=== PATIENT | male | born 1950 | race Caucasian/White ===

== ENCOUNTER → 2019-08-24 15:22 | Outpatient (BNVA) | payer MEDICARE, MEDICAID, SELFPAY | PROVIDERS: Family Provider Nurse Practitioner; PCP Nurse Practitioner; Visit Provider Nurse Practitioner | DX: E11.65 Type 2 diabetes mellitus with hyperglycemia (principal); F41.9 Anxiety disorder, unspecified; I10 Essential (primary) hypertension; K21.9 Gastro-esophageal reflux disease without esophagitis; E78.2 Mixed hyperlipidemia; G35 Multiple sclerosis; Z79.4 Long term (current) use of insulin | CPT/HCPCS: 80053; 80061; 83036; 83721 ==

== ENCOUNTER → 2019-10-25 15:45 | Outpatient (BNVA) | payer MEDICARE, MEDICAID, SELFPAY | PROVIDERS: Family Provider Nurse Practitioner; PCP Nurse Practitioner; Visit Provider Nurse Practitioner | DX: G35 Multiple sclerosis (principal); E11.65 Type 2 diabetes mellitus with hyperglycemia; Z79.4 Long term (current) use of insulin; S31.809A Unspecified open wound of unspecified buttock, initial encounter; E78.2 Mixed hyperlipidemia; X58.XXXA Exposure to other specified factors, initial encounter | CPT/HCPCS: 80053; 83036; 85025 ==

== ENCOUNTER → 2020-03-21 11:19 | Outpatient (BNVA) | payer MEDICARE, MEDICAID, SELFPAY | PROVIDERS: Family Provider Nurse Practitioner; PCP Nurse Practitioner; Visit Provider Nurse Practitioner Family | DX: S82.831A Other fracture of upper and lower end of right fibula, initial encounter for closed fracture (principal); X58.XXXA Exposure to other specified factors, initial encounter | CPT/HCPCS: 73610 ==

== ENCOUNTER 2020-03-21 13:04 | Inpatient (IN) | payer MEDICARE, MEDICAID, SELFPAY ==
[2020-03-21 13:08] VITALS: BMI 34.2
--- NOTE | 2020-03-21 13:34 | ED_ITS ---
HPI - Extremity Problem General: Chief complaint: Extremity Injury, Lower Stated complaint: R FOOT PAIN, SWOLLEN Time Seen by Provider: 03/21/20 13:16 History of Present Illness: HPI Narrative: 69-year-old male patient presents to the emergency department with displaced fracture of the right tib-fib. He went to his primary care provider's office due to right lower extremity pain. He reports a fall approximately 2 weeks ago. X-ray today revealed fracture. He was sent to the emergency department. Dr. Cazares plans to take patient to surgery. He is now n.p.o. Complaint: extremity pain (RLE) Pain Consistency: constant Location: right and lower extremity Quality: aching Relieving factors: movement Exacerbating factors: rest Associated symptoms: Reports no associated symptoms; Deny chest pain, fever(s) or rash Context: other (recent fall 2 weeks ago) Review of Systems General: Reports: 10 or more systems reviewed and unremarkable except in HPI and below Const: Denies: fever(s), chills or diaphoresis Eyes: Denies: blurry vision or eye redness ENMT: Denies: throat pain, dental pain or disequilibrium Card: Denies: chest pain, palpitations or irregular heart rhythm Resp: Denies: dyspnea, productive cough, non-productive cough or wheezing GI: Denies: abdominal pain, nausea or vomiting : Denies: dysuria Musc: Reports: extremity swelling (RLE); Denies: neck pain or back pain Skin/Breast: Denies: rash or pruritus Neuro: Denies: headache(s), weakness in extremities or behavioral changes Rohit/Lymph: Denies: easy bruising PFSH ED PFSH: Medical History Acid reflux Anxiety and depression CKD (chronic kidney disease), stage III Controlled diabetes mellitus with hyperglycemia, with long-term current use of insulin DDD (degenerative disc disease) Essential (primary) hypertension Mixed hyperlipidemia Multiple sclerosis Wheel chair as ambulatory aid Surgical History H/O splenectomy History of appendectomy History of back surgery Family History Other Cancer Diabetes Social History Smoking and tobacco status: former smoker Second hand smoke exposure: No Smoking risk assessment/counseling performed?: No Alcohol intake: current Desire information about alcohol rehabilitation?: No Counseling given: No Desire information about substance/drug rehabilitation?: No Counseling given: No Adopted: No Caregiver/support person: Yes Lives independently: No Household members: spouse Marital status: Current occupational status: disabled History of recent travel: No Current gender identity: Male Physical Exam Const: COMMON NORMALS: no acute distress, patient oriented x3, healthy appearing and alert GENERAL APPEARANCE: cooperative, comfortable and well hydrated HENMT: COMMON NORMALS: normocephalic, Normal external nose present and moist oral mucous membranes HEAD & SCALP: normocephalic NOSE: Normal external nose present Eye: COMMON NORMALS: Equal, round and reactive pupils present and EOMs intact bilaterally GENERAL EYE: appearance normal, both eyes and all related structures PUPIL: Yes Equal, round and reactive pupils present Neck/C-Spine: COMMON NORMALS: full ROM and no lymphadenopathy GENERAL: Yes normal visual inspection and Yes trachea midline CERVICAL SPINE: Yes cervical ROM normal Lymph: LYMPHATIC: no lymphadenopathy noted Chest: COMMONS NORMALS: normal inspection of the chest Resp: COMMON NORMALS: normal respiratory effort and clear to auscultation bilaterally AUSCULTATION: clear to auscultation bilaterally Cardio: COMMON NORMALS: regular rhythm, S1 normal heart sound present and S2 normal heart sound present RHYTHM: regular rhythm HEART SOUNDS: S1 normal heart sound present and S2 normal heart sound present PERIPHERAL PULSES: dorsalis pedis present positive right 1+ and positive left 1+ GI: COMMON NORMALS: Normal to inspection, nondistended, normoactive bowel sounds present, Soft to palpation and non-tender INSPECTION: Yes normal to inspection AUSCULTATION: Yes normoactive bowel sounds PALPATION: Yes Soft to palpation : COMMON NORMALS: Yes no CVA tenderness BLADDER/KIDNEY EXAM: Yes no CVA tenderness Back/Pelvis: COMMON NORMALS: no CVA tenderness and thoracic and lumbar spine normal to inspection Extremity: COMMON NORMALS: capillary refill normal GENERAL: Yes normal exam except as noted RIGHT LOWER EXTREMITY: Yes lower leg Right lower leg: Yes inspection (increased swelling), Yes palpation (tender to the distal tib/fib - ankle) and Yes neurovascular exam (distally intact - flexion/extension of the toes noted) Neuro: COMMON NORMALS: patient oriented x3 and no focal motor deficits SENSORIUM/ORIENTATION: Yes alert Psych: COMMON NORMALS: mental status grossly normal, Normal thought process present and cooperative ACTIVITY/MOTOR BEHAVIOR: Yes appropriate eye contact THOUGHT PROCESS: Normal thought process present Skin: COMMON NORMALS: no rashes or lesions noted and turgor normal GENERAL SKIN EXAM: no rashes or lesions noted and turgor normal Course ED course: 69-year-old male patient presents to the emergency department with unstable distal tib-fib fracture. Work-up revealed normal chest x-ray, slightly elevated white count 15,000, urine with hematuria, cath UA, 40-55 white blood cells on cath UA, culture pending, Rocephin 1 g administered here in the ED. Case discussed with Dr. Valdez as well as my conversation with Dr. Queen. Patient will be admitted to inpatient rvices per hospitalist. Consultations: Consultation #1: Dr Cazares -advised we will not be able to complete surgery today. Advised for me to call the on-call orthopedic physician. Time: 16:40 Consultation #2: Dr Nichole -advised patient has elevated white blood count, urinary tract infection, will need surgery. He will need admission as fracture is unstable. Request hospitalist admission due to elevated white blood count with infection. Reports infection to be treated first. She will be happy to consult. Discussed my conversation with Dr. Valdez -Dr. Queen request Covid testing, patient asymptomatic, PTC ordered. Time: 17:00 Vital Signs: Vital signs: Vital Signs Temperature 98.5 F 03/21/20 13:38 Pulse Rate 84 03/21/20 15:20 Respiratory Rate 18 03/21/20 15:20 Blood Pressure 161/89 03/21/20 15:20 Pulse Oximetry 98 03/21/20 15:20 MDM - Extremity (Nontraumatic) Lab Data: Labs: Lab Results 03/21/20 03/21/20 03/21/20 Range/Units 13:52 13:52 13:52 WBC 15.3 H (4.0-10.0) 10^3/ uL RBC 4.49 (4.1-5.3) 10^6/u L Hgb 12.5 (11.7-16.6) g/dL Hct 40.1 L (42.0-52.0) % MCV 89.3 (80-94) fL MCH 27.8 L (28.0-34.0) pg MCHC 31.2 (30.0-36.0) g/dL RDW 13.7 (12.1-15.1) % Plt Count 724 H (130-400) 10^3/c mm MPV 11.2 H (7.4-10.4) fL Neut % (Auto) 64.7 % Lymph % (Auto) 17.8 % [place] % (Auto) 8.5 % Eos % (Auto) 7.3 % Baso % (Auto) 1.2 % Neut # (Auto) 9.89 H (1.8-7.7) 10^3/u L Lymph # (Auto) 2.7 (0.8-4.8) 10^3/u L [place] # (Auto) 1.3 H (0.2-0.9) 10^3/u L Eos # (Auto) 1.1 H (0.0-0.8) 10^3/u L Baso # (Auto) 0.2 H (0.0-0.1) 10^3/u L Nucleated RBC % (a uto) 0 % Nucleated RBCs # 0.0 /100WBC PT 13.80 (12.1-14.9) SECO NDS INR 1.02 (0.8-1.2) APTT 29.8 (23.9-36.7) SECO NDS Sodium 132 L (136-145) mmol/L Potassium 3.5 (3.5-5.1) mmol/L Chloride 97 L (98-107) mmol/L Carbon Dioxide 24 (22-29) mmol/L Anion Gap 14.5 (5-19) BUN 20 (8-23) mg/dL Creatinine 2.1 H (0.7-1.2) mg/dL GFR Calculation 31.4 L (90-130) mL/min Glucose 247 H (65-115) mg/dL POC Glucose (70-110) mg/dL Calculated Osmolal ity 285 (285-295) mOsm/k g Calcium 8.6 (8.5-10.5) mg/dL Total Bilirubin 0.2 (0.15-1.2) mg/dL AST 11 (0-40) U/L ALT 8 (0-41) U/L Alkaline Phosphata se 208 H (40-130) IU/L Total Protein 6.4 L (6.6-8.7) g/dL Albumin 2.8 L (3.5-5.2) g/dL Globulin 3.6 (1.3-4.6) g/dL Urine Color (Yellow) Urine Appearance (CLEAR) Urine pH (5-7) Ur Specific Gravit y (1.005-1.030) Urine Protein (Negative) Urine Glucose (UA) (Normal) Urine Ketones (Negative) Urine Blood (Negative) Urine Nitrate (Negative) Urine Bilirubin (Negative) Urine Urobilinogen (Negative) mg/dL Ur Leukocyte Odalis ase (Negative) Urine RBC (0-2) /hpf Urine WBC (0-5) /hpf Ur Squamous Epith Cells (0-5) /hpf Amorphous Sediment /hpf Urine Bacteria (NONE) /hpf Urine Yeast /hpf 03/21/20 03/21/20 Range/Units 14:04 15:14 WBC (4.0-10.0) 10^3/ uL RBC (4.1-5.3) 10^6/u L Hgb (11.7-16.6) g/dL Hct (42.0-52.0) % MCV (80-94) fL MCH (28.0-34.0) pg MCHC (30.0-36.0) g/dL RDW (12.1-15.1) % Plt Count (130-400) 10^3/c mm MPV (7.4-10.4) fL Neut % (Auto) % Lymph % (Auto) % [place] % (Auto) % Eos % (Auto) % Baso % (Auto) % Neut # (Auto) (1.8-7.7) 10^3/u L Lymph # (Auto) (0.8-4.8) 10^3/u L [place] # (Auto) (0.2-0.9) 10^3/u L Eos # (Auto) (0.0-0.8) 10^3/u L Baso # (Auto) (0.0-0.1) 10^3/u L Nucleated RBC % (a uto) % Nucleated RBCs # /100WBC PT (12.1-14.9) SECO NDS INR (0.8-1.2) APTT (23.9-36.7) SECO NDS Sodium (136-145) mmol/L Potassium (3.5-5.1) mmol/L Chloride (98-107) mmol/L Carbon Dioxide (22-29) mmol/L Anion Gap (5-19) BUN (8-23) mg/dL Creatinine (0.7-1.2) mg/dL GFR Calculation (90-130) mL/min Glucose (65-115) mg/dL POC Glucose 223 (70-110) mg/dL Calculated Osmolal ity (285-295) mOsm/k g Calcium (8.5-10.5) mg/dL Total Bilirubin (0.15-1.2) mg/dL AST (0-40) U/L ALT (0-41) U/L Alkaline Phosphata se (40-130) IU/L Total Protein (6.6-8.7) g/dL Albumin (3.5-5.2) g/dL Globulin (1.3-4.6) g/dL Urine Color Yellow (Yellow) Urine Appearance Sl hazy (CLEAR) Urine pH 6 (5-7) Ur Specific Gravit y 1.015 (1.005-1.030) Urine Protein 3+ H (Negative) Urine Glucose (UA) 4+ H (Normal) Urine Ketones Negative (Negative) Urine Blood Trace H (Negative) Urine Nitrate Negative (Negative) Urine Bilirubin Neg (Negative) Urine Urobilinogen Norm (Negative) mg/dL Ur Leukocyte Odalis ase Negative (Negative) Urine RBC 5-10 H (0-2) /hpf Urine WBC 40-55 H (0-5) /hpf Ur Squamous Epith Cells 5-10 H (0-5) /hpf Amorphous Sediment 1+ /hpf Urine Bacteria 3+ H (NONE) /hpf Urine Yeast Trace /hpf Imaging Data^: Xray Ortho: Radiologist's impression: [facility] [address] [place] [address] XRay Report Signed Patient: London Quach #: [id number] : 1950Acct#:[id number] Age/Sex: 69 / MADM Date: 03/21/20 Loc: ALTRoom/Bed: Attending Dr: Sophia MACHUCAP-C Ordering Provider/Ordering MD: Sophia Navarrete Date of Service: 03/21/20 Procedure(s): XR ankle RT min 3V* [id number] Accession Number(s): [id number] Report Number: [id number] PROCEDURE INFORMATION: Exam: XR Right Ankle Exam date and time: 03/21/2020 11:38 AM Age: 69 years old Clinical indication: Pain; Ankle; Right; Additional info: Pain, injury TECHNIQUE: Imaging protocol: XR Right ankle. Views: 3 or more views. COMPARISON: MRI Foot w/wo RIGHT [id number] 10/30/2015 10:28 AM FINDINGS: Bones/joints: There is a comminuted oblique fracture through the distal tibia with the distal fragment displaced posteromedially by about 12 mm. There is also oblique fracture through the distal fibula which is also displaced medially. The ankle mortise remains intact. No talar fracture is seen. Soft tissues: There is prominent soft tissue swelling around the ankle joint. Prominent atherosclerotic calcifications are present. XR/XR ankle RT min 3V* [id number] IMPRESSION: Comminuted displaced fractures of the distal tibia and fibula. Dictated By:Gio Nguyễn Signed By:Jennifer Nguyễn Date/Time:03/21/20 1203 DD/ 1201 CXR: Radiologist's impression: [address] [address] XRay Report Signed Patient: London Quach Unit #: [id number] : 1950 10 Age/Sex: 69 / M ADM Date: 03/21/20 Loc: ER Room/Bed: Attending Dr: Ordering Provider/Ordering MD: Maggie Bauer Date of Service: 03/21/20 Procedure(s): XR chest 1V portable [id number] Accession Number(s): [id number] Report Number: [id number] PROCEDURE INFORMATION: Exam: XR Chest, 1 View Exam date and time: 03/21/2020 1:48 PM Age: 69 years old Clinical indication: Other: Syncope TECHNIQUE: Imaging protocol: XR of the chest Views: 1 view. COMPARISON: CR Chest 1 [place] [id number] 10/30/2015 2:35 PM FINDINGS: Lungs: Unremarkable. No consolidation. Pleural space: Unremarkable. No pleural effusion. No pneumothorax. Heart/Mediastinum: Unremarkable. No cardiomegaly. Bones/joints: Unremarkable. XR/XR chest 1V portable [id number] IMPRESSION: No acute findings. Dictated By: Gio Nguyễn Signed By: Gio Nguyễn Signed Date/Time: 03/21/20 1406 Discharge Plan Discharge Prescriptions: No Action mupirocin 2 % ointment 1 applic TOPICAL BID Qty: 22 RF: 0 hydralazine 25 mg tablet 25 mg PO BID Qty: 60 RF: 2 gabapentin 600 mg tablet 600 mg PO TID Qty: 90 RF: 2 furosemide 40 mg tablet 40 mg PO DAILY Qty: 30 RF: 2 folic acid 1 mg tablet 1 mg PO DAILY Qty: 30 RF: 2 fenofibrate nanocrystallized 145 mg tablet 145 mg PO DAILY Qty: 30 RF: 2 famotidine 20 mg tablet 20 mg PO BID Qty: 60 RF: 2 ergocalciferol (vitamin D2) 1,250 mcg (50,000 unit) capsule 1,250 mcg PO .Weekly Qty: 4 RF: 2 Trulicity 1.5 mg/0.5 mL pen injector 1.5 mg SUBCUT .weekly Qty: 2 RF: 2 carbamazepine [Tegretol XR] 200 mg tablet extended release 12 hr 200 mg PO BID Qty: 60 RF: 2 atorvastatin [Lipitor] 20 mg tablet 20 mg PO DAILY Qty: 30 RF: 2 buspirone 15 mg tablet 15 mg PO TID Qty: 90 RF: 2 lisinopril 20 mg tablet 20 mg PO BID Qty: 60 RF: 2 metoprolol succinate [Toprol XL] 50 mg tablet extended release 24 hr 50 mg PO DAILY Qty: 30 RF: 2 (DME) pen needle, diabetic [BD Ultra-Fine Nadia Pen Needle] 32 gauge x 5/32 needle See Rx Instructions .ROUTE .MEDSUPPLY Qty: 100 RF: 5 potassium chloride 10 mEq tablet extended release 10 meq PO DAILY Qty: 30 RF: 2 venlafaxine [Effexor XR] 75 mg capsule,extended release 24hr 225 mg PO DAILY Qty: 90 RF: 2 Tresiba FlexTouch U-200 200 unit/mL (3 mL) insulin pen 80 unit SUBCUT DAILY Qty: 9 RF: 2 MediHoney (honey) 100 % paste 1 applic TOPICAL BID Qty: 528 RF: 0 aspirin [Aspir-Low] 81 mg tablet,delayed release (DR/EC) 81 mg PO DAILY RF: 0 sennosides-docusate sodium [Senokot-S] 8.6-50 mg tablet 1 tab-cap PO DAILY RF: 0 solifenacin [Vesicare] 10 mg tablet 10 mg PO DAILY RF: 0 insulin aspart U-100 [Novolog Flexpen U-100 Insulin] 100 unit/mL (3 mL) insulin pen 12 - 24 unit SUBCUT TID Qty: 15 RF: 2 Coding Level of Care Code ED Outside Repairer Special for Keila Fwd Exam Comprehensive
--- NOTE | 2020-03-21 13:36 | XRR_ITS ---
PROCEDURE INFORMATION: Exam: XR Chest, 1 View Exam date and time: 03/21/2020 1:48 PM Age: 69 years old Clinical indication: Other: Syncope TECHNIQUE: Imaging protocol: XR of the chest Views: 1 view. COMPARISON: CR Chest 1 [place] [id number] 10/30/2015 2:35 PM FINDINGS: Lungs: Unremarkable. No consolidation. Pleural space: Unremarkable. No pleural effusion. No pneumothorax. Heart/Mediastinum: Unremarkable. No cardiomegaly. Bones/joints: Unremarkable. XR/XR chest 1V portable [id number] IMPRESSION: No acute findings.
--- NOTE | 2020-03-21 13:36 | ECG_ITS ---
[facility] Test Date: 2020-03-21 Pat Name: London Quach Department: Room: Gender: Male [employer] Buster: : 1950 Requested By: Maggie Sheth Order Number: [id number] Andrew MD: Saida Alegre M.D. Measurements Intervals [place] Rate: 81 P: -11 DC: 197 QRS: 40 QRSD: 83 T: 29 QT: 365 QTc: 424 Interpretive Statements SINUS RHYTHM WITH OCCASIONAL VENTRICULAR PREMATURE COMPLEXES Compared to ECG 01/07/2018 17:16:25 Ventricular premature complex(es) now present Electronically Signed On 03-21-2020 21:48:13 CDT by Saida Alegre M.D. [email or web address]
[2020-03-21 13:38] VITALS: BP 169/93; PULSE 67; RESP 18; TEMP 36.9; O2SAT 98
[2020-03-21 14:20] LABS: Alanine Aminotransferase 8 U/L (0-41); Albumin Level 2.8 g/dL (3.5-5.2); Alkaline Phosphatase 208 IU/L (40-130); Anion Gap 14.5 (5-19); Aspartate Amino Transferase 11 U/L (0-40); Blood Urea Nitrogen 20 mg/dL (8-23); Calcium 8.6 mg/dL (8.5-10.5); Carbon Dioxide 24 mmol/L (22-29); Chloride 97 mmol/L (98-107); Globulin 3.6 g/dL (1.3-4.6); Glomerular Filtration Rate 31.4 mL/min (90-130); Glucose 247 mg/dL (65-115); Osmolality Calculated 285 mOsm/kg (285-295); Potassium 3.5 mmol/L (3.5-5.1); Sodium 132 mmol/L (136-145); Total Bilirubin 0.2 mg/dL (0.15-1.2); Total Protein 6.4 g/dL (6.6-8.7)
[2020-03-21 14:25] LABS: INR 1.02 (0.8-1.2)
[2020-03-21 14:26] LABS: Partial Thromboplastin Time 29.8 SECONDS (23.9-36.7)
[2020-03-21 14:58] LABS: Add Urine Microscopic? YES; Bilirubin Urine Neg (Negative); Blood Urine Trace (Negative); Glucose Urine UA 4+ (Normal); Ketones Urine Negative (Negative); Leukocyte Esterase Urine Negative (Negative); Nitrate Urine Negative (Negative); Protein Urine 3+ (Negative); Specific Gravity, Urine 1.015 (1.005-1.030); Urine Appearance SL Hazy (CLEAR); Urine Color Yellow (Yellow); Urobilinogen Urine Norm (Negative); pH Urine 6 (5-7)
[2020-03-21 15:00] LABS: Amorphous Sediment Urine 1+ /hpf; Bacteria Urine 3+ /hpf; WBC Urine 40-55 /hpf (0-5)
[2020-03-21 15:01] LABS: Add Urine Culture? Yes
[2020-03-21 15:02] LABS: Basophils # 0.2 10^3/uL (0.0-0.1); Basophils % 1.2 %; Eosinophils # 1.1 10^3/uL (0.0-0.8); Eosinophils % 7.3 %; Hematocrit 40.1 % (42.0-52.0); Hemoglobin 12.5 g/dL (11.7-16.6); Lymphocytes # 2.7 10^3/uL (0.8-4.8); Lymphocytes % 17.8 %; Mean Corpuscular HGB Conc 31.2 g/dL (30.0-36.0); Mean Corpuscular Hemoglobin 27.8 pg (28.0-34.0); Mean Corpuscular Volume 89.3 fL (80-94); Mean Platelet Volume 11.2 fL (7.4-10.4); Monocytes # 1.3 10^3/uL (0.2-0.9); Monocytes % 8.5 %; Neutrophils # 9.89 10^3/uL (1.8-7.7); Neutrophils % 64.7 %; Nucleated Red Blood Cells % 0 %; Platelet Count 724 10^3/cmm (130-400); Red Blood Count 4.49 10^6/uL (4.1-5.3); Red Cell Distribution Width 13.7 % (12.1-15.1); White Blood Count 15.3 10^3/uL (4.0-10.0)
[2020-03-21 15:17] VITALS: RESP 20; O2SAT 97
[2020-03-21] MEDS: lactated ringers 1,000 ML 30 ML IV (15:17)
[2020-03-21] MEDS: morphine 4 mg/mL SDV 1 mL 2 MG IVP (15:17)
[2020-03-21 15:20] VITALS: BP 161/89; PULSE 84; RESP 18; O2SAT 98
[2020-03-21 15:20] LABS: Glucose Point of Care 223 mg/dL (70-110)
[2020-03-21] MEDS: cefTRIAXone 1,000 MG in sodium chloride 0.9% (plus) 50 ML 100 MG IV (17:07)
--- NOTE | 2020-03-21 17:55 | P.HP_ITS ---
Providers/Chief Complaint Primary Care Provider: LADI Silverio-C Chief Complaint: R FOOT PAIN, SWOLLEN History of Present Illness London Quach is a 69 year old male was referred to emergency department from primary care physician's office because of unstable right tib-fib fracture which patient developed approximately 2 weeks ago when he was trying to transfer himself from wheelchair to his car. Apparently he ended up having significant pressure on his right leg and developed fracture. This was purely mechanical process. Patient denied any complaints at that time or during my evaluation. Patient has MS and wheelchair bound. 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 Patient denies any burning on urination otherwise. His UA was concerning for underlying UTI but cannot be identified for sure because of self- catheterization's. Patient has diabetes for many years but denies any previous history of heart disease or stroke. Denies any chest pain or shortness of breath. Denies paroxysmal chewing dyspnea, orthopnea or lower extremity swelling. He does however report taking daily Lasix as his lower extremities get swollen without it likely due to paralysis and gravity. Patient clinically appears to be slightly dehydrated. Dr. Nichole was consulted by Dr. Valdez and plan to perform surgery tomorrow or next day. Review of Systems Narrative: Patient denies any trouble swallowing. Reports some chronic buttock sores but otherwise no open lesions. Const: Denies: fever(s) or chills Eyes: Denies: change in vision ENMT: Denies: throat pain or change in hearing Card: Denies: chest pain, edema or lightheadedness Resp: Denies: dyspnea or productive cough GI: Denies: abdominal pain, nausea, vomiting, dysphagia, diarrhea, constipation, hematochezia or melena : Reports: difficulty urinating (daily self catherizations); Denies: dysuria Musc: Denies: joint pain or joint swelling Skin/Breast: Denies: rash or erythema Neuro: Denies: headache(s) or weakness in extremities Psych: Denies: depression or suicidal ideation Endo: Denies: excessive sweating Rohit/Lymph: Denies: easy bleeding or tender lymph nodes All/Imm: Denies: throat swelling Medications/Allergies Home Medications Medication Instructions Recorded Confirmed Last Taken Type aspirin 81 mg tablet,delayed 81 mg PO DAILY 07/19/19 03/21/20 Unknown History release sennosides 8.6 mg-docusate sodium 1 tab-cap PO DAILY 07/25/19 03/21/20 Unknown History 50 mg tablet solifenacin 10 mg tablet 10 mg PO DAILY 07/25/19 03/21/20 Unknown History mupirocin 2 % topical ointment 1 applic TOPICAL BID #22 gm 10/25/19 03/21/20 Unknown Rx atorvastatin 20 mg tablet 20 mg PO DAILY #30 tab 02/17/20 03/21/20 Unknown Rx buspirone 15 mg tablet 15 mg PO TID #90 tab 02/17/20 03/21/20 Unknown Rx carbamazepine 200 mg 200 mg PO BID #60 tab 02/17/20 03/21/20 Unknown Rx tablet,extended release,12 hr dulaglutide 1.5 mg/0.5 mL 1.5 mg SUBCUT .weekly #2 ml 02/17/20 03/21/20 Unknown Rx subcutaneous pen injector ergocalciferol (vitamin D2) 1,250 1,250 mcg PO .Weekly #4 cap 02/17/20 03/21/20 Unknown Rx mcg (50,000 unit) capsule famotidine 20 mg tablet 20 mg PO BID #60 tab 02/17/20 03/21/20 Unknown Rx fenofibrate nanocrystallized 145 145 mg PO DAILY #30 tab 02/17/20 03/21/20 Unknown Rx mg tablet folic acid 1 mg tablet 1 mg PO DAILY #30 tab 02/17/20 03/21/20 Unknown Rx furosemide 40 mg tablet 40 mg PO DAILY #30 tab 02/17/20 03/21/20 Unknown Rx gabapentin 600 mg tablet 600 mg PO TID #90 tab 02/17/20 03/21/20 Unknown Rx honey 100 % topical paste 1 applic TOPICAL BID #528 ml 02/17/20 03/21/20 Unknown Rx hydralazine 25 mg tablet 25 mg PO BID #60 tab 02/17/20 03/21/20 Unknown Rx insulin degludec 200 unit/mL (3 80 unit SUBCUT DAILY #9 ml 02/17/20 03/21/20 Unknown Rx mL) subcutaneous pen lisinopril 20 mg tablet 20 mg PO BID #60 tab 02/17/20 03/21/20 Unknown Rx metoprolol succinate 50 mg 50 mg PO DAILY #30 tab 02/17/20 03/21/20 Unknown Rx tablet,extended release 24 hr pen needle, diabetic 32 gauge x #100 each 02/17/20 03/21/20 Unknown Rx potassium chloride 10 mEq 10 meq PO DAILY #30 tab 02/17/20 03/21/20 Unknown Rx tablet,extended release venlafaxine 75 mg capsule,extended 225 mg PO DAILY #90 cap 02/17/20 03/21/20 Unknown Rx release 24 hr insulin aspart U-100 100 unit/mL 12 - 24 unit SUBCUT TID #15 ml 03/17/20 03/21/20 Unknown Rx (3 mL) subcutaneous pen Allergies Allergy/AdvReac Type Severity Reaction Status Date / Time baclofen Allergy ADR-Dizzine Verified 03/21/20 13:13 ss PFSH Acute PFSH: Medical History Acid reflux Anxiety and depression CKD (chronic kidney disease), stage III Controlled diabetes mellitus with hyperglycemia, with long-term current use of insulin DDD (degenerative disc disease) Essential (primary) hypertension Mixed hyperlipidemia Multiple sclerosis Wheel chair as ambulatory aid Surgical History H/O splenectomy History of appendectomy History of back surgery Family History (Updated 03/21/20 @ 18:11 by Chidi Louis MD) Mother CAD (coronary artery disease) Diabetes Father CAD (coronary artery disease) Diabetes Other Cancer Social History Smoking and tobacco status: former smoker Second hand smoke exposure: No Smoking risk assessment/counseling performed?: No Alcohol intake: current Desire information about alcohol rehabilitation?: No Counseling given: No Desire information about substance/drug rehabilitation?: No Counseling given: No Adopted: No Caregiver/support person: Yes Lives independently: No Household members: spouse Marital status: Current occupational status: disabled History of recent travel: No Current gender identity: Male Vitals/I&O/Wt Last Vital Signs Temp 98.5 F 03/21/20 13:38 Pulse 84 03/21/20 15:20 Resp 18 03/21/20 15:20 BP 161/89 03/21/20 15:20 Pulse Ox 98 03/21/20 15:20 Weight last 48 hrs Weight 102.058 kg Physical Exam Const: COMMON NORMALS: no acute distress, patient oriented x3 and alert HENMT: COMMON NORMALS: normocephalic and atraumatic HEAD & SCALP: normocephalic and atraumatic Eye: COMMON NORMALS: EOMs intact bilaterally, conjunctivae normal and no scleral icterus CONJUNCTIVA: Yes conjunctivae normal Neck/C-Spine: COMMON NORMALS: no lymphadenopathy and no meningeal signs Lymph: LYMPHATIC: no lymphadenopathy noted Chest: COMMONS NORMALS: normal palpation of entire chest wall Resp: COMMON NORMALS: No use of accessory muscles and clear to auscultation bi laterally AUSCULTATION: clear to auscultation bilaterally Cardio: COMMON NORMALS: regular rate, regular rhythm and No murmurs present (Cardio) RATE: regular rate RHYTHM: regular rhythm OTHER: NO pitting edema. Right lower extremity swollen post fracture. GI: COMMON NORMALS: Soft to palpation and non-tender PALPATION: Yes Soft to palpation RECTAL EXAM: Yes deferred : COMMON NORMALS: Yes no CVA tenderness BLADDER/KIDNEY EXAM: Yes no CVA tenderness Back/Pelvis: COMMON NORMALS: no CVA tenderness and thoracic and lumbar spine normal to inspection Extremity: COMMON NORMALS: normal to inspection and capillary refill normal Neuro: COMMON NORMALS: patient oriented x3; negative for moves all extremities (lower extremety paraplegic.) SENSORIUM/ORIENTATION: Yes alert MENINGEAL SIGNS: Yes no meningeal signs Psych: COMMON NORMALS: mental status grossly normal, Normal thought process present and cooperative THOUGHT PROCESS: Normal thought process present Skin: COMMON NORMALS: no rashes or lesions noted (Was unable to evaluate right lower extremity which is dressed and buttock.) Urinary Catheter Management^: Thrasher: Cath Placed During This Visit: yes Reason for Continuing Indwelling Catheter: Other Urinary Catheter Date of Insertion: 03/21/20 Urinary Catheter Time of Insertion: 14:00 Data : 03/21/20 13:52 03/21/20 13:52 A&P Assessment and plan (1) Tibia/fibula fracture, shaft: Status: Acute (2) Multiple sclerosis: Status: Chronic (3) Urinary bladder neurogenic dysfunction: Status: Acute (4) Thrombocytosis 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: Status: Acute (5) CKD (chronic kidney disease), stage III: Status: Acute (6) Dehydration with hyponatremia: Status: Acute (7) Diabetes mellitus: Uncontrolled. Status: Acute (8) Possible urinary tract infection: Status: Acute Additional A&P Information PLAN: Given some dehydration and leukocytosis I will continue with ceftriaxone for possible UTI. Awaiting culture result Awaiting Dr. Nichole's evaluation and surgical intervention. Patient has elevated risk for adverse perioperative cardiac outcome considering his underlying medical problems including diabetes but since he denies any symptoms including chest pain or shortness of breath no further cardiac evaluation is necessary. I have discussed this with patient and he agrees to proceed with surgery. Restart patient's home medications but hold hydralazine and Lasix for now. Continue with gentle IV hydration with LR at 50 mL for now. Monitor ins and outs. Lovenox for DVT prophylaxis Protonix for GI prophylaxis Attestations Medical Necessity Statement*: Patient with unstable tib-fib fracture requires close inpatient monitoring and treatment including surgical intervention. I expect patient will require more than 2 midnights. Time Spent in Patient Care: Greater than 35 minutes Coding Level of Care Code Acute [employer] for [facility] Fwd Diagnoses Tibia/fibula fracture, shaft S82.209A; S82.409A Multiple sclerosis G35 Urinary bladder neurogenic dysfunction N31.9 Thrombocytosis 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 D47.3; Z90.81 CKD (chronic kidney disease), stage III N18.3 Dehydration with hyponatremia E86.0; E87.1 Diabetes mellitus E11.9 Possible urinary tract infection R39.89
[2020-03-21 18:45] VITALS: BP 143/78; PULSE 77; RESP 16; O2SAT 96
--- NOTE | 2020-03-21 19:13 | PC.NURSE ---
REPORT RECEIVED FROM [facility]SU[facility] WEEMS AND CARE TRANSFERRED TO [facility] MANCIA
[2020-03-21 20:11] VITALS: BP 196/107; PULSE 95; RESP 18; TEMP 37.3; O2SAT 96
[2020-03-21] MEDS: lactated ringers 1,000 ML 50 ML IV (20:15)
--- NOTE | 2020-03-21 20:38 | PC.NURSE ---
REPORTED BP TO NURSE!
[2020-03-21] MEDS: gabapentin 300 mg Capsule 600 MG PO (21:29)
[2020-03-21] MEDS: enoxaparin 30 mg/0.3 mL Syringe SUBCUT (21:32)
[2020-03-21 23:26] VITALS: BP 186/99; PULSE 98; RESP 18; TEMP 37.2; O2SAT 95
[2020-03-22] VITALS (11 sets, daily range): BP systolic 128–183; BP diastolic 65–84; PULSE 62–99; RESP 16–20; TEMP 37.1–37.5; O2SAT 92–96
[2020-03-22] MEDS: oxyCODONE-APAP 5-325 mg Tablet 1 TAB PO ×4 (00:31→17:27)
[2020-03-22] MEDS: hyDRALAzine 20 mg/mL INJ 1 mL 10 MG IVP (02:13)
[2020-03-22 03:17] LABS: Basophils # 0.2 10^3/uL (0.0-0.1); Basophils % 1.1 %; Eosinophils # 1.1 10^3/uL (0.0-0.8); Eosinophils % 8.3 %; Hematocrit 37.6 % (42.0-52.0); Hemoglobin 11.8 g/dL (11.7-16.6); Lymphocytes # 3.1 10^3/uL (0.8-4.8); Lymphocytes % 22.6 %; Mean Corpuscular HGB Conc 31.4 g/dL (30.0-36.0); Mean Corpuscular Hemoglobin 27.5 pg (28.0-34.0); Mean Corpuscular Volume 87.6 fL (80-94); Mean Platelet Volume 11.2 fL (7.4-10.4); Monocytes # 1.1 10^3/uL (0.2-0.9); Monocytes % 8.3 %; Neutrophils # 8.21 10^3/uL (1.8-7.7); Neutrophils % 59.3 %; Nucleated Red Blood Cells % 0 %; Platelet Count 697 10^3/cmm (130-400); Red Blood Count 4.29 10^6/uL (4.1-5.3); Red Cell Distribution Width 13.9 % (12.1-15.1); White Blood Count 13.8 10^3/uL (4.0-10.0)
[2020-03-22] MEDS: ondansetron 2 mg/ML SDV 2 mL 4 MG IVP ×2 (03:31→17:31)
[2020-03-22 03:45] LABS: Alanine Aminotransferase 6 U/L (0-41); Albumin Level 2.4 g/dL (3.5-5.2); Alkaline Phosphatase 157 IU/L (40-130); Anion Gap 14.4 (5-19); Aspartate Amino Transferase 11 U/L (0-40); Blood Urea Nitrogen 19 mg/dL (8-23); Calcium 8.5 mg/dL (8.5-10.5); Carbon Dioxide 23 mmol/L (22-29); Chloride 100 mmol/L (98-107); Globulin 3.2 g/dL (1.3-4.6); Glomerular Filtration Rate 35.2 mL/min (90-130); Glucose 223 mg/dL (65-115); Magnesium 1.8 mg/dL (1.7-2.3); NT Pro B Type Natriuretic Pept 773 pg/mL (0-125); Osmolality Calculated 287 mOsm/kg (285-295); Potassium 3.4 mmol/L (3.5-5.1); Sodium 134 mmol/L (136-145); Total Bilirubin 0.2 mg/dL (0.15-1.2); Total Protein 5.6 g/dL (6.6-8.7)
[2020-03-22] MEDS: morphine 4 mg/mL SDV 1 mL 2 MG IVP (04:24)
[2020-03-22] MEDS: venlafaxine ER (24HR) 75 mg Capsule 225 MG PO (08:55)
[2020-03-22] MEDS: sennosides-docusate Tablet 1 TAB PO ×2 (08:56→17:27)
[2020-03-22] MEDS: aspirin 81 mg EC Tablet PO (08:56)
[2020-03-22] MEDS: gabapentin 300 mg Capsule 600 MG PO ×3 (08:56→20:46)
[2020-03-22] MEDS: fenofibrate 145 mg Tablet PO (08:56)
[2020-03-22] MEDS: lisinopril 20 mg Tablet PO ×2 (08:56→17:27)
[2020-03-22] MEDS: metoprolol succinate ER (24 HR) 50 mg Tablet PO (08:56)
[2020-03-22] MEDS: folic acid 1 mg Tablet PO (08:56)
[2020-03-22] MEDS: pantoprazole DR 40 mg Tablet PO (08:56)
[2020-03-22] MEDS: mupirocin oint 22 gm 1 APPLIC TOPICAL ×2 (08:56→17:27)
[2020-03-22] MEDS: potassium chloride ER 10 mEq Tablet PO (08:56)
[2020-03-22] MEDS: atorvastatin 40 mg Tablet 20 MG PO (08:57)
--- NOTE | 2020-03-22 10:50 | ANES.PREANE2 ---
Pre-Anesthetic Assessment Pre-Anesthetic Assessment: Height/Weight: Height 1.73 m Weight 102.058 kg Temp Pulse Resp BP Pulse Ox 98.9 F 89 18 129/66 95 03/22/20 08:00 03/22/20 08:00 03/22/20 08:57 03/22/20 08:00 03/22/20 08:57 Preop Diagnosis: tibia/fibular fractures Proposed Procedure: Operation Date: 03/22/20 16:00 Proposed Procedures p ORIF Tibia/Fibula - with possible external fixation(Right) - Petra Nichole MD Familial anesthetic complications: Anaphylaxis to thiopental Was Beta Kimberli taken within 24 hours: Yes Last intake: Intake Last Liquid Date 03/21/20 Last Liquid Time 23:59 Last Solid Date 03/21/20 Last Solid Time 18:00 Social: Social History: No alcohol and No tobacco Comment: former smoker Exam: Pre-Anes Outpt Exam: alert, oriented x 3, clear to auscultation bilaterally and regular rate & rhythm Airway: MP: 4 Dentition: Other (no teeth) CV/HEM: Comments: thrombocytosis (splenectomy_ : : Chronic renal failure Comments: neurogenic bladder GI: GI: GERD Musc/skel: Comments: Mild hypokalemia on morning labs - patient received potassium chloride 10 meq/l by mouth this morning at 0900 Neuropsych: Neuropsych: Anxiety and Depression Comments: multiple sclerosis in wheelchair for 14 years, patient informed anesthesia can lead to exacerbation/relapse of multiple sclerosis Anesthetic Plan: ASA status: 3 Anesthesia: General and Regional (specify below) Risk of > 500 ml blood loss (7ml/kg in children): No Meds/Allergies Current Medications: Current Medications Generic Name Dose Route Start Last Admin Trade Name Melvinq PRN Reason Stop Dose Admin Aspirin 81 mg 03/22/20 09:00 03/22/20 08:56 Aspirin Ec PO 81 mg DAILY SHIREEN Administration Atorvastatin Calci um 20 mg 03/22/20 09:00 03/22/20 08:57 Lipitor PO 20 mg DAILY SHIREEN Administration Buspirone HCl 15 mg 03/21/20 21:00 03/22/20 08:56 Buspar PO 15 mg TID SHIREEN Administration Enoxaparin Sodium 30 mg 03/21/20 20:11 03/21/20 21:32 Lovenox SUBCUT 30 mg Q24H HSIREEN Administration Fenofibrate 145 mg 03/22/20 09:00 03/22/20 08:56 Tricor PO 145 mg DAILY SHIREEN Administration Folic Acid 1 mg 03/22/20 09:00 03/22/20 08:56 Folic Acid PO 1 mg DAILY SHIREEN Administration Gabapentin 600 mg 03/21/20 21:00 03/22/20 08:56 Neurontin PO 600 mg TID SHIREEN Administration Lactated Ringer's 1,000 mls @ 50 ml s/hr 03/21/20 20:11 03/21/20 20:15 Lactated Ringers IV 50 mls/hr .Q20H SHIREEN Administration Lisinopril 20 mg 03/22/20 09:00 03/22/20 08:56 Prinivil PO 20 mg BID SHIREEN Administration Metoprolol Succina te 50 mg 03/22/20 09:00 03/22/20 08:56 Toprol Xl PO 50 mg DAILY SHIREEN Administration Morphine Sulfate 2 mg 03/21/20 20:11 03/22/20 04:24 Morphine IVP 2 mg Q4H PRN Administration SEVERE PAIN Mupirocin 1 applic 03/22/20 09:00 03/22/20 08:56 Bactroban TOPICAL 1 applic BID SHIREEN Administration Ondansetron HCl 4 mg 03/21/20 20:11 03/22/20 03:31 Zofran IVP 4 mg Q8H PRN Administration vomiting, or N/V if npo Oxycodone/Acetamin ophen 1 tab 03/21/20 20:11 03/22/20 08:57 Percocet 5-325 M g PO 1 tab Q4H PRN Administration SEVERE PAIN Pantoprazole Sodiu m 40 mg 03/22/20 09:00 03/22/20 08:56 Protonix PO 40 mg DAILY SHIREEN Administration Potassium Chloride 10 meq 03/22/20 09:00 03/22/20 08:56 Klor-Con 10 PO 10 meq DAILY SHIREEN Administration Senna/Docusate Sod ium 1 tab 03/22/20 09:00 03/22/20 08:56 Senna-S PO 1 tab BID SHIREEN Administration Venlafaxine HCl 225 mg 03/22/20 09:00 03/22/20 08:55 Effexor Xr PO 225 mg DAILY SHIREEN Administration PFSH Anesthesia PFSH: Medical History Acid reflux Anxiety and depression CKD (chronic kidney disease), stage III Controlled diabetes mellitus with hyperglycemia, with long-term current use of insulin DDD (degenerative disc disease) Essential (primary) hypertension Mixed hyperlipidemia Multiple sclerosis Wheel chair as ambulatory aid Surgical History H/O splenectomy History of appendectomy History of back surgery Family History (Updated 03/21/20 @ 18:11 by Chidi Louis MD) Mother CAD (coronary artery disease) Diabetes Father CAD (coronary artery disease) Diabetes Other Cancer Social History Smoking and tobacco status: former smoker Second hand smoke exposure: No Smoking risk assessment/counseling performed?: No Alcohol intake: current Desire information about alcohol rehabilitation?: No Counseling given: No Desire information about substance/drug rehabilitation?: No Counseling given: No Adopted: No Caregiver/support person: Yes Lives independently: No Household members: spouse Marital status: Current occupational status: disabled History of recent travel: No Current gender identity: Male Data Anesthesia CBC & Chem 7: 03/22/20 02:10 03/22/20 02:10 Other Labs: Laboratory Results - last 48 hr 03/21/20 03/21/20 03/21/20 13:52 13:52 13:52 WBC 15.3 H RBC 4.49 Hgb 12.5 Hct 40.1 L MCV 89.3 MCH 27.8 L MCHC 31.2 RDW 13.7 Plt Count 724 H MPV 11.2 H Neut % (Auto) 64.7 Lymph % (Auto) 17.8 [place] % (Auto) 8.5 Eos % (Auto) 7.3 Baso % (Auto) 1.2 Neut # (Auto) 9.89 H Lymph # (Auto) 2.7 [place] # (Auto) 1.3 H Eos # (Auto) 1.1 H Baso # (Auto) 0.2 H Nucleated RBC % (auto) 0 Nucleated RBCs # 0.0 PT 13.80 INR 1.02 APTT 29.8 Sodium 132 L Potassium 3.5 Chloride 97 L Carbon Dioxide 24 Anion Gap 14.5 BUN 20 Creatinine 2.1 H GFR Calculation 31.4 L Glucose 247 H POC Glucose Calculated Osmolality 285 Lactate Calcium 8.6 Magnesium Total Bilirubin 0.2 AST 11 ALT 8 Alkaline Phosphatase 208 H NT-Pro-B Natriuret Pep Total Protein 6.4 L Albumin 2.8 L Globulin 3.6 Urine Color Urine Appearance Urine pH Ur Specific [place] Urine Protein Urine Glucose (UA) Urine Ketones Urine Blood Urine Nitrate Urine Bilirubin Urine Urobilinogen Ur Leukocyte Esterase Urine RBC Urine WBC Ur Squamous Epith Cells Amorphous Sediment Urine Bacteria Urine Yeast 03/21/20 03/21/20 03/21/20 14:04 15:14 17:50 WBC RBC Hgb Hct MCV MCH MCHC RDW Plt Count MPV Neut % (Auto) Lymph % (Auto) [place] % (Auto) Eos % (Auto) Baso % (Auto) Neut # (Auto) Lymph # (Auto) [place] # (Auto) Eos # (Auto) Baso # (Auto) Nucleated RBC % (auto) Nucleated RBCs # PT INR APTT Sodium Potassium Chloride Carbon Dioxide Anion Gap BUN Creatinine GFR Calculation Glucose POC Glucose 223 Calculated Osmolality Lactate 1.0 Calcium Magnesium Total Bilirubin AST ALT Alkaline Phosphatase NT-Pro-B Natriuret Pep Total Protein Albumin Globulin Urine Color Yellow Urine Appearance Sl hazy Urine pH 6 Ur Specific [place] 1.015 Urine Protein 3+ H Urine Glucose (UA) 4+ H Urine Ketones Negative Urine Blood Trace H Urine Nitrate Negative Urine Bilirubin Neg Urine Urobilinogen Norm Ur Leukocyte Esterase Negative Urine RBC 5-10 H Urine WBC 40-55 H Ur Squamous Epith Cells 5-10 H Amorphous Sediment 1+ Urine Bacteria 3+ H Urine Yeast Trace 03/22/20 03/22/20 03/22/20 02:10 02:10 02:10 WBC 13.8 H RBC 4.29 Hgb 11.8 Hct 37.6 L MCV 87.6 MCH 27.5 L MCHC 31.4 RDW 13.9 Plt Count 697 H MPV 11.2 H Neut % (Auto) 59.3 Lymph % (Auto) 22.6 [place] % (Auto) 8.3 Eos % (Auto) 8.3 Baso % (Auto) 1.1 Neut # (Auto) 8.21 H Lymph # (Auto) 3.1 [place] # (Auto) 1.1 H Eos # (Auto) 1.1 H Baso # (Auto) 0.2 H Nucleated RBC % (auto) 0 Nucleated RBCs # 0.0 PT INR APTT Sodium 134 L Potassium 3.4 L Chloride 100 Carbon Dioxide 23 Anion Gap 14.4 BUN 19 Creatinine 1.9 H GFR Calculation 35.2 L Glucose 223 H POC Glucose Calculated Osmolality 287 Lactate Calcium 8.5 Magnesium 1.8 Total Bilirubin 0.2 AST 11 ALT 6 Alkaline Phosphatase 157 H NT-Pro-B Natriuret Pep 773 H Total Protein 5.6 L Albumin 2.4 L Globulin 3.2 Urine Color Urine Appearance Urine pH Ur Specific [place] Urine Protein Urine Glucose (UA) Urine Ketones Urine Blood Urine Nitrate Urine Bilirubin Urine Urobilinogen Ur Leukocyte Esterase Urine RBC Urine WBC Ur Squamous Epith Cells Amorphous Sediment Urine Bacteria Urine Yeast Cardiac Studies: No Data to Display
[2020-03-22] MEDS: carBAMazepine XR (12 HR) 200 mg Tablet PO ×2 (12:30→17:27)
--- NOTE | 2020-03-22 13:28 | PM.CONSULT ---
Providers/Reason For Consult Consulting Physican/Specialty*: Dr. Petra Nichole?orthopedics Reason for Consult*: Displaced right distal tibia metaphyseal fracture with associated distal fibular oblique fracture Attending Physician: Chidi Louis MD Primary Care Provider: LADI Silverio-Asif History of Present Illness History of Present Illness London Quach is a 69 year old male who presented to the emergency department yesterday after being referred from the primary care's office. He was found to have an unstable distal right tibia fracture with associated distal fibula fracture. Upon further questioning the patient noted that he actually fractured this approximately 2 weeks prior to the day of admission. He was transferring himself from the wheelchair to his vehicle. He had significant pressure onto this right leg and suffered the above fracture. The patient has MS and is primarily wheelchair-bound aside from transfers. He denied any other injury at the time of his fall. He presented after the 2-week period for evaluation by the primary care. He was transferred to be admitted through the emergency room and I was consulted for definitive fracture treatment. Review of Systems General: Reports: 10 or more systems reviewed and unremarkable except in HPI and below Narrative: Patient denies any trouble swallowing. Reports some chronic buttock sores but otherwise no open lesions. Const: Denies: fever(s), chills or diaphoresis Eyes: Denies: change in vision, blurry vision or eye redness ENMT: Denies: throat pain, dental pain, change in hearing or disequilibrium Card: Denies: chest pain, palpitations, irregular heart rhythm, edema or lightheadedness Resp: Denies: dyspnea, productive cough, non-productive cough or wheezing GI: Denies: abdominal pain, nausea, vomiting, dysphagia, diarrhea, constipation, hematochezia or melena : Reports: difficulty urinating (daily self catherizations); Denies: dysuria Musc: Reports: extremity swelling (RLE); Denies: neck pain, back pain, joint pain, joint swelling or joint warmth Skin/Breast: Denies: rash, pruritus or erythema Neuro: Denies: headache(s), weakness in extremities or behavioral changes Psych: Denies: depression or suicidal ideation Endo: Denies: excessive sweating Rohit/Lymph: Denies: easy bruising, easy bleeding or tender lymph nodes All/Imm: Denies: throat swelling Meds/Allergies Home Medications and Allergies Home Medications Medication Instructions Recorded Confirmed Last Taken Type aspirin 81 mg tablet,delayed 81 mg PO DAILY 07/19/19 03/21/20 Unknown History release sennosides 8.6 mg-docusate sodium 1 tab-cap PO DAILY 07/25/19 03/21/20 Unknown History 50 mg tablet solifenacin 10 mg tablet 10 mg PO DAILY 07/25/19 03/21/20 Unknown History mupirocin 2 % topical ointment 1 applic TOPICAL BID #22 gm 10/25/19 03/21/20 Unknown Rx atorvastatin 20 mg tablet 20 mg PO DAILY #30 tab 02/17/20 03/21/20 Unknown Rx buspirone 15 mg tablet 15 mg PO TID #90 tab 02/17/20 03/21/20 Unknown Rx carbamazepine 200 mg 200 mg PO BID #60 tab 02/17/20 03/21/20 Unknown Rx tablet,extended release,12 hr dulaglutide 1.5 mg/0.5 mL 1.5 mg SUBCUT .weekly #2 ml 02/17/20 03/21/20 Unknown Rx subcutaneous pen injector ergocalciferol (vitamin D2) 1,250 1,250 mcg PO .Weekly #4 cap 02/17/20 03/21/20 Unknown Rx mcg (50,000 unit) capsule famotidine 20 mg tablet 20 mg PO BID #60 tab 02/17/20 03/21/20 Unknown Rx fenofibrate nanocrystallized 145 145 mg PO DAILY #30 tab 02/17/20 03/21/20 Unknown Rx mg tablet folic acid 1 mg tablet 1 mg PO DAILY #30 tab 02/17/20 03/21/20 Unknown Rx furosemide 40 mg tablet 40 mg PO DAILY #30 tab 02/17/20 03/21/20 Unknown Rx gabapentin 600 mg tablet 600 mg PO TID #90 tab 02/17/20 03/21/20 Unknown Rx honey 100 % topical paste 1 applic TOPICAL BID #528 ml 02/17/20 03/21/20 Unknown Rx hydralazine 25 mg tablet 25 mg PO BID #60 tab 02/17/20 03/21/20 Unknown Rx insulin degludec 200 unit/mL (3 80 unit SUBCUT DAILY #9 ml 02/17/20 03/21/20 Unknown Rx mL) subcutaneous pen lisinopril 20 mg tablet 20 mg PO BID #60 tab 02/17/20 03/21/20 Unknown Rx metoprolol succinate 50 mg 50 mg PO DAILY #30 tab 02/17/20 03/21/20 Unknown Rx tablet,extended release 24 hr pen needle, diabetic 32 gauge x #100 each 02/17/20 03/21/20 Unknown Rx potassium chloride 10 mEq 10 meq PO DAILY #30 tab 02/17/20 03/21/20 Unknown Rx tablet,extended release venlafaxine 75 mg capsule,extended 225 mg PO DAILY #90 cap 02/17/20 03/21/20 Unknown Rx release 24 hr insulin aspart U-100 100 unit/mL 12 - 24 unit SUBCUT TID #15 ml 03/17/20 03/21/20 Unknown Rx (3 mL) subcutaneous pen Allergies Allergy/AdvReac Type Severity Reaction Status Date / Time baclofen Allergy ADR-Dizzine Verified 03/21/20 13:13 ss thiopental [From Pentothal] Allergy ALGY-Anaphy Verified 03/22/20 00:02 laxis Current Medications Current Medications Generic Name Dose Route Start Last Admin Trade Name Freq PRN Reason Stop Dose Admin Aspirin 81 mg 03/22/20 09:00 03/22/20 08:56 Aspirin Ec PO 81 mg DAILY SHIREEN Administration Atorvastatin Calcium 20 mg 03/22/20 09:00 03/22/20 08:57 Lipitor PO 20 mg DAILY SHIREEN Administration Buspirone HCl 15 mg 03/21/20 21:00 03/22/20 08:56 Buspar PO 15 mg TID SHIREEN Administration Carbamazepine 200 mg 03/22/20 09:00 03/22/20 12:30 Tegretol Xr (12 Hr) PO 200 mg BID SHIREEN Administration Enoxaparin Sodium 30 mg 03/21/20 20:11 03/21/20 21:32 Lovenox SUBCUT 30 mg Q24H SHIREEN Administration Fenofibrate 145 mg 03/22/20 09:00 03/22/20 08:56 Tricor PO 145 mg DAILY SHIREEN Administration Folic Acid 1 mg 03/22/20 09:00 03/22/20 08:56 Folic Acid PO 1 mg DAILY SHIREEN Administration Gabapentin 600 mg 03/21/20 21:00 03/22/20 08:56 Neurontin PO 600 mg TID SHIREEN Administration Lactated Ringer's 1,000 mls @ 50 mls/hr 03/21/20 20:11 03/21/20 20:15 Lactated Ringers IV 50 mls/hr .Q20H SHIREEN Administration Lisinopril 20 mg 03/22/20 09:00 03/22/20 08:56 Prinivil PO 20 mg BID SHIREEN Administration Metoprolol Succinate 50 mg 03/22/20 09:00 03/22/20 08:56 Toprol Xl PO 50 mg DAILY SHIREEN Administration Morphine Sulfate 2 mg 03/21/20 20:11 03/22/20 04:24 Morphine IVP 2 mg Q4H PRN Administration SEVERE PAIN Mupirocin 1 applic 03/22/20 09:00 03/22/20 08:56 Bactroban TOPICAL 1 applic BID SHIREEN Administration Ondansetron HCl 4 mg 03/21/20 20:11 03/22/20 03:31 Zofran IVP 4 mg Q8H PRN Administration vomiting, or N/V if npo Oxycodone/Acetaminophen 1 tab 03/21/20 20:11 03/22/20 08:57 Percocet 5-325 Mg PO 1 tab Q4H PRN Administration SEVERE PAIN Pantoprazole Sodium 40 mg 03/22/20 09:00 03/22/20 08:56 Protonix PO 40 mg DAILY SHIREEN Administration Potassium Chloride 10 meq 03/22/20 09:00 03/22/20 08:56 Klor-Con 10 PO 10 meq DAILY SHIREEN Administration Senna/Docusate Sodium 1 tab 03/22/20 09:00 03/22/20 08:56 Senna-S PO 1 tab BID SHIREEN Administration Venlafaxine HCl 225 mg 03/22/20 09:00 03/22/20 08:55 Effexor Xr PO 225 mg DAILY SHIREEN Administration PFSH Acute PFSH: Medical History Acid reflux Anxiety and depression CKD (chronic kidney disease), stage III Controlled diabetes mellitus with hyperglycemia, with long-term current use of insulin DDD (degenerative disc disease) Essential (primary) hypertension Mixed hyperlipidemia Multiple sclerosis 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 Wheel chair as ambulatory aid Surgical History H/O splenectomy History of appendectomy History of back surgery Family History Mother CAD (coronary artery disease) Diabetes Father CAD (coronary artery disease) Diabetes Other Cancer Social History Smoking and tobacco status: former smoker Second hand smoke exposure: No Smoking risk assessment/counseling performed?: No Alcohol intake: current Desire information about alcohol rehabilitation?: No Counseling given: No Desire information about substance/drug rehabilitation?: No Counseling given: No Adopted: No Caregiver/support person: Yes Lives independently: No Household members: spouse Marital status: Current occupational status: disabled History of recent travel: No Current gender identity: Male Dietary Habits: Current diet type/program: regular Caffeine: Yes Safety: Seatbelt use: always Helmet use: No Drive intoxicated or ride with intoxicated mobile lounge driver or operator?: never Vitals/I&O/Wt Last Vital Signs Temp 99.0 F 03/22/20 12:00 Pulse 92 03/22/20 12:00 Resp 18 03/22/20 12:00 BP 166/65 03/22/20 12:00 Pulse Ox 94 03/22/20 12:00 03/21/20 03/22/20 03/22/20 22:59 06:59 14:59 Output Total 1250 / 1250 Balance -1250 / -1250 Weight last 48 hrs Weight 225 lb Physical Exam Const: COMMON NORMALS: no acute distress, average body habitus, patient oriented x3 and alert GENERAL APPEARANCE: cooperative and comfortable ORIENTATION/CONSCIOUSNESS: Yes awake HENMT: COMMON NORMALS: normocephalic and atraumatic HEAD & SCALP: normocephalic and atraumatic Eye: GENERAL EYE: appearance normal, both eyes and all related structures Chest: COMMONS NORMALS: normal inspection of the chest Resp: COMMON NORMALS: normal respiratory effort EFFORT & INSPECTION: Yes able to speak in complete sentences and Yes symmetric chest movement Extremity: NARRATIVE EXTREMITY EXAM: Patient is a functional paraplegic secondary to a diagnosis of MS. His right ankle and lower extremity are in a posterior splint with an Antoine wrap. He appears to be relatively a sensate in the right foot distal to his fracture. He feels that this is a stable situation for him. Pulses are 1+. The splint is not removed in the room and the patient will be evaluated in the operating room. He is unable to move his toes at the time of this evaluation as well. RIGHT LOWER EXTREMITY: Yes foot & digits (There is a splint in place to immobilize the right ankle. There does not appear to be significant swelling in the patient's toes, and the dorsum of the foot does not appear particularly swollen. The splint will be removed intraoperatively to determine whether or not we place an external fixator or are able to proceed with open reduction internal fixation.) Neuro: COMMON NORMALS: patient oriented x3 SENSORIUM/ORIENTATION: Yes alert Psych: COMMON NORMALS: mental status grossly normal APPEARANCE: Yes grossly normal ATTITUDE: Yes calm and Yes engaged ATTENTION/CONCENTRATION: Yes attention grossly intact Skin: COMMON NORMALS: no rashes or lesions noted GENERAL SKIN EXAM: no rashes or lesions noted Urinary Catheter Management^: Thrasher: Cath Placed During This Visit: yes Reason for Continuing Indwelling Catheter: Perioperative Use in Selected Surgeries Urinary Catheter Date of Insertion: 03/21/20 Urinary Catheter Time of Insertion: 14:00 Data Imaging^: Xray Ortho: I personally reviewed and interpreted this imaging study as follows: My impression: I have personally interpreted the right ankle x-rays which demonstrate a comminuted distal tibia fracture. The fracture is too distal to accommodate an intramedullary nail is a fixation device. The bones are quite osteopenic as well. There is medial displacement of the distal tibia and distal fibula on there more proximal counterparts. There is no significant angulation, however. A&P Assessment and plan (1) Fracture of tibia, distal, right, closed: Patient presented with a diagnosis of MS and functional paraplegia to the bilateral lower extremities. He has a 2-week old distal tibia fracture which is unstable and involves the distal fibula as well. After discussion with the patient, he is advised that he would need to proceed with open reduction internal fixation. The fracture is too distal and the patient to osteopenic to accommodate an intramedullary geneva is a fixation device. Therefore, we will proceed with open reduction internal fixation utilizing anterior lateral Mary Beth plate. He also will require a distal fibular plate. This was discussed with the patient including risks and complications. He agrees and consents to the surgical procedure. Status: Acute (2) Fracture of fibula, distal, right, closed: Status: Acute Consult Attestations Medical Necessity Statement: Patient requires inpatient status for optimization and immobilization of the ankle prior to open reduction internal fixation which is planned for this evening. Coding Level of Care Code Acute Multiple Pressure Riveter Operator for Keila Leonardo Diagnoses Fracture of tibia, distal, right, closed S82.301A Fracture of fibula, distal, right, closed S82.831A
--- NOTE | 2020-03-22 14:04 | PC.NURSE ---
Called patient's daughter as requested, voicemail not set up yet. Louise Gonsales [phone]
--- NOTE | 2020-03-22 15:03 | PM.PN ---
Subjective Subjective: Interval history: Patient denies shortness of breath or chest pain this morning. Reports that his pain is well controlled. Discussed with Dr. Nichole. Unfortunately we were unable to perform the surgery today and plan is to perform it tomorrow at around 1 PM. Vitals/I&O/Wt Last Vital Signs Temp 99.0 F 03/22/20 12:00 Pulse 92 03/22/20 12:00 Resp 18 03/22/20 12:00 BP 166/65 03/22/20 12:00 Pulse Ox 94 03/22/20 12:00 03/22/20 03/22/20 03/22/20 06:59 14:59 22:59 Output Total 1250 / 1250 Balance -1250 / -1250 Weight last 48 hrs Weight 102.058 kg Physical Exam Const: COMMON NORMALS: no acute distress and patient oriented x3 Resp: COMMON NORMALS: normal respiratory effort and clear to auscultation bilaterally AUSCULTATION: clear to auscultation bilaterally Cardio: COMMON NORMALS: regular rate, regular rhythm and S2 normal heart sound present RATE: regular rate RHYTHM: regular rhythm HEART SOUNDS: S2 normal heart sound present OTHER: No lower extremity edema GI: COMMON NORMALS: Normal to inspection, nondistended, normoactive bowel sounds present, Soft to palpation and non-tender PALPATION: Yes Soft to palpation Neuro: COMMON NORMALS: patient oriented x3 OTHER: Functional paraplegia. Urinary Catheter Management^: Thrasher: Cath Placed During This Visit: yes Reason for Continuing Indwelling Catheter: Perioperative Use in Selected Surgeries Urinary Catheter Date of Insertion: 03/21/20 Urinary Catheter Time of Insertion: 14:00 Data : 03/22/20 02:10 03/22/20 02:10 A&P Assessment and plan (1) Tibia/fibula fracture, shaft: Status: Acute (2) Multiple sclerosis: Status: Chronic (3) Urinary bladder neurogenic dysfunction: Status: Acute (4) Thrombocytosis 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: Status: Acute (5) CKD (chronic kidney disease), stage III: Status: Acute (6) Dehydration with hyponatremia: Status: Acute (7) Diabetes mellitus: Uncontrolled. Status: Acute (8) Possible urinary tract infection: Status: Acute Additional A&P Information PLAN: We will restart patient's diet and switch back to n.p.o. post midnight. Awaiting surgery tomorrow afternoon. Attestations Medical Necessity Statement*: Patient with unstable tib-fib fracture requires close inpatient monitoring and treatment until surgery is performed and patient deemed safe for discharge. Coding Level of Care Code Acute Wired Sweatband Cutter for g Fwd Diagnoses Tibia/fibula fracture, shaft S82.209A; S82.409A Multiple sclerosis G35 Urinary bladder neurogenic dysfunction N31.9 Thrombocytosis 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 D47.3; Z90.81 CKD (chronic kidney disease), stage III N18.3 Dehydration with hyponatremia E86.0; E87.1 Diabetes mellitus E11.9 Possible urinary tract infection R39.89
--- NOTE | 2020-03-22 15:07 | PM.MISC ---
Miscellaneous Note Purpose of Documentation: Documentation of cancellation of surgery with rescheduling for tomorrow. Change of provider to Dr. Flaco Gonzales. Hospitalist, surgery, and the patient's nurse were made aware of this. The patient will be advised. Dr. Gonzales will meet with the patient in the morning.
--- NOTE | 2020-03-22 15:19 | PC.NURSE ---
Returning patient's family call Britt [phone], left message requesting call back
[2020-03-22] MEDS: cefTRIAXone 1,000 MG in sodium chloride 0.9% (plus) 50 ML 100 MG IV (15:25)
[2020-03-22] MEDS: lactated ringers 1,000 ML 50 ML IV (15:25)
[2020-03-22] MEDS: enoxaparin 30 mg/0.3 mL Syringe SUBCUT (20:48)
[2020-03-23] VITALS (19 sets, daily range): BP systolic 149–196; BP diastolic 60–96; PULSE 73–86; RESP 16–22; TEMP 36.4–37.8; O2SAT 92–96
--- NOTE | 2020-03-23 | SCC_ITS ---
Procedure Done: Hind foot fusion nail Right 152.3 seconds of fluoroscopic guidance, for a cumulative dose of 4.99 mGy, was provided to Dr. Gonzales by the radiology department. C-arm images of the RIGHT lower leg were saved for the patient's permanent record. [facility]
--- NOTE | 2020-03-23 | XR_ITS ---
WS: [id number] Right leg including the tibia and fibula, multiple C-arm fluoroscopy views, 03/23/2020 Clinical Data: ORIF lower leg Comparison: Right ankle, 03/21/2020. Findings: The patient has a long transverse geneva extending from the proximal fourth of the right tibia into the talus and calcaneus. The geneva is fixed proximally with 2 transverse orthopedic screws and distally wit h screws in the talus and calcaneus. The distal fibular fracture remains in same position. XR/XR tibia fibula RT 2V [id number] Impression: Internal fixation of comminuted displaced fracture of distal right tibia.
[2020-03-23] MEDS: hyDRALAzine 20 mg/mL INJ 1 mL 5 MG IVP ×2 (02:11→23:17)
[2020-03-23 05:33] LABS: Basophils # 0.1 10^3/uL (0.0-0.1); Basophils % 0.8 %; Eosinophils # 1.4 10^3/uL (0.0-0.8); Eosinophils % 10.9 %; Hematocrit 35.5 % (42.0-52.0); Hemoglobin 11.3 g/dL (11.7-16.6); Lymphocytes # 2.9 10^3/uL (0.8-4.8); Lymphocytes % 22.3 %; Mean Corpuscular HGB Conc 31.8 g/dL (30.0-36.0); Mean Corpuscular Hemoglobin 28.2 pg (28.0-34.0); Mean Corpuscular Volume 88.5 fL (80-94); Monocytes # 1.2 10^3/uL (0.2-0.9); Monocytes % 9.4 %; Neutrophils % 56.3 %; Nucleated Red Blood Cells % 0 %; Platelet Count 671 10^3/cmm (130-400); Red Blood Count 4.01 10^6/uL (4.1-5.3); Red Cell Distribution Width 13.9 % (12.1-15.1); White Blood Count 13.2 10^3/uL (4.0-10.0)
[2020-03-23 06:17] LABS: Alanine Aminotransferase 7 U/L (0-41); Albumin Level 2.1 g/dL (3.5-5.2); Alkaline Phosphatase 135 IU/L (40-130); Anion Gap 13.8 (5-19); Aspartate Amino Transferase 14 U/L (0-40); Blood Urea Nitrogen 19 mg/dL (8-23); Calcium 8.2 mg/dL (8.5-10.5); Carbon Dioxide 22 mmol/L (22-29); Chloride 103 mmol/L (98-107); Globulin 3.5 g/dL (1.3-4.6); Glomerular Filtration Rate 37.5 mL/min (90-130); Glucose 90 mg/dL (65-115); Magnesium 1.9 mg/dL (1.7-2.3); Osmolality Calculated 282 mOsm/kg (285-295); Potassium 3.8 mmol/L (3.5-5.1); Sodium 135 mmol/L (136-145); Total Bilirubin 0.2 mg/dL (0.15-1.2); Total Protein 5.6 g/dL (6.6-8.7)
--- NOTE | 2020-03-23 06:24 | NUR.SHIFT ---
Patient mainly slept throughout the night. Patient had no complaints of pain or nausea. Patient has been NPO since Midnight. This nurse noticed that the patient is a diabetic and admins at home, insulin. This nurse would suggest to place this patient on a sliding scale and ACHS.
--- NOTE | 2020-03-23 07:51 | P.PN_ITS ---
Subjective Subjective: Interval history: Patient with history of tibial pilon fracture. Patient has MS diabetes does not ambulate. Vitals/I&O/Wt Last Vital Signs Temp 98.1 F 03/23/20 04:47 Pulse 84 03/23/20 04:47 Resp 17 03/23/20 04:47 BP 149/77 03/23/20 04:47 Pulse Ox 92 03/23/20 04:47 03/22/20 03/23/20 03/23/20 22:59 06:59 14:59 Intake Total 958.333 / 958.333 Output Total 350 / 350 550 / 900 Balance 608.333 / 608.333 -550 / 58.333 Weight last 48 hrs Weight 225 lb Physical Exam Narrative: EXAM NARRATIVE: Patient has resting in bed pain is controlled at this point. Urinary Catheter Management^: Thrasher: Cath Placed During This Visit: yes Reason for Continuing Indwelling Catheter: Perioperative Use in Selected Surgeries Urinary Catheter Date of Insertion: 03/21/20 Urinary Catheter Time of Insertion: 14:00 Data : 03/23/20 04:50 03/23/20 04:50 A&P Additional A&P Information Patient has a pilon fracture. Plan is to do a hindfoot fusion nail to stabilize his ankle so he has a stable platform to do transfers on. He will be nonweightbearing for 12 weeks. Attestations Medical Necessity Statement*: Pain control Coding Level of Care Code Acute Educational Psychology Professor for Keila Leonardo
[2020-03-23] MEDS: mupirocin oint 22 gm 1 APPLIC TOPICAL ×2 (07:57→17:28)
[2020-03-23] MEDS: lisinopril 20 mg Tablet PO ×2 (07:58→17:28)
[2020-03-23] MEDS: metoprolol succinate ER (24 HR) 50 mg Tablet PO (07:58)
[2020-03-23] MEDS: atorvastatin 40 mg Tablet 20 MG PO (07:58)
[2020-03-23] MEDS: venlafaxine ER (24HR) 75 mg Capsule 225 MG PO (07:58)
[2020-03-23] MEDS: fenofibrate 145 mg Tablet PO (07:59)
[2020-03-23] MEDS: folic acid 1 mg Tablet PO (07:59)
[2020-03-23] MEDS: carBAMazepine XR (12 HR) 200 mg Tablet PO ×2 (07:59→18:41)
[2020-03-23] MEDS: potassium chloride ER 10 mEq Tablet PO (07:59)
[2020-03-23] MEDS: pantoprazole DR 40 mg Tablet PO (07:59)
[2020-03-23] MEDS: gabapentin 300 mg Capsule 600 MG PO ×3 (07:59→21:41)
[2020-03-23] MEDS: sennosides-docusate Tablet 1 TAB PO ×2 (07:59→17:28)
[2020-03-23 09:01] LABS: Coronavirus Lab Test PTC Negative
--- NOTE | 2020-03-23 09:01 | PC.NURSE ---
Dr. Louis made aware of no accucheck orders currently and patient is diabetic, new orders received for accucheck achs, see orders for further details.
[2020-03-23 09:02] LABS: Glucose Point of Care 93 mg/dL (70-110)
--- NOTE | 2020-03-23 09:07 | PC.NURSE ---
Dr. Gonzales notified of aspirin ordered for this morning 81mg, unable to reach physician continue to hold until further notice due to scheduled surgery.
--- NOTE | 2020-03-23 09:11 | P.PN_ITS ---
Subjective Subjective: Interval history: Patient denies shortness of breath or chest pain this morning. Denies abdominal pain. Vitals/I&O/Wt Last Vital Signs Temp 98.9 F 03/23/20 08:56 Pulse 78 03/23/20 08:56 Resp 18 03/23/20 08:56 BP 169/75 03/23/20 08:56 Pulse Ox 94 03/23/20 08:56 03/22/20 03/23/20 03/23/20 22:59 06:59 14:59 Intake Total 958.333 / 958.333 Output Total 350 / 350 550 / 900 Balance 608.333 / 608.333 -550 / 58.333 Weight last 48 hrs Weight 102.058 kg Physical Exam Const: COMMON NORMALS: no acute distress and patient oriented x3 Resp: COMMON NORMALS: normal respiratory effort and clear to auscultation bilaterally AUSCULTATION: clear to auscultation bilaterally Cardio: COMMON NORMALS: regular rate, regular rhythm and S2 normal heart sound present RATE: regular rate RHYTHM: regular rhythm HEART SOUNDS: S2 normal heart sound present OTHER: No lower extremity edema GI: COMMON NORMALS: Normal to inspection, nondistended, normoactive bowel sounds present, Soft to palpation and non-tender PALPATION: Yes Soft to palpation Neuro: COMMON NORMALS: patient oriented x3 Urinary Catheter Management^: Thrasher: Cath Placed During This Visit: yes Reason for Continuing Indwelling Catheter: Perioperative Use in Selected Surgeries Urinary Catheter Date of Insertion: 03/21/20 Urinary Catheter Time of Insertion: 14:00 Data : 03/23/20 04:50 03/23/20 04:50 A&P Assessment and plan (1) Tibia/fibula fracture, shaft: Status: Acute (2) Multiple sclerosis: Status: Chronic (3) Urinary bladder neurogenic dysfunction: Status: Acute (4) Thrombocytosis 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: Status: Acute (5) CKD (chronic kidney disease), stage III: Status: Acute (6) Dehydration with hyponatremia: Status: Acute (7) Diabetes mellitus: Uncontrolled. Status: Acute (8) Possible urinary tract infection: Status: Acute Additional A&P Information PLAN: Discussed with Dr. Gonzales this morning and we will proceed with surgery. Attestations Medical Necessity Statement*: Patient was tib-fib fracture requires close inpatient monitoring and treatment including surgical intervention. Coding Level of Care Code Acute Township Clerk for Chg Fwd Diagnoses Tibia/fibula fracture, shaft S82.209A; S82.409A Multiple sclerosis G35 Urinary bladder neurogenic dysfunction N31.9 Thrombocytosis 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 D47.3; Z90.81 CKD (chronic kidney disease), stage III N18.3 Dehydration with hyponatremia E86.0; E87.1 Diabetes mellitus E11.9 Possible urinary tract infection R39.89
--- NOTE | 2020-03-23 10:38 | PC.NURSE ---
gave report to surgical nurse.
[2020-03-23 10:46] LABS: Glucose Point of Care 77 mg/dL (70-110)
--- NOTE | 2020-03-23 10:50 | PC.NURSE ---
Patient taken to surgery. off unit.
--- NOTE | 2020-03-23 11:20 | P.ANESUD_ITS ---
Pre-Anesthetic Update Pre-Anesthetic Assessment: Date of Surgery/Procedure: 03/23/20 Preop Melody gnosis: tibia/fibular fractures Proposed Procedure: Operation Date: 03/23/20 13:00 Proposed Procedures p ORIF Tibia/Fibula - with possible external fixation(Right) - Flaco Gonzales, DO Any changes to Pre-Anesthetic Assessment?: No Last Intake: Intake Last Liquid Date 03/22/20 Last Liquid Time 18:00 Last Solid Date 03/22/20 Last Solid Time 18:00 Labs Last 48hrs: Laboratory Results - last 48 hr 03/21/20 03/21/20 03/21/20 13:52 13:52 13:52 WBC 15.3 H RBC 4.49 Hgb 12.5 Hct 40.1 L MCV 89.3 MCH 27.8 L MCHC 31.2 RDW 13.7 Plt Count 724 H MPV 11.2 H Neut % (Auto) 64.7 Lymph % (Auto) 17.8 [place] % (Auto) 8.5 Eos % (Auto) 7.3 Baso % (Auto) 1.2 Neut # (Auto) 9.89 H Lymph # (Auto) 2.7 [place] # (Auto) 1.3 H Eos # (Auto) 1.1 H Baso # (Auto) 0.2 H Nucleated RBC % (a uto) 0 Nucleated RBCs # 0.0 PT 13.80 INR 1.02 APTT 29.8 Sodium 132 L Potassium 3.5 Chloride 97 L Carbon Dioxide 24 Anion Gap 14.5 BUN 20 Creatinine 2.1 H GFR Calculation 31.4 L Glucose 247 H POC Glucose Calculated Osmolal ity 285 Lactate Calcium 8.6 Magnesium Total Bilirubin 0.2 AST 11 ALT 8 Alkaline Phosphata se 208 H NT-Pro-B Natriuret Pep Total Protein 6.4 L Albumin 2.8 L Globulin 3.6 Urine Color Urine Appearance Urine pH Ur Specific Gravit y Urine Protein Urine Glucose (UA) Urine Ketones Urine Blood Urine Nitrate Urine Bilirubin Urine Urobilinogen Ur Leukocyte Odalis ase Urine RBC Urine WBC Ur Squamous Epith Cells Amorphous Sediment Urine Bacteria Urine Yeast Nasal/Oral COVID-1 9 PCR 03/21/20 03/21/20 03/21/20 14:04 15:14 17:50 WBC RBC Hgb Hct MCV MCH MCHC RDW Plt Count MPV Neut % (Auto) Lymph % (Auto) [place] % (Auto) Eos % (Auto) Baso % (Auto) Neut # (Auto) Lymph # (Auto) [place] # (Auto) Eos # (Auto) Baso # (Auto) Nucleated RBC % (a uto) Nucleated RBCs # PT INR APTT Sodium Potassium Chloride Carbon Dioxide Anion Gap BUN Creatinine GFR Calculation Glucose POC Glucose 223 Calculated Osmolal ity Lactate 1.0 Calcium Magnesium Total Bilirubin AST ALT Alkaline Phosphata se NT-Pro-B Natriuret Pep Total Protein Albumin Globulin Urine Color Yellow Urine Appearance Sl hazy Urine pH 6 Ur Specific Gravit y 1.015 Urine Protein 3+ H Urine Glucose (UA) 4+ H Urine Ketones Negative Urine Blood Trace H Urine Nitrate Negative Urine Bilirubin Neg Urine Urobilinogen Norm Ur Leukocyte Odalis ase Negative Urine RBC 5-10 H Urine WBC 40-55 H Ur Squamous Epith Cells 5-10 H Amorphous Sediment 1+ Urine Bacteria 3+ H Urine Yeast Trace Nasal/Oral COVID-1 9 PCR 03/21/20 03/22/20 03/22/20 19:25 02:10 02:10 WBC 13.8 H RBC 4.29 Hgb 11.8 Hct 37.6 L MCV 87.6 MCH 27.5 L MCHC 31.4 RDW 13.9 Plt Count 697 H MPV 11.2 H Neut % (Auto) 59.3 Lymph % (Auto) 22.6 [place] % (Auto) 8.3 Eos % (Auto) 8.3 Baso % (Auto) 1.1 Neut # (Auto) 8.21 H Lymph # (Auto) 3.1 [place] # (Auto) 1.1 H Eos # (Auto) 1.1 H Baso # (Auto) 0.2 H Nucleated RBC % (a uto) 0 Nucleated RBCs # 0.0 PT INR APTT Sodium 134 L Potassium 3.4 L Chloride 100 Carbon Dioxide 23 Anion Gap 14.4 BUN 19 Creatinine 1.9 H GFR Calculation 35.2 L Glucose 223 H POC Glucose Calculated Osmolal ity 287 Lactate Calcium 8.5 Magnesium 1.8 Total Bilirubin 0.2 AST 11 ALT 6 Alkaline Phosphata se 157 H NT-Pro-B Natriuret Pep Total Protein 5.6 L Albumin 2.4 L Globulin 3.2 Urine Color Urine Appearance Urine pH Ur Specific Gravit y Urine Protein Urine Glucose (UA) Urine Ketones Urine Blood Urine Nitrate Urine Bilirubin Urine Urobilinogen Ur Leukocyte Odalis ase Urine RBC Urine WBC Ur Squamous Epith Cells Amorphous Sediment Urine Bacteria Urine Yeast Nasal/Oral COVID-1 9 PCR Negative 03/22/20 03/23/20 03/23/20 02:10 04:50 04:50 WBC 13.2 H RBC 4.01 L Hgb 11.3 L Hct 35.5 L MCV 88.5 MCH 28.2 MCHC 31.8 RDW 13.9 Plt Count 671 H MPV 11.0 H Neut % (Auto) 56.3 Lymph % (Auto) 22.3 [place] % (Auto) 9.4 Eos % (Auto) 10.9 Baso % (Auto) 0.8 Neut # (Auto) 7.40 Lymph # (Auto) 2.9 [place] # (Auto) 1.2 H Eos # (Auto) 1.4 H Baso # (Auto) 0.1 Nucleated RBC % (a uto) 0 Nucleated RBCs # 0.0 PT INR APTT Sodium 135 L Potassium 3.8 Chloride 103 Carbon Dioxide 22 Anion Gap 13.8 BUN 19 Creatinine 1.8 H GFR Calculation 37.5 L Glucose 90 POC Glucose Calculated Osmolal ity 282 L Lactate Calcium 8.2 L Magnesium 1.9 Total Bilirubin 0.2 AST 14 ALT 7 Alkaline Phosphata se 135 H NT-Pro-B Natriuret Pep 773 H Total Protein 5.6 L Albumin 2.1 L Globulin 3.5 Urine Color Urine Appearance Urine pH Ur Specific Gravit y Urine Protein Urine Glucose (UA) Urine Ketones Urine Blood Urine Nitrate Urine Bilirubin Urine Urobilinogen Ur Leukocyte Odalis ase Urine RBC Urine WBC Ur Squamous Epith Cells Amorphous Sediment Urine Bacteria Urine Yeast Nasal/Oral COVID-1 9 PCR 03/23/20 03/23/20 08:49 10:42 WBC RBC Hgb Hct MCV MCH MCHC RDW Plt Count MPV Neut % (Auto) Lymph % (Auto) [place] % (Auto) Eos % (Auto) Baso % (Auto) Neut # (Auto) Lymph # (Auto) [place] # (Auto) Eos # (Auto) Baso # (Auto) Nucleated RBC % (a uto) Nucleated RBCs # PT INR APTT Sodium Potassium Chloride Carbon Dioxide Anion Gap BUN Creatinine GFR Calculation Glucose POC Glucose 93 77 Calculated Osmolal ity Lactate Calcium Magnesium Total Bilirubin AST ALT Alkaline Phosphata se NT-Pro-B Natriuret Pep Total Protein Albumin Globulin Urine Color Urine Appearance Urine pH Ur Specific Gravit y Urine Protein Urine Glucose (UA) Urine Ketones Urine Blood Urine Nitrate Urine Bilirubin Urine Urobilinogen Ur Leukocyte Odalis ase Urine RBC Urine WBC Ur Squamous Epith Cells Amorphous Sediment Urine Bacteria Urine Yeast Nasal/Oral COVID-1 9 PCR Vitals: Temperature 100.1 F H 03/23/20 11:09 Temperature Source Temporal Artery S can 03/23/20 11:09 Pulse Rate 86 03/23/20 11:09 Pulse Strength 3+ Normal 03/21/20 14:23 Respiratory Rate 18 03/23/20 11:09 Respiratory Effort Non-Labored 03/23/20 08:00 Respiratory Depth Normal 03/23/20 08:00 Respiratory Patter n 03/23/20 08:00 Blood Pressure 173/88 03/23/20 11:09 Blood Pressure [place]ita n 116 03/23/20 11:09 Blood Pressure Pos ition Semi Fowlers 03/23/20 08:56 Pulse Oximetry 95 03/23/20 11:09 Oxygen Delivery Me thod 03/23/20 11:09 Exam: Pre-Anes Outpt Exam: alert, oriented x 3, clear to auscultation bi laterally and regular rate & rhythm Cardiac Studies: No Data to Display
--- NOTE | 2020-03-23 11:52 | ANES.PROC ---
Anesthesia Procedures Procedure/Date: 03/23/20 Nerve Block ^: Nerve Block 1: Main Anesthesia: general anesthesia Time Out Performed: Yes Consent: requested by attending/covering physician, from patient, risks and benefits reviewed and patient agrees to proceed Anesthesia monitors applied: pulse oximetry, EKG, BP cuff and oxygen Nerve block position: supine Anesthetic Used: ropivicaine 0.5% and with decadron (4 mg) Amount of anesthesia used (mL): 30 Ultrasound used to: recognize landmarks Nerve Stimulator Used?: No Interscalene/Femoral BLK: 4 stimuplex 21 g needle used for position and inplane approach, visualize local anesthetic spread and no vascular puncture identified Injection: neg aspiration of heme Patient Tolerated Procedure: well and no complications Complications: none
[2020-03-23] MEDS: sodium chloride 0.9% 1,000 ML 30 ML IV ×2 (12:00→15:21)
--- NOTE | 2020-03-23 12:13 | W.PM.OPSUD ---
Surgery/Procedure H&P Update DATE OF PROCEDURE: March 23, 2020 DATE H&P PERFORMED: 03/22/20 H&P UPDATE INFORMATION: I have reviewed H&P completed within last 30 days, I have examined patient prior to procedure and No changes to prior documentation PREOP DIAGNOSIS: tibia/fibular fractures PLANNED PROCEDURE: Operation Date: 03/23/20 13:00 Hind foot fusion nail Right ankle
--- NOTE | 2020-03-23 14:04 | P.OP_ITS ---
Operative Report Date of procedure: March 23, 2020 Pre-op Diagnosis: tibia/fibular fractures right Post-op diagnosis: same Procedure Done: Hind foot fusion nail Right Implants: [place] hind foot fusion nail Surgeon: Flaco Gonzales Anesthesia: General Estimated blood loss (mL): 5 Tourniquet time (min): 60 Condition: stable Disposition: PACU Procedure: Patient is a 69-year-old male who sustained a right tibia fracture. As well as a fibula fracture. Patient is diabetic with MS and ultimately does not ambulate but uses his legs just for transfers. I discussed options with the patient of ORIF versus hindfoot fusion nail and based on his medical condition we decided to proceed with hindfoot fusion nail. The procedure patient was brought to have suite placed in supine position where has [id number] padded patient preparations were fashion skin was was made over the fibula first fibula fracture was removed once this was removed then attention was brought to taken down some of the talus and tibia once this was completed then a [id number] reduction clamp was used to reduce the fracture I was fracture reduced and had was brought to placing the nail skins was made over the calcaneus distally starting pins inserted opening reamer was inserted guidewire was inserted reamers were done to 11-1/2 mm and a 310 mm [place] hindfoot fusion nail was inserted screws placed in up in the talus 2 screws were placed up into the tibia and of the screws placed into the calcaneus prior to this the slight compression was had prior to this the fibula was taken out bone that did have cartilage on it was ground up and placed into the talotibial joint then compression was had slightly and then calcaneal screw was placed and then a posterior to anterior calcaneal screw was placed and then AP lateral fluoroscopy ensured that the hardware and fracture and joints were all in good alignment wounds were then irrigated more bone graft placed in the tib talar joint DBX was inserted as well and wounds were then closed with 0 Vicryl 2-0 Vicryl and nylon suture sterile dressings were applied patient was placed in a posterior splint transferred to the PACU in stable condition with temperature care and assist as for cystoscopy in the OR.
--- NOTE | 2020-03-23 14:40 | PM.PACU ---
PACU note Post-Anesthesia Exam: awake and vital signs stable Disposition: back to floor
--- NOTE | 2020-03-23 14:55 | PC.NURSE ---
Patient returned from surgery, vitals stable as documented, ice pack placed to right lower leg, dressing clean dry and intact to right lower leg, cap refill less than 3 seconds, discussed plan of care including pain management, verbalized understanding and denies further questions or concerns. Call light in reach, side rails up X2.
[2020-03-23] MEDS: cefTRIAXone 1,000 MG in sodium chloride 0.9% (plus) 50 ML 100 MG IV (15:21)
[2020-03-23] MEDS: oxyCODONE-APAP 5-325 mg Tablet 1 TAB PO (15:56)
[2020-03-23 17:08] LABS: Glucose Point of Care 114 mg/dL (70-110)
[2020-03-23 21:53] LABS: Glucose Point of Care 202 mg/dL (70-110)
[2020-03-24] VITALS (12 sets, daily range): BP systolic 120–166; BP diastolic 70–89; PULSE 83–97; RESP 16–18; TEMP 36.6–37.5; O2SAT 91–95
[2020-03-24] MEDS: ondansetron 2 mg/ML SDV 2 mL 4 MG IVP ×2 (00:38→17:51)
[2020-03-24] MEDS: enoxaparin 40 mg/0.4 mL Syringe SUBCUT (02:30)
[2020-03-24] MEDS: oxyCODONE-APAP 5-325 mg Tablet 1 TAB PO ×4 (03:19→21:44)
[2020-03-24 05:50] LABS: Basophils # 0.1 10^3/uL (0.0-0.1); Basophils % 0.6 %; Eosinophils # 0.1 10^3/uL (0.0-0.8); Eosinophils % 0.6 %; Hematocrit 36.1 % (42.0-52.0); Hemoglobin 11.3 g/dL (11.7-16.6); Lymphocytes # 1.7 10^3/uL (0.8-4.8); Lymphocytes % 9.5 %; Mean Corpuscular HGB Conc 31.3 g/dL (30.0-36.0); Mean Corpuscular Hemoglobin 28.2 pg (28.0-34.0); Mean Platelet Volume 10.6 fL (7.4-10.4); Monocytes % 11.4 %; Neutrophils # 13.72 10^3/uL (1.8-7.7); Neutrophils % 77.4 %; Nucleated Red Blood Cells % 0 %; Platelet Count 632 10^3/cmm (130-400); Red Blood Count 4.01 10^6/uL (4.1-5.3); White Blood Count 17.7 10^3/uL (4.0-10.0)
[2020-03-24 06:27] LABS: Alanine Aminotransferase 6 U/L (0-41); Albumin Level 2.6 g/dL (3.5-5.2); Alkaline Phosphatase 139 IU/L (40-130); Aspartate Amino Transferase 12 U/L (0-40); Blood Urea Nitrogen 19 mg/dL (8-23); Calcium 7.8 mg/dL (8.5-10.5); Carbon Dioxide 24 mmol/L (22-29); Chloride 100 mmol/L (98-107); Glomerular Filtration Rate 35.2 mL/min (90-130); Glucose 218 mg/dL (65-115); Osmolality Calculated 283 mOsm/kg (285-295); Sodium 132 mmol/L (136-145); Total Bilirubin 0.2 mg/dL (0.15-1.2); Total Protein 5.6 g/dL (6.6-8.7)
[2020-03-24 06:29] LABS: Magnesium 1.8 mg/dL (1.7-2.3)
[2020-03-24 06:42] LABS: Glucose Point of Care 218 mg/dL (70-110)
--- NOTE | 2020-03-24 09:00 | PC.SOCIAL ---
IMM Page 2 of IMM explained to patient. Initialed, dated, and timed and placed in chart. Copy provided to patient.
[2020-03-24] MEDS: sennosides-docusate Tablet 1 TAB PO ×2 (09:03→17:49)
[2020-03-24] MEDS: potassium chloride ER 10 mEq Tablet PO (09:03)
[2020-03-24] MEDS: folic acid 1 mg Tablet PO (09:03)
[2020-03-24] MEDS: venlafaxine ER (24HR) 75 mg Capsule 225 MG PO (09:03)
[2020-03-24] MEDS: gabapentin 300 mg Capsule 600 MG PO ×3 (09:03→20:44)
[2020-03-24] MEDS: pantoprazole DR 40 mg Tablet PO (09:04)
[2020-03-24] MEDS: lisinopril 20 mg Tablet PO ×2 (09:04→17:49)
[2020-03-24] MEDS: carBAMazepine XR (12 HR) 200 mg Tablet PO ×2 (09:04→17:51)
[2020-03-24] MEDS: atorvastatin 40 mg Tablet 20 MG PO (09:04)
[2020-03-24] MEDS: metoprolol succinate ER (24 HR) 50 mg Tablet PO (09:04)
[2020-03-24] MEDS: aspirin 81 mg EC Tablet PO (09:04)
[2020-03-24] MEDS: mupirocin oint 22 gm 1 APPLIC TOPICAL ×2 (09:05→17:48)
[2020-03-24] MEDS: fenofibrate 145 mg Tablet PO (10:15)
--- NOTE | 2020-03-24 10:45 | PC.NURSE ---
Dr. Louis notified of patients blood sugar 218 with no coverage ordered at this time.
--- NOTE | 2020-03-24 11:01 | PM.PN ---
Subjective Subjective: Interval history: Patient denies shortness of breath or chest pain this morning. Denies abdominal pain or problems with bowel movement. White blood cell count increased to 17.7 which is likely related to surgery. Platelets appear to be gradually improving. Urine is growing gram-negative [place]. Vitals/I&O/Wt Last Vital Signs Temp 98.9 F 03/24/20 07:41 Pulse 90 03/24/20 07:41 Resp 18 03/24/20 07:41 BP 120/70 03/24/20 07:41 Pulse Ox 91 03/24/20 07:41 03/23/20 03/24/20 03/24/20 22:59 06:59 14:59 Intake Total 530 / 580 480 / 1060 240 / 240 Output Total 850 / 1650 650 / 2300 150 / 150 Balance -320 / -1070 -170 / -1240 90 / 90 Physical Exam Const: COMMON NORMALS: no acute distress and patient oriented x3 Resp: COMMON NORMALS: normal respiratory effort and clear to auscultation bilaterally AUSCULTATION: clear to auscultation bilaterally Cardio: COMMON NORMALS: regular rate, regular rhythm and S2 normal heart sound present RATE: regular rate RHYTHM: regular rhythm HEART SOUNDS: S2 normal heart sound present OTHER: Trace lower extremity edema. Right lower extremity is dressed. GI: COMMON NORMALS: Normal to inspection, nondistended, normoactive bowel sounds present, Soft to palpation and non-tender PALPATION: Yes Soft to palpation Neuro: COMMON NORMALS: patient oriented x3 Urinary Catheter Management^: Thrasher: Cath Placed During This Visit: yes Reason for Continuing Indwelling Catheter: Acute Urinary Retention or Obstruction Urinary Catheter Date of Insertion: 03/21/20 Urinary Catheter Time of Insertion: 14:00 Data : 03/24/20 05:29 03/24/20 05:29 Micro: Microbiology 03/21/20 14:04 Urine Culture - Preliminary Urine,Clean Catch Gram Negative Rods A&P Assessment and plan (1) Tibia/fibula fracture, shaft: Status: Acute (2) Multiple sclerosis: Status: Chronic (3) Urinary bladder neurogenic dysfunction: Status: Acute (4) Thrombocytosis 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: Status: Acute (5) CKD (chronic kidney disease), stage III: Status: Acute (6) Dehydration with hyponatremia: Status: Acute (7) Diabetes mellitus: Uncontrolled. Status: Acute (8) Possible urinary tract infection: Status: Acute Additional A&P Information PLAN: Continue current monitoring and treatment. Awaiting for culture results. Encouraged oral intake. Continue occupational therapy. I think patient will require home health upon discharge for nursing care and Occupational Therapy. Attestations Medical Necessity Statement*: Patient post surgery and UTI shows worsening WBC count requiring close inpatient monitoring and treatment until deemed safe for discharge. Coding Level of Care Code Acute [place] Technical Lead Senior Developer for [facility] Fwd Diagnoses Tibia/fibula fracture, shaft S82.209A; S82.409A Multiple sclerosis G35 Urinary bladder neurogenic dysfunction N31.9 Thrombocytosis 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 D47.3; Z90.81 CKD (chronic kidney disease), stage III N18.3 Dehydration with hyponatremia E86.0; E87.1 Diabetes mellitus E11.9 Possible urinary tract infection R39.89
[2020-03-24 12:00] LABS: Glucose Point of Care 292 mg/dL (70-110)
[2020-03-24] MEDS: cefTRIAXone 1,000 MG in sodium chloride 0.9% (plus) 50 ML 100 MG IV (15:25)
[2020-03-24 17:14] LABS: Glucose Point of Care 300 mg/dL (70-110)
[2020-03-24] MEDS: bisacodyl 5 mg Tablet 10 MG PO (17:49)
[2020-03-24 20:19] LABS: Glucose Point of Care 267 mg/dL (70-110)
[2020-03-25] VITALS (8 sets, daily range): BP systolic 127–184; BP diastolic 75–82; PULSE 79–93; RESP 16–18; TEMP 36.8–37.4; O2SAT 90–94
[2020-03-25] MEDS: oxyCODONE-APAP 5-325 mg Tablet 1 TAB PO ×2 (01:48→11:05)
[2020-03-25] MEDS: enoxaparin 40 mg/0.4 mL Syringe SUBCUT (01:49)
[2020-03-25 03:14] LABS: Basophils # 0.1 10^3/uL (0.0-0.1); Basophils % 0.5 %; Eosinophils # 0.9 10^3/uL (0.0-0.8); Eosinophils % 6.1 %; Hematocrit 32.8 % (42.0-52.0); Hemoglobin 10.2 g/dL (11.7-16.6); Lymphocytes # 2.1 10^3/uL (0.8-4.8); Lymphocytes % 13.5 %; Mean Corpuscular HGB Conc 31.1 g/dL (30.0-36.0); Mean Corpuscular Hemoglobin 27.7 pg (28.0-34.0); Mean Corpuscular Volume 89.1 fL (80-94); Mean Platelet Volume 10.5 fL (7.4-10.4); Monocytes % 13.1 %; Neutrophils # 10.18 10^3/uL (1.8-7.7); Neutrophils % 66.5 %; Nucleated Red Blood Cells % 0 %; Platelet Count 530 10^3/cmm (130-400); Red Blood Count 3.68 10^6/uL (4.1-5.3); Red Cell Distribution Width 13.9 % (12.1-15.1); White Blood Count 15.3 10^3/uL (4.0-10.0)
[2020-03-25 03:38] LABS: Alanine Aminotransferase < 5 U/L (0-41); Albumin Level 2.3 g/dL (3.5-5.2); Alkaline Phosphatase 129 IU/L (40-130); Anion Gap 11.9 (5-19); Aspartate Amino Transferase 10 U/L (0-40); Blood Urea Nitrogen 21 mg/dL (8-23); Calcium 8.1 mg/dL (8.5-10.5); Carbon Dioxide 24 mmol/L (22-29); Chloride 97 mmol/L (98-107); Globulin 3.4 g/dL (1.3-4.6); Glomerular Filtration Rate 33.2 mL/min (90-130); Glucose 213 mg/dL (65-115); Osmolality Calculated 277 mOsm/kg (285-295); Potassium 3.9 mmol/L (3.5-5.1); Sodium 129 mmol/L (136-145); Total Bilirubin 0.2 mg/dL (0.15-1.2); Total Protein 5.7 g/dL (6.6-8.7)
--- NOTE | 2020-03-25 06:05 | PC.NURSE ---
SHIFT SUMMARY Has done well tonight. Very pleasant. Receiving adequate pain relief with po Percocet. Dressing/bryce wrap/splint intact to RLE. Ice pack in place. Neurocheck WNL.
[2020-03-25 06:38] LABS: Glucose Point of Care 158 mg/dL (70-110)
[2020-03-25] MEDS: carBAMazepine XR (12 HR) 200 mg Tablet PO (08:36)
[2020-03-25] MEDS: metoprolol succinate ER (24 HR) 50 mg Tablet PO (08:37)
[2020-03-25] MEDS: venlafaxine ER (24HR) 75 mg Capsule 225 MG PO (08:37)
[2020-03-25] MEDS: aspirin 81 mg EC Tablet PO (08:37)
[2020-03-25] MEDS: lisinopril 20 mg Tablet PO (08:37)
[2020-03-25] MEDS: folic acid 1 mg Tablet PO (08:38)
[2020-03-25] MEDS: gabapentin 300 mg Capsule 600 MG PO (08:38)
[2020-03-25] MEDS: atorvastatin 40 mg Tablet 20 MG PO (08:38)
[2020-03-25] MEDS: sennosides-docusate Tablet 1 TAB PO (08:38)
[2020-03-25] MEDS: potassium chloride ER 10 mEq Tablet PO (08:39)
[2020-03-25] MEDS: pantoprazole DR 40 mg Tablet PO (08:39)
[2020-03-25] MEDS: lactulose oral liq 20 gm/30 mL UDC 10 GM PO (08:39)
[2020-03-25] MEDS: mupirocin oint 22 gm 1 APPLIC TOPICAL (08:40)
[2020-03-25] MEDS: hyDRALAzine 20 mg/mL INJ 1 mL 5 MG IVP (08:44)
[2020-03-25] MEDS: fenofibrate 145 mg Tablet PO (08:59)
--- NOTE | 2020-03-25 09:00 | PM.DCS ---
Discharge Providers Date of Admission: 03/21/20 17:25 Date of Discharge: March 25, 2020 Attending Provider at Admission: Chidi Louis MD Attending Provider at Discharge: Chidi Louis MD Primary Care Provider: HAYDER Silverio Diagnoses at Discharge Discharge Diagnosis (1) Tibia/fibula fracture, shaft: Status: Acute (2) Multiple sclerosis: Status: Chronic (3) Urinary bladder neurogenic dysfunction: Status: Acute (4) Thrombocytosis 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: Status: Acute (5) CKD (chronic kidney disease), stage III: Status: Acute (6) Dehydration with hyponatremia: Status: Acute (7) Diabetes mellitus: Status: Acute (8) Possible urinary tract infection: Status: Acute Reason for Visit Reason for Visit: R FOOT PAIN, SWOLLEN Hospital Course Discharge Summary: Patient with multiple sclerosis and underlying neurogenic bladder requiring daily self-catheterizations presents with tib-fib fracture and underwent surgical intervention. Patient was started on ceftriaxone and white blood cell count appears to be improving. UTI cannot be completely ruled out but urine cultures currently growing gram-negative [place]. Patient adamantly wants to go home today and does not want to stay overnight until culture results are back. I will switch patient to Omnicef and continued for 10 days. Will request outpatient labs prior to primary care physician follow-up. This morning patient denies any shortness of breath or chest pain. Denies any abdominal pain. Reports that his family will pick him up around 10:00. I will request home health to make sure patient is doing okay post discharge and for occupational therapy. Thrasher catheter will be discontinued and patient will continue with self catheterizations. We have discussed regarding importance of sterile techniques. Patient is at high risk for DVT therefore I will give patient 2 weeks of Lovenox. Physical Exam Narrative: EXAM NARRATIVE: Heart is regular and lungs are clear although overall decreased air movement. Abdomen is soft and nontender with positive bowel sounds. Patient has functional paraplegia of lower extremities. Urinary Catheter Management^: Thrasher: Cath Placed During This Visit: yes Reason for Continuing Indwelling Catheter: Acute Urinary Retention or Obstruction Urinary Catheter Date of Insertion: 03/21/20 Urinary Catheter Time of Insertion: 14:00 Discharge Data Data Completed and Pending: Completed Studies During Hospitalization Category Date Time Status XR chest 1V essence ble [id number] Stat Exams 03/21/20 13:36 Completed XR tibia fibula R T 2V [id number] Routine Exams 03/23/20 Completed Pending at discharge Category Date Time Status C-arm Fluoroscopy [id number] Routine Exams 03/23/20 11:49 Taken Complete Blood Co unt w/Auto AM LABS Lab 03/26/20 04:00 Ordered Comprehensive Met abolic Panel AM LA BS Lab 03/26/20 04:00 Ordered Urine Culture Sta t Lab 03/21/20 14:04 Results Labs from last 24 hours 03/25/20 03/25/20 03/25/20 06:33 03:00 03:00 WBC 15.3 H RBC 3.68 L Hgb 10.2 L Hct 32.8 L MCV 89.1 MCH 27.7 L MCHC 31.1 RDW 13.9 Plt Count 530 H MPV 10.5 H Neut % (Auto) 66.5 Lymph % (Auto) 13.5 [place] % (Auto) 13.1 Eos % (Auto) 6.1 Baso % (Auto) 0.5 Neut # (Auto) 10.18 H Lymph # (Auto) 2.1 [place] # (Auto) 2.0 H Eos # (Auto) 0.9 H Baso # (Auto) 0.1 Nucleated RBC % (a uto) 0 Nucleated RBCs # 0.0 Sodium 129 L Potassium 3.9 Chloride 97 L Carbon Dioxide 24 Anion Gap 11.9 BUN 21 Creatinine 2.0 H GFR Calculation 33.2 L Glucose 213 H POC Glucose 158 Calculated Osmolal ity 277 L Calcium 8.1 L Total Bilirubin 0.2 AST 10 ALT < 5 Alkaline Phosphata se 129 Total Protein 5.7 L Albumin 2.3 L Globulin 3.4 03/24/20 03/24/20 03/24/20 20:15 17:05 10:55 WBC RBC Hgb Hct MCV MCH MCHC RDW Plt Count MPV Neut % (Auto) Lymph % (Auto) [place] % (Auto) Eos % (Auto) Baso % (Auto) Neut # (Auto) Lymph # (Auto) [place] # (Auto) Eos # (Auto) Baso # (Auto) Nucleated RBC % (a uto) Nucleated RBCs # Sodium Potassium Chloride Carbon Dioxide Anion Gap BUN Creatinine GFR Calculation Glucose POC Glucose 267 300 292 Calculated Osmolal ity Calcium Total Bilirubin AST ALT Alkaline Phosphata se Total Protein Albumin Globulin Vitals: Last Vital Signs Temp 99.0 F 03/25/20 07:35 Pulse 89 03/25/20 08:55 Resp 18 03/25/20 08:55 BP 184/82 03/25/20 07:35 Pulse Ox 92 03/25/20 08:55 Discharge Plan Discharge Patient Disposition: Home Health Service Condition: Stable Prescriptions: New oxycodone-acetaminophen 5-325 mg Tablet 1 tab PO Q8H PRN (Reason: Severe Pain) Qty: 20 RF: 0 lactulose 20 gram/30 mL Solution 10 g PO DAILY PRN (Reason: CONSTIPA) Qty: 30 RF: 0 enoxaparin 40 mg/0.4 mL Syringe 40 mg SUBCUT Q24H Qty: 14 RF: 0 cefdinir 300 mg capsule 300 mg PO DAILY 10 Days Qty: 10 RF: 0 Continued mupirocin 2 % ointment 1 applic TOPICAL BID Qty: 22 RF: 0 hydralazine 25 mg tablet 25 mg PO BID Qty: 60 RF: 2 gabapentin 600 mg tablet 600 mg PO TID Qty: 90 RF: 2 furosemide 40 mg tablet 40 mg PO DAILY Qty: 30 RF: 2 folic acid 1 mg tablet 1 mg PO DAILY Qty: 30 RF: 2 fenofibrate nanocrystallized 145 mg tablet 145 mg PO DAILY Qty: 30 RF: 2 famotidine 20 mg tablet 20 mg PO BID Qty: 60 RF: 2 ergocalciferol (vitamin D2) 1,250 mcg (50,000 unit) capsule 1,250 mcg PO .Weekly Qty: 4 RF: 2 Trulicity 1.5 mg/0.5 mL pen injector 1.5 mg SUBCUT .weekly Qty: 2 RF: 2 carbamazepine [Tegretol XR] 200 mg tablet extended release 12 hr 200 mg PO BID Qty: 60 RF: 2 atorvastatin [Lipitor] 20 mg tablet 20 mg PO DAILY Qty: 30 RF: 2 buspirone 15 mg tablet 15 mg PO TID Qty: 90 RF: 2 lisinopril 20 mg tablet 20 mg PO BID Qty: 60 RF: 2 metoprolol succinate [Toprol XL] 50 mg tablet extended release 24 hr 50 mg PO DAILY Qty: 30 RF: 2 (DME) pen needle, diabetic [BD Ultra-Fine Nadia Pen Needle] 32 gauge x 5/32 needle See Rx Instructions .ROUTE .MEDSUPPLY Qty: 100 RF: 5 potassium chloride 10 mEq tablet extended release 10 meq PO DAILY Qty: 30 RF: 2 venlafaxine [Effexor XR] 75 mg capsule,extended release 24hr 225 mg PO DAILY Qty: 90 RF: 2 Tresiba FlexTouch U-200 200 unit/mL (3 mL) insulin pen 80 unit SUBCUT DAILY Qty: 9 RF: 2 MediHoney (honey) 100 % paste 1 applic TOPICAL BID Qty: 528 RF: 0 aspirin [Aspir-Low] 81 mg tablet,delayed release (DR/EC) 81 mg PO DAILY RF: 0 sennosides-docusate sodium [Senokot-S] 8.6-50 mg tablet 1 tab-cap PO DAILY RF: 0 solifenacin [Vesicare] 10 mg tablet 10 mg PO DAILY RF: 0 insulin aspart U-100 [Novolog Flexpen U-100 Insulin] 100 unit/mL (3 mL) insulin pen 12 - 24 unit SUBCUT TID Qty: 15 RF: 2 Discharge Orders: Discharge Order (Routine); Ordered 03/25/20 Ordered By: Chidi Louis Other Ambulatory Orders: Complete Blood Count w/Auto (Routine) Timeframe: 3 Days Location: Determined by Patient Ordered By: Chidi Louis Comprehensive Metabolic Panel (Routine) Timeframe: 3 Days Facility: [facility] - Location: Lab - Main Lab Ordered By: Chidi Louis Referrals: Flaco Gonzales DO [Physician] - 1 week Isael Moreno FNP-C [Primary Care Provider] - 4-7 days (Hospital follow up) Discharge Diet: Advance as tolerated Discharge Activity: Increase activity as tolerated Activity Restrictions/Additional Instructions: Please call your doctor or present to emergency department if your condition worsens or you develop diarrhea, lightheadedness, fatigue or see blood in your stool or black stool. Please make sure you follow-up with primary care physician after lab work performed in the next several days to make sure your white blood cell count is improving as we have discussed. 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
--- NOTE | 2020-03-25 09:12 | PC.NURSE ---
patient denies pain this morning refused pain pill at this time, alert and oriented, repositioned in bed with pillows, PT in to work with patient, denies further questions or concerns.
--- NOTE | 2020-03-25 09:14 | PC.NURSE ---
PRN apresoline given per doctors orders for elevated blood pressure 184/82. will continue to monitor.
--- NOTE | 2020-03-25 10:26 | PC.NURSE ---
discharge instructions completed, verbalized understanding.
[2020-03-25 10:47] LABS: Glucose Point of Care 242 mg/dL (70-110)
--- NOTE | 2020-03-25 13:39 | PC.NURSE ---
patient discharged home via stretcher with EMS. patient belongings with patient.
== END 2020-03-25 13:41 | disposition home health service (06) | DRG 493 ==
LOC: ER 13:49 → MEDSURG 18:18
PROVIDERS: Nurse Practitioner Family; Orthopaedic Surgery; Admitting Provider Internal Medicine; PCP Nurse Practitioner; Visit Provider Internal Medicine
PROC: 0QSK04Z Reposition Left Fibula with Internal Fixation Device, Open Approach (ICD-10-PCS; CPT 27828; principal; 2020-03-23 13:00)
DX: S82.209A Unspecified fracture of shaft of unspecified tibia, initial encounter for closed fracture (principal); E87.1 Hypo-osmolality and hyponatremia; S82.409A Unspecified fracture of shaft of unspecified fibula, initial encounter for closed fracture; G35 Multiple sclerosis; N31.9 Neuromuscular dysfunction of bladder, unspecified; D47.3 Essential (hemorrhagic) thrombocythemia; E86.0 Dehydration; E11.22 Type 2 diabetes mellitus with diabetic chronic kidney disease; N18.30 Chronic kidney disease, stage 3 unspecified; X58.XXXA Exposure to other specified factors, initial encounter; Z79.4 Long term (current) use of insulin
CPT/HCPCS: 12345; 36415; 36416; 51702; 64450; 71045; 73590; 76000; 76942; 80053; 81001; 82962; 83605; 83735; 83880; 85025; 85610; 85730; 87077; 87086; 87186; 87635; 93005; 96372; 96375; 97110; 97161; 97165; 99284; C1713; J0360; J0690; J0696; J1100; J1650; J2270; J2405; J2704; J2795; J3010; J3490; J7030; P9047

== ENCOUNTER 2020-04-10 15:01 | Outpatient (CLI) | payer MEDICARE, MEDICAID, SELFPAY | END 2020-04-10 15:02 | disposition home or self-care (01) | LOC: SPT 15:02 | PROVIDERS: PCP Nurse Practitioner; Visit Provider Orthopaedic Surgery | DX: Z46.89 Encounter for fitting and adjustment of other specified devices (principal); S82.391D Other fracture of lower end of right tibia, subsequent encounter for closed fracture with routine healing; S82.831D Other fracture of upper and lower end of right fibula, subsequent encounter for closed fracture with routine healing; X58.XXXD Exposure to other specified factors, subsequent encounter | CPT/HCPCS: 97760; L4361 ==

== ENCOUNTER → 2020-05-22 14:46 | Outpatient (BNVA) | payer MEDICARE, MEDICAID, SELFPAY | PROVIDERS: PCP Nurse Practitioner; Visit Provider Orthopaedic Surgery | DX: Z98.890 Other specified postprocedural states (principal); Z48.89 Encounter for other specified surgical aftercare | CPT/HCPCS: 73590 ==

== ENCOUNTER 2020-06-05 15:03 | Emergency (ER) | payer MEDICARE, MEDICAID, SELFPAY ==
[2020-06-05 15:09] VITALS: BP 170/94; PULSE 95; RESP 18; TEMP 36.8; O2SAT 98; BMI 33.4
--- NOTE | 2020-06-05 15:28 | XRR_ITS ---
PROCEDURE INFORMATION: Exam: XR Abdomen, 1 View Exam date and time: 06/05/2020 3:45 PM Age: 69 years old Clinical indication: Abdominal pain; Generalized TECHNIQUE: Imaging protocol: XR of the abdomen. Views: Frontal supine view of the abdomen. 1 View. Total images: 1 COMPARISON: CT abdomen pelvis w con* [id number] 03/08/2016 12:43 AM FINDINGS: Gastrointestinal tract: Heavy fecal residue consistent with constipation. Probable fecal impaction. Nonobstructive bowel pattern. Surgical clips left upper quadrant. Bones/joints: Degenerative disease and degenerative disc disease of the spine. XR/XR KUB [id number] IMPRESSION: Constipation with probable fecal impaction.
--- NOTE | 2020-06-05 15:28 | XRR_ITS ---
PROCEDURE INFORMATION: Exam: XR Chest, 1 View Exam date and time: 06/05/2020 3:45 PM Age: 69 years old Clinical indication: Other: Syncope TECHNIQUE: Imaging protocol: XR of the chest Views: 1 view. Total images: 1 COMPARISON: CR XR chest 1V portable [id number] 03/21/2020 1:36 PM FINDINGS: Lungs: No visible active interstitial or alveolar airspace disease. Calcified granulomas of antecedent disease. Pleural space: Unremarkable. No pleural effusion. No pneumothorax. Heart/Mediastinum: Cardiac structures and configuration stable with mild arteriosclerosis. Bones/joints: Unremarkable for age. Soft tissues: Left upper quadrant abdominal surgical clips. XR/XR chest 1V portable [id number] IMPRESSION: Stable nonacute.
--- NOTE | 2020-06-05 15:29 | ECG_ITS ---
[facility] Test Date: 2020-06-05 Pat Name: London Quach Department: Room: Gender: Male [employer]: : 1950 Requested By: Maggie Sheth Order Number: [id number] Reading MD: BRIDGETTE ROPER Measurements Intervals [place] Rate: 92 P: 16 NV: 210 QRS: 61 QRSD: 85 T: 7 QT: 364 QTc: 452 Interpretive Statements SINUS RHYTHM WITH FIRST DEGREE AV BLOCK POSSIBLE LEFT ATRIAL ENLARGEMENT [-0.1mV P WAVE IN V1/V2] SEPTAL MYOCARDIAL INFARCTION , OF INDETERMINATE AGE [40+ ms Q WAVE IN V1/V2] Compared to ECG 03/21/2020 13:48:03 First degree AV block now present Myocardial infarct finding now present Ventricular premature complex(es) no longer present Electronically Signed On 06-05-2020 19:57:02 [employer] by BRIDGETTE ROPER [email or web address]
[2020-06-05 15:31] LABS: Glucose Point of Care 533 mg/dL (70-110)
--- NOTE | 2020-06-05 15:31 | W.ED.NAVMDI ---
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 Alkaline Phosphata se 127 (40-130) IU/L Troponin T Baselin e (0-15) ng/L Troponin T 120 Min [place] (0-15) ng/L Delta Troponin T (0-10) ABS# Total Protein 5.7 L (6.6-8.7) g/dL Albumin 3.2 L (3.5-5.2) g/dL Globulin 2.5 (1.3-4.6) g/dL Lipase 132 H (13-60) U/L Urine Color (Yellow) Urine Appearance (CLEAR) Urine pH (5-7) Ur Specific Gravit y (1.005-1.030) Urine Protein (Negative) Urine Glucose (UA) (Normal) Urine Ketones (Negative) Urine Blood (Negative) Urine Nitrate (Negative) Urine Bilirubin (Negative) Urine Urobilinogen (Negative) mg/dL Ur Leukocyte Odalis ase (Negative) Urine RBC (0-2) /hpf Urine WBC (0-5) /hpf Ur Squamous Epith Cells (0-5) /hpf Amorphous Sediment Urine Bacteria (NONE) /hpf Urine Yeast /hpf Carbamazepine (4.0-12.0) ug/mL Serum Ketones Negative (Negative) 06/05/20 06/05/20 06/05/20 Range/Units 15:24 15:28 15:41 WBC (4.0-10.0) 10^3/ uL RBC (4.1-5.3) 10^6/u L Hgb (11.7-16.6) g/dL Hct (42.0-52.0) % MCV (80-94) fL MCH (28.0-34.0) pg MCHC (30.0-36.0) g/dL RDW (12.1-15.1) % Plt Count (130-400) 10^3/c mm MPV (7.4-10.4) fL Neut % (Auto) % Lymph % (Auto) % [place] % (Auto) % Eos % (Auto) % Baso % (Auto) % Neut # (Auto) (1.8-7.7) 10^3/u L Lymph # (Auto) (0.8-4.8) 10^3/u L [place] # (Auto) (0.2-0.9) 10^3/u L Eos # (Auto) (0.0-0.8) 10^3/u L Baso # (Auto) (0.0-0.1) 10^3/u L Nucleated RBC % (a uto) % Nucleated RBCs # /100WBC Sodium (136-145) mmol/L Potassium (3.5-5.1) mmol/L Chloride (98-107) mmol/L Carbon Dioxide (22-29) mmol/L Anion Gap (5-19) BUN (8-23) mg/dL Creatinine (0.7-1.2) mg/dL GFR Calculation (90-130) mL/min Glucose (65-115) mg/dL POC Glucose 533 H* (70-110) mg/dL Calculated Osmolal ity (285-295) mOsm/k g Calcium (8.5-10.5) mg/dL Total Bilirubin (0.15-1.2) mg/dL AST (0-40) U/L ALT (0-41) U/L Alkaline Phosphata se (40-130) IU/L Troponin T Baselin e 64 H (0-15) ng/L Troponin T 120 Min [place] (0-15) ng/L Delta Troponin T (0-10) ABS# Total Protein (6.6-8.7) g/dL Albumin (3.5-5.2) g/dL Globulin (1.3-4.6) g/dL Lipase (13-60) U/L Urine Color Straw (Yellow) Urine Appearance Cloudy (CLEAR) Urine pH 5.0 (5-7) Ur Specific Gravit y 1.015 (1.005-1.030) Urine Protein 3+ H (Negative) Urine Glucose (UA) 4+ H (Normal) Urine Ketones Negative (Negative) Urine Blood 2+ H (Negative) Urine Nitrate Negative (Negative) Urine Bilirubin Neg (Negative) Urine Urobilinogen Norm (Negative) mg/dL Ur Leukocyte Odalis ase Negative (Negative) Urine RBC 5-10 H (0-2) /hpf Urine WBC None (0-5) /hpf Ur Squamous Epith Cells 0-4 H (0-5) /hpf Amorphous Sediment Not Reportable Urine Bacteria 1+ H (NONE) /hpf Urine Yeast 3+ H /hpf Carbamazepine (4.0-12.0) ug/mL Serum Ketones (Negative) 06/05/20 06/05/20 06/05/20 Range/Units 17:33 18:00 18:00 WBC (4.0-10.0) 10^3/ uL RBC (4.1-5.3) 10^6/u L Hgb (11.7-16.6) g/dL Hct (42.0-52.0) % MCV (80-94) fL MCH (28.0-34.0) pg MCHC (30.0-36.0) g/dL RDW (12.1-15.1) % Plt Count (130-400) 10^3/c mm MPV (7.4-10.4) fL Neut % (Auto) % Lymph % (Auto) % [place] % (Auto) % Eos % (Auto) % Baso % (Auto) % Neut # (Auto) (1.8-7.7) 10^3/u L Lymph # (Auto) (0.8-4.8) 10^3/u L [place] # (Auto) (0.2-0.9) 10^3/u L Eos # (Auto) (0.0-0.8) 10^3/u L Baso # (Auto) (0.0-0.1) 10^3/u L Nucleated RBC % (a uto) % Nucleated RBCs # /100WBC Sodium (136-145) mmol/L Potassium (3.5-5.1) mmol/L Chloride (98-107) mmol/L Carbon Dioxide (22-29) mmol/L Anion Gap (5-19) BUN (8-23) mg/dL Creatinine (0.7-1.2) mg/dL GFR Calculation (90-130) mL/min Glucose (65-115) mg/dL POC Glucose 338 H (70-110) mg/dL Calculated Osmolal ity (285-295) mOsm/k g Calcium (8.5-10.5) mg/dL Total Bilirubin (0.15-1.2) mg/dL AST (0-40) U/L ALT (0-41) U/L Alkaline Phosphata se (40-130) IU/L Troponin T Baselin e (0-15) ng/L Troponin T 120 Min [place] 63.65 H (0-15) ng/L Delta Troponin T -0.35 L (0-10) ABS# Total Protein (6.6-8.7) g/dL Albumin (3.5-5.2) g/dL Globulin (1.3-4.6) g/dL Lipase (13-60) U/L Urine Color (Yellow) Urine Appearance (CLEAR) Urine pH (5-7) Ur Specific Gravit y (1.005-1.030) Urine Protein (Negative) Urine Glucose (UA) (Normal) Urine Ketones (Negative) Urine Blood (Negative) Urine Nitrate (Negative) Urine Bilirubin (Negative) Urine Urobilinogen (Negative) mg/dL Ur Leukocyte Odalis ase (Negative) Urine RBC (0-2) /hpf Urine WBC (0-5) /hpf Ur Squamous Epith Cells (0-5) /hpf Amorphous Sediment Urine Bacteria (NONE) /hpf Urine Yeast /hpf Carbamazepine 2.0 L (4.0-12.0) ug/mL Serum Ketones (Negative) 06/05/20 Range/Units 18:35 WBC (4.0-10.0) 10^3/ uL RBC (4.1-5.3) 10^6/u L Hgb (11.7-16.6) g/dL Hct (42.0-52.0) % MCV (80-94) fL MCH (28.0-34.0) pg MCHC (30.0-36.0) g/dL RDW (12.1-15.1) % Plt Count (130-400) 10^3/c mm MPV (7.4-10.4) fL Neut % (Auto) % Lymph % (Auto) % [place] % (Auto) % Eos % (Auto) % Baso % (Auto) % Neut # (Auto) (1.8-7.7) 10^3/u L Lymph # (Auto) (0.8-4.8) 10^3/u L [place] # (Auto) (0.2-0.9) 10^3/u L Eos # (Auto) (0.0-0.8) 10^3/u L Baso # (Auto) (0.0-0.1) 10^3/u L Nucleated RBC % (a uto) % Nucleated RBCs # /100WBC Sodium (136-145) mmol/L Potassium (3.5-5.1) mmol/L Chloride (98-107) mmol/L Carbon Dioxide (22-29) mmol/L Anion Gap (5-19) BUN (8-23) mg/dL Creatinine (0.7-1.2) mg/dL GFR Calculation (90-130) mL/min Glucose (65-115) mg/dL POC Glucose 321 H (70-110) mg/dL Calculated Osmolal ity (285-295) mOsm/k g Calcium (8.5-10.5) mg/dL Total Bilirubin (0.15-1.2) mg/dL AST (0-40) U/L ALT (0-41) U/L Alkaline Phosphata se (40-130) IU/L Troponin T Baselin e (0-15) ng/L Troponin T 120 Min [place] (0-15) ng/L Delta Troponin T (0-10) ABS# Total Protein (6.6-8.7) g/dL Albumin (3.5-5.2) g/dL Globulin (1.3-4.6) g/dL Lipase (13-60) U/L Urine Color (Yellow) Urine Appearance (CLEAR) Urine pH (5-7) Ur Specific Gravit y (1.005-1.030) Urine Protein (Negative) Urine Glucose (UA) (Normal) Urine Ketones (Negative) Urine Blood (Negative) Urine Nitrate (Negative) Urine Bilirubin (Negative) Urine Urobilinogen (Negative) mg/dL Ur Leukocyte Odalis ase (Negative) Urine RBC (0-2) /hpf Urine WBC (0-5) /hpf Ur Squamous Epith Cells (0-5) /hpf Amorphous Sediment Urine Bacteria (NONE) /hpf Urine Yeast /hpf Carbamazepine (4.0-12.0) ug/mL Serum Ketones (Negative) Imaging Data^: CXR: Radiologist's impression: [facility] [address] [place] [address] XRay Report Signed Patient: London Quach #: [id number] : 1950Acct#:[id number] Age/Sex: 69 / MADM Date: 06/05/20 Loc: ERRoom/Bed: Attending Dr: Ordering Provider/Ordering MD: Maggie Bauer Date of Service: 06/05/20 Procedure(s): XR chest 1V portable [id number] Accession Number(s): [id number] Report Number: [id number] PROCEDURE INFORMATION: Exam: XR Chest, 1 View Exam date and time: 06/05/2020 3:45 PM Age: 69 years old Clinical indication: Other: Syncope TECHNIQUE: Imaging protocol: XR of the chest Views: 1 view. Total images: 1 COMPARISON: CR XR chest 1V portable [id number] 03/21/2020 1:36 PM FINDINGS: Lungs: No visible active interstitial or alveolar airspace disease. Calcified granulomas of antecedent disease. Pleural space: Unremarkable. No pleural effusion. No pneumothorax. Heart/Mediastinum: Cardiac structures and configuration stable with mild arteriosclerosis. Bones/joints: Unremarkable for age. Soft tissues: Left upper quadrant abdominal surgical clips. XR/XR chest 1V portable [id number] IMPRESSION: Stable nonacute. Dictated By:Ferdinand Raza Signed By:Lee Raza Date/Time:06/05/201613 DD/ 13 CT Abd/Pel: Radiologist's impression: [place] [address] CT Scan Report Signed Patient: London Quach #: [id number] : 1950Acct#:[id number] Age/Sex: 69 / MADM Date: 06/05/20 Loc: ERRoom/Bed: Attending Dr: Ordering Provider/Ordering MD: Maggie Bauer Date of Service: 06/05/20 Procedure(s): CT kidney stone 73013 Accession Number(s): [id number] Report Number: [id number] PROCEDURE INFORMATION: Exam: CT Abdomen And Pelvis Without Contrast Exam date and time: 06/05/2020 5:16 PM Age: 69 years old Clinical indication: Other: Back pain; Prior surgery; Surgery type: Spleen, appy; Additional info: Abdominal pain TECHNIQUE: Imaging protocol: Computed tomography of the abdomen and pelvis without contrast. Total images: 364 Radiation optimization: All CT scans at this facility use at least one of these dose optimization techniques: automated exposure control; mA and/or kV adjustment per patient size (includes targeted exams where dose is matched to clinical indication); or iterative reconstruction. COMPARISON: CT abdomen pelvis w con* [id number] 03/08/2016 12:43 AM RADIATION DOSE METRICS: Total DLP (mGy-cm): 1788.43 FINDINGS: Lungs: Limited assessment of the lung bases fails to reveal evidence for active cardiopulmonary process. Calcified granulomas of antecedent disease. Liver: Unremarkable. No mass. Gallbladder and bile ducts: Cholelithiasis. Few small gallstones. No gallbladder wall thickening or pericholecystic fluid. Pancreas: Pancreas with mild atrophic changes and mild fatty replacement. No visible pancreatic ductal ectasia. Spleen: Status post splenectomy. Adrenal glands: Adrenal glands unremarkable. Kidneys and ureters: No visible hydronephrosis or hydroureter. No visible nephrolithiasis or ureterolithiasis. Mild lobulation which is a normal anatomical variant. Stomach and bowel: Constipation with fecal impaction. Nonobstructive bowel pattern. Markedly redundant colon. No visible significant adynamic or reactive ileus identified. Appendix: Status post appendectomy. Intraperitoneal space: No visible intraperitoneal ascites. No visible pneumoperitoneum. Vasculature: The abdominal aorta is nonaneurysmal. Moderate arterial sclerotic disease. Lymph nodes: Few marginally prominent retroperitoneal periaortic/pericaval lymph nodes. Doubt of clinical significance. Stable inguinal lymph nodes which appear benign. Urinary bladder: Urinary bladder unremarkable. Reproductive: Mild prostate hypertrophy. 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 No visible acute osseous abnormality. Soft tissues: Unremarkable. CT/CT kidney stone [id number] IMPRESSION: 1. Constipation with fecal impaction. 2. Nonobstructive bowel pattern. 3. Cholelithiasis. 4. Other nonurgent, nonemergent, chronic, postoperative, and age related findings as detailed in text above. Radiation Dose CTDIVOL = (mGy): DLP = 1788.43 (mGy-cm) Dictated By:Ferdinand Raza Signed By:Ferdinand RazaSitalia Date/Time:06/05/201740 DD/ 39 Other Xray: Radiologist's impression: [facility] [place] [address] XRay Report Signed Patient: QuachLondon EFREMbeau #: [id number] : 1950Acct#:[id number] Age/Sex: 69 / MADM Date: 06/05/20 Loc: ERRoom/Bed: Attending Dr: Ordering Provider/Ordering MD: Maggie Bauer Date of Service: 06/05/20 Procedure(s): XR KUB 35922 Accession Number(s): [id number] Report Number: [id number] PROCEDURE INFORMATION: Exam: XR Abdomen, 1 View Exam date and time: 06/05/2020 3:45 PM Age: 69 years old Clinical indication: Abdominal pain; Generalized TECHNIQUE: Imaging protocol: XR of the abdomen. Views: Frontal supine view of the abdomen. 1 View. Total images: 1 COMPARISON: CT abdomen pelvis w con* [id number] 03/08/2016 12:43 AM FINDINGS: Gastrointestinal tract: Heavy fecal residue consistent with constipation. Probable fecal impaction. Nonobstructive bowel pattern. Surgical clips left upper quadrant. Bones/joints: Degenerative disease and degenerative disc disease of the spine. XR/XR KUB 97316 IMPRESSION: Constipation with probable fecal impaction. Dictated By:Ferdinand Raza Signed By:Ferdinand RazaSigndivine Date/Time:06/05/201616 DD/ 15 Discharge Plan Discharge Patient Disposition: Home Clinical Impression: Fecal impaction Constipation Qualifiers: Constipation type: unspecified constipation type Qualified Code(s): K59.00 - Constipation, unspecified Condition: Stable Prescriptions: New Miralax 17 gram/dose powder 17 g PO BID Qty: 119 RF: 0 Continued mupirocin 2 % ointment 1 applic TOPICAL BID Qty: 22 RF: 0 hydralazine 25 mg tablet 25 mg PO BID Qty: 60 RF: 2 gabapentin 600 mg tablet 600 mg PO TID Qty: 90 RF: 2 furosemide 40 mg tablet 40 mg PO DAILY Qty: 30 RF: 2 folic acid 1 mg tablet 1 mg PO DAILY Qty: 30 RF: 2 fenofibrate nanocrystallized 145 mg tablet 145 mg PO DAILY Qty: 30 RF: 2 famotidine 20 mg tablet 20 mg PO BID Qty: 60 RF: 2 ergocalciferol (vitamin D2) 1,250 mcg (50,000 unit) capsule 1,250 mcg PO .Weekly Qty: 4 RF: 2 Trulicity 1.5 mg/0.5 mL pen injector 1.5 mg SUBCUT .weekly Qty: 2 RF: 2 carbamazepine [Tegretol XR] 200 mg tablet extended release 12 hr 200 mg PO BID Qty: 60 RF: 2 buspirone 15 mg tablet 15 mg PO TID Qty: 90 RF: 2 lisinopril 20 mg tablet 20 mg PO BID Qty: 60 RF: 2 metoprolol succinate [Toprol XL] 50 mg tablet extended release 24 hr 50 mg PO DAILY Qty: 30 RF: 2 (DME) pen needle, diabetic [BD Ultra-Fine Nadia Pen Needle] 32 gauge x 5/32 needle See Rx Instructions .ROUTE .MEDSUPPLY Qty: 100 RF: 5 potassium chloride 10 mEq tablet extended release 10 meq PO DAILY Qty: 30 RF: 2 venlafaxine [Effexor XR] 75 mg capsule,extended release 24hr 225 mg PO DAILY Qty: 90 RF: 2 Tresiba FlexTouch U-200 200 unit/mL (3 mL) insulin pen 80 unit SUBCUT DAILY Qty: 9 RF: 2 MediHoney (honey) 100 % paste 1 applic TOPICAL BID Qty: 528 RF: 0 (DME) CAM Boot See Rx Instructions .Route .MEDSUPPLY Qty: 1 RF: 0 sennosides-docusate sodium [Senokot-S] 8.6-50 mg tablet 1 tab-cap PO DAILY RF: 0 solifenacin [Vesicare] 10 mg tablet 10 mg PO DAILY RF: 0 insulin aspart U-100 [Novolog Flexpen U-100 Insulin] 100 unit/mL (3 mL) insulin pen 12 - 24 unit SUBCUT TID Qty: 15 RF: 2 (DME) Coloplast Self cath 10 mexican See Rx Instructions .Route .MEDSUPPLY Qty: 2 RF: 12 oxycodone-acetaminophen 5-325 mg Tablet 1 tab PO Q8H PRN (Reason: Severe Pain) Qty: 20 RF: 0 enoxaparin 40 mg/0.4 mL Syringe 40 mg SUBCUT Q24H Qty: 14 RF: 0 lactulose 20 gram/30 mL Solution 10 g PO DAILY PRN (Reason: CONSTIPA) Qty: 30 RF: 0 aspirin 81 mg Tablet,Delayed Release (Dr/Ec) 81 mg PO DAILY@0900 RF: 0 Lipitor 20 mg tablet 20 mg PO DAILY@0900 RF: 0 Discharge Orders: Discharge ED (Routine); Ordered 06/05/20 Ordered By: Sher Valdez Referrals: Isael Moreno, [employer] [Primary Care Provider] - 1-3 days Discharge Diet: As Directed Discharge Activity: Resume usual activity Patient Instructions: Constipation (ED), Fecal Impaction (ED) Activity Restrictions/Additional Instructions: Return for any new or worsening symptoms. Continue your home medications. Take the MiraLAX as prescribed. Follow-up with your primary care provider within 3 days. Sign Out Sign Out Data: Patient Sign Out occurred on 06/05/20 at 18:29. Patient's care was discussed, and care was transferred from FLORENCE Avelar to Sher Valdez MD, [facility]. Sign Out Comment: CT scan abdomen and pelvic pending - patient will more than likely need hospital admission - transfer of care to Dr Valdez - change of shift Last updated by Maggie Bauer ARNP at 06/05/20 17:42 Coding Level of Care Code ED Plate Roller for Chg Fwd Exam Comprehensive
[2020-06-05 15:45] LABS: Basophils # 0.1 10^3/uL (0.0-0.1); Eosinophils # 0.2 10^3/uL (0.0-0.8); Eosinophils % 1.6 %; Hematocrit 42.2 % (42.0-52.0); Hemoglobin 13.7 g/dL (11.7-16.6); Lymphocytes # 2.1 10^3/uL (0.8-4.8); Lymphocytes % 15.7 %; Mean Corpuscular HGB Conc 32.5 g/dL (30.0-36.0); Mean Corpuscular Hemoglobin 28.1 pg (28.0-34.0); Mean Corpuscular Volume 86.5 fL (80-94); Monocytes # 1.1 10^3/uL (0.2-0.9); Neutrophils # 9.81 10^3/uL (1.8-7.7); Neutrophils % 73.4 %; Nucleated Red Blood Cells % 0 %; Platelet Count 546 10^3/cmm (130-400); Red Blood Count 4.88 10^6/uL (4.1-5.3); Red Cell Distribution Width 14.2 % (12.1-15.1); White Blood Count 13.4 10^3/uL (4.0-10.0)
[2020-06-05 15:52] LABS: Ketone (Acetest) Serum Negative (Negative)
[2020-06-05 16:01] LABS: Troponin(5th) Baseline 64 ng/L (0-15)
[2020-06-05 16:02] LABS: Alanine Aminotransferase 13 U/L (0-41); Albumin Level 3.2 g/dL (3.5-5.2); Alkaline Phosphatase 127 IU/L (40-130); Anion Gap 15.6 (5-19); Aspartate Amino Transferase 26 U/L (0-40); Blood Urea Nitrogen 27 mg/dL (8-23); Calcium 8.5 mg/dL (8.5-10.5); Carbon Dioxide 24 mmol/L (22-29); Chloride 91 mmol/L (98-107); Globulin 2.5 g/dL (1.3-4.6); Glomerular Filtration Rate 25.7 mL/min (90-130); Glucose 389 mg/dL (65-115); Lipase 132 U/L (13-60); Osmolality Calculated 285 mOsm/kg (285-295); Potassium 3.6 mmol/L (3.5-5.1); Sodium 127 mmol/L (136-145); Total Bilirubin 0.2 mg/dL (0.15-1.2); Total Protein 5.7 g/dL (6.6-8.7)
[2020-06-05] MEDS: insulin regular-human 100 units/1 mL 10 UNIT IVP (16:03)
[2020-06-05] MEDS: sodium chloride 0.9% 500 ML 999 ML IV (16:29)
[2020-06-05 16:57] LABS: Add Urine Microscopic? YES; Bilirubin Urine Neg (Negative); Blood Urine 2+ (Negative); Glucose Urine UA 4+ (Normal); Ketones Urine Negative (Negative); Leukocyte Esterase Urine Negative (Negative); Nitrate Urine Negative (Negative); Protein Urine 3+ (Negative); Specific Gravity, Urine 1.015 (1.005-1.030); Urine Appearance Cloudy (CLEAR); Urine Color Straw (Yellow); Urobilinogen Urine Norm (Negative)
[2020-06-05 17:12] LABS: Add Urine Culture? No; Bacteria Urine 1+ /hpf; Squamous Epithelial Cell Urine 0-4 /hpf (0-5)
--- NOTE | 2020-06-05 17:12 | CTR_ITS ---
PROCEDURE INFORMATION: Exam: CT Abdomen And Pelvis Without Contrast Exam date and time: 06/05/2020 5:16 PM Age: 69 years old Clinical indication: Other: Back pain; Prior surgery; Surgery type: Spleen, appy; Additional info: Abdominal pain TECHNIQUE: Imaging protocol: Computed tomography of the abdomen and pelvis without contrast. Total images: 364 Radiation optimization: All CT scans at this facility use at least one of these dose optimization techniques: automated exposure control; mA and/or kV adjustment per patient size (includes targeted exams where dose is matched to clinical indication); or iterative reconstruction. COMPARISON: CT abdomen pelvis w con* [id number] 03/08/2016 12:43 AM RADIATION DOSE METRICS: Total DLP (mGy-cm): 1788.43 FINDINGS: Lungs: Limited assessment of the lung bases fails to reveal evidence for active cardiopulmonary process. Calcified granulomas of antecedent disease. Liver: Unremarkable. No mass. Gallbladder and bile ducts: Cholelithiasis. Few small gallstones. No gallbladder wall thickening or pericholecystic fluid. Pancreas: Pancreas with mild atrophic changes and mild fatty replacement. No visible pancreatic ductal ectasia. Spleen: Status post splenectomy. Adrenal glands: Adrenal glands unremarkable. Kidneys and ureters: No visible hydronephrosis or hydroureter. No visible nephrolithiasis or ureterolithiasis. Mild lobulation which is a normal anatomical variant. Stomach and bowel: Constipation with fecal impaction. Nonobstructive bowel pattern. Markedly redundant colon. No visible significant adynamic or reactive ileus identified. Appendix: Status post appendectomy. Intraperitoneal space: No visible intraperitoneal ascites. No visible pneumoperitoneum. Vasculature: The abdominal aorta is nonaneurysmal. Moderate arterial sclerotic disease. Lymph nodes: Few marginally prominent retroperitoneal periaortic/pericaval lymph nodes. Doubt of clinical significance. Stable inguinal lymph nodes which appear benign. Urinary bladder: Urinary bladder unremarkable. Reproductive: Mild prostate hypertrophy. 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 No visible acute osseous abnormality. Soft tissues: Unremarkable. CT/CT kidney stone [id number] IMPRESSION: 1. Constipation with fecal impaction. 2. Nonobstructive bowel pattern. 3. Cholelithiasis. 4. Other nonurgent, nonemergent, chronic, postoperative, and age related findings as detailed in text above. Radiation Dose CTDIVOL = (mGy): DLP = 1788.43 (mGy-cm)
[2020-06-05 17:14] VITALS: BP 172/92; PULSE 93; RESP 15; O2SAT 98
--- NOTE | 2020-06-05 17:29 | ECG_ITS ---
[facility] Test Date: 2020-06-05 Pat Name: London Quach Department: Room: Gender: Male Data Examination Clerk: : 1950 Requested By: Maggie Sheth Order Number: [id number] Reading MD: BRIDGETTE ROPER Measurements Intervals [place] Rate: 89 P: 25 SC: 206 QRS: 56 QRSD: 90 T: 1 QT: 374 QTc: 456 Interpretive Statements SINUS RHYTHM WITH MARKED SINUS ARRHYTHMIA SEPTAL MYOCARDIAL INFARCTION , OF INDETERMINATE AGE [40+ ms Q WAVE IN V1/V2] Compared to ECG 06/05/2020 15:59:16 First degree AV block no longer present Myocardial infarct finding still present Electronically Signed On 06-05-2020 19:59:12 SERVICE DESK ASSOCIATE by BRIDGETTE ROPER [id number]
[2020-06-05 17:35] LABS: Glucose Point of Care 338 mg/dL (70-110)
[2020-06-05 18:01] VITALS: BP 188/102; PULSE 94; RESP 18; O2SAT 98
[2020-06-05 18:31] VITALS: PULSE 96; RESP 18; O2SAT 98
[2020-06-05 18:41] LABS: Glucose Point of Care 321 mg/dL (70-110)
[2020-06-05 18:44] LABS: Troponin 5 2HR 63.65 ng/L (0-15)
[2020-06-05 18:45] LABS: Troponin 5 2HR Delta -0.35 ABS# (0-10)
--- NOTE | 2020-06-05 19:03 | PC.NURSE ---
milk of molasses enema inserted, pt on bed phillips
[2020-06-05 19:50] VITALS: BP 157/84; PULSE 96; RESP 18; O2SAT 99
--- NOTE | 2020-06-05 19:50 | PC.NURSE ---
patient made large, soft brown stool after enema administration
[2020-06-05 20:08] VITALS: BP 185/99; PULSE 94; RESP 21; O2SAT 99
== END 2020-06-05 21:29 | disposition home or self-care (01) ==
PROVIDERS: Nurse Practitioner Family; Emergency Provider Family Medicine; PCP Nurse Practitioner
DX: K59.00 Constipation, unspecified (principal); Z79.82 Long term (current) use of aspirin; Z79.4 Long term (current) use of insulin; E11.22 Type 2 diabetes mellitus with diabetic chronic kidney disease; I12.9 Hypertensive chronic kidney disease with stage 1 through stage 4 chronic kidney disease, or unspecified chronic kidney disease; N18.30 Chronic kidney disease, stage 3 unspecified; E78.2 Mixed hyperlipidemia; G35 Multiple sclerosis; Z87.891 Personal history of nicotine dependence
CPT/HCPCS: 12345; 36415; 36416; 71045; 74018; 74176; 80053; 80156; 81001; 82009; 82962; 83690; 84484; 85025; 93005; 96374; 96375; 99283; 99284; J0131; J1815; J7040

== ENCOUNTER → 2020-06-14 15:42 | Outpatient (BNVA) | payer MEDICARE, MEDICAID, SELFPAY | PROVIDERS: PCP Nurse Practitioner; Visit Provider Nurse Practitioner | DX: E11.65 Type 2 diabetes mellitus with hyperglycemia (principal); E11.69 Type 2 diabetes mellitus with other specified complication; G35 Multiple sclerosis; F41.9 Anxiety disorder, unspecified; E78.2 Mixed hyperlipidemia; I10 Essential (primary) hypertension; K21.9 Gastro-esophageal reflux disease without esophagitis; K59.01 Slow transit constipation; G25.81 Restless legs syndrome; Z79.4 Long term (current) use of insulin | CPT/HCPCS: 80053; 80061; 83036; 83690; 85025 ==

== ENCOUNTER 2020-07-26 18:55 | Inpatient (IN) | payer MEDICARE, MEDICAID, SELFPAY ==
--- NOTE | 2020-07-26 | XRR_ITS ---
[facility] Final Radiology Report Call: [phone] Name: JEFF MARCUS Age: 69Years M Date: 07/26/2020 SSN: -- : 1950 Study: XR KNEE 1 OR 2 VIEWS Requesting Physician: MAGAN PARISH Images: 2 Provided Clinical History: fall PROCEDURE INFORMATION: Exam: XR Right Knee Exam date and time: 07/26/2020 7:21 PM Age: 69 years old Clinical indication: Injury or trauma; Fall; Blunt trauma; Knee; Right TECHNIQUE: Imaging protocol: XR Right knee. Views: 1 or 2 views. COMPARISON: OT XR tibia fibula RT 2V [id number] 03/23/2020 12:52 PM FINDINGS: Bones/joints: Acute obliquely oriented severely displaced fracture of the distal femoral diaphysis. Distal component is displaced medially about 1/2 shaft width. Mild varus angulation deformity. 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 Partial visualization of an intramedullary nail in the tibial shaft. Tibiofemoral knee joint alignment is unremarkable. Patellofemoral knee joint alignment is unremarkable. Soft tissues: Soft tissues of the lower thigh are edematous. Other findings: IMPRESSION: Acute right distal femur fracture. Thank you for allowing us to participate in the care of your patient. Dictated and Authenticated by: Bravo Garcia MD 07/26/2020 8:29 PM Central Time ([place] & [place]) CRISTELA
[2020-07-26 18:56] VITALS: PULSE 73; RESP 18; TEMP 36.5; O2SAT 96; BMI 32.5
--- NOTE | 2020-07-26 19:11 | XRR_ITS ---
PROCEDURE INFORMATION: Exam: XR Right Ankle Exam date and time: 07/26/2020 7:21 PM Age: 69 years old Clinical indication: Injury or trauma; Fall; Blunt trauma; Ankle; Right; Prior surgery TECHNIQUE: Imaging protocol: XR Right ankle. Views: 3 or more views. COMPARISON: CR XR ankle RT min 3V* [id number] 03/21/2020 11:18 AM FINDINGS: Tubes, catheters and devices: No loosening of the surgical hardware. Bones/joints: Surgical arthrodesis changes of the right hindfoot. Resection of the distal fibula. Diffuse osseous demineralization. Mature periosteal bone reaction changes of the distal tibial diaphysis. Soft tissues: Diffuse soft tissue swelling. 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
--- NOTE | 2020-07-26 19:11 | XRR_ITS ---
PROCEDURE INFORMATION: Exam: XR Right Femur Exam date and time: 07/26/2020 7:21 PM Age: 69 years old Clinical indication: Injury or trauma; Fall; Blunt trauma; Thigh or upper leg; Right TECHNIQUE: Imaging protocol: XR Right femur. Views: 2 views. COMPARISON: OT XR tibia fibula RT 2V [id number] 03/23/2020 12:52 PM FINDINGS: Bones/joints: There is partial visualization of the comminuted severely displaced obliquely oriented fracture lucency of the distal femoral diaphysis. Soft tissues: Unremarkable. XR/XR femur RT min 2V* [id number] IMPRESSION: Right distal femur fracture is only partially visible on this exam.
--- NOTE | 2020-07-26 19:45 | XRR_ITS ---
PROCEDURE INFORMATION: Exam: XR Chest Exam date and time: 07/26/2020 8:09 PM Age: 69 years old Clinical indication: Other: FX RT. Knee; Additional info: Pre op TECHNIQUE: Imaging protocol: XR of the chest Views: 1 view. COMPARISON: CR XR chest 1V portable [id number] 06/05/2020 3:37 PM FINDINGS: Lungs: Unremarkable. No consolidation. Pleural spaces: Unremarkable. No pleural effusion. No pneumothorax. Heart/Mediastinum: Unremarkable. No cardiomegaly. Bones/joints: Unremarkable. Intraperitoneal space: Surgical clips in the left upper quadrant of the abdomen. XR/XR chest 1V portable [id number] IMPRESSION: No acute findings.
--- NOTE | 2020-07-26 20:04 | ECG_ITS ---
[facility] Test Date: 2020-07-26 Pat Name: London Quach Department: Room: Gender: Male Health Care Administrator: : 1950 Requested By: Sher Valdez I Order Number: [id number] Andrew MD: Lisa Richardson M.D. Measurements Intervals [place] Rate: 79 P: 19 NH: 224 QRS: 91 QRSD: 84 T: 3 QT: 367 QTc: 422 Interpretive Statements SINUS RHYTHM WITH FIRST DEGREE AV BLOCK BORDERLINE RIGHT AXIS DEVIATION [QRS AXIS > 90] Compared to ECG 06/05/2020 17:53:47 First degree AV block now present Sinus arrhythmia no longer present Myocardial infarct finding no longer present Electronically Signed On 07-28-2020 11:35:33 CHIEF HUMAN RESOURCES OFFICER by Lisa Richardson M.D. [id number]
--- NOTE | 2020-07-26 20:26 | P.HP_ITS ---
Providers/Chief Complaint Primary Care Provider: TAYLOR SilverioC Chief Complaint: FALL/ LEG PAIN History of Present Illness London Quach is a 69 year old male who has multiple comorbid conditions including multiple sclerosis presented today after sustaining a fall. 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 Today when he was getting out of clock he noticed knee buckling, fell on the ground and experienced excruciating pain. He did not experience any syncopal event, chest pain, shortness of breath, fever or any seizure-like activities. Is attributing this fall to his knees buckling. He has been experiencing swelling of his lower extremities never had any diagnosis of CHF, [place] in the past however he has been taking Lasix 40 mg daily. Of note, he had tibiofibular fracture in March last year as well when he was trying to transfer himself from wheelchair to the car. Diagnostics in the ER revealed distal displaced right femur fracture, normal hemodynamics, acting at baseline, normal CBC and BMP, awaiting urine analysis Will request Covid antigen Review of Systems Const: Denies: fever(s) or chills Eyes: Denies: change in vision ENMT: Denies: throat pain Card: Reports: swelling of feet/ankles; Denies: chest pain, dyspnea on exertion or orthopnea Resp: Denies: dyspnea GI: Denies: abdominal pain : Denies: flank pain Musc: Reports: muscle cramps Skin/Breast: Reports: lesions Neuro: Reports: difficulty walking, frequent falls and confusion; Denies: headache(s) Psych: Denies: anxiety Endo: Denies: polyuria Rohit/Lymph: Denies: easy bruising All/Imm: Denies: urticaria Medications/Allergies Home Medications Medication Instructions Recorded Confirmed Last Taken Type mupirocin 2 % topical ointment 1 applic TOPICAL BID #22 gm 10/25/19 06/14/20 Unknown Rx dulaglutide 1.5 mg/0.5 mL 1.5 mg SUBCUT .weekly #2 ml 02/17/20 06/14/20 Unknown Rx subcutaneous pen injector Coloplast Self cath 10 citizen of [place] #2 ea 04/18/20 06/14/20 Unknown Rx aspirin 81 mg tablet,delayed 81 mg PO DAILY@0900 #30 tab 06/14/20 06/14/20 Unknown Rx release atorvastatin 20 mg tablet 20 mg PO DAILY@0900 #30 tab 06/14/20 06/14/20 Unknown Rx ergocalciferol (vitamin D2) 1,250 1,250 mcg PO .Weekly #4 cap 06/14/20 06/14/20 Unknown Rx mcg (50,000 unit) capsule honey 100 % topical paste 1 applic TOPICAL BID #528 ml 06/14/20 06/14/20 Unknown Rx hydralazine 25 mg tablet 25 mg PO TID #90 tab 06/14/20 06/14/20 Unknown Rx insulin aspart U-100 100 unit/mL 12 - 24 unit SUBCUT TID #15 ml 06/14/20 06/14/20 Unknown Rx (3 mL) subcutaneous pen insulin degludec 200 unit/mL (3 90 unit SUBCUT DAILY #18 ml 06/14/20 06/14/20 Unknown Rx mL) subcutaneous pen lactulose 20 gram/30 mL oral 20 g PO BID PRN #1500 ml 06/14/20 06/14/20 Unknown Rx solution pen needle, diabetic 32 gauge x #200 ea 06/14/20 06/14/20 Unknown Rx 5 Effexor XR 225 mg PO DAILY@0900 07/26/20 07/26/20 07/26/20 History Tegretol XR 200 mg PO BID@0900,209907/26/20 07/26/20 07/26/20 History Toprol XL 50 mg PO DAILY@0900 07/26/20 07/26/20 07/26/20 History buspirone 15 mg PO TID@07/26/20 07/26/20 07/26/20 History famotidine 20 mg PO BID@0900,2100 07/26/20 07/26/20 07/26/20 History fenofibrate nanocrystallized 145 mg PO DAILY@0900 07/26/20 07/26/20 07/26/20 History folic acid 1 mg PO DAILY@0900 07/26/20 07/26/20 07/26/20 History furosemide 40 mg PO DAILY@0900 07/26/20 07/26/20 Unknown History gabapentin 600 mg PO TID@09,07/26/20 07/26/20 07/26/20 History lisinopril 20 mg PO BID@0900,2100 07/26/20 07/26/20 07/26/20 History potassium chloride 10 meq PO DAILY@0900 07/26/20 07/26/20 07/26/20 History ropinirole 1 mg PO DAILY 07/26/20 07/26/20 07/25/20 History Allergies Allergy/AdvReac Type Severity Reaction Status Date / Time baclofen Allergy ADR-Dizzine Verified 05/22/20 14:46 ss thiopental [From Pentothal] Allergy ALGY-Anaphy Verified 05/22/20 14:46 laxis PFSH Acute PFSH: Medical History Acid reflux Anxiety and depression CKD (chronic kidney disease), stage III Constipation, slow transit Controlled diabetes mellitus with hyperglycemia, with long-term current use of insulin DDD (degenerative disc disease) Essential (primary) hypertension Intermittent self-catheterization of bladder Mixed hyperlipidemia Multiple sclerosis 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 Wheel chair as ambulatory aid Surgical History H/O splenectomy History of appendectomy History of back surgery Family History Mother CAD (coronary artery disease) Diabetes Father CAD (coronary artery disease) Diabetes Other Cancer Social History Smoking and tobacco status: former smoker Second hand smoke exposure: No Smoking risk assessment/counseling performed?: No Alcohol intake: current Desire information about alcohol rehabilitation?: No Counseling given: No Desire information about substance/drug rehabilitation?: No Counseling given: No Adopted: No Caregiver/support person: Yes Lives independently: No Household members: spouse Marital status: Current occupational status: disabled History of recent travel: No Current gender identity: Male Vitals/I&O/Wt Last Vital Signs Temp 97.7 F 07/26/20 18:56 Pulse 73 07/26/20 18:56 Resp 18 07/26/20 18:56 Pulse Ox 96 07/26/20 18:56 Weight last 48 hrs Weight 97.296 kg Physical Exam Narrative: EXAM NARRATIVE: elderly male currently laying comfortably in his bed no active distress Appears stated age Unkept appearance Does not look fluid overloaded S1, S2 no murmur appreciated Dorsal MD edema 2+ with pedal edema Venous stasis dermatitis Abdomen distended with obesity, nontender No acute respite distress stridor or wheezing Awake alert oriented x3 GCS 15 No neurological deficit No vascular compromise of lower extremities A&P Assessment and plan (1) Femur fracture, right: Displaced right femur fracture No vascular compromise, patient has had tibiofibular fracture as well when he was trying to transfer himself from wheelchair to the truck in March 20 and this time he has fallen while getting out of the truck Considering multiple comorbid conditions, high creatinine and diabetes he will considered high risk for perioperative complications RCRI class II risk, he is also noticing swelling of his lower extremities however denying orthopnea and PND, I would request echo in the morning as well to gauge ejection fraction before surgical intervention for prognostication, Keep him n.p.o. Orthopedic consulted I will not initiate fluids at night, fluids can be initiated in perioperative peroid. Hold lisinopril, I have asked ER physician to place a splint since this is a distal femur fracture and place a Thrasher catheter Considering recurrent falls I do believe he is high risk to be on the road driving using hand levers to operate gas and brake pedal which should be looked at again, he should not drive until cleared by DMV my opinion as he is at risk of injuring others and himself Status: Acute Additional A&P Information Type 2 diabetes: Hold Lantus, we will keep him on low-dose sliding scale Accu- Cheks every 6 hours, Fluid overloaded: We will request echo in the morning, he might need more Lasix after the surgery to avoid fluid overload/ Multiple sclerosis: Follows up with Dr. Donahue Full code N.p.o. DVT prophylaxis SCDs Attestations Medical Necessity Statement*: Anticipating stay in the hospital cross more than 2 midnights for right distal displaced femur fracture Time Spent in Patient Care: (>than 50% of time spent in counselling and/or direct pt care on unit) . 50mins Coding Level of Care Code Acute Pharmacy Operations Specialist for Chg Fwd Diagnoses Femur fracture, right S72.91XA
[2020-07-26 21:24] LABS: Basophils # 0.2 10^3/uL (0.0-0.1); Basophils % 0.9 %; Eosinophils # 1.4 10^3/uL (0.0-0.8); Eosinophils % 6.3 %; Hematocrit 50.7 % (42.0-52.0); Lymphocytes # 2.7 10^3/uL (0.8-4.8); Lymphocytes % 12.1 %; Mean Corpuscular HGB Conc 29.6 g/dL (30.0-36.0); Mean Corpuscular Hemoglobin 28.7 pg (28.0-34.0); Mean Corpuscular Volume 96.9 fL (80-94); Mean Platelet Volume 11.1 fL (7.4-10.4); Monocytes # 1.4 10^3/uL (0.2-0.9); Monocytes % 6.3 %; Neutrophils # 16.76 10^3/uL (1.8-7.7); Nucleated Red Blood Cells % 0 %; Platelet Count 516 10^3/cmm (130-400); Red Blood Count 5.23 10^6/uL (4.1-5.3); Red Cell Distribution Width 15.2 % (12.1-15.1); White Blood Count 22.7 10^3/uL (4.0-10.0)
[2020-07-26 21:43] LABS: Add Urine Microscopic? YES; Bilirubin Urine Neg (Negative); Blood Urine 2+ (Negative); Glucose Urine UA 4+ (Normal); Ketones Urine Negative (Negative); Leukocyte Esterase Urine Negative (Negative); Nitrate Urine Negative (Negative); Protein Urine 3+ (Negative); Specific Gravity, Urine 1.015 (1.005-1.030); Urine Appearance Cloudy (CLEAR); Urine Color Yellow (Yellow); Urobilinogen Urine Norm (Negative); pH Urine 6 (5-7)
[2020-07-26 21:48] LABS: RBC Urine 0-4 /hpf (0-2); Squamous Epithelial Cell Urine 0-4 /hpf (0-5)
[2020-07-26 21:49] LABS: Add Urine Culture? Yes; Amorphous Sediment Urine 3+ /hpf; Bacteria Urine 4+ /hpf
[2020-07-26 22:11] VITALS: BP 242/111; PULSE 86; RESP 25; O2SAT 97
[2020-07-26] MEDS: labetalol 5 mg/mL SDV 20mL 10 MG IVP (22:16)
[2020-07-26 22:26] VITALS: BP 151/85; PULSE 83; RESP 26; O2SAT 95
[2020-07-26 22:50] LABS: SARS Covid-2 Antigen Negative (Negative)
[2020-07-26] MEDS: ondansetron 2 mg/ML SDV 2 mL 4 MG IVP (22:52)
[2020-07-26 22:56] VITALS: RESP 18; O2SAT 96
[2020-07-26] MEDS: morphine 4 mg/mL SDV 1 mL IVP (22:56)
[2020-07-26 23:09] LABS: Alanine Aminotransferase 10 U/L (0-41); Albumin Level 2.1 g/dL (3.5-5.2); Alkaline Phosphatase 138 IU/L (40-130); Aspartate Amino Transferase 15 U/L (0-40); Blood Urea Nitrogen 25 mg/dL (8-23); Calcium 7.8 mg/dL (8.5-10.5); Carbon Dioxide 20 mmol/L (22-29); Chloride 104 mmol/L (98-107); Globulin 3.2 g/dL (1.3-4.6); Glomerular Filtration Rate 28.3 mL/min (90-130); Glucose 262 mg/dL (65-115); Osmolality Calculated 291 mOsm/kg (285-295); Sodium 134 mmol/L (136-145); Total Bilirubin 0.2 mg/dL (0.15-1.2); Total Protein 5.3 g/dL (6.6-8.7)
[2020-07-26 23:20] VITALS: BP 151/81; PULSE 83; RESP 17; O2SAT 96
[2020-07-26 23:42] VITALS: BP 176/96; PULSE 85; RESP 18; TEMP 36.8; O2SAT 97
--- NOTE | 2020-07-26 23:45 | W.ED.EXTPRO ---
HPI - Extremity Problem General: Chief complaint: Extremity Injury, Lower Stated complaint: FALL/ LEG PAIN Time Seen by Provider: 07/26/20 19:00 Source: patient Mode of arrival: EMS Limitations: no limitations History of Present Illness: HPI Narrative: The patient is a 69-year-old male with a history of multiple sclerosis who presents to the emergency department following a fall. He was trying to get into his truck when he said his right leg buckled and he fell landing on his knee. He has severe pain in his right knee and ankle. He had ankle surgery done about 5 months ago. He denies hitting his head or losing consciousness. MD Complaint: extremity pain and extremity swelling Onset (ago): hour(s) (1) Pain Consistency: constant Location: right and lower extremity Severity scale (1-10): 10 Quality: sharp Radiation: none Relieving factors: nothing Exacerbating factors: range of motion, weight bearing and palpation Associated symptoms: Deny arthralgias, chest pain, fever(s), myalgias, rash or short of breath Review of Systems General: Reports: 10 or more systems reviewed and unremarkable except in HPI and below Const: Denies: fever(s) Eyes: Denies: change in vision or blurry vision ENMT: Denies: throat pain, enlarged tonsils, odynophagia, hoarseness, mouth pain or swelling of lips/tongue Card: Denies: chest pain Resp: Denies: dyspnea, productive cough or non-productive cough GI: Denies: abdominal pain, nausea or vomiting : Denies: flank pain, dysuria, urinary frequency, urinary urgency or urinary hesitancy Musc: Reports: extremity pain and extremity swelling; Denies: neck pain or back pain Skin/Breast: Denies: rash Neuro: Denies: headache(s), numbness in extremities or weakness in extremities Endo: Denies: polyuria, polydipsia or tired all the time PFSH ED PFSH: Medical History Acid reflux Anxiety and depression CKD (chronic kidney disease), stage III Constipation, slow transit Controlled diabetes mellitus with hyperglycemia, with long-term current use of insulin DDD (degenerative disc disease) Essential (primary) hypertension Intermittent self-catheterization of bladder Mixed hyperlipidemia Multiple sclerosis 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 Wheel chair as ambulatory aid Surgical History H/O splenectomy History of appendectomy History of back surgery Family History Mother CAD (coronary artery disease) Diabetes Father CAD (coronary artery disease) Diabetes Other Cancer Social History Smoking and tobacco status: former smoker Second hand smoke exposure: No Smoking risk assessment/counseling performed?: No Alcohol intake: current Desire information about alcohol rehabilitation?: No Counseling given: No Desire information about substance/drug rehabilitation?: No Counseling given: No Adopted: No Caregiver/support person: Yes Lives independently: No Household members: spouse Marital status: Current occupational status: disabled History of recent travel: No Current gender identity: Male Physical Exam Const: COMMON NORMALS: no acute distress, average body habitus, patient oriented x3, no limitations, healthy appearing, alert and well nourished HENMT: COMMON NORMALS: normocephalic, atraumatic and moist oral mucous membranes HEAD & SCALP: normocephalic and atraumatic Eye: COMMON NORMALS: Equal, round and reactive pupils present, EOMs intact bilaterally, conjunctivae normal and no scleral icterus CONJUNCTIVA: Yes conjunctivae normal PUPIL: Yes Equal, round and reactive pupils present Neck/C-Spine: COMMON NORMALS: full ROM, supple, no meningeal signs, no JVD and No carotid bruits Chest: COMMONS NORMALS: normal inspection of the chest and normal palpation of entire chest wall Resp: COMMON NORMALS: normal respiratory effort, No retractions, No use of accessory muscles, clear to auscultation bilaterally and percussion normal AUSCULTATION: clear to auscultation bilaterally PERCUSSION: percussion normal Cardio: COMMON NORMALS: no JVD, regular rate, regular rhythm, S1 normal heart sound present, S2 normal heart sound present, No gallops present (Cardio), No clicks present (Cardio), No murmurs present (Cardio), No rub (Cardio) and Peripheral pulses 2+ throughout RATE: regular rate RHYTHM: regular rhythm HEART SOUNDS: S1 normal heart sound present and S2 normal heart sound present PERIPHERAL PULSES: Peripheral pulses 2+ throughout GI: COMMON NORMALS: Normal to inspection, nondistended, normoactive bowel sounds present, Soft to palpation, non-tender, No hepatosplenomegaly present, no masses and no bruits PALPATION: Yes Soft to palpation and Yes No hepatosplenomegaly present Extremity: COMMON NORMALS: normal to inspection, full ROM, capillary refill normal, no calf tenderness and no pedal edema RIGHT LOWER EXTREMITY: Yes upper leg Right upper leg: Yes inspection (Swelling and fullness of the distal thigh), Yes palpation (Significant tenderness of the distal thigh with swelling noted) and Yes neurovascular exam (Dorsalis pedis palpated. Intact neurovascular status) Neuro: COMMON NORMALS: patient oriented x3 SENSORIUM/ORIENTATION: Yes alert MENINGEAL SIGNS: Yes no meningeal signs Skin: COMMON NORMALS: no rashes or lesions noted, no wounds, turgor normal, no jaundice, no petechiae and no mottling GENERAL SKIN EXAM: no rashes or lesions noted and turgor normal Course Consultations: Consultation #1: Discussed the patient with Dr. Chen, orthopedic surgeon. He advised that we admit the patient to the hospitalist service and he will see him in the morning and plan for surgery. Time: 20:23 Consultation #2: Discussed the patient with Dr. Ruiz, hospitalist and he kindly accepted the patient to his service Time: 20:25 Vital Signs: Vital signs: Vital Signs Temperature 98.3 F 07/26/20 23:42 Pulse Rate 85 07/26/20 23:42 Respiratory Rate 18 07/26/20 23:42 Blood Pressure 176/96 07/26/20 23:42 Pulse Oximetry 97 07/26/20 23:42 MDM - Extremity (Nontraumatic) MDM Narrative: Medical decision making narrative: 69-year-old male with a history of MS who fell today and sustained a comminuted fracture of his distal femur. He will be evaluated by orthopedic surgery in the morning. Meanwhile he is admitted to the hospitalist service for management of his medical issues. He remained clinically stable in the emergency department other than significantly elevated blood pressure that required intravenous antihypertensive therapy. Medical Records: Attestation: I reviewed the patient's medical records. Lab Data: Attestation: I reviewed the patient's lab results. Imaging Data^: Xray Ortho: Attestation: I personally reviewed and interpreted this imaging study as follows: Radiologist's impression: [address] [address] XRay Report Signed Patient: London Quach #: [id number] : 1950Acct#:[id number] Age/Sex: 69 / MADM Date: 07/26/20 Loc: ERRoom/Bed: Attending Dr: Ordering Provider/Ordering MD: Sher Valdez MD, [facility] [place] Date of Service: 07/26/20 Procedure(s): XR ankle RT min 3V* 40194 Accession Number(s): [id number] Report Number: [id number] PROCEDURE INFORMATION: Exam: XR Right Ankle Exam date and time: 07/26/2020 7:21 PM Age: 69 years old Clinical indication: Injury or trauma; Fall; Blunt trauma; Ankle; Right; Prior surgery TECHNIQUE: Imaging protocol: XR Right ankle. Views: 3 or more views. COMPARISON: CR XR ankle RT min 3V* [id number] 03/21/2020 11:18 AM FINDINGS: Tubes, catheters and devices: No loosening of the surgical hardware. Bones/joints: Surgical arthrodesis changes of the right hindfoot. Resection of the distal fibula. Diffuse osseous demineralization. Mature periosteal bone reaction changes of the distal tibial diaphysis. Soft tissues: Diffuse soft tissue swelling. XR/XR ankle RT min 3V* [id number] IMPRESSION: Chronic posttraumatic deformity and postsurgical findings of the right ankle are noted. Dictated By:Bravo Garcia Signed By:Emma Garcia Date/Time:07/26/202030 DD/ [address] [address] XRay Report Signed Patient: London Quach #: [id number] : 1950Acct#:[id number] Age/Sex: 69 / MADM Date: 07/26/20 Loc: ERRoom/Bed: Attending Dr: Ordering Provider/Ordering MD: Sher Valdez MD, [facility] [place] Date of Service: 07/26/20 Procedure(s): XR femur RT min 2V* 26374 Accession Number(s): [id number] Report Number: [id number] PROCEDURE INFORMATION: Exam: XR Right Femur Exam date and time: 07/26/2020 7:21 PM Age: 69 years old Clinical indication: Injury or trauma; Fall; Blunt trauma; Thigh or upper leg; Right TECHNIQUE: Imaging protocol: XR Right femur. Views: 2 views. COMPARISON: OT XR tibia fibula RT 2V [id number] 03/23/2020 12:52 PM FINDINGS: Bones/joints: There is partial visualization of the comminuted severely displaced obliquely oriented fracture lucency of the distal femoral diaphysis. Soft tissues: Unremarkable. XR/XR femur RT min 2V* [id number] IMPRESSION: Right distal femur fracture is only partially visible on this exam. Dictated By:Bravo Garcia Signed By:Emma Garcia Date/Time:07/26/202029 DD/ 27 CXR: Attestation: I personally reviewed and interpreted this imaging study as follows: Radiologist's impression: [address] [address] XRay Report Signed Patient: London Quach #: [id number] : 1950Acct#:[id number] Age/Sex: 69 / MADM Date: 07/26/20 Loc: [facility]/Bed: Attending Dr: Ordering Provider/Ordering MD: Sher Valdez MD, [facility] [place] Date of Service: 07/26/20 Procedure(s): XR chest 1V portable 30702 Accession Number(s): [id number] Report Number: [id number] PROCEDURE INFORMATION: Exam: XR Chest Exam date and time: 07/26/2020 8:09 PM Age: 69 years old Clinical indication: Other: FX RT. Knee; Additional info: Pre op TECHNIQUE: Imaging protocol: XR of the chest Views: 1 view. COMPARISON: CR XR chest 1V portable [id number] 06/05/2020 3:37 PM FINDINGS: Lungs: Unremarkable. No consolidation. Pleural spaces: Unremarkable. No pleural effusion. No pneumothorax. Heart/Mediastinum: Unremarkable. No cardiomegaly. Bones/joints: Unremarkable. Intraperitoneal space: Surgical clips in the left upper quadrant of the abdomen. XR/XR chest 1V portable [id number] IMPRESSION: No acute findings. Dictated By:Bravo Garcia Signed By:Emma Garcia Date/Time:07/26/202030 DD/ 29 EKG Data^: EKG 1: Attestation: I personally reviewed and interpreted this EKG as follows: EKG interpretation date: 07/26/20 EKG interpretation time: 20:14 Prior EKG tracings: not available for review Interpretation: Sinus rhythm with first-degree AV block. Heart rate [address] changes. Discharge Plan Discharge Patient Disposition: Admitted As Inpatient Admit Provider: Maria Victoria Ruiz Clinical Impression: Hypertensive urgency Femur fracture, right Qualifiers: Encounter type: initial encounter Femur location: distal, unspecified portion Fracture type: closed Fracture morphology: unspecified fracture morphology Qualified Code(s): S72.401A - Unspecified fracture of lower end of right femur, initial encounter for closed fracture Fall Qualifiers: Encounter type: initial encounter Qualified Code(s): W19.XXXA - Unspecified fall, initial encounter Condition: Stable Coding Level of Care Code ED Pressure Tester Operator for Keila Leonardo
[2020-07-27] VITALS (25 sets, daily range): BP systolic 124–192; BP diastolic 68–96; PULSE 77–93; RESP 14–20; TEMP 36.7–37.3; O2SAT 90–99
--- NOTE | 2020-07-27 | XR_ITS ---
WS: [id number] Exam: XR femur RT 1V [id number] Date/Time of Exam: 07/27/2020 12:00 AM Reason For Exam: OR PICS AP and lateral C-arm images of the distal right femur are submitted for evaluation. There is plate and screw fixation involving an oblique fracture of the distal femur. The fracture is stabilized in satisfactory alignment for healing. Postoperative changes in the adjacent soft tissues. XR/XR femur RT 1V [id number] IMPRESSION: 1. Lateral plate and screw fixation involving an oblique fracture of the distal femur in satisfactory position for healing.
--- NOTE | 2020-07-27 | SCC_ITS ---
Procedure Done: Open reduction internal fixation right distal femur 72.9 seconds of fluoroscopic guidance, for a cumulative dose of 3.8 mGy, was provided to Dr. Chen by the radiology department. C-arm images of the RIGHT femur were saved for the patient's permanent record. [facility]ITALPrim[facility]
[2020-07-27 00:03] LABS: Glucose Point of Care 259 mg/dL (70-110)
[2020-07-27 00:19] LABS: Thyroid Stimulating Hormone 2.88 uIU/mL (0.27-4.20)
[2020-07-27] MEDS: HYDROmorphone 1 mg/mL INJ 1 mL 0.4 MG IVP ×3 (01:27→21:49)
[2020-07-27 05:34] LABS: Basophils # 0.2 10^3/uL (0.0-0.1); Basophils % 1.1 %; Hematocrit 37.6 % (42.0-52.0); Hemoglobin 11.5 g/dL (11.7-16.6); Lymphocytes # 2.4 10^3/uL (0.8-4.8); Lymphocytes % 14.3 %; Mean Corpuscular HGB Conc 30.6 g/dL (30.0-36.0); Mean Corpuscular Hemoglobin 27.7 pg (28.0-34.0); Mean Corpuscular Volume 90.6 fL (80-94); Mean Platelet Volume 11.9 fL (7.4-10.4); Monocytes # 1.4 10^3/uL (0.2-0.9); Monocytes % 8.2 %; Neutrophils # 11.93 10^3/uL (1.8-7.7); Nucleated Red Blood Cells % 0 %; Platelet Count 505 10^3/cmm (130-400); Red Blood Count 4.15 10^6/uL (4.1-5.3)
[2020-07-27 05:52] LABS: Blood Urea Nitrogen 26 mg/dL (8-23); Calcium 7.7 mg/dL (8.5-10.5); Carbon Dioxide 24 mmol/L (22-29); Chloride 105 mmol/L (98-107); Glomerular Filtration Rate 26.9 mL/min (90-130); Glucose 210 mg/dL (65-115); Osmolality Calculated 297 mOsm/kg (285-295); Sodium 138 mmol/L (136-145)
[2020-07-27 06:09] LABS: Creatinine Clr Calc Pharmacy 32.3906
[2020-07-27 06:10] LABS: Glucose Point of Care 200 mg/dL (70-110)
[2020-07-27 06:10] LABS: Anion Gap 13.1 (5-19); Potassium 4.1 mmol/L (3.5-5.1)
[2020-07-27 06:26] LABS: Platelet Count 505 10^3/cmm (130-400)
[2020-07-27 06:27] LABS: Fibrinogen 617 mg/dL (174-498); INR 1.05 (0.8-1.2)
--- NOTE | 2020-07-27 10:30 | PC.CHAP ---
Pastoral Care Encounter/Spiritual Assessment Type of Contact [] Declined missile technician visit [] Patient/Family/Request visit [] Outpatient visit [] Follow-up visit [] Physician referral [] Code/Alert [x] Routine visit [] Staff referral [] Actively dying [] Patient sleeping [] Family support [] [] Out of room [] Palliative care [] [] Receiving care in room [] Pre-surgical visit [] Trauma [] Long length of stay [] ICU visit [] Other: Relational/Emotional Strength [] Patient feels connected with others/family/visitors/staff [] Distress [] Loneliness/isolation [] Abandonment Spirituality of Patient [x] Person of Maribel [x] Attends Sikh of their Maribel [] Believes in Prayer [] Reads Bible or Shinto materials [] There are Spiritual issues to be addressed Collection Advisor Interventions [x] Prayer [x] Active listening [x] Non-anxious presence [x] Spiritual/emotional support [] Crisis/trauma care [] Spiritual counseling [] Bereavement support [] Provided bereavement packet [] Provided Bible/devotional materials [] Provided toy/stuffed animal, coloring book to patient or family member [] Provided Communion [] Anointing/[place] [] Salvation [x] Completed spiritual assessment [] Other: Impact on Illness or Injury [] Angry [] Fearful [] Anxious [] Often cries [] Exhaustion [] Unable to work [] Unable to attend samaritan [] Unable to walk/stand [] Unable to read [] Unable to drive [] Unable to eat/drink [] Unable to sleep [] Unable to be with family [] Patient intubated [] Other: Summary patient love the care he is receiving Time spent with patient 10 min
[2020-07-27 10:32] LABS: Glucose Point of Care 172 mg/dL (70-110)
[2020-07-27] MEDS: sodium chloride 0.9% 1,000 ML 30 ML IV (10:46)
--- NOTE | 2020-07-27 11:11 | PM.CONSULT ---
Providers/Reason For Consult Consulting Physican/Specialty*: Aleksey Chen MD Reason for Consult*: Right supracondylar femur fracture Requesting Physcian: Mr. Quach is a 69-year-old male with multiple medical comorbidities including multiple sclerosis that it essentially made him wheelchair-bound. He states he is able to transfer from a wheelchair to a truck to drive. Apparently yesterday he slipped getting out of the truck with his legs giving way falling on the ground with excruciating pain just above his right knee. He was seen in our emergency room where radiographs revealed a supracondylar femur fracture. Of note he had a reported distal tibia fracture in March of last year. Patient describes a severe pain. He is to be admitted for management of the fracture. Attending Physician: Valencia Quispe Primary Care Provider: HAYDER Silverio History of Present Illness History of Present Illness [place] Quach is a 69 year old male Meds/Allergies Home Medications and Allergies Home Medications Medication Instructions Recorded Confirmed Last Taken Type mupirocin 2 % topical ointment 1 applic TOPICAL BID #22 gm 10/25/19 07/26/20 Unknown Rx dulaglutide 1.5 mg/0.5 mL 1.5 mg SUBCUT .weekly #2 ml 02/17/20 07/26/20 07/19/20 Rx subcutaneous pen injector Coloplast Self cath 10 bruneian #2 ea 04/18/20 07/26/20 Unknown Rx aspirin 81 mg tablet,delayed 81 mg PO DAILY@0900 #30 tab 06/14/20 07/26/20 07/26/20 Rx release atorvastatin 20 mg tablet 20 mg PO DAILY@0900 #30 tab 06/14/20 07/26/20 07/26/20 Rx ergocalciferol (vitamin D2) 1,250 1,250 mcg PO .Weekly #4 cap 06/14/20 07/26/20 Unknown Rx mcg (50,000 unit) capsule honey 100 % topical paste 1 applic TOPICAL BID #528 ml 06/14/20 07/26/20 Unknown Rx hydralazine 25 mg tablet 25 mg PO TID #90 tab 06/14/20 07/26/20 Unknown Rx insulin aspart U-100 100 unit/mL 12 - 24 unit SUBCUT TID #15 ml 06/14/20 07/26/20 07/26/20 Rx (3 mL) subcutaneous pen insulin degludec 200 unit/mL (3 90 unit SUBCUT DAILY #18 ml 06/14/20 07/26/20 07/26/20 Rx mL) subcutaneous pen lactulose 20 gram/30 mL oral 20 g PO BID PRN #1500 ml 06/14/20 07/26/20 Unknown Rx solution pen needle, diabetic 32 gauge x #200 ea 06/14/20 07/26/20 Unknown Rx Effexor XR 225 mg PO DAILY@0900 07/26/20 07/26/20 07/26/20 History Tegretol XR 200 mg PO BID@0900,209907/26/20 07/26/20 07/26/20 History Toprol XL 50 mg PO DAILY@0900 07/26/20 07/26/20 07/26/20 History buspirone 15 mg PO TID@,,07/26/20 07/26/20 07/26/20 History famotidine 20 mg PO BID@0900,209907/26/20 07/26/20 07/26/20 History fenofibrate nanocrystallized 145 mg PO DAILY@0907/26/20 07/26/20 07/26/20 History folic acid 1 mg PO DAILY@0900 07/26/20 07/26/20 07/26/20 History furosemide 40 mg PO DAILY@0900 07/26/20 07/26/20 Unknown History gabapentin 600 mg PO TID@,07/26/20 07/26/20 07/26/20 History lisinopril 20 mg PO BID@0900,209907/26/20 07/26/20 07/26/20 History potassium chloride 10 meq PO DAILY@0900 07/26/20 07/26/20 07/26/20 History ropinirole 1 mg PO DAILY 07/26/20 07/26/20 07/25/20 History Allergies Allergy/AdvReac Type Severity Reaction Status Date / Time baclofen Allergy ADR-Dizzine Verified 05/22/20 14:46 ss thiopental [From Pentothal] Allergy ALGY-Anaphy Verified 05/22/20 14:46 laxis Current Medications Current Medications Generic Name Dose Route Start Last Admin Trade Name Freq PRN Reason Stop Dose Admin Furosemide 20 mg 07/27/20 08:00 07/27/20 09:21 Furosemide 20 Mg Tablet PO Not Given DAILY@0800 SHIREEN Hydromorphone HCl 0.4 mg 07/26/20 23:38 07/27/20 05:27 Hydromorphone 1 Mg/Ml Inj 1 Ml IVP 0.4 mg Q4H PRN Administration pain Sodium Chloride 1,000 mls @ 30 mls/hr 07/27/20 10:45 07/27/20 10:46 Sodium Chloride 0.9% IV 30 mls/hr .Q24H SHIREEN Administration Insulin Aspart 0 unit 07/27/20 08:00 07/27/20 09:21 Insulin Aspart 100 Unit/1 Ml SUBCUT Not Given WM&BEDTIME SHIREEN Protocol PFSH Acute PFSH: Medical History Acid reflux Anxiety and depression CKD (chronic kidney disease), stage III Constipation, slow transit Controlled diabetes mellitus with hyperglycemia, with long-term current use of insulin DDD (degenerative disc disease) Essential (primary) hypertension Intermittent self-catheterization of bladder Mixed hyperlipidemia Multiple sclerosis 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 Wheel chair as ambulatory aid Surgical History H/O splenectomy History of appendectomy History of back surgery Family History Mother CAD (coronary artery disease) Diabetes Father CAD (coronary artery disease) Diabetes Other Cancer Social History Smoking and tobacco status: former smoker Second hand smoke exposure: No Smoking risk assessment/counseling performed?: No Alcohol intake: current Desire information about alcohol rehabilitation?: No Counseling given: No Desire information about substance/drug rehabilitation?: No Counseling given: No Adopted: No Caregiver/support person: Yes Lives independently: No Household members: spouse Marital status: Current occupational status: disabled History of recent travel: No Current gender identity: Male Vitals/I&O/Wt Last Vital Signs Temp 98.5 F 07/27/20 10:19 Pulse 87 07/27/20 10:19 Resp 18 07/27/20 10:19 BP 140/68 07/27/20 10:19 Pulse Ox 92 07/27/20 10:19 07/26/20 07/27/20 07/27/20 22:59 06:59 14:59 Intake Total 0 / 0 Balance 0 / 0 Weight last 48 hrs Weight 214 lb 8 oz Physical Exam Narrative: EXAM NARRATIVE: On examination [place] is male that appears older than stated age lying supine in bed. He talks with a slow benny but answers questions appropriately. He has a deformity and swelling about the right distal femur with some slight internal rotation of the leg. He is in a knee immobilizer which is not removed. He has no significant dorsiflexion or plantarflexion of either ankle although his sensation appears to be intact to light touch. He has venous stasis changes in the right more than the left leg Urinary Catheter Management^: Thrasher: Cath Placed During This Visit: yes Reason for Continuing Indwelling Catheter: Required Immobilization for Trauma or Surgery or Anesthesia Urinary Catheter Date of Insertion: 07/26/20 Urinary Catheter Time of Insertion: 21:00 Data Imaging^: Xray Ortho: My impression: I reviewed radiographs of the right femur and the knee. The patient has a slightly comminuted displaced supracondylar femur fracture. A&P Assessment and plan (1) Supracondylar fracture of right femur: I discussed options with the patient. He has considerable pain. The fracture is displaced. I think the best option to eliminate pain and allow him to regain wheelchair mobility would be surgical stabilization of the fracture. I discussed open reduction internal fixation with him. Discussed risk of nonunion malunion. Discussed risk of bleeding and infection. I discussed the possible need for further procedures. We will proceed to the OR today. 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
--- NOTE | 2020-07-27 12:29 | P.ANESASSM_ITS ---
Pre-Anesthetic Assessment Pre-Anesthetic Assessment: Height/Weight: Height 1.73 m Weight 97.296 kg Temp Pulse Resp BP Pulse Ox 98.5 F 87 18 140/68 92 07/27/20 10:19 07/27/20 10:19 07/27/20 10:19 07/27/20 10:19 07/27/20 10:19 Preop Diagnosis: Right distasl femur fracture Proposed Procedure: Operation Date: 07/27/20 11:30 Proposed Procedures p ORIF Femur(Right) - Aleksey Chen MD Was Beta Kimberli taken within 24 hours: Yes Last intake: Intake Last Liquid Date 07/26/20 Last Liquid Time 14:00 Last Solid Date 07/26/20 Last Solid Time 14:00 Social: Social History: No alcohol and No tobacco Exam: Pre-Anes Outpt Exam: alert, oriented x 3, clear to auscultation bilaterally and regular rate & rhythm Airway: Submandibular: WNL Cervical ROM: WNL MP: 2 Dentition: False CV/HEM: CV/HEM: HTN : : Chronic renal Insufficiency GI: GI: GERD Metabolic: Metabolic: DM Musc/skel: Musc/skel: Weakness Comments: MS Neuropsych: Neuropsych: Anxiety and Depression Anesthetic Plan: ASA status: 3 Anesthesia: Regional (specify below) Other: SAB Risk of > 500 ml blood loss (7ml/kg in children): Yes, adequate IV access and fluids planned Meds/Allergies Current Medications: Current Medications Generic Name Dose Route Start Last Admin Trade Name Freq PRN Reason Stop Dose Admin Furosemide 20 mg 07/27/20 08:00 07/27/20 09:21 Furosemide 20 Mg Tablet PO Not Given DAILY@0800 SHIREEN Hydromorphone HCl 0.4 mg 07/26/20 23:38 07/27/20 05:27 Hydromorphone 1 Mg/Ml Inj 1 Ml IVP 0.4 mg Q4H PRN Administration pain Sodium Chloride 1,000 mls @ 30 ml s/hr 07/27/20 10:45 07/27/20 10:46 Sodium Chloride 0.9% IV 30 mls/hr .Q24H SHIREEN Administration Gentamicin Sulfate 160 mg/ 54 mls @ 104 mls/ hr 07/27/20 12:07 07/27/20 12:08 Sodium Chloride IRRIGATION 07/27/20 12:38 Infused ONCE ONE Infusion Insulin Aspart 0 unit 07/27/20 08:00 07/27/20 09:21 Insulin Aspart 1 00 Unit/1 Ml SUBCUT Not Given WM&BEDTIME SHIREEN Protocol PFSH Anesthesia PFSH: Medical History Acid reflux Anxiety and depression CKD (chronic kidney disease), stage III Constipation, slow transit Controlled diabetes mellitus with hyperglycemia, with long-term current use of insulin DDD (degenerative disc disease) Essential (primary) hypertension Intermittent self-catheterization of bladder Mixed hyperlipidemia Multiple sclerosis 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 Wheel chair as ambulatory aid Surgical History H/O splenectomy History of appendectomy History of back surgery Family History Mother CAD (coronary artery disease) Diabetes Father CAD (coronary artery disease) Diabetes Other Cancer Social History Smoking and tobacco status: former smoker Second hand smoke exposure: No Smoking risk assessment/counseling performed?: No Alcohol intake: current Desire information about alcohol rehabilitation?: No Counseling given: No Desire information about substance/drug rehabilitation?: No Counseling given: No Adopted: No Caregiver/support person: Yes Lives independently: No Household members: spouse Marital status: Current occupational status: disabled History of recent travel: No Current gender identity: Male Data Anesthesia CBC & Chem 7: 07/27/20 04:19 07/27/20 04:19 Other Labs: Laboratory Results - last 48 hr 07/26/20 07/26/20 07/26/20 04:19 21:05 21:19 WBC 22.7 H RBC 5.23 Hgb 15.0 Hct 50.7 MCV 96.9 H MCH 28.7 MCHC 29.6 L RDW 15.2 H Plt Count Cancelled 516 H MPV 11.1 H Neut % (Auto) 74.0 Lymph % (Auto) 12.1 Schuyler % (Auto) 6.3 Eos % (Auto) 6.3 Baso % (Auto) 0.9 Neut # (Auto) 16.76 H Lymph # (Auto) 2.7 Schuyler # (Auto) 1.4 H Eos # (Auto) 1.4 H Baso # (Auto) 0.2 H Nucleated RBC % (auto) 0 Nucleated RBCs # 0.0 PT Cancelled INR Cancelled APTT Cancelled Fibrinogen Cancelled Sodium Potassium Chloride Carbon Dioxide Anion Gap BUN Creatinine GFR Calculation Glucose POC Glucose Calculated Osmolality Calcium Total Bilirubin AST ALT Alkaline Phosphatase Total Protein Albumin Globulin TSH Urine Color Yellow Urine Appearance Cloudy Urine pH 6 Ur Specific [place] 1.015 Urine Protein 3+ H Urine Glucose (UA) 4+ H Urine Ketones Negative Urine Blood 2+ H Urine Nitrate Negative Urine Bilirubin Neg Urine Urobilinogen Norm Ur Leukocyte Esterase Negative Urine RBC 0-4 H Urine WBC 10-15 H Ur Squamous Epith Cells 0-4 H Amorphous Sediment 3+ Urine Bacteria 4+ H SARS-CoV-2 Ag (Rapid) 07/26/20 07/26/20 07/26/20 21:19 22:21 22:44 WBC RBC Hgb Hct MCV MCH MCHC RDW Plt Count MPV Neut % (Auto) Lymph % (Auto) [place]uyler % (Auto) Eos % (Auto) Baso % (Auto) Neut # (Auto) Lymph # (Auto) Schuyler # (Auto) Eos # (Auto) Baso # (Auto) Nucleated RBC % (auto) Nucleated RBCs # PT INR APTT Fibrinogen Sodium Cancelled 134 L Potassium Cancelled 4.0 Chloride Cancelled 104 Carbon Dioxide Cancelled 20 L Anion Gap Cancelled 14.0 BUN Cancelled 25 H Creatinine Cancelled 2.3 H GFR Calculation Cancelled 28.3 L Glucose Cancelled 262 H POC Glucose Calculated Osmolality Cancelled 291 Calcium Cancelled 7.8 L Total Bilirubin Cancelled 0.2 AST Cancelled 15 ALT Cancelled 10 Alkaline Phosphatase Cancelled 138 H Total Protein Cancelled 5.3 L Albumin Cancelled 2.1 L Globulin Cancelled 3.2 TSH Urine Color Urine Appearance Urine pH Ur Specific [place] Urine Protein Urine Glucose (UA) Urine Ketones Urine Blood Urine Nitrate Urine Bilirubin Urine Urobilinogen Ur Leukocyte Esterase Urine RBC Urine WBC Ur Squamous Epith Cells Amorphous Sediment Urine Bacteria SARS-CoV-2 Ag (Rapid) Negative 07/26/20 07/26/20 07/27/20 22:44 23:48 04:19 WBC 17.0 H RBC 4.15 Hgb 11.5 L Hct 37.6 L MCV 90.6 D MCH 27.7 L MCHC 30.6 RDW 15.0 Plt Count 505 H MPV 11.9 H Neut % (Auto) 70.0 Lymph % (Auto) 14.3 Schuyler % (Auto) 8.2 Eos % (Auto) 6.0 Baso % (Auto) 1.1 Neut # (Auto) 11.93 H Lymph # (Auto) 2.4 Schuyler # (Auto) 1.4 H Eos # (Auto) 1.0 H Baso # (Auto) 0.2 H Nucleated RBC % (auto) 0 Nucleated RBCs # 0.0 PT INR APTT Fibrinogen Sodium Potassium Chloride Carbon Dioxide Anion Gap BUN Creatinine GFR Calculation Glucose POC Glucose 259 H Calculated Osmolality Calcium Total Bilirubin AST ALT Alkaline Phosphatase Total Protein Albumin Globulin TSH 2.88 Urine Color Urine Appearance Urine pH Ur Specific [place] Urine Protein Urine Glucose (UA) Urine Ketones Urine Blood Urine Nitrate Urine Bilirubin Urine Urobilinogen Ur Leukocyte Esterase Urine RBC Urine WBC Ur Squamous Epith Cells Amorphous Sediment Urine Bacteria SARS-CoV-2 Ag (Rapid) 07/27/20 07/27/20 07/27/20 04:19 04:19 06:07 WBC RBC Hgb Hct MCV MCH MCHC RDW Plt Count 505 H MPV Neut % (Auto) Lymph % (Auto) [place] % (Auto) Eos % (Auto) Baso % (Auto) Neut # (Auto) Lymph # (Auto) [place] # (Auto) Eos # (Auto) Baso # (Auto) Nucleated RBC % (auto) Nucleated RBCs # PT 14.00 INR 1.05 APTT 26.0 Fibrinogen 617 H Sodium 138 Potassium 4.1 Chloride 105 Carbon Dioxide 24 Anion Gap 13.1 BUN 26 H Creatinine 2.4 H GFR Calculation 26.9 L Glucose 210 H POC Glucose 200 H Calculated Osmolality 297 H Calcium 7.7 L Total Bilirubin AST ALT Alkaline Phosphatase Total Protein Albumin Globulin TSH Urine Color Urine Appearance Urine pH Ur Specific [place] Urine Protein Urine Glucose (UA) Urine Ketones Urine Blood Urine Nitrate Urine Bilirubin Urine Urobilinogen Ur Leukocyte Esterase Urine RBC Urine WBC Ur Squamous Epith Cells Amorphous Sediment Urine Bacteria SARS-CoV-2 Ag (Rapid) 07/27/20 10:27 WBC RBC Hgb Hct MCV MCH MCHC RDW Plt Count MPV Neut % (Auto) Lymph % (Auto) [place] % (Auto) Eos % (Auto) Baso % (Auto) Neut # (Auto) Lymph # (Auto) [place] # (Auto) Eos # (Auto) Baso # (Auto) Nucleated RBC % (auto) Nucleated RBCs # PT INR APTT Fibrinogen Sodium Potassium Chloride Carbon Dioxide Anion Gap BUN Creatinine GFR Calculation Glucose POC Glucose 172 H Calculated Osmolality Calcium Total Bilirubin AST ALT Alkaline Phosphatase Total Protein Albumin Globulin TSH Urine Color Urine Appearance Urine pH Ur Specific [place] Urine Protein Urine Glucose (UA) Urine Ketones Urine Blood Urine Nitrate Urine Bilirubin Urine Urobilinogen Ur Leukocyte Esterase Urine RBC Urine WBC Ur Squamous Epith Cells Amorphous Sediment Urine Bacteria SARS-CoV-2 Ag (Rapid) Cardiac Studies: No Data to Display
--- NOTE | 2020-07-27 13:31 | PM.OP ---
Operative Report Date of procedure: July 27, 2020 Pre-op Diagnosis: Right distasl femur fracture Post-op diagnosis: same Post-op Findings: Same Procedure Done: Open reduction internal fixation right distal femur Surgeon: Aleksey Chen Anesthesia: Nerve Block (Spinal) Estimated blood loss (mL): 100 Findings: Of his right distal femur at the metaphyseal diaphyseal junction Condition: stable Disposition: PACU Procedure: The patient was taken to the operating room. He was given a spinal anesthesia. He was on ceftriaxone preoperatively was given 1-2 additional grams of Ancef. He was prepped and draped in the supine position with his right leg exposed. A timeout was performed. Initially a 6 cm long incision was made from Pinky's tubercle extending proximally along the length of the femur. The iliotibial band was a split and we gained exposure of the lateral femur. The fracture was visualized the most proximal extent. With longitudinal traction the fracture was brought to length and provisionally held with 2 K wires. A 8 hole Mary Beth AXOS plate was passed submuscularly along the femur. It was fixed distally with 1 nonlocking screw and 5 locking bolts. An initial single cortical screw was placed proximally and 4 additional locking screws placed through the most proximal holes. 3 nonlocking compression screws were placed centrally to provide compression across the fracture. The wound was irrigated with saline. Vastus lateralis was reapproximated 0 Vicryl. Fascial alisson was closed with a running 0 Stratafix suture. Deep tissues were closed with 2-0 Vicryl and the skin was closed with skin elian. Xeroflo gauze, 4 x 4's, web roll, and Antoine wrap were applied from toes to thigh. The patient was taken to recovery room in stable condition peer
--- NOTE | 2020-07-27 16:00 | ANE.PACU2 ---
Inpatient post-anesthesia follow up: Airway intact: Yes Vital signs: Temperature 98.1 F Pulse Rate [Monito r] 73 Pulse Rate 88 Respiratory Rate 16 Blood Pressure 192/85 Pulse Oximetry 96 Oxygen Delivery Me thod Nasal Cannula Oxygen Flow Rate 2 Fraction of Inspir ed Oxygen Hydration adequate: Yes Nausea and vomiting: No Pain level: 1 Mental status: Baseline
--- NOTE | 2020-07-27 16:02 | PM.PN ---
Subjective Subjective: Interval history: Patient was stating his pain was under control, no new clinical events overnight. no nausea or vomiting. No chest pain. Was noted to have elevated blood pressure Medications: Reviewed: Yes Vitals/I&O/Wt Last Vital Signs Temp 98.1 F 07/27/20 15:00 Pulse 88 07/27/20 15:20 Resp 16 07/27/20 15:20 BP 192/85 07/27/20 15:13 Pulse Ox 96 07/27/20 15:20 07/27/20 07/27/20 07/27/20 06:59 14:59 22:59 Intake Total 0 / 0 464 / 464 Output Total 0 / 0 Balance 0 / 0 464 / 464 Weight last 48 hrs Weight 97.296 kg Physical Exam Narrative: EXAM NARRATIVE: Awake, alert, NAD seen post op S1, S2 no murmur appreciated Dorsal MD edema 2+ with pedal edema Venous stasis dermatitis Abdomen distended with obesity, non-tender No acute respite distress stridor or wheezing Awake alert oriented x3 GCS 15 No neurological deficit No vascular compromise of lower extremities Post op RLE ORIF Urinary Catheter Management^: Thrasher: Cath Placed During This Visit: yes Reason for Continuing Indwelling Catheter: Required Immobilization for Trauma or Surgery or Anesthesia Urinary Catheter Date of Insertion: 07/26/20 Urinary Catheter Time of Insertion: 21:00 Data : 07/27/20 04:19 07/27/20 04:19 A&P Assessment and plan (1) Femur fracture, right: Right distal femoral fracture s/p ORIF - Ortho on board - Pain control - PT/OT - CBC/CMP in am - Fall precautions Accelerated hypertension - Pain control - Resume antihypertensives - Hydralazine/ Metoprolol Edema - Echo pending - Will waiting additional day - Resume lasix Chronic stage 3 kidney disease - Creatinine stable - Fluctuating baseline 1.8-2.5 - Holding arb/diurectics - BPM in am Diabetes Mellitus - Sliding scale - resume lantus if persistently high Multiple sclerosis - No change to management DVT ppx - Per ortho Status: Acute Qualifiers: Encounter type: initial encounter Femur location: distal, unspecified portion Fracture morphology: unspecified fracture morphology Fracture type: closed Qualified Code(s): S72.401A - Unspecified fracture of lower end of right femur, initial encounter for closed fracture Attestations Medical Necessity Statement*: will continue hospitalization for post op management, fluid overload and uncontrolled hypertension Time Spent in Patient Care: Greater than 35 minutes (>than 50% of time spent in counselling and/or direct pt care on unit). Coding Level of Care Code Acute Rehabilitation Inspector for [facility] Diagnoses Femur fracture, right S72.401A Encounter type: initial encounter Femur location: distal, unspecified portion Fracture morphology: unspecified fracture morphology Fracture type: closed
[2020-07-27] MEDS: cefTRIAXone 1,000 MG in sodium chloride 0.9% (plus) 50 ML 100 MG IV (16:40)
[2020-07-27] MEDS: sennosides-docusate Tablet 2 TAB PO (16:41)
[2020-07-27] MEDS: oxyCODONE 5 mg IR Tab/Cap PO (16:41)
[2020-07-27] MEDS: chlorhexidine gluconate 0.12% Btl 473 mL 30 ML MUCOUS MEM ×2 (16:42→21:39)
[2020-07-27] MEDS: sodium chloride 0.9% 1,000 ML 80 ML IV (16:42)
[2020-07-27] MEDS: ondansetron 2 mg/ML SDV 2 mL 4 MG IVP (16:53)
[2020-07-27] MEDS: morphine 4 mg/mL SDV 1 mL 2 MG IVP (18:13)
[2020-07-27 18:25] LABS: Glucose Point of Care 152 mg/dL (70-110)
[2020-07-27 21:14] LABS: Glucose Point of Care 162 mg/dL (70-110)
[2020-07-27] MEDS: hyDRALAzine 25 mg Tablet PO (21:40)
[2020-07-27] MEDS: carBAMazepine XR (12 HR) 200 mg Tablet PO (21:40)
--- NOTE | 2020-07-27 23:38 | USCV_ITS ---
London Quach Age: 69 Gender: M : 1950 Exam Date: 07/27/2020 06:14 Ordering Phys: Maria Victoria Ruiz MD Technologist: Rosalba Field Exam Location: [facility] Indication: CHF BP: 176 / 96 HR: 80 Rhythm: Sinus Technical Quality: Suboptimal MEASUREMENTS (Male / Female) Normal Values 2D ECHO LV Diastolic Diameter PLAX 2.9 cm 4.2 - 5.9 / 3.9 - 5.3 cm LV Systolic Diameter PLAX 1.7 cm IVS Diastolic Thickness 2.3 cm 0.6 - 1.0 / 0.6 - 0.9 cm IVS Systolic Thickness 2.4 cm LVPW Diastolic Thickness 2.0 cm 0.6 - 1.0 / 0.6 - 0.9 cm LVPW Systolic Thickness 1.6 cm LVOT Diameter 2.0 cm LV Ejection Fraction 2D Teich 76.2 % LV Ejection Fraction MOD 2C 63.7 % LV Ejection Fraction 2C AL 65.4 % LA Diameter 3.2 cm LA Width 4.1 cm LA Height 4.9 cm RA Width 4.2 cm RA Height 4.9 cm Aorta at Sinotubular Diameter 2.8 cm M-MODE LV Diastolic Diameter MM 2.8 cm 4.2 - 5.9 / 3.9 - 5.3 cm LV Systolic Diameter MM 1.5 cm LV Ejection Fraction MM Teich 77.8 % IVS Diastolic Thickness MM 1.8 cm 0.6 - 1.0 / 0.6 - 0.9 cm IVS Systolic Thickness MM 2.0 cm LVPW Diastolic Thickness MM 2.2 cm 0.6 - 1.0 / 0.6 - 0.9 cm LVPW Systolic Thickness MM 2.8 cm Aortic Annulus Diameter 3.0 cm LA Ao Ratio MM 1.3 MV E Point Septal Separation 0.4 cm DOPPLER AV Peak Velocity 138.0 cm/s LVOT Peak Velocity 94.0 cm/s AV Area Cont Eq vti 2.6 cm squared AV Area Cont Eq pk 2.2 cm squared MV Area PHT 5.0 cm squared Mitral E to A Ratio 0.8 MV E' Velocity 41.0 cm/s Mitral E to MV E' Ratio 12.4 Mitral E to LV E' Lateral Ratio 10.9 Mitral E to LV E' Septal Ratio 14.3 TV Peak E Velocity 73.0 cm/s Right Atrial Pressure 3.0 mmHg PV Peak Velocity 80.0 cm/s RV Acceleration Time 0.1 s RV Ejection Time 0.3 s RV AcT/ET 0.3 FINDINGS Left Ventricle Normal left ventricular size and systolic function with no regional wall motion abnormalities. LVEF is 60-65%. Grade 1 diastolic dysfunction Right Ventricle The right ventricle is normal in size and function. Right Atrium The right atrium is normal in size. Left Atrium The left atrium is normal in size. Mitral Valve Structurally normal mitral valve without significant stenosis or prolapse. There is no mitral regurgitation. Aortic Valve Structurally normal aortic valve without significant sclerosis or stenosis. There is no aortic regurgitation. Tricuspid Valve Structurally normal tricuspid valve without significant stenosis or regurgitation. Insufficient TR jet to calculate RVSP Pulmonic Valve Structurally normal pulmonic valve without significant stenosis. There is no pulmonic regurgitation. Pericardium Normal pericardium without effusion. Aorta Normal ascending aorta dimension. CONCLUSIONS LV systolic function is normal with EF of 60-65% Grade 1 diastolic dysfunction No significant valvular heart disease is seen No comparison studies are available Bright Darden MD (Electronically Signed) Final Date: 27 July 2020 14:45 S
[2020-07-28] VITALS (8 sets, daily range): BP systolic 147–188; BP diastolic 65–95; PULSE 85–92; RESP 16–19; TEMP 37.4–37.9; O2SAT 92–98
[2020-07-28] MEDS: sodium chloride 0.9% 1,000 ML 80 ML IV (04:02)
[2020-07-28 06:35] LABS: Basophils # 0.2 10^3/uL (0.0-0.1); Basophils % 0.9 %; Eosinophils # 0.3 10^3/uL (0.0-0.8); Eosinophils % 1.5 %; Hematocrit 32.9 % (42.0-52.0); Hemoglobin 10.3 g/dL (11.7-16.6); Lymphocytes # 2.6 10^3/uL (0.8-4.8); Lymphocytes % 11.3 %; Mean Corpuscular HGB Conc 31.3 g/dL (30.0-36.0); Mean Corpuscular Hemoglobin 28.4 pg (28.0-34.0); Mean Corpuscular Volume 90.6 fL (80-94); Mean Platelet Volume 11.5 fL (7.4-10.4); Monocytes # 3.2 10^3/uL (0.2-0.9); Neutrophils # 16.57 10^3/uL (1.8-7.7); Neutrophils % 71.7 %; Nucleated Red Blood Cells % 0 %; Platelet Count 453 10^3/cmm (130-400); Red Blood Count 3.63 10^6/uL (4.1-5.3); Red Cell Distribution Width 15.3 % (12.1-15.1); White Blood Count 23.1 10^3/uL (4.0-10.0)
[2020-07-28 06:44] LABS: Glucose Point of Care 114 mg/dL (70-110)
[2020-07-28 07:08] LABS: Blood Urea Nitrogen 25 mg/dL (8-23); Calcium 7.2 mg/dL (8.5-10.5); Carbon Dioxide 21 mmol/L (22-29); Chloride 106 mmol/L (98-107); Creatinine Clr Calc Pharmacy 32.3906; Glomerular Filtration Rate 26.9 mL/min (90-130); Glucose 107 mg/dL (65-115); Osmolality Calculated 285 mOsm/kg (285-295); Sodium 135 mmol/L (136-145)
[2020-07-28 07:26] LABS: Anion Gap 12.2 (5-19); Potassium 4.2 mmol/L (3.5-5.1)
[2020-07-28] MEDS: carBAMazepine XR (12 HR) 200 mg Tablet PO ×2 (08:48→21:16)
[2020-07-28] MEDS: atorvastatin 40 mg Tablet 20 MG PO (08:48)
[2020-07-28] MEDS: metoprolol succinate ER (24 HR) 50 mg Tablet PO (08:48)
[2020-07-28] MEDS: hyDRALAzine 25 mg Tablet PO ×3 (08:48→21:16)
[2020-07-28] MEDS: FUROsemide 20 mg Tablet PO (08:49)
[2020-07-28] MEDS: sennosides-docusate Tablet 2 TAB PO ×2 (08:49→17:35)
[2020-07-28] MEDS: chlorhexidine gluconate 0.12% Btl 473 mL 30 ML MUCOUS MEM ×4 (08:52→21:17)
[2020-07-28] MEDS: oxyCODONE 5 mg IR Tab/Cap PO (09:39)
[2020-07-28 11:27] LABS: Glucose Point of Care 152 mg/dL (70-110)
--- NOTE | 2020-07-28 13:40 | P.PN_ITS ---
Subjective Subjective: Interval history: No new clinical events overnight. No fever chills. No nausea vomiting. Medications: Reviewed: Yes Vitals/I&O/Wt Last Vital Signs Temp 99.6 F 07/28/20 11:33 Pulse 89 07/28/20 11:33 Resp 18 07/28/20 11:33 BP 159/73 07/28/20 11:33 Pulse Ox 92 07/28/20 11:33 07/27/20 07/28/20 07/28/20 22:59 06:59 14:59 Intake Total 522 / 986 1480 / 2466 600 / 600 Output Total 500 / 500 Balance 522 / 986 980 / 1966 600 / 600 Weight last 48 hrs Weight 97.296 kg Physical Exam Narrative: EXAM NARRATIVE: Awake, alert, NAD seen post op S1, S2 no murmur appreciated Dorsal MD edema 2+ with pedal edema Venous stasis dermatitis Abdomen distended with obesity, non-tender No acute respite distress stridor or wheezing Awake alert oriented x3 GCS 15 No neurological deficit No vascular compromise of lower extremities Post op RLE ORIF Urinary Catheter Management^: Thrasher: Cath Placed During This Visit: yes Reason for Continuing Indwelling Catheter: Required Immobilization for Trauma or Surgery or Anesthesia Urinary Catheter Date of Insertion: 07/26/20 Urinary Catheter Time of Insertion: 21:00 Data : 07/28/20 06:04 07/28/20 06:04 Micro: Microbiology 07/26/20 21:05 Urine Culture - Preliminary Urine Catheterized Gram Negative Rods A&P Assessment and plan (1) Femur fracture, right: Urinary tract infection - Started on Rocephin - increase to 2g daily - follow up on final organism - monitor wbc - increasing - If febrile obtain blood cuture Right distal femoral fracture s/p ORIF - Ortho on board - Pain control - PT/OT - CBC/CMP in am - Fall precautions Accelerated hypertension - Pain control - Resume antihypertensives - Hydralazine/ Metoprolol / lasix Edema - Echo pending - Will waiting additional day - Resume lasix Chronic stage 3 kidney disease - Creatinine stable - 2.4 today - Fluctuating baseline 1.8-2.5 - On lasix - BPM in am - Monitor urine ouput - Saline lock IVF Diabetes Mellitus - Sliding scale - resume lantus if persistently high Multiple sclerosis - No change to management DVT ppx - Per ortho Status: Acute Qualifiers: Encounter type: initial encounter Femur location: distal, unspecified portion Fracture morphology: unspecified fracture morphology Fracture type: closed Qualified Code(s): S72.401A - Unspecified fracture of lower end of right femur, initial encounter for closed fracture Additional A&P Information Fluid overloaded: - ECHO pending - Lasix - Saline lock IVF Full code DVT prophylaxis SCDs Lovenox 40 mg Sq daily Attestations Medical Necessity Statement*: Will require further hospitalization for management of fluid overload, postop and urinary tract infection Time Spent in Patient Care: Greater than 35 minutes (>than 50% of time spent in counselling and/or direct pt care on unit) . Coding Level of Care Code Acute Rivet Tapping Machine Operator for Chg Fwd Diagnoses Femur fracture, right S72.401A Encounter type: initial encounter Femur location: distal, unspecified portion Fracture morphology: unspecified fracture morphology Fracture type: closed
--- NOTE | 2020-07-28 13:48 | PC.NURSE ---
felder removed, pt tolerated well
[2020-07-28] MEDS: cefTRIAXone 2,000 MG in sodium chloride 0.9% (plus) 50 ML 100 MG IV (14:00)
[2020-07-28] MEDS: enoxaparin 40 mg/0.4 mL Syringe SUBCUT (14:02)
[2020-07-28] MEDS: ondansetron 2 mg/ML SDV 2 mL 4 MG IVP (15:56)
[2020-07-28 17:16] LABS: Glucose Point of Care 169 mg/dL (70-110)
[2020-07-28 20:32] LABS: Glucose Point of Care 241 mg/dL (70-110)
[2020-07-29] VITALS (7 sets, daily range): BP systolic 116–184; BP diastolic 73–85; PULSE 77–85; RESP 17–18; TEMP 36.8–37.3; O2SAT 90–96
[2020-07-29 00:56] LABS: Glucose Point of Care 303 mg/dL (70-110)
[2020-07-29] MEDS: ondansetron 2 mg/ML SDV 2 mL 4 MG IVP ×2 (00:56→14:24)
[2020-07-29] MEDS: oxyCODONE 5 mg IR Tab/Cap PO ×2 (00:59→14:24)
[2020-07-29] MEDS: metoclopramide 5 mg/mL SDV 2 mL 10 MG IVP (03:39)
[2020-07-29 05:39] LABS: Basophils # 0.2 10^3/uL (0.0-0.1); Basophils % 0.8 %; Eosinophils # 0.2 10^3/uL (0.0-0.8); Hematocrit 33.6 % (42.0-52.0); Hemoglobin 10.3 g/dL (11.7-16.6); Lymphocytes # 2.2 10^3/uL (0.8-4.8); Lymphocytes % 9.5 %; Mean Corpuscular HGB Conc 30.7 g/dL (30.0-36.0); Mean Corpuscular Hemoglobin 28.2 pg (28.0-34.0); Mean Corpuscular Volume 92.1 fL (80-94); Mean Platelet Volume 11.3 fL (7.4-10.4); Monocytes # 2.9 10^3/uL (0.2-0.9); Monocytes % 12.6 %; Neutrophils % 75.6 %; Nucleated Red Blood Cells % 0 %; Platelet Count 415 10^3/cmm (130-400); Red Blood Count 3.65 10^6/uL (4.1-5.3); Red Cell Distribution Width 14.9 % (12.1-15.1); White Blood Count 23.3 10^3/uL (4.0-10.0)
[2020-07-29 06:02] LABS: Magnesium 1.8 mg/dL (1.7-2.3)
--- NOTE | 2020-07-29 06:32 | PC.NURSE ---
Patient bladder scans ordered PRN, PT scanned at 2045, bladder scan showed 409 urine retained, straight cathed with a 14 Fr and 350 clear yellow urine returned. Bladder scan showed 489 urine retained at 0100, Pt straight cathed with 14 fr and 450 clear yellow urine returned. Bladder scan showed 389 urine retained at 0630, PT straight cathed with 16 fr and 325 clear yellow urine returned. Pt tolerated well, pt had one incontinence episode during the night.
[2020-07-29 06:43] LABS: Glucose Point of Care 127 mg/dL (70-110)
[2020-07-29 07:50] LABS: Procalcitonin 1.36 ng/mL (0-0.5)
[2020-07-29 08:01] LABS: Alanine Aminotransferase < 5 U/L (0-41); Albumin Level 1.7 g/dL (3.5-5.2); Alkaline Phosphatase 69 IU/L (40-130); Anion Gap 18.8 (5-19); Aspartate Amino Transferase 19 U/L (0-40); Blood Urea Nitrogen 26 mg/dL (8-23); Carbon Dioxide 16 mmol/L (22-29); Chloride 103 mmol/L (98-107); Globulin 3.7 g/dL (1.3-4.6); Glomerular Filtration Rate 25.7 mL/min (90-130); Glucose 125 mg/dL (65-115); Osmolality Calculated 284 mOsm/kg (285-295); Potassium 3.8 mmol/L (3.5-5.1); Sodium 134 mmol/L (136-145); Total Bilirubin 0.3 mg/dL (0.15-1.2); Total Protein 5.4 g/dL (6.6-8.7)
[2020-07-29] MEDS: atorvastatin 40 mg Tablet 20 MG PO (08:53)
[2020-07-29] MEDS: FUROsemide 20 mg Tablet PO (08:54)
[2020-07-29] MEDS: hyDRALAzine 25 mg Tablet PO ×3 (08:54→21:19)
[2020-07-29] MEDS: chlorhexidine gluconate 0.12% Btl 473 mL 30 ML MUCOUS MEM ×4 (08:54→21:19)
[2020-07-29] MEDS: sennosides-docusate Tablet 2 TAB PO ×2 (08:54→17:46)
[2020-07-29] MEDS: metoprolol succinate ER (24 HR) 50 mg Tablet PO (08:54)
[2020-07-29] MEDS: carBAMazepine XR (12 HR) 200 mg Tablet PO ×2 (08:54→21:19)
--- NOTE | 2020-07-29 10:45 | PC.SOCIAL ---
IM follow up explained and form provided to patient for reference. No questions or concerns voiced. Patient verbalized understanding.
[2020-07-29 12:53] LABS: Glucose Point of Care 226 mg/dL (70-110)
[2020-07-29] MEDS: cefTRIAXone 2,000 MG in sodium chloride 0.9% (plus) 50 ML 100 MG IV (13:09)
[2020-07-29] MEDS: enoxaparin 40 mg/0.4 mL Syringe SUBCUT (14:25)
--- NOTE | 2020-07-29 16:20 | PM.PN ---
Subjective Subjective: Interval history: No significant pain Vitals/I&O/Wt Last Vital Signs Temp 98.2 F 07/29/20 15:18 Pulse 81 07/29/20 15:18 Resp 18 07/29/20 15:18 BP 116/73 07/29/20 15:18 Pulse Ox 96 07/29/20 15:18 07/29/20 07/29/20 07/29/20 06:59 14:59 22:59 Intake Total 480 / 1250 640 / 640 Output Total 1300 / 1650 1050 / 1050 Balance -820 / -400 -410 / -410 Physical Exam Narrative: EXAM NARRATIVE: Incisions are clean. Minimal thigh swelling Urinary Catheter Management^: Thrasher: Cath Placed During This Visit: yes, but has since been removed by the nurse Reason for Continuing Indwelling Catheter: Perioperative Use in Selected Surgeries Urinary Catheter Date of Insertion: 07/26/20 Urinary Catheter Time of Insertion: 21:00 Date Urinary Catheter Removed: 07/28/20 Time Urinary Catheter Discontinued: 13:48 Data : 07/29/20 05:00 07/29/20 05:00 Micro: Microbiology 07/26/20 21:05 Urine Culture - Final Urine Catheterized Klebsiella oxytoca A&P Assessment and plan (1) Supracondylar fracture of right femur: Status: Acute (2) Postoperative state: Patient is nonambulatory. Has wheelchairs and Jay lift at home. Wishes discharge home and seems to have adequate support at home. Will have home health nursing FU in2 weeks for staple removal. FU with me in 1 monhth. Status: Acute Attestations Medical Necessity Statement*: OK for discharge per ortho. Coding Level of Care Code Acute Digital Pre Press Operator for Keila Leonardo Diagnoses Supracondylar fracture of right femur S72.451A Postoperative state Z98.890
--- NOTE | 2020-07-29 16:40 | P.PN_ITS ---
Subjective Subjective: Interval history: Patient was noted to have nausea, vomiting overnight. In addition continues to have low grade fevers. No respiratory distress. denied chest pain. Medications: Reviewed: Yes Vitals/I&O/Wt Last Vital Signs Temp 98.2 F 07/29/20 15:18 Pulse 81 07/29/20 15:18 Resp 18 07/29/20 15:18 BP 116/73 07/29/20 15:18 Pulse Ox 96 07/29/20 15:18 07/29/20 07/29/20 07/29/20 06:59 14:59 22:59 Intake Total 480 / 1250 640 / 640 Output Total 1300 / 1650 1050 / 1050 Balance -820 / -400 -410 / -410 Physical Exam Narrative: EXAM NARRATIVE: Awake, alert, NAD seen post op S1, S2 no murmur appreciated Dorsal MD edema 2+ with pedal edema Venous stasis dermatitis Abdomen distended with obesity, non-tender No acute respite distress stridor or wheezing Awake alert oriented x3 GCS 15 No neurological deficit No vascular compromise of lower extremities Post op RLE ORIF Urinary Catheter Management^: Thrasher: Cath Placed During This Visit: yes, but has since been removed by the nurse Reason for Continuing Indwelling Catheter: Perioperative Use in Selected Surger ies Urinary Catheter Date of Insertion: 07/26/20 Urinary Catheter Time of Insertion: 21:00 Date Urinary Catheter Removed: 07/28/20 Time Urinary Catheter Discontinued: 13:48 Data : 07/29/20 05:00 07/29/20 05:00 Micro: Microbiology 07/26/20 21:05 Urine Culture - Final Urine Catheterized Klebsiella oxytoca A&P Assessment and plan (1) Femur fracture, right: Klebsiella Oxytoca UTI - Started on Rocephin - increased to 2g daily - Will check blood culture x 2 - Sensitive to rocephin - CBC in am - T-max 102 - Tyelenol PRN - Given nausea/vomiting - will r/o aspiration - Chest x-ray Right distal femoral fracture s/p ORIF - Ortho on board - Pain control - PT/OT - CBC/CMP in am - Fall precautions Accelerated hypertension - Pain control - Resume antihypertensives - Hydralazine/ Metoprolol / lasix Edema - Echo pEF, Grade 1 diastolic dysfunction - Lasix - Improving Chronic stage 3 kidney disease - Creatinine stable - 2.5 today - Fluctuating baseline 1.8-2.5 - On lasix - BPM in am - Monitor urine ouput - Saline lock IVF Diabetes Mellitus - Sliding scale - resume lantus if persistently high Multiple sclerosis - No change to management DVT ppx - Per ortho Status: Acute Qualifiers: Encounter type: initial encounter Femur location: distal, unspecified portion Fracture morphology: unspecified fracture morphology Fracture type: closed Qualified Code(s): S72.401A - Unspecified fracture of lower end of right femur, initial encounter for closed fracture Additional A&P Information Full code DVT prophylaxis SCDs Lovenox 40 mg Sq daily Attestations Medical Necessity Statement*: Will continue hospitalization for management of infection and postop management Time Spent in Patient Care: Greater than 35 minutes Coding Level of Care Code Acute Laboratory Sampler for Chg Fwd Diagnoses Femur fracture, right S72.401A Encounter type: initial encounter Femur location: distal, unspecified portion Fracture morphology: unspecified fracture morphology Fracture type: closed
--- NOTE | 2020-07-29 16:41 | XRR_ITS ---
PROCEDURE INFORMATION: Exam: XR Chest Exam date and time: 07/29/2020 4:41 PM Age: 69 years old Clinical indication: Shortness of breath; Additional info: Possible aspiration TECHNIQUE: Imaging protocol: XR of the chest Views: 1 view. COMPARISON: CR XR chest 1V portable [id number] 07/26/2020 7:47 PM FINDINGS: Lungs: Multiple small calcified granulomas in the right lung base. Mild atelectasis in the peripheral lung bases and right mid lung. Pleural spaces: Slight blunting of the costophrenic angles could represent small pleural effusions. No pneumothorax. Heart/Mediastinum: Unremarkable. No cardiomegaly. Bones/joints: Unremarkable. XR/XR chest 1V portable [id number] IMPRESSION: 1. Mild atelectasis and possible small pleural effusions.
[2020-07-29 16:58] LABS: Glucose Point of Care 162 mg/dL (70-110)
--- NOTE | 2020-07-29 18:20 | PC.NURSE ---
pt ate well today. pt received 1 unit of RBC. some bruising still on hip but not any worse. ice applied to hip. pt currently sleeping.
--- NOTE | 2020-07-29 18:22 | PC.NURSE ---
pt ate well today. pt had little to no nausea and received zofran once. pt pain well controlled. pt up to chair today. pt dressing changed today.
[2020-07-29 20:29] LABS: Glucose Point of Care 163 mg/dL (70-110)
--- NOTE | 2020-07-29 21:29 | PC.NURSE ---
PT stated to nurse he needed to urinate, PT had incontinent episode in brief, PT bladder scanned and scan showed >360 urine retained, PT straight cathed with 16 fr felder catheter and 350 mls of clear yellow urine returned. Pt tolerated well with no complaints of pain or discomfort.
[2020-07-30] VITALS (11 sets, daily range): BP systolic 124–199; BP diastolic 78–102; PULSE 75–83; RESP 16–20; TEMP 36.6–36.9; O2SAT 93–95
[2020-07-30] MEDS: ondansetron 2 mg/ML SDV 2 mL 4 MG IVP (05:19)
[2020-07-30] MEDS: labetalol 5 mg/mL SDV 20mL 10 MG IVP (05:19)
[2020-07-30] MEDS: oxyCODONE 5 mg IR Tab/Cap PO (05:20)
--- NOTE | 2020-07-30 06:45 | PC.NURSE ---
PT stated he needed to void, PT bladder scanned >546 ml retaining, pt straight cathed with 14 fr catheter 450 mls of clear yellow urine returned, pt tolerated well no complaints of pain or discomfort.
[2020-07-30 06:56] LABS: Glucose Point of Care 82 mg/dL (70-110)
[2020-07-30] MEDS: FUROsemide 20 mg Tablet PO (07:56)
[2020-07-30 08:26] LABS: Basophils # 0.1 10^3/uL (0.0-0.1); Basophils % 0.7 %; Eosinophils # 0.3 10^3/uL (0.0-0.8); Eosinophils % 1.6 %; Hematocrit 31.5 % (42.0-52.0); Hemoglobin 10.1 g/dL (11.7-16.6); Lymphocytes # 1.5 10^3/uL (0.8-4.8); Lymphocytes % 8.3 %; Mean Corpuscular HGB Conc 32.1 g/dL (30.0-36.0); Mean Corpuscular Hemoglobin 27.9 pg (28.0-34.0); Mean Platelet Volume 11.4 fL (7.4-10.4); Monocytes # 1.6 10^3/uL (0.2-0.9); Monocytes % 9.2 %; Neutrophils # 14.04 10^3/uL (1.8-7.7); Neutrophils % 79.9 %; Nucleated Red Blood Cells % 0 %; Platelet Count 477 10^3/cmm (130-400); Red Blood Count 3.62 10^6/uL (4.1-5.3); Red Cell Distribution Width 14.6 % (12.1-15.1); White Blood Count 17.6 10^3/uL (4.0-10.0)
[2020-07-30 08:55] LABS: Procalcitonin 1.48 ng/mL (0-0.5)
[2020-07-30] MEDS: sennosides-docusate Tablet 2 TAB PO (09:00)
[2020-07-30] MEDS: atorvastatin 40 mg Tablet 20 MG PO (09:06)
[2020-07-30 09:07] LABS: Magnesium 1.7 mg/dL (1.7-2.3)
[2020-07-30] MEDS: carBAMazepine XR (12 HR) 200 mg Tablet PO (09:07)
[2020-07-30] MEDS: hyDRALAzine 25 mg Tablet PO ×2 (09:07→14:25)
[2020-07-30] MEDS: metoprolol succinate ER (24 HR) 50 mg Tablet PO (09:08)
[2020-07-30] MEDS: chlorhexidine gluconate 0.12% Btl 473 mL 30 ML MUCOUS MEM ×2 (09:41→14:04)
[2020-07-30] MEDS: morphine 4 mg/mL SDV 1 mL 2 MG IVP (09:42)
[2020-07-30 11:00] LABS: Glucose Point of Care 117 mg/dL (70-110)
--- NOTE | 2020-07-30 12:34 | US_ITS ---
WS: [id number] RENAL ULTRASOUND HISTORY: YEYO, fever, neurogenic bladder, assess for hydronephrosis. COMPARISON: 04/03/2015 TECHNIQUE: 2-D and color Doppler imaging of the kidney submitted. Right kidney: 10.6 cm x 5.5 cm x 4.0 cm. Limited visualization of the kidney due to body habitus. No obstruction or mass. Left kidney: 10.9 cm x 5.9 cm x 3.7 cm. Limited visualization of the kidney due to body habitus. No obstruction or mass identified. Aorta: Normal. Urinary Bladder: Normal distention. US/US renal BI* [id number] IMPRESSION: 1. No hydronephrosis or mass identified. 2. Mild technical limitations due to body habitus.
[2020-07-30] MEDS: cefTRIAXone 2,000 MG in sodium chloride 0.9% (plus) 50 ML 100 MG IV (14:03)
[2020-07-30] MEDS: enoxaparin 40 mg/0.4 mL Syringe SUBCUT (14:26)
--- NOTE | 2020-07-30 16:58 | P.DS_ITS ---
Discharge Providers Date of Admission: 07/26/20 20:25 Date of Discharge: July 30, 2020 Attending Provider at Admission: Maria Victoria Ruiz MD Attending Provider at Discharge: Wiley Chiang Primary Care Provider: HAYDER Silverio Diagnoses at Discharge Discharge Diagnosis (1) Femur fracture, right: Status: Acute Qualifiers: Encounter type: initial encounter Femur location: distal, unspecified portion Fracture morphology: unspecified fracture morphology Fracture type: closed Qualified Code(s): S72.401A - Unspecified fracture of lower end of right femur, initial encounter for closed fracture (2) Hypertensive urgency: Status: Acute (3) Essential (primary) hypertension: Status: Chronic (4) UTI (urinary tract infection): Status: Acute (5) Multiple sclerosis: Status: Chronic Reason for Visit Reason for Visit: FALL/ LEG PAIN Hospital Course Hospital Course Pleasant 69-year-old gentleman with history of MS, neurogenic urinary bladder dysfunction, DM 2, current kidney disease stage III, HTN, HLD, history of splenectomy, was admitted for cyst management after a fall resulting in right supracondylar femoral fracture. He was assessed by orthopedics, underwent ORIF on 07/27. Hospital stay complicated by fever, 100.2 Fahrenheit, with urinary tract infection growing Klebsiella which was pansensitive. Kidney and bladder ultrasound was performed, without finding of hydronephrosis. Straight catheterization was continued through hospital stay due to urinary retention, neurogenic bladder. At home his usually manages this for him. He will complete antibiotic course with cefdinir. He is asked to follow-up with his urologist whom he has not seen in a long while. Consider follow-up with neurology with regards to multiple sclerosis. By orthopedics he is asked to remain nonweightbearing on right lower extremity, wear immobilizer when not in bed, replace dressing as needed. Follow-up in office in 2 weeks. He is resumed on his antihypertensive medications and asked to continue monitoring blood pressures at home. Please continue to assist him with optimization of blood pressure management. (I was unable to reach his by phone after several tries to additionally discuss discharge recommendation with her in peson.) Physical Exam Narrative: EXAM NARRATIVE: Const: COMMON NORMALS: no acute distress and patient oriented x3 GENERAL APPEARANCE: cooperative and comfortable NUTRITIONAL APPEARANCE: overweight ORIENTATION/CONSCIOUSNESS: Yes awake OTHER: He is awake, alert, denies any discomfort or complaints. Feels well enough and happy to return home. HENMT: COMMON NORMALS: oropharynx normal Neck/C-Spine: COMMON NORMALS: no JVD Resp: COMMON NORMALS: normal respiratory effort and clear to auscultation bilaterally AUSCULTATION: clear to auscultation bilaterally Cardio: COMMON NORMALS: no JVD, regular rhythm, S1 normal heart sound present, S2 normal heart sound present and No murmurs present (Cardio) RHYTHM: regular rhythm HEART SOUNDS: S1 normal heart sound present and S2 normal heart sound present GI: COMMON NORMALS: Normal to inspection, nondistended, normoactive bowel sounds present, Soft to palpation and non-tender PALPATION: Yes Soft to palpation Extremity: COMMON NORMALS: no joint enlargement OTHER: Right thigh with minimal if any edema. Distal extremity perfused, although with some developing contractures. Neuro: COMMON NORMALS: patient oriented x3 and moves all extremities Skin: COMMON NORMALS: no rashes or lesions noted GENERAL SKIN EXAM: no rashes or lesions noted Urinary Catheter Management^: Thrasher: Cath Placed During This Visit: yes, but has since been removed by the nurse Reason for Continuing Indwelling Catheter: Perioperative Use in Selected Surgeries Urinary Catheter Date of Insertion: 07/26/20 Urinary Catheter Time of Insertion: 21:00 Date Urinary Catheter Removed: 07/28/20 Time Urinary Catheter Discontinued: 13:48 Discharge Data Data Completed and Pending: Completed Studies During Hospitalization Category Date Time Status XR ankle RT min 3 V* [id number] Stat Exams 07/26/20 19:11 Completed XR chest 1V essence ble [id number] Routine Exams 07/29/20 16:41 Completed XR chest 1V essence ble [id number] Stat Exams 07/26/20 19:45 Completed XR femur RT 1V 73 551 Routine Exams 07/27/20 Completed XR femur RT min 2 V* [id number] Stat Exams 07/26/20 19:11 Completed XR knee RT 1-2V 7 3560 Routine Exams 07/26/20 Completed CV echo complete* [id number] Routine Ultrasound 07/27/20 23:38 Completed US renal BI* [id number] Routine Ultrasound 07/30/20 12:34 Completed Pending at discharge Category Date Time Status Blood Culture Sta t Lab 07/29/20 19:57 Results Labs from last 24 hours 0307/30/20 07/30/20 10:44 07:50 07:50 WBC 17.6 H RBC 3.62 L Hgb 10.1 L Hct 31.5 L MCV 87.0 MCH 27.9 L MCHC 32.1 RDW 14.6 Plt Count 477 H MPV 11.4 H Neut % (Auto) 79.9 Lymph % (Auto) 8.3 Mcleod % (Auto) 9.2 Eos % (Auto) 1.6 Baso % (Auto) 0.7 Neut # (Auto) 14.04 H Lymph # (Auto) 1.5 Mcleod # (Auto) 1.6 H Eos # (Auto) 0.3 Baso # (Auto) 0.1 Nucleated RBC % (a uto) 0 Nucleated RBCs # 0.0 POC Glucose 117 H Magnesium 1.7 Procalcitonin 1.48 H 07/30/20 07/29/20 07/29/20 06:50 20:18 16:52 WBC RBC Hgb Hct MCV MCH MCHC RDW Plt Count MPV Neut % (Auto) Lymph % (Auto) Mcleod % (Auto) Eos % (Auto) Baso % (Auto) Neut # (Auto) Lymph # (Auto) Mcleod # (Auto) Eos # (Auto) Baso # (Auto) Nucleated RBC % (a uto) Nucleated RBCs # POC Glucose 82 163 H 162 H Magnesium Procalcitonin Vitals: Last Vital Signs Temp 98.2 F 07/30/20 15:20 Pulse 83 07/30/20 15:20 Resp 18 07/30/20 15:20 BP 190/99 07/30/20 15:20 Pulse Ox 94 07/30/20 15:20 Discharge Plan Discharge Patient Disposition: Home Health Service Condition: Stable Prescriptions: New oxycodone 5 mg Tablet 5 mg PO Q4H PRN (Reason: Moderate Pain) 7 Days Qty: 30 RF: 0 enoxaparin 40 mg/0.4 mL Syringe 40 mg SUBCUT Q24H 10 Days Qty: 4 RF: 0 cefdinir 300 mg capsule 300 mg PO BID 5 Days Qty: 10 RF: 0 Continued mupirocin 2 % ointment 1 applic TOPICAL BID Qty: 22 RF: 0 Trulicity 1.5 mg/0.5 mL pen injector 1.5 mg SUBCUT .weekly Qty: 2 RF: 2 Lipitor 20 mg tablet 20 mg PO DAILY@0900 Qty: 30 RF: 2 aspirin 81 mg tablet,delayed release (DR/EC) 81 mg PO DAILY@0900 Qty: 30 RF: 2 ergocalciferol (vitamin D2) 1,250 mcg (50,000 unit) capsule 1,250 mcg PO .Weekly Qty: 4 RF: 2 MediHoney (honey) 100 % paste 1 applic TOPICAL BID Qty: 528 RF: 0 hydralazine 25 mg tablet 25 mg PO TID Qty: 90 RF: 2 insulin aspart U-100 [Novolog Flexpen U-100 Insulin] 100 unit/mL (3 mL) insulin pen 12 - 24 unit SUBCUT TID Qty: 15 RF: 2 Tresiba FlexTouch U-200 200 unit/mL (3 mL) insulin pen 90 unit SUBCUT DAILY Qty: 18 RF: 2 (DME) pen needle, diabetic [BD Ultra-Fine Nadia Pen Needle] 32 gauge x 5/32 needle See Rx Instructions .ROUTE .MEDSUPPLY Qty: 200 RF: 5 lactulose 20 gram/30 mL solution 20 g PO BID PRN (Reason: constipation) Qty: 1500 RF: 2 (DME) Coloplast Self cath 10 azeri See Rx Instructions .Route .MEDSUPPLY Qty: 2 RF: 12 furosemide 40 mg tablet 40 mg PO DAILY@0900 RF: 0 Effexor XR 75 mg capsule,extended release 24hr 225 mg PO DAILY@0900 RF: 0 gabapentin 600 mg tablet 600 mg PO TID@, RF: 0 ropinirole 1 mg tablet 1 mg PO DAILY RF: 0 Toprol XL 50 mg tablet extended release 24 hr 50 mg PO DAILY@0900 RF: 0 lisinopril 20 mg tablet 20 mg PO BID@899,2100 RF: 0 potassium chloride 10 mEq tablet extended release 10 meq PO DAILY@0900 RF: 0 famotidine 20 mg tablet 20 mg PO BID@899,2100 RF: 0 Tegretol XR 200 mg tablet extended release 12 hr 200 mg PO BID@899,2100 RF: 0 folic acid 1 mg tablet 1 mg PO DAILY@0900 RF: 0 buspirone 15 mg tablet 15 mg PO TID@, RF: 0 fenofibrate nanocrystallized 145 mg tablet 145 mg PO DAILY@0900 RF: 0 Discharge Orders: Discharge Order (Routine); Ordered 07/30/20 Ordered By: Wiley Chiang Referrals: [facility] [Outside] Isael Moreno FNP-C [Primary Care Provider] - 4-7 days (PLEASE CALL FOR APPOINTMENT) Emmanuel Reis MD [Physician] - 1 week (Neurogenic bladder, retention, UTI PLEASE CALLL FOR APPOINTMENT) Aleksey Chen MD [Physician] - 1 month (PLEASE CALL FOR APPOINTMENT ) Discharge Diet: Cardiac and Diabetic Discharge Activity: Limit activity as instructed and As per PT/OT instructions Patient Instructions: Oxycodone, Rapid Release (By mouth), Enoxaparin (Injection), Cefdinir (By mouth), Leg Fracture (DC) Activity Restrictions/Additional Instructions: Absolutely no weight on right lower extremity Wear immobilizer when not in bed Relace dressing right leg as needed for drainage. Okay to sponge bathe. No tub baths until elian discontinued Home health nursing to discontinue elian in 2 weeks Please continue straight catheterization at minimum every 3 hours for now. Contact your urologist's office in case of any questions and for additional instructions. Please follow-up with urology in office within about a week or so. Complete antibiotic course for urinary tract infection. Discussed with your urologist regarding urinary tract infection, urinary retention with neurogenic bladder. Please continue to monitor your blood pressure at home. Continue blood pressure medications. Continue cardiac diet. If blood pressure despite treatment persistently elevated, above 150/90, please contact your primary care doctor office. If blood pressure persistently above 200/100, please seek medical attention. Please discuss with your primary care doctor follow-up with neurology with regards to multiple sclerosis. Discharge Attestations Time Spent in Discharge Care*: greater than 30 min Quality Metrics Clinical Quality Measures During this hospital stay, did patient experience: None Coding Level of Care Code Acute Club Car Attendant for Chg Fwd Diagnoses Femur fracture, right S72.401A Encounter type: initial encounter Femur location: distal, unspecified portion Fracture morphology: unspecified fracture morphology Fracture type: closed Hypertensive urgency I16.0 Essential (primary) hypertension I10 UTI (urinary tract infection) N39.0 Multiple sclerosis G35
[2020-07-30 19:07] LABS: Glucose Point of Care 196 mg/dL (70-110)
== END 2020-07-30 19:45 | disposition home health service (06) | DRG 481 ==
LOC: ER 19:29 → MEDSURG 21:02
PROVIDERS: Hospitalist; Orthopaedic Surgery; Admitting Provider Internal Medicine; Emergency Provider Family Medicine; PCP Nurse Practitioner; Visit Provider Internal Medicine
DX: S72.451A Displaced supracondylar fracture without intracondylar extension of lower end of right femur, initial encounter for closed fracture (principal); N39.0 Urinary tract infection, site not specified; W19.XXXA Unspecified fall, initial encounter; Z91.81 History of falling; G35 Multiple sclerosis; I25.2 Old myocardial infarction; K21.9 Gastro-esophageal reflux disease without esophagitis; F41.8 Other specified anxiety disorders; E11.22 Type 2 diabetes mellitus with diabetic chronic kidney disease; E11.65 Type 2 diabetes mellitus with hyperglycemia; I12.9 Hypertensive chronic kidney disease with stage 1 through stage 4 chronic kidney disease, or unspecified chronic kidney disease; N18.30 Chronic kidney disease, stage 3 unspecified; K59.01 Slow transit constipation; E78.2 Mixed hyperlipidemia; N31.9 Neuromuscular dysfunction of bladder, unspecified; Z90.81 Acquired absence of spleen; Z87.891 Personal history of nicotine dependence; Z99.3 Dependence on wheelchair; I16.0 Hypertensive urgency; B96.1 Klebsiella pneumoniae [K. pneumoniae] as the cause of diseases classified elsewhere; R33.9 Retention of urine, unspecified; Z79.82 Long term (current) use of aspirin; Z79.4 Long term (current) use of insulin
CPT/HCPCS: 36415; 36416; 51702; 51798; 71045; 73551; 73552; 73560; 73610; 76000; 76770; 80048; 80053; 81001; 82962; 83735; 84145; 84443; 85025; 85049; 85384; 85610; 85730; 87040; 87077; 87086; 87186; 87426; 93005; 93306; 96372; 96374; 96375; 97110; 97162; 97166; 97530; 99285; C1713; J0690; J0696; J1170; J1580; J1650; J1815; J2250; J2270; J2405; J2704; J2765; J3490; J7030

== ENCOUNTER → 2020-08-30 14:49 | Outpatient (BNVA) | payer MEDICARE, MEDICAID, SELFPAY | PROVIDERS: PCP Nurse Practitioner; Visit Provider Nurse Practitioner | DX: E11.69 Type 2 diabetes mellitus with other specified complication (principal); Z79.4 Long term (current) use of insulin; I10 Essential (primary) hypertension; G35 Multiple sclerosis; L89.302 Pressure ulcer of unspecified buttock, stage 2 | CPT/HCPCS: 80053; 80061; 83036; 85025 ==

== ENCOUNTER → 2020-12-20 16:11 | Outpatient (BNVA) | payer MEDICARE, MEDICAID, SELFPAY | PROVIDERS: PCP Nurse Practitioner; Visit Provider Nurse Practitioner | DX: L03.90 Cellulitis, unspecified (principal); E11.69 Type 2 diabetes mellitus with other specified complication; I10 Essential (primary) hypertension; E78.2 Mixed hyperlipidemia; F41.9 Anxiety disorder, unspecified; F32.9 Major depressive disorder, single episode, unspecified; I16.0 Hypertensive urgency; E11.65 Type 2 diabetes mellitus with hyperglycemia; G35 Multiple sclerosis; K21.9 Gastro-esophageal reflux disease without esophagitis; D47.3 Essential (hemorrhagic) thrombocythemia; K59.01 Slow transit constipation; Z79.4 Long term (current) use of insulin; Z90.81 Acquired absence of spleen | CPT/HCPCS: 80053; 80061; 83036; 85025 ==

== ENCOUNTER 2021-08-21 02:18 | Inpatient (IN) | payer MEDICARE, MEDICAID, SELFPAY ==
[2021-08-21] VITALS (13 sets, daily range): BP systolic 108–191; BP diastolic 53–89; PULSE 46–107; RESP 14–20; TEMP 36.3–37; O2SAT 94–97; BMI 31.9; BMI 34.2
--- NOTE | 2021-08-21 02:23 | XRR_ITS ---
PROCEDURE INFORMATION: Exam: XR Chest Exam date and time: 08/21/2021 1:51 AM Age: 71 years old Clinical indication: Shortness of breath; Prior surgery; Surgery type: Splenectomy; Patient HX: C/O SOB. TECHNIQUE: Imaging protocol: XR of the chest. Views: 1 view. COMPARISON: CR XR chest 1V portable [id number] 07/29/2020 5:00 PM FINDINGS: Lungs: Interval appearance of [id number] nonspecific bilateral pulmonary opacities most consistent with pneumonia versus pulmonary edema. Pleural spaces: Unremarkable. No pleural effusion. No pneumothorax. Heart/Mediastinum: Unremarkable. No cardiomegaly. Bones/joints: Moderate dextroscoliosis. XR/XR chest 1V portable [id number] IMPRESSION: Interval appearance of [id number] nonspecific bilateral pulmonary opacities most consistent with pneumonia versus pulmonary edema.
--- NOTE | 2021-08-21 02:25 | ED_ITS ---
HPI - Abdominal Pain General: Chief Complaint: ER Hold Stated Complaint: abd pain, constipation Time Seen by Provider: 08/21/21 02:19 Source: patient and EMS Mode of arrival: EMS Limitations: no limitations History of Present Illness: 71-year-old male has a history of MS basically bedbound and does get around with a wheelchair at times. He states he been having increasing abdominal pain for last 4 days and has not had a bowel movement. He states he is also having a lot a pain over his buttocks and has been having increasing pressure wound to the buttocks that has been trying to treat at home. Denies any fever has had some slight dyspnea denies any worsening improving factors. Associated Symptoms: Reports constipation; Denies chills, dysuria and fever(s) Review of Systems Const: Denies: fever(s), chills, body aches or change in appetite Eyes: Denies: blurry vision or eye discomfort ENMT: Denies: throat pain or dental pain Card: Denies: chest pain Resp: Denies: dyspnea GI: Reports: abdominal pain and constipation : Denies: dysuria Musc: Denies: neck pain or back pain Skin/Breast: Denies: rash Neuro: Denies: headache(s) Psych: Denies: depression Rohit/Lymph: Denies: easy bruising All/Imm: Denies: urticaria PFSH ED PFSH: Medical History Acid reflux Anxiety and depression CKD (chronic kidney disease), stage III Constipation, slow transit DDD (degenerative disc disease) Essential (primary) hypertension Fall Intermittent self-catheterization of bladder Mixed hyperlipidemia Multiple sclerosis 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 Wheel chair as ambulatory aid Surgical History H/O splenectomy History of appendectomy History of back surgery Family History Mother CAD (coronary artery disease) Diabetes Father CAD (coronary artery disease) Diabetes Other Cancer Social History Smoking and tobacco status: former smoker Second hand smoke exposure: No Smoking risk assessment/counseling performed?: No Alcohol intake: current Desire information about alcohol rehabilitation?: No Counseling given: No Desire information about substance/drug rehabilitation?: No Counseling given: No Adopted: No Caregiver/support person: Yes Lives independently: No Household members: spouse Marital status: Current occupational status: disabled History of recent travel: No Current gender identity: Male Physical Exam Const: COMMON NORMALS: patient oriented x3 GENERAL APPEARANCE: ill appearing HENMT: COMMON NORMALS: normocephalic and atraumatic HEAD & SCALP: normocephalic and atraumatic Eye: COMMON NORMALS: Equal, round and reactive pupils present and EOMs intact bilaterally PUPIL: Yes Equal, round and reactive pupils present Neck/C-Spine: COMMON NORMALS: full ROM and supple Chest: COMMONS NORMALS: normal inspection of the chest and normal palpation of entire chest wall Resp: COMMON NORMALS: normal respiratory effort, No retractions, No use of accessory muscles and clear to auscultation bilaterally AUSCULTATION: clear to auscultation bilaterally Cardio: COMMON NORMALS: regular rate, regular rhythm and No murmurs present (Cardio) RATE: regular rate RHYTHM: regular rhythm GI: COMMON NORMALS: Normal to inspection, nondistended, normoactive bowel sounds present, Soft to palpation, non-tender and no masses PALPATION: Yes Soft to palpation Back/Pelvis: OTHER: Very large decubitus ulcer to coccyx region with some necrosis Extremity: COMMON NORMALS: full ROM NARRATIVE EXTREMITY EXAM: Weeping edema to bilateral lower legs Neuro: COMMON NORMALS: patient oriented x3, moves all extremities and no focal motor deficits Psych: COMMON NORMALS: mental status grossly normal, Normal thought process present and cooperative THOUGHT PROCESS: Normal thought process present Skin: COMMON NORMALS: no rashes or lesions noted and no wounds GENERAL SKIN EXAM: no rashes or lesions noted Course Vital Signs: Vital signs: Vital Signs Temperature 98.3 F 08/21/21 02:20 Pulse Rate 103 H 08/21/21 03:37 Respiratory Rate 18 08/21/21 03:37 Blood Pressure 191/89 08/21/21 03:37 Pulse Oximetry 97 08/21/21 03:37 MDM - Abdominal Pain Medical Decision Making Patient presents here with large decubitus ulcer he also has distal edema pulmonary edema is noted on CT scan as well. Does have an elevated white count likely due to his decubitus ulcer he has an elevated BNP from his baseline patient given Lasix here along with IV antibiotics spoke to hospitalist will admit. Lab Data : 08/21/21 02:26 08/21/21 02:26 Labs/Radiology: Radiology Impressions Chest X-Ray 08/21/21 02:23 IMPRESSION: Interval appearance of [id number] nonspecific bilateral pulmonary opacities most consistent with pneumonia versus pulmonary edema. Abdomen/Pelvis CT 08/21/21 02:57 IMPRESSION: 1. Moderate bilateral pleural fluid collections. 2. The spleen is absent consistent with previous splenectomy. 3. Thrasher balloon catheter in the urinary bladder. 4. Mild bowel wall thickening in the sigmoid colon consistent with mild infectious colitis, microvascular ischemic colitis or inflammatory bowel autoimmune colitis. 5. Somewhat dense appearing collapsed urinary bladder suggesting possible cystitis. 6. Multiple tiny calcified gallstones. 7. No obvious radiographic decubitus ulcer. 8. Skin thickening in the region of the buttocks just posterior to the distal rectum and anus with possible phlegmon but no soft tissue emphysema. Laboratory Results WBC 14.0 10^3/uL (4.0-10.0) H 08/21/21 02:26 RBC 3.95 10^6/uL (4.1-5.3) L 08/21/21 02:26 Hgb 11.2 g/dL (11.7-16.6) L 08/21/21 02:26 Hct 34.6 % (42.0-52.0) L 08/21/21 02:26 MCV 87.6 fl (80-94) 08/21/21 02:26 MCH 28.4 pg (28.0-34.0) 08/21/21 02:26 MCHC 32.4 g/dL (30.0-36.0) 08/21/21 02:26 RDW 15.0 % (12.1-15.1) 08/21/21 02:26 Plt Count 511 10^3/cmm (130-400) H 08/21/21 02:26 MPV 10.4 fL (7.4-10.4) 08/21/21 02:26 Neut % (Auto) 70.1 % 08/21/21 02:26 Lymph % (Auto) 15.0 % 08/21/21 02:26 [place] % (Auto) 8.7 % 08/21/21 02:26 Eos % (Auto) 4.9 % 08/21/21 02:26 Baso % (Auto) 0.9 % 08/21/21 02:26 Neut # (Auto) 9.80 10^3/uL (1.8-7.7) H 08/21/21 02:26 Lymph # (Auto) 2.1 10^3/uL (0.8-4.8) 08/21/21 02:26 [place] # (Auto) 1.2 10^3/uL (0.2-0.9) H 08/21/21 02:26 Eos # (Auto) 0.7 10^3/uL (0.0-0.8) 08/21/21 02:26 Baso # (Auto) 0.1 10^3/uL (0.0-0.1) 08/21/21 02:26 Nucleated RBC % (auto) 0.1 % 08/21/21 02:26 Nucleated RBCs # 0.0 /100WBC 08/21/21 02:26 Sodium 136 mmol/L (136-145) 08/21/21 02:26 Potassium 3.9 mmol/L (3.5-5.1) 08/21/21 02:26 Chloride 108 mmol/L (98-107) H 08/21/21 02:26 Carbon Dioxide 14 mmol/L (22-29) L 08/21/21 02:26 Anion Gap 17.9 (5-19) 08/21/21 02:26 BUN 41 mg/dL (8-23) H 08/21/21 02:26 Creatinine 3.9 mg/dL (0.7-1.2) H 08/21/21 02:26 GFR Calculation Not Reportable 08/21/21 02:26 Glucose 131 mg/dL (65-115) H 08/21/21 02:26 Calculated Osmolality 294 mOsm/kg (285-295) 08/21/21 02:26 Lactate 0.9 mmol/L (0.5-2.2) 08/21/21 02:40 Calcium 8.0 mg/dL (8.5-10.5) L 08/21/21 02:26 Total Bilirubin 0.3 mg/dL (0.15-1.2) 08/21/21 02:26 AST 22 U/L (0-40) 08/21/21 02:26 ALT 12 U/L (0-41) 08/21/21 02:26 Alkaline Phosphatase 161 IU/L (40-130) H 08/21/21 02:26 NT-Pro-B Natriuret Pep 87642 pg/mL (0-125) H 08/21/21 02:26 Total Protein 5.8 g/dL (6.6-8.7) L 08/21/21 02:26 Albumin 2.3 g/dL (3.5-5.2) L 08/21/21 02:26 Globulin 3.5 g/dL (1.3-4.6) 08/21/21 02:26 EKG Data EKG 1: I personally reviewed and interpreted this EKG as follows: EKG interpretation date: 08/21/21 EKG interpretation time: 02:37 Interpretation: sinus tach hr [address] or t wave abnormalities qrs 90 qtc 413 Discharge Plan Discharge Patient Disposition: Admitted As Inpatient Clinical Impression: Pleural effusion, CHF (congestive heart failure), Decubitus ulcer Condition: Stable Prescriptions: No Action mupirocin 2 % ointment 1 applic TOPICAL BID Qty: 22 0RF (DME) roho cushion See Rx Instructions .Route .MEDSUPPLY Qty: 1 0RF Rx Instructions: As directed for use in power mobility chair 99 months npi#[id number] MediHoney (honey) 100 % paste 1 applic TOPICAL BID Qty: 528 0RF MediHoney (honey) 100 % paste 1 applic topical BID Qty: 103 0RF Lipitor 20 mg tablet 20 mg PO DAILY@0900 Qty: 30 2RF aspirin 81 mg tablet,delayed release (DR/EC) 81 mg PO DAILY@0900 Qty: 30 2RF buspirone 15 mg tablet 15 mg PO TID@09,12,21 Qty: 90 2RF Tegretol XR 200 mg tablet extended release 12 hr 200 mg PO BID@0900,2100 Qty: 60 2RF Trulicity 3 mg/0.5 mL pen injector 3 mg SUBCUT .weekly Qty: 2 2RF ergocalciferol (vitamin D2) 1,250 mcg (50,000 unit) capsule 1,250 mcg PO .Weekly Qty: 4 2RF famotidine 20 mg tablet 20 mg PO BID@0900,2100 Qty: 60 2RF fenofibrate nanocrystallized 145 mg tablet 145 mg PO DAILY@0900 Qty: 30 2RF folic acid 1 mg tablet 1 mg PO DAILY@0900 Qty: 30 2RF furosemide 40 mg tablet 40 mg PO DAILY@0900 Qty: 30 2RF gabapentin 600 mg tablet 600 mg PO TID@09,12,21 Qty: 90 2RF hydralazine 25 mg tablet 25 mg PO TID Qty: 90 2RF insulin aspart U-100 [Novolog Flexpen U-100 Insulin] 100 unit/mL (3 mL) insuli n pen 12 - 24 unit SUBCUT TID Qty: 15 2RF Rx Instructions: 70-150=12U 151-200=15U 201-250=18U 251-300=21U 301>=24U Tresiba FlexTouch U-200 200 unit/mL (3 mL) insulin pen 90 unit SUBCUT DAILY Qty: 18 2RF lactulose 20 gram/30 mL solution 20 g PO BID PRN (Reason: constipation) Qty: 1500 2RF lisinopril 20 mg tablet 20 mg PO BID@0900,2100 Qty: 60 2RF Toprol XL 50 mg tablet extended release 24 hr 50 mg PO DAILY@0900 Qty: 30 2RF (DME) pen needle, diabetic [BD Ultra-Fine Nadia Pen Needle] 32 gauge x 5/32 needle See Rx Instructions .ROUTE .MEDSUPPLY Qty: 200 5RF Rx Instructions: 4 times daily potassium chloride 10 mEq tablet extended release 10 meq PO DAILY@0900 Qty: 30 2RF ropinirole 1 mg tablet 1 mg PO DAILY Qty: 30 2RF Rx Instructions: TAKE WITH EVENING MEAL Effexor XR 75 mg capsule,extended release 24hr 225 mg PO DAILY@0900 Qty: 30 2RF (DME) Wheelchair repair See Rx Instructions .Route .MEDSUPPLY Qty: 1 0RF Rx Instructions: Wheelchair evaluation and repair (DME) power mobility chair See Rx Instructions .Route .MEDSUPPLY Qty: 1 0RF Rx Instructions: As directed power mobility chair TALA brantley#[id number] 99 months (DME) Coloplast Self cath 10 micronesian See Rx Instructions .Route .MEDSUPPLY Qty: 2 12RF Rx Instructions: As directed amoxicillin-pot clavulanate [Augmentin] 500-125 mg tablet 1 tab PO Q12H Qty: 20 0RF Referrals: Isael Moreno, [facility] [Primary Care Provider] - Coding Level of Care Code ED Human Resource Adviser for Chg Fwd Exam Comprehensive
[2021-08-21 02:35] LABS: Basophils # 0.1 10^3/uL (0.0-0.1); Basophils % 0.9 %; Eosinophils # 0.7 10^3/uL (0.0-0.8); Eosinophils % 4.9 %; Hematocrit 34.6 % (42.0-52.0); Hemoglobin 11.2 g/dL (11.7-16.6); Lymphocytes # 2.1 10^3/uL (0.8-4.8); Mean Corpuscular HGB Conc 32.4 g/dL (30.0-36.0); Mean Corpuscular Hemoglobin 28.4 pg (28.0-34.0); Mean Corpuscular Volume 87.6 fl (80-94); Mean Platelet Volume 10.4 fL (7.4-10.4); Monocytes # 1.2 10^3/uL (0.2-0.9); Monocytes % 8.7 %; Neutrophils % 70.1 %; Nucleated Red Blood Cells % 0.1 %; Platelet Count 511 10^3/cmm (130-400); Red Blood Count 3.95 10^6/uL (4.1-5.3)
[2021-08-21 02:55] LABS: Alanine Aminotransferase 12 U/L (0-41); Albumin Level 2.3 g/dL (3.5-5.2); Alkaline Phosphatase 161 IU/L (40-130); Anion Gap 17.9 (5-19); Aspartate Amino Transferase 22 U/L (0-40); Blood Urea Nitrogen 41 mg/dL (8-23); Carbon Dioxide 14 mmol/L (22-29); Chloride 108 mmol/L (98-107); Globulin 3.5 g/dL (1.3-4.6); Glucose 131 mg/dL (65-115); Osmolality Calculated 294 mOsm/kg (285-295); Potassium 3.9 mmol/L (3.5-5.1); Sodium 136 mmol/L (136-145); Total Bilirubin 0.3 mg/dL (0.15-1.2); Total Protein 5.8 g/dL (6.6-8.7)
--- NOTE | 2021-08-21 02:57 | CTR_ITS ---
PROCEDURE INFORMATION: Exam: CT Abdomen And Pelvis Without Contrast Exam date and time: 08/21/2021 3:11 AM Age: 71 years old Clinical indication: Abdominal pain; Generalized; Prior surgery; Surgery type: Splenectomy. Appy. Back. ; Patient HX: C/O abd pain with constipation. Pressure sore to low back/sacral area. ; Additional info: Abd pain/ decub ulcer TECHNIQUE: Imaging protocol: Computed tomography of the abdomen and pelvis without contrast. Radiation optimization: All CT scans at this facility use at least one of these dose optimization techniques: automated exposure control; mA and/or kV adjustment per patient size (includes targeted exams where dose is matched to clinical indication); or iterative reconstruction. COMPARISON: CT kidney stone [id number] 06/05/2020 5:13 PM RADIATION DOSE METRICS: Total DLP (mGy-cm): 1840.79 FINDINGS: Pleural spaces: Moderate bilateral pleural fluid collections. Liver: Normal. No mass. Gallbladder and bile ducts: Multiple tiny calcified gallstones. Pancreas: Normal. No ductal dilation. Spleen: The spleen is absent consistent with previous splenectomy. Adrenal glands: Normal. No mass. Kidneys and ureters: Normal. No hydronephrosis. Stomach and bowel: Mild bowel wall thickening in the sigmoid colon consistent with mild infectious colitis, microvascular ischemic colitis or inflammatory bowel autoimmune colitis. Appendix: No evidence of appendicitis. Intraperitoneal space: Unremarkable. No free air. No significant fluid collection. Vasculature: Calcification of the abdominal aorta and/or iliac arteries consistent with atherosclerotic vessel disease. Calcification of the abdominal aorta and/or iliac arteries consistent with atherosclerotic vessel disease. Lymph nodes: Calcified bilateral hilar nodes and/or mediastinal nodes and/or lung granulomas consistent with old granulomatous disease. Urinary bladder: Thrasher balloon catheter in the urinary bladder. Somewhat dense appearing collapsed urinary bladder suggesting possible cystitis. Reproductive: Unremarkable as visualized. Bones/joints: Severe lumbar spondylosis. Soft tissues: No obvious radiographic decubitus ulcer. Skin thickening in the region of the buttocks just posterior to the distal rectum and anus with possible phlegmon but no soft tissue emphysema. CT/CT abdomen pelvis wo con [id number] IMPRESSION: 1. Moderate bilateral pleural fluid collections. 2. The spleen is absent consistent with previous splenectomy. 3. Thrasher balloon catheter in the urinary bladder. 4. Mild bowel wall thickening in the sigmoid colon consistent with mild infectious colitis, microvascular ischemic colitis or inflammatory bowel autoimmune colitis. 5. Somewhat dense appearing collapsed urinary bladder suggesting possible cystitis. 6. Multiple tiny calcified gallstones. 7. No obvious radiographic decubitus ulcer. 8. Skin thickening in the region of the buttocks just posterior to the distal rectum and anus with possible phlegmon but no soft tissue emphysema.
[2021-08-21 02:58] LABS: Lactate (Lactic Acid level) 0.9 mmol/L (0.5-2.2)
--- NOTE | 2021-08-21 03:00 | PC.NURSE ---
Pt. changed out of his clothes due to his skin weeping and making his clothes wet. Pt. has large pressure wound on buttocks. The pressure wound is bleeding and the skin is peeling. Pt. placed on pillows to take pressure off of his pressure wound.
[2021-08-21] MEDS: vancomycin 1,000 MG in sodium chloride 0.9% 250 ML 250 MG IV (03:10)
[2021-08-21] MEDS: FUROsemide 10 mg/mL SDV 4mL 40 MG IVP ×2 (04:05→10:11)
[2021-08-21] MEDS: labetalol 5 mg/mL SDV 20mL 10 MG IVP (05:26)
--- NOTE | 2021-08-21 05:37 | USCV_ITS ---
London Quach Age: 71 Gender: M : 1950 Exam Date: 08/21/2021 10:25 Ordering Phys: James Mackenzie MD Technologist: FEI Exam Location: [facility] [place] Indication: SOB. No hx cardiac intervention per patient. Note: On renal U/S a RIGHT pleural effusion was seen. This exam visualizes a LEFT pleural effusion as well. Atrial fibrillation noted during exam. BP: / HR: 93 Rhythm: Atrial fibrillation Technical Quality: Adequate MEASUREMENTS (Male / Female) Normal Values 2D ECHO LV Diastolic Diameter PLAX 4.6 cm 4.2 - 5.9 / 3.9 - 5.3 cm LV Systolic Diameter PLAX 3.1 cm IVS Diastolic Thickness 1.3 cm 0.6 - 1.0 / 0.6 - 0.9 cm IVS Systolic Thickness 2.1 cm LVPW Diastolic Thickness 1.3 cm 0.6 - 1.0 / 0.6 - 0.9 cm LVPW Systolic Thickness 1.2 cm LVOT Diameter 2.0 cm LV Ejection Fraction 2D Teich 62.1 % LV Ejection Fraction MOD 2C 60.8 % LV Ejection Fraction 2C AL 61.3 % LA Diameter 4.7 cm LA Width 4.3 cm LA Height 5.5 cm RA Width 4.8 cm RA Height 5.8 cm Aorta at Sinotubular Diameter 2.5 cm M-MODE Aortic Annulus Diameter 2.9 cm LA Ao Ratio MM 1.6 MV E Point Septal Separation 0.4 cm DOPPLER AV Peak Velocity 113.0 cm/s LVOT Peak Velocity 70.0 cm/s AV Area Cont Eq vti 2.1 cm squared AV Area Cont Eq pk 1.9 cm squared MV Peak Velocity 119.0 cm/s MV Area PHT 3.7 cm squared Mitral E to A Ratio 93.3 MV E' Velocity 66.0 cm/s Mitral E to MV E' Ratio 12.8 Mitral E to LV E' Lateral Ratio 10.9 Mitral E to LV E' Septal Ratio 15.6 TR Peak Velocity 282.0 cm/s TR Peak Gradient 31.8 mmHg TV Peak E Velocity 71.0 cm/s PV Peak Velocity 93.0 cm/s FINDINGS Left Ventricle Normal left ventricular size. LV systolic function is normal with EF of 55-60%. No regional wall motion abnormalities. Disatolic function is indeterminate because of atrial fibrillation Right Ventricle The right ventricle is normal in size and function. Right Atrium The right atrium is normal in size. Left Atrium The left atrium is normal in size. Mitral Valve Structurally normal mitral valve without significant stenosis or prolapse. There is no mitral regurgitation. Aortic Valve Aortic valve is thickened without significant stenosis. There is no aortic regurgitation. Tricuspid Valve Structurally normal tricuspid valve without significant stenosis or regurgitation. Insufficient TR jet to calculate RVSP Pulmonic Valve Not well visualized Pericardium Normal pericardium without effusion. Pleural effusion is seen Aorta Normal ascending aorta dimension. CONCLUSIONS LV systolic function is normal with EF of 55-60% Diastolic function is indeterminate because of atrial fibrillation Pleural effusion is noted No significant valvular heart disease Compared to prior echocardiogram from 07/27/2020, no significant changes are seen Bright Darden MD (Electronically Signed) Final Date: 22 August 2021 07:03 S
--- NOTE | 2021-08-21 05:43 | USCV_ITS ---
London Quach Age: 71 Gender: M : 1950 Exam Date: 08/21/2021 07:58 Ordering Phys: James Mackenzie MD Technologist: FEI [place] [facility] [place]: 3+ pitting edema bilateral lower extremities. No hx DVT per patient. HISTORY: 3+ pitting edema bilateral lower extremities. No hx DVT per patient. PROCEDURES: The venous duplex Doppler examination of both lower extremities was performed in the standard fashion. FINDINGS: Normal 2-D Doppler and augmentation and compressibility throughout the lower extremity venous structures. Additional imaging through the proximal calf veins also reveals no thrombus. Limited evaluation of the greater saphenous vein is patent with no thrombus. CONCLUSIONS No DVT bilateral lower extremities. Dr. Veena Reyes DO (Electronically Signed) Final Date: 21 August 2021 09:34 S
--- NOTE | 2021-08-21 05:45 | P.HP_ITS ---
Providers/Chief Complaint Primary Care Provider: Isael Moreno, LADI-C Chief Complaint: abd pain, constipation History of Present Illness London Quach is a 71 year old male with a past medical history of multiple sclerosis, is bedbound, does ambulate with a wheelchair, but he tells me he does not ambulate a lot, history of recurrent UTIs, recent history of femur right fracture, history of hypertension, diastolic CHF with bilateral extreme edema, chronic kidney disease stage III, insulin-dependent type 2 diabetes mellitus, who presents to [facility] due to complaints of lower back pressure and pain with increased shortness of breath. Patient tells me that recently has been experiencing increased shortness of breath, no fever, no cough, but also he is developed lower extremity edema. He tells me that he also feels pressure pain over his lower back, he does not have a history of sacral ulcers in the past, but he is rapidly developed a sacral ulcer. No fevers, no chills, no history of wound care, no history of offloading, his helps take care of him at home. In the emergency room he was found to have leukocytosis, UA currently pending, concerns for source of infection state: DTI, with tunneling, currently Dr. Hernandes is in the surgery cannot be reached, but likely needs to be debrided, has been given antibiotic therapy. Also has worsening renal failure, creatinine 3.9, with evidence of fluid overload, has been given 40 of Lasix, hospitalist team called for admission Review of Systems Const: Denies: fever(s), chills, fatigue or malaise Eyes: Denies: change in vision or blurry vision ENMT: Denies: nasal congestion Resp: Denies: productive cough, non-productive cough or wheezing GI: Denies: abdominal pain, nausea, vomiting, hematemesis, diarrhea, constipation, hematochezia or melena : Denies: flank pain or dysuria Musc: Denies: neck pain or back pain Neuro: Denies: headache(s), dizziness or vertigo Medications/Allergies Home Medications Medication Instructions Recorded Confirmed Last Taken Type mupirocin 2 % topical ointment 1 applic TOPICAL BID #22 gm 10/25/19 12/20/20 Unknown Rx Coloplast Self cath 10 macedonian #2 ea 04/18/20 12/20/20 Unknown Rx roho cushion #1 ea 08/30/20 12/20/20 Unknown Rx honey 100 % topical paste 1 applic TOPICAL BID #528 ml 09/03/20 12/20/20 Unknown Rx (MediHoney (honey)) honey 100 % topical paste 1 applic TOPICAL BID #103 ml 10/09/20 12/20/20 Unknown Rx (MediHoney (honey)) aspirin 81 mg tablet,delayed 81 mg PO DAILY@0900 #30 tab 12/20/20 12/20/20 Unknown Rx release atorvastatin 20 mg tablet (Lipitor) 20 mg PO DAILY@0900 #30 tab 12/20/20 12/20/20 Unknown Rx buspirone 15 mg tablet 15 mg PO TID@ #90 tab 12/20/20 12/20/20 Unknown Rx carbamazepine 200 mg 200 mg PO BID@0900,2100 #60 tab 12/20/20 12/20/20 Unknown Rx tablet,extended release,12 hr (Tegretol XR) dulaglutide 3 mg/0.5 mL 3 mg (0.5 mL) SUBCUT .weekly #2 ml 12/20/20 12/20/20 U nknown Rx subcutaneous pen injector (Trulicity) ergocalciferol (vitamin D2) 1,250 1,250 mcg PO .Weekly #4 cap 12/20/20 12/20/20 Unknown Rx mcg (50,000 unit) capsule famotidine 20 mg tablet 20 mg PO BID@0900,2100 #60 tab 12/20/20 12/20/20 Unknown Rx fenofibrate nanocrystallized 145 145 mg PO DAILY@0900 #30 tab 12/20/20 12/20/20 Unknown Rx mg tablet folic acid 1 mg tablet 1 mg PO DAILY@0900 #30 tab 12/20/20 12/20/20 Unknown Rx furosemide 40 mg tablet 40 mg PO DAILY@0900 #30 tab 12/20/20 12/20/20 Unknown Rx gabapentin 600 mg tablet 600 mg PO TID@ #90 tab 12/20/20 12/20/20 Unknown Rx hydralazine 25 mg tablet 25 mg PO TID #90 tab 12/20/20 12/20/20 Unknown Rx insulin aspart U-100 100 unit/mL 12 - 24 unit (0.12 - 0.24 mL) 12/20/20 12/20/20 Unknown Rx (3 mL) subcutaneous pen (Novolog SUBCUT TID #15 ml Flexpen U-100 Insulin aspart) insulin degludec 200 unit/mL (3 90 unit (0.45 mL) SUBCUT DAILY #18 12/20/20 12/20/20 Unknown Rx mL) subcutaneous pen (Tresiba ml FlexTouch U-200 insulin) lactulose 20 gram/30 mL oral 20 g (30 mL) PO BID PRN #1500 ml 12/20/20 12/20/20 Unknown Rx solution lisinopril 20 mg tablet 20 mg PO BID@0900,2100 #60 tab 12/20/20 12/20/20 Unknown Rx metoprolol succinate 50 mg 50 mg PO DAILY@0900 #30 tab 12/20/20 12/20/20 Unknown Rx tablet,extended release 24 hr (Toprol XL) pen needle, diabetic 32 gauge x #200 ea 12/20/20 12/20/20 Unknown Rx /32 (BD Ultra-Fine Nadia Pen Needle) potassium chloride 10 mEq 10 meq PO DAILY@0900 #30 tab 12/20/20 12/20/20 Unknown Rx tablet,extended release ropinirole 1 mg tablet 1 mg PO DAILY #30 tab 12/20/20 12/20/20 Unknown Rx venlafaxine 75 mg capsule,extended 225 mg PO DAILY@0900 #30 cap 12/20/20 12/20/20 Unknown Rx release 24 hr (Effexor XR) amoxicillin 500 mg-potassium 1 tab PO Q12H #20 tab 12/21/20 Unknown Rx clavulanate 125 mg tablet (Augmentin) Wheelchair repair #1 ea 12/23/20 12/23/20 Unknown Rx power mobility chair #1 ea 12/24/20 12/24/20 Unknown Rx Allergies Allergy/AdvReac Type Severity Reaction Status Date / Time baclofen Allergy ADR-Dizzine Verified 05/22/20 14:46 ss thiopental [From Pentothal] Allergy ALGY-Anaphy Verified 05/22/20 14:46 laxis PFSH Acute PFSH: Medical History Acid reflux Anxiety and depression CKD (chronic kidney disease), stage III Constipation, slow transit DDD (degenerative disc disease) Essential (primary) hypertension Fall Intermittent self-catheterization of bladder Mixed hyperlipidemia Multiple sclerosis 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 Wheel chair as ambulatory aid Surgical History H/O splenectomy History of appendectomy History of back surgery Family History Mother CAD (coronary artery disease) Diabetes Father CAD (coronary artery disease) Diabetes Other Cancer Social History Smoking and tobacco status: former smoker Second hand smoke exposure: No Smoking risk assessment/counseling performed?: No Alcohol intake: current Desire information about alcohol rehabilitation?: No Counseling given: No Desire information about substance/drug rehabilitation?: No Counseling given: No Adopted: No Caregiver/support person: Yes Lives independently: No Household members: spouse Marital status: Current occupational status: disabled History of recent travel: No Current gender identity: Male Vitals/I&O/Wt Last Vital Signs Temp 98.3 F 08/21/21 02:20 Pulse 103 H 08/21/21 03:37 Resp 18 08/21/21 03:37 BP 191/89 08/21/21 03:37 Pulse Ox 97 08/21/21 03:37 Weight last 48 hrs Weight 95.254 kg Physical Exam Const: COMMON NORMALS: no acute distress and patient oriented x3 HENMT: COMMON NORMALS: normocephalic HEAD & SCALP: normocephalic Neck/C-Spine: COMMON NORMALS: no JVD Resp: COMMON NORMALS: normal respiratory effort, No retractions, No use of accessory muscles and clear to auscultation bilaterally AUSCULTATION: crackles Cardio: COMMON NORMALS: regular rate, regular rhythm, S1 normal heart sound present and S2 normal heart sound present RATE: regular rate RHYTHM: regular rhythm HEART SOUNDS: S1 normal heart sound present and S2 normal heart sound present GI: COMMON NORMALS: Normal to inspection, nondistended, normoactive bowel sounds present, Soft to palpation, non-tender, No hepatosplenomegaly present, no masses and no bruits PALPATION: Yes Soft to palpation and Yes No hepatosplenomegaly present Extremity: COMMON NORMALS: capillary refill normal, no clubbing, cyanosis or edema, no calf tenderness and no pedal edema Neuro: COMMON NORMALS: patient oriented x3 Psych: COMMON NORMALS: mental status grossly normal Skin: NARRATIVE SKIN EXAM: Skin examination: Large sacral ulcer, deep tissue injury, measuring 10 x 6 cm, 2 areas of tunneling, irregular borders, surrounding erythema Urinary Catheter Management: Thrasher: Cath Placed During This Visit: yes Urinary Catheter Date of Insertion: 08/21/21 Urinary Catheter Time of Insertion: 02:57 Data : 08/21/21 02:26 08/21/21 02:26 Micro: Microbiology 08/21/21 03:32 Blood Culture - Preliminary Blood SPECIMEN COLLECTED 08/21/21 02:46 Blood Culture - Preliminary Blood SPECIMEN COLLECTED A&P Assessment and plan (1) Decubitus ulcer: Status: Acute (2) CHF (congestive heart failure): Status: Acute (3) Pleural effusion: Status: Acute (4) CKD (chronic kidney disease), stage III: Status: Chronic Qualifiers: Chronic kidney disease stage 3 subtype: unspecified whether 3a or 3b Qualified Code(s): N18.30 - Chronic kidney disease, stage 3 unspecified (5) Thrombocytosis 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: Status: Acute (6) Mixed hyperlipidemia: Status: Chronic (7) Multiple sclerosis: Status: Chronic (8) Anxiety and depression: Status: Chronic (9) Essential (primary) hypertension: Status: Chronic Plan Sacral deep tissue injury and surrounding cellulitis -Black eschar, with tunneling -We will require surgical debridement -Once Dr. Hernandes is out of surgery, will need consulted for debridement -Start broad-spectrum antibiotic therapy vancomycin, Zosyn -Blood cultures -Follow urine culture, UA -Place Thrasher catheter -Full code -SCDs for DVT prophylaxis, Lovenox on hold for possible surgical intervention Diastolic CHF exacerbation -History of grade 1 diastolic dysfunction, BNP over 30,000, does have hypoalbuminemia -Baseline creatinine is between 1.8-2.5 -Now up to 3.9 -Monitor urine output, monitor creatinine, monitor potassium, has been given 40 of Lasix -We will start 40 of Lasix every 12 hours with albumin therapy -Fluid restrictions 1200 cc -Cardiac echo Acute kidney injury on chronic kidney disease stage III -Patient's last creatinine was 3.4 -He has not seen a coke production heater, is not too keen on dialysis, but tells me that he is agreeable if absolutely necessary -Monitor urine output, renal ultrasound, will consider consulting nephrology Bilateral extremity weakness likely secondary to diastolic CHF, will do venous ultrasound for DVT History of UTIs, Thrasher catheter will be placed, monitor UA Accelerated hypertension, blood pressures are elevated in the emergency room given labetalol -Continue home medications -Continue hydralazine 25 3 times daily -Continue metoprolol -Hold lisinopril -Start clonidine 0.1 twice daily Multiple sclerosis, continue gabapentin, Effexor, Tegretol, gabapentin -PT OT Protein calorie malnutrition, hypoalbuminemia, consult nutrition Type 2 diabetes mellitus, low-dose sliding scale Attestations Medical Necessity Statement*: Patient requires hospitalization for sacral deep tissue injury, requiring debridement, diastolic CHF exacerbation, hypertension Coding Level of Care Code 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
[2021-08-21 05:57] LABS: Erythrocyte Sedimentation Rate 28 mm/hr (0-10)
--- NOTE | 2021-08-21 05:58 | US_ITS ---
WS: [id number] ULTRASOUND RENAL TECHNIQUE: Ultrasound examination of both kidneys. CLINICAL INFORMATION: hosea COMPARISON: None. FINDINGS: RIGHT: Right kidney is normal in size and appearance. Echogenicity: Normal. Cortical thickness: 1.6 cm; Normal. Hydronephrosis: None. Perinephric fluid: None. Right kidney measures: 11.2 cm x 6.2 cm x 5.3 cm. LEFT: Left kidney is normal in size and appearance. Echogenicity: Normal. Cortical thickness: 1.8 cm; Normal. Hydronephrosis: None. Perinephric fluid: None. Left kidney measures: 10.2 cm x 5.0 cm x 4.9 cm. Normal visualized aorta. Partially visualized RIGHT pleural effusion. US/US renal BI* 10011 IMPRESSION: 1. Thrasher catheter. Bladder is decompressed. 2. No hydronephrosis in either kidney. 3. Partially visualized RIGHT pleural effusion.
[2021-08-21 06:09] LABS: Thyroid Stimulating Hormone 2.67 uIU/mL (0.27-4.20)
[2021-08-21 06:17] LABS: Urine Appearance Cloudy (CLEAR); Urine Color Yellow (Yellow)
[2021-08-21 06:18] LABS: Add Urine Culture? Yes; Add Urine Microscopic? YES; Bacteria Urine 4+ /hpf; Bilirubin Urine Neg (Negative); Blood Urine 2+ (Negative); Glucose Urine UA Norm (Normal); Ketones Urine Negative (Negative); Leukocyte Esterase Urine 2+ (Negative); Nitrate Urine Negative (Negative); Protein Urine 3+ (Negative); RBC Urine 0-4 /hpf (0-2); Squamous Epithelial Cell Urine 0-4 /hpf (0-5); Urobilinogen Urine Norm (Negative); WBC Urine >100 /hpf (0-5); pH Urine 7 (5-7)
[2021-08-21 06:20] LABS: C Reactive Protein 171.9 mg/L (0.0-4.9)
[2021-08-21] MEDS: piperacillin-tazobactam 3.375 GM in sodium chloride 0.9% (plus) 50 ML IV ×2 (06:42→17:52)
[2021-08-21] MEDS: BuSPIRONE 10 mg Tablet 15 MG PO ×3 (06:42→21:03)
[2021-08-21 07:29] LABS: Procalcitonin > 100.00 ng/mL (0-0.5)
[2021-08-21 09:07] LABS: Creatine Phosphokinase 242 U/L (39-308)
--- NOTE | 2021-08-21 09:22 | PM.PN ---
Subjective Subjective: London reports he is doing okay currently. He reports her shortness of breath happens at times but is not short of breath currently. He has trouble given some of his history, but is alert and oriented to self, age, but not year. He appears to be thoughtful and answering questions, and we reviewed his CODE STATUS which he reports is full. Family is not present in the room, and nursing alerted me that the numbers to reach family do not seem to be correct. Medications: Reviewed: Yes Vitals/I&O/Wt Last Vital Signs Temp 98.3 F 08/21/21 02:20 Pulse 82 08/21/21 08:30 Resp 16 08/21/21 08:30 BP 161/84 08/21/21 08:30 Pulse Ox 96 08/21/21 08:30 Weight last 48 hrs Weight 102.313 kg Weight 95.254 kg Physical Exam Narrative: General exam is no obvious distress Neck is supple no lymphadenopathy or thyromegaly Cardiovascular regular rate and rhythm without murmur, heart sounds distant Lungs clear no wheezing or crackles. Diminished breath sounds at the bases. Abdomen is soft. Positive bowel sounds Extremities venous stasis changes, skin breakdown left second toe, 2+ edema to the thighs. Large decubitus present buttocks with slight surrounding erythema surrounding a black eschar No obvious drainage. Small tunneled area superiorly, of which opening is very small. Urinary Catheter Management: Thrasher: Cath Placed During This Visit: yes Reason for Continuing Indwelling Catheter: Accurate Measurement of Urinary Output in Critically Ill Patients Urinary Catheter Date of Insertion: 08/21/21 Urinary Catheter Time of Insertion: 02:57 Data : 08/21/21 02:26 08/21/21 02:26 Micro: Microbiology 08/21/21 03:32 Blood Culture - Preliminary Blood SPECIMEN COLLECTED 08/21/21 02:46 Blood Culture - Preliminary Blood SPECIMEN COLLECTED A&P Assessment and plan (1) Decubitus ulcer: Patient presented with a large decubitus ulcer with black eschar with some surrounding cellulitis. CT scan cannot rule out phlegmon Vancomycin and Zosyn initiated Blood cultures were obtained We will initiate wound care with Optifoam, keep pressure off the area Surgery consult, for possible debridement. Considering the extensive nature of his wound he may be best served by nursing facility care on discharge for wound care. Status: Acute (2) Cellulitis: See above Status: Acute (3) Anasarca: Patient has evidence of anasarca on exam with lower extremity edema, some edema along his back, as well as abdominal wall. Bilateral pleural effusions are present. I think this is likely secondary to his significantly low albumin, and his urinalysis with heavy proteinuria suspicious for nephrotic syndrome. Certainly heart failure can give you anasarca but he is having minimal respiratory symptoms currently. An echocardiogram has been ordered and I suspect his ejection fraction will be normal and he will have minor diastolic dysfunction as he had last year on echocardiogram. Status: Acute (4) CHF (congestive heart failure): See above Initiation of Lasix, albumin Continue to follow renal function closely with this treatment, and if worsens may need to hold off on significant diuresis. Status: Acute (5) CKD (chronic kidney disease), stage III: Significant chronic kidney disease, with acute kidney injury superimposed. Avoid all anti-inflammatories Reduce Neurontin dosing Consultation with nephrology Spot urine protein and creatinine Suspect his renal failure may be a combination of Check CK Hold lisinopril Status: Chronic Qualifiers: Chronic kidney disease stage 3 subtype: unspecified whether 3a or 3b Qualified Code(s): N18.30 - Chronic kidney disease, stage 3 unspecified (6) Multiple sclerosis: Status: Chronic (7) Essential (primary) hypertension: Continue metoprolol Status: Chronic (8) UTI (urinary tract infection): Patient with history of self cath Apparent UTI on admission Zosyn, urine culture No evidence of obstruction on CT noncontrast Status: Acute (9) Constipation, slow transit: Initiate senna Status: Chronic (10) Diabetes mellitus: Sliding scale insulin Status: Chronic Qualifiers: Diabetes mellitus type: type 2 Diabetes mellitus intermediate insulin use: with intermediate use Diabetes mellitus complication status: with other specified complication Qualified Code(s): E11.69 - Type 2 diabetes mellitus with other specified complication; Z79.4 - micro paleontologist (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
[2021-08-21] MEDS: venlafaxine ER (24HR) 75 mg Capsule 225 MG PO (10:09)
[2021-08-21] MEDS: folic acid 1 mg Tablet PO (10:09)
[2021-08-21] MEDS: acetaminophen 325 mg Tablet 650 MG PO ×2 (10:09→18:02)
[2021-08-21] MEDS: gabapentin 300 mg Capsule PO (10:09)
[2021-08-21] MEDS: heparin 5,000 unit/mL INJ 1 mL 5000 UNIT SUBCUT ×2 (10:10→21:05)
[2021-08-21] MEDS: aspirin 81 mg EC Tablet PO (10:10)
[2021-08-21] MEDS: pantoprazole DR 40 mg Tablet PO (10:10)
[2021-08-21] MEDS: ropinirole 1 mg Tablet PO (10:10)
[2021-08-21] MEDS: metoprolol succinate ER (24 HR) 50 mg Tablet PO (10:10)
[2021-08-21] MEDS: hyDRALAzine 25 mg Tablet PO ×2 (10:10→21:04)
[2021-08-21] MEDS: carBAMazepine XR (12 HR) 200 mg Tablet PO ×2 (10:24→21:03)
--- NOTE | 2021-08-21 10:37 | PC.CHAP ---
Pastoral Care Encounter/Spiritual Assessment Type of Contact [] Declined dressmaker or tailor visit [] Patient/Family/Request visit [] Outpatient visit [] Follow-up visit [] Physician referral [] Code/Alert [x] Routine visit [] Staff referral [] Actively dying [x] Patient sleeping [] Family support [] [] Out of room [] Palliative care [] [] Receiving care in room [] Pre-surgical visit [] Trauma [] Long length of stay [] ICU visit [] Other: Relational/Emotional Strength [] Patient feels connected with others/family/visitors/staff [] Distress [] Loneliness/isolation [] Abandonment Spirituality of Patient [] Person of Maribel [] Attends Scientology of their Maribel [] Believes in Prayer [] Reads Bible or Anglican materials [] There are Spiritual issues to be addressed Blocker Polishing Interventions [] Prayer [] Active listening [] Non-anxious presence [] Spiritual/emotional support [] Crisis/trauma care [] Spiritual counseling [] Bereavement support [] Provided bereavement packet [] Provided Bible/devotional materials [] Provided toy/stuffed animal, coloring book to patient or family member [] Provided Communion [] Anointing/[place] [] Salvation [] Completed spiritual assessment [] Other: Impact on Illness or Injury [] Angry [] Fearful [] Anxious [] Often cries [] Exhaustion [] Unable to work [] Unable to attend sikh [] Unable to walk/stand [] Unable to read [] Unable to drive [] Unable to eat/drink [] Unable to sleep [] Unable to be with family [] Patient intubated [] Other: Summary Time spent with patient
--- NOTE | 2021-08-21 11:19 | PC.PHAR ---
pt states his chema takes care of his medications-chema pts ([phone]) said she wasnt awake and to call her back tomorrow 08/22/21 then she would go over his medications-brooke bear stated the pts meds havent been filled in a long time-chema then states she found the meds he has been taking-chema states the only medications he has been taking are the meds entered all the entered meds were last filled 02/28/21 30d/s-chema states the pt is no longer taking fenofibrate 145mg daily,folic acid 1mg daily,lasix 40mg daily, lactulose 20g bid prn, lipitor 20mg daily,lisinopril 20mg bid,kcl 10meq daily,ropinirole 1mg daily, or trulicity 3mg q7d last filled 02/28/21-notes are made in the pharmacy comments
[2021-08-21 11:58] LABS: Urine Creatinine 19 mg/dL (39-259)
[2021-08-21 12:11] LABS: Urine Protein Random 167 mg/dL
[2021-08-21 12:12] LABS: Glucose Point of Care 101 mg/dL (70-110)
--- NOTE | 2021-08-21 12:56 | PM.CONSULT ---
Providers/Reason For Consult Consulting Physician/Specialty*: tamanna sommer md / telenephrology Reason for Consult*: YEYO on CKD, htn, met acidosis, edema Requesting Physician: Dr Brandin Wiggins Attending Physician: Vladislav Wiggins MD Primary Care Provider: Isael Moreno, CONTROL INSPECTOR-C History of Present Illness History of Present Illness London Quach is a 71 year old male MS- bedbound, self, cath, recurrent UTI, rt femur fx, htn, diastolic dysfunction, DM over 12 yrs- no recent opthalmological exam. Pt admitted yesterday w/ back pain from sacral decubitus and edema, and inc sob w/ HTN. Pts cr chema from 2 in mar 2020 to 2.4 in Jul 2020 to 3.4 in November 2020 to 3.9 today- renal asked to consult. Review of Systems Narrative: weak, swollen, sob, edema, self cath, back pain Medications/Allergies Home Medications Medication Instructions Recorded Confirmed Last Taken Type Coloplast Self cath 10 khmer #2 ea 04/18/20 08/21/21 Unknown Rx jen nicole #1 ea 08/30/20 08/21/21 Unknown Rx aspirin 81 mg tablet,delayed 81 mg PO DAILY@0900 #30 tab 12/20/20 08/21/21 Unknown Rx release buspirone 15 mg tablet 15 mg PO TID@ #90 tab 12/20/20 08/21/21 Unknown Rx carbamazepine 200 mg 200 mg PO BID@0900,2100 #60 tab 12/20/20 08/21/21 Unknown Rx tablet,extended release,12 hr (Tegretol XR) famotidine 20 mg tablet 20 mg PO BID@0900,2100 #60 tab 12/20/20 08/21/21 Unknown Rx gabapentin 600 mg tablet 600 mg PO TID@ #90 tab 12/20/20 08/21/21 Unknown Rx hydralazine 25 mg tablet 25 mg PO TID #90 tab 12/20/20 08/21/21 Unknown Rx metoprolol succinate 50 mg 50 mg PO DAILY@0900 #30 tab 12/20/20 08/21/21 Unknown Rx tablet,extended release 24 hr (Toprol XL) pen needle, diabetic 32 gauge x #200 ea 12/20/20 08/21/21 Unknown Rx 5/32 (BD Ultra-Fine Nadia Pen Needle) venlafaxine 75 mg capsule,extended 225 mg PO DAILY@0900 #30 cap 12/20/20 08/21/21 Unknown Rx release 24 hr (Effexor XR) Wheelchair repair #1 ea 12/23/20 08/21/21 Unknown Rx power mobility chair #1 ea 12/24/20 08/21/21 Unknown Rx ergocalciferol (vitamin D2) 1,250 1,250 mcg PO Q7D 08/21/21 08/21/21 Unknown History mcg (50,000 unit) capsule insulin aspart U-100 100 unit/mL See Rx Instructions .ROUTE .COMPLEX 08/21/21 08/21/21 Unknown History (3 mL) subcutaneous pen (Novolog Flexpen U-100 Insulin aspart) insulin degludec 200 unit/mL (3 76 unit SUBCUT DAILY 08/21/21 08/21/21 Unknown History mL) subcutaneous pen (Tresiba FlexTouch U-200 insulin) Allergies Allergy/AdvReac Type Severity Reaction Status Date / Time baclofen Allergy ADR-Dizzine Verified 05/22/20 14:46 ss thiopental [From Pentothal] Allergy ALGY-Anaphy Verified 05/22/20 14:46 laxis Current Medications Generic Name Dose Route Start Last Admin Trade Name Melvinq PRN Reason Stop Dose Admin Acetaminophen 650 mg 08/21/21 05:43 08/21/21 10:09 Acetaminophen 325 Mg Tablet PO 650 mg Q6H PRN Administration Mild/Mod Pain Or Temp >/= 101 Aspirin 81 mg 08/21/21 09:00 08/21/21 10:10 Aspirin 81 Mg Ec Tablet PO 81 mg DAILY SHIREEN Administration Buspirone HCl 15 mg 08/21/21 05:45 08/21/21 06:42 Buspirone 10 Mg Tablet PO 15 mg Q8H SHIREEN Administration Carbamazepine 200 mg 08/21/21 09:00 08/21/21 10:24 Carbamazepine Xr (12 Hr) 200 Mg Tablet PO 200 mg BID@0900,2100 SHIREEN Administration Folic Acid 1 mg 08/21/21 09:00 08/21/21 10:09 Folic Acid 1 Mg Tablet PO 1 mg DAILY SHIREEN Administration Furosemide 40 mg 08/21/21 09:00 08/21/21 10:11 Furosemide 10 Mg/Ml Sdv 4ml IVP 40 mg Q12H SHIREEN Administration Gabapentin 300 mg 08/21/21 09:00 08/21/21 10:09 Gabapentin 300 Mg Capsule PO 300 mg TID SHIREEN Administration Heparin Sodium (Porcine) 5,000 unit 08/21/21 10:00 08/21/21 10:10 Heparin 5,000 Unit/Ml Inj 1 Ml SUBCUT 5,000 unit Q12H SHIREEN Administration Hydralazine HCl 25 mg 08/21/21 09:00 08/21/21 10:10 Hydralazine 25 Mg Tablet PO 25 mg TID SHIREEN Administration Piperacillin Sod/Tazobactam 50 mls @ 12.5 mls/hr 08/21/21 06:30 08/21/21 06:42 Sod 3.375 gm/ Sodium Chloride IV 12.5 mls/hr Q12H SHIREEN Administration Protocol Albumin Human 25 gm in 100 mls @ 60 mls/hr 08/21/21 09:00 08/21/21 09:27 Albumin IV 60 mls/hr Q12H SHIREEN Administration Insulin Human Lispro 0 unit 08/21/21 08:00 08/21/21 11:17 Insulin Lispro 100 Unit/1 Ml SUBCUT Not Given WM&BEDTIME SHIREEN Protocol Metoprolol Succinate 50 mg 08/21/21 09:00 08/21/21 10:10 Metoprolol Succinate Er (24 Hr) 50 Mg Tablet PO 50 mg DAILY SHIREEN Administration Pantoprazole Sodium 40 mg 08/21/21 09:00 08/21/21 10:[address] 40 Mg Tablet PO 40 mg DAILY SHIREEN Administration Ropinirole HCl 1 mg 08/21/21 09:00 08/21/21 10:10 Ropinirole 1 Mg Tablet PO 1 mg DAILY SHIREEN Administration Venlafaxine HCl 225 mg 08/21/21 09:00 08/21/21 10:09 Venlafaxine Er (24hr) 75 Mg Capsule PO 225 mg DAILY SHIREEN Administration PFSH Acute PFSH: Medical History Acid reflux Anxiety and depression CKD (chronic kidney disease), stage III Constipation, slow transit DDD (degenerative disc disease) Essential (primary) hypertension Fall Intermittent self-catheterization of bladder Mixed hyperlipidemia Multiple sclerosis 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 Wheel chair as ambulatory aid Surgical History H/O splenectomy History of appendectomy History of back surgery Family History Mother CAD (coronary artery disease) Diabetes Father CAD (coronary artery disease) Diabetes Other Cancer Social History Smoking and tobacco status: former smoker Second hand smoke exposure: No Smoking risk assessment/counseling performed?: No Alcohol intake: current Desire information about alcohol rehabilitation?: No Counseling given: No Desire information about substance/drug rehabilitation?: No Counseling given: No Adopted: No Caregiver/support person: Yes Lives independently: No Household members: spouse Marital status: Current occupational status: disabled History of recent travel: No Current gender identity: Male Vitals/I&O/Wt Last Vital Signs Temp 97.4 F L 08/21/21 12:00 Pulse 46 L 08/21/21 12:00 Resp 20 H 08/21/21 12:00 BP 108/53 08/21/21 12:00 Pulse Ox 95 08/21/21 12:00 Weight last 48 hrs Weight 102.313 kg Weight 95.254 kg Physical Exam Narrative: vs noted swollen in bed, comfortable w/ nc o2 heent- nc/at, eomi, manicteric neck supple lungs wheezes and b/l dull bases heart reg, +JAMIE abd soft, nt, nd, + bs, + edema ext 2+ b/l leg edema through thighs felder+ neuro- a,a, o x 3 skin-sacral decubitus Urinary Catheter Management: Felder: Cath Placed During This Visit: yes Reason for Continuing Indwelling Catheter: Accurate Measurement of Urinary Output in Critically Ill Patients Urinary Catheter Date of Insertion: 08/21/21 Urinary Catheter Time of Insertion: 02:57 Data : 08/21/21 02:26 08/21/21 02:26 Micro: Microbiology 08/21/21 03:32 Blood Culture - Preliminary Blood SPECIMEN COLLECTED 08/21/21 02:46 Blood Culture - Preliminary Blood SPECIMEN COLLECTED A&P Assessment and plan (1) Acute kidney injury superimposed on CKD: 71 yr old man w/ htn, dm, self cath due to neurogenic bladder, recurrent UTI 1. progressive renal failure- likely from DM, HTN. -normal size kidneys on renal us -ua noted- but felder and he self cath -check pth check serologies -check spep/ sife 1b. eval for nephrotic syndrome -check lipid profile -diuresis w/ lasix and albumin for severe anasarca 2. Leukocytosis/ UTI/ Q PNA- renal dose abx 3. met acidosis- inc AGMA - check lactic acid -likely from renal failure -sugar 131- unlikely DKA -check abg and beta- hydroxybuterate 4. anemia eval 5. DM control DM w/ stage 4 CKD 6. normal TSH 7. check echo 8. normal venous dopplers seen and examine dw/ RN- telehealth visit time spent > 45 min Status: Acute Plan see above Consult Attestations Medical Necessity Statement: yeyo, edema,htn Time Spent in Patient Care: Greater than 35 minutes (>than 50% of time spent in counselling and/or direct pt care on unit). Coding Level of Care Code Acute Linseed Oil Temperer for Keila Leonardo Diagnoses Acute kidney injury superimposed on CKD N17.9; N18.9
[2021-08-21 14:20] LABS: ABG PCO2 33.7 mmHg (35-45); ABG PH Result 7.27 (7.35-7.45); Alveolar-Arterial Oxygen Gradi 4.5 mmHg (5-10); Arterial Blood Gas Hematocrit 33.5 % (42-52); Base Excess ABG -10.3 mmol/L (-2.0-2.0); Blood Gas Allen Test Pos; Blood Gas Operator Identificat BD; Blood Gas Sample Site Radial, left; Blood Gas Sample Type Arterial; Carboxyhemoglobin 0.9 %THgb (0.4-20.1); HCO3 ABG 15.6 mmol/L (22-26); HGB O2 Sat 93.7 % (95-100); Ionized Calcium Level - ABG 1.1 mmol/L (1.1-1.4); Methemoglobin 0.9 % (0.4-1.5); Oxygen Device ROOM AIR; Oxygen Saturation ABG 95.5; Potassium Level - ABG 3.5 mmol/L (3.5-5.0); Total Hemoglobin 10.9 g/dL (14-18)
[2021-08-21] MEDS: gabapentin 100 mg Capsule PO ×2 (14:36→21:11)
[2021-08-21 15:09] LABS: Alanine Aminotransferase 10 U/L (0-41); Albumin Level 2.5 g/dL (3.5-5.2); Alkaline Phosphatase 139 IU/L (40-130); Anion Gap 16.7 (5-19); Aspartate Amino Transferase 15 U/L (0-40); Blood Urea Nitrogen 42 mg/dL (8-23); Carbon Dioxide 15 mmol/L (22-29); Chloride 108 mmol/L (98-107); Globulin 3.2 g/dL (1.3-4.6); Glucose 121 mg/dL (65-115); Osmolality Calculated 294 mOsm/kg (285-295); Potassium 3.7 mmol/L (3.5-5.1); Sodium 136 mmol/L (136-145); Total Bilirubin 0.4 mg/dL (0.15-1.2); Total Protein 5.7 g/dL (6.6-8.7)
[2021-08-21 15:13] LABS: Uric Acid 8.2 mg/dL (3.4-7.0)
[2021-08-21 15:15] LABS: Estmated Average Glucose 151; Hemoglobin A1C 6.9 % (4.0-6.0)
--- NOTE | 2021-08-21 15:16 | PC.OT ---
OT EVALUATION ORDERS RECEIVED. PER P.T. PATIENT IS AT PLOF AND NOT INTERESTED IN REHAB. NO FURTHER SKILLED OT REQUIRED.
--- NOTE | 2021-08-21 15:21 | ECG_ITS ---
[facility] Test Date: 2021-08-21 Pat Name: London Quach Department: Room: 279 Gender: Male Manager Community Relations: : 1950 Requested By: Vladislav Gold Order Number: [id number] Andrew MD: Saida Alegre M.D. Measurements Intervals Marlette Rate: 88 P: -3 MI: 194 QRS: 74 QRSD: 92 T: 127 QT: 387 QTc: 469 Interpretive Statements SINUS RHYTHM WITH FREQUENT VENTRICULAR PREMATURE COMPLEXES IN A BIGEMINAL PATTERN SEPTAL MYOCARDIAL INFARCTION , PROBABLY OLD [40+ ms Q WAVE IN V1/V2] Compared to ECG 07/26/2020 20:14:24 Ventricular premature complex(es) now present Myocardial infarct finding now present First degree AV block no longer present Electronically Signed On 08-21-2021 19:22:12 CDT by Saida Alegre M.D. [id number]
[2021-08-21 15:24] LABS: Hepatitis B Surface AB 3.5 (11.5-1000); Hepatitis B Surface Antigen Non-Reactive (Nonreactive); Hepatitis C Virus Antibody Non-Reactive (Nonreactive)
[2021-08-21 16:34] LABS: Creatine Phosphokinase 178 U/L (39-308)
[2021-08-21] MEDS: FUROsemide 10 mg/mL SDV 10mL 60 MG IVP (17:52)
[2021-08-21] MEDS: sennosides-docusate Tablet 2 TAB PO (17:52)
--- NOTE | 2021-08-21 18:54 | PC.NURSE ---
PATIENT HAS RESTED ON AND OFF TODAY. HAS VERY LARGE SACRAL WOUND. COVERED WITH OPTIFOAM AT THIS TIME UNTIL SURGERY CONSULTATION. PATIENT HAS BEEN TURNED EVERY 2 HOURS. HEELS FLOATED. 500ML OF URINE OUTPUT. 24HR URINE STARTED THIS AFTERNOON. PAIN CONTROLLED. ROOM AIR. CALLED THIS MORNING AND WE DISCUSSED THE PATIENT GOING TO SNF VS . SAYS PATIENT WILL NOT GO TO A CARE HOME CASE MANAGEMENT NOTIFIED. PATIENT CURRENTLY RESTING IN BED AT THIS TIME.
[2021-08-21 19:24] LABS: Glucose Point of Care 112 mg/dL (70-110)
--- NOTE | 2021-08-21 20:13 | PM.CONSULT ---
Providers/Reason For Consult Consulting Physician/Specialty*: General Surgery Aman Hernandes MD Reason for Consult*: Decubitus wound Attending Physician: Vladislav Wiggins MD Primary Care Provider: HAYDER Silverio History of Present Illness History of Present Illness London Quach is a 71 year old male admitted earlier this morning with congestive heart failure/pleural effusion, chronic kidney disease with acute exacerbation, and a decubitus ulcer on his sacral region. The patient has a history of multiple sclerosis and is essentially bedbound. He says his helps him turn at home, but he has noticed over the past couple of weeks that he has developed a wound in the sacral region. He says he used to have a wound in the sacral region but apparently healed (apparently he pulled something else to the admitting hospitalist). Review of Systems General: Reports: 10 or more systems reviewed and unremarkable except in HPI and below GI: Reports: other (Some discomfort in the area of the sacral wound) Medications/Allergies Home Medications Medication Instructions Recorded Confirmed Last Taken Type Coloplast Self cath 10 japanese #2 ea 04/18/20 08/21/21 Unknown Rx jen nicole #1 ea 08/30/20 08/21/21 Unknown Rx aspirin 81 mg tablet,delayed 81 mg PO DAILY@0900 #30 tab 12/20/20 08/21/21 Unknown Rx release buspirone 15 mg tablet 15 mg PO TID@ #90 tab 12/20/20 08/21/21 Unknown Rx carbamazepine 200 mg 200 mg PO BID@0900,2100 #60 tab 12/20/20 08/21/21 Unknown Rx tablet,extended release,12 hr (Tegretol XR) famotidine 20 mg tablet 20 mg PO BID@0900,2100 #60 tab 12/20/20 08/21/21 Unknown Rx gabapentin 600 mg tablet 600 mg PO TID@ #90 tab 12/20/20 08/21/21 Unknown Rx hydralazine 25 mg tablet 25 mg PO TID #90 tab 12/20/20 08/21/21 Unknown Rx metoprolol succinate 50 mg 50 mg PO DAILY@0900 #30 tab 12/20/20 08/21/21 Unknown Rx tablet,extended release 24 hr (Toprol XL) pen needle, diabetic 32 gauge x #200 ea 12/20/20 08/21/21 Unknown Rx 5/32 (BD Ultra-Fine Nadia Pen Needle) venlafaxine 75 mg capsule,extended 225 mg PO DAILY@0900 #30 cap 12/20/20 08/21/21 Unknown Rx release 24 hr (Effexor XR) Wheelchair repair #1 ea 12/23/20 08/21/21 Unknown Rx power mobility chair #1 ea 12/24/20 08/21/21 Unknown Rx ergocalciferol (vitamin D2) 1,250 1,250 mcg PO Q7D 08/21/21 08/21/21 Unknown History mcg (50,000 unit) capsule insulin aspart U-100 100 unit/mL See Rx Instructions .ROUTE .COMPLEX 08/21/21 08/21/21 Unknown History (3 mL) subcutaneous pen (Novolog Flexpen U-100 Insulin aspart) insulin degludec 200 unit/mL (3 76 unit SUBCUT DAILY 08/21/21 08/21/21 Unknown History mL) subcutaneous pen (Tresiba FlexTouch U-200 insulin) Allergies Allergy/AdvReac Type Severity Reaction Status Date / Time baclofen Allergy ADR-Dizzine Verified 05/22/20 14:46 ss thiopental [From Pentothal] Allergy ALGY-Anaphy Verified 05/22/20 14:46 laxis Current Medications Generic Name Dose Route Start Last Admin Trade Name Freq PRN Reason Stop Dose Admin Acetaminophen 650 mg 08/21/21 05:43 08/21/21 18:02 Acetaminophen 325 Mg Tablet PO 650 mg Q6H PRN Administration Mild/Mod Pain Or Temp >/= 101 Aspirin 81 mg 08/21/21 09:00 08/21/21 10:10 Aspirin 81 Mg Ec Tablet PO 81 mg DAILY SHIREEN Administration Buspirone HCl 15 mg 08/21/21 05:45 08/21/21 14:36 Buspirone 10 Mg Tablet PO 15 mg Q8H SHIREEN Administration Carbamazepine 200 mg 08/21/21 09:00 08/21/21 10:24 Carbamazepine Xr (12 Hr) 200 Mg Tablet PO 200 mg BID@0900,2100 SHIREEN Administration Folic Acid 1 mg 08/21/21 09:00 08/21/21 10:09 Folic Acid 1 Mg Tablet PO 1 mg DAILY SHIREEN Administration Furosemide 60 mg 08/21/21 18:00 08/21/21 17:52 Furosemide 10 Mg/Ml Sdv 10ml IVP 60 mg Q12H HSIREEN Administration Gabapentin 100 mg 08/21/21 13:30 08/21/21 14:36 Gabapentin 100 Mg Capsule PO 100 mg TID@0900,1200,2100 SHIREEN Administration Heparin Sodium (Porcine) 5,000 unit 08/21/21 10:00 08/21/21 10:10 Heparin 5,000 Unit/Ml Inj 1 Ml SUBCUT 5,000 unit Q12H SHIREEN Administration Hydralazine HCl 25 mg 08/21/21 09:00 08/21/21 14:33 Hydralazine 25 Mg Tablet PO Not Given TID SHIREEN Piperacillin Sod/Tazobactam 50 mls @ 12.5 mls/hr 08/21/21 06:30 08/21/21 17:52 Sod 3.375 gm/ Sodium Chloride IV 12.5 mls/hr Q12H SHIREEN Administration Protocol Albumin Human 25 gm in 100 mls @ 60 mls/hr 08/21/21 09:00 08/21/21 09:27 Albumin IV 60 mls/hr Q12H SHIREEN Administration Insulin Human Lispro 0 unit 08/21/21 08:00 08/21/21 17:26 Insulin Lispro 100 Unit/1 Ml SUBCUT Not Given WM&BEDTIME SHIREEN Protocol Metoprolol Succinate 50 mg 08/21/21 09:00 08/21/21 10:10 Metoprolol Succinate Er (24 Hr) 50 Mg Tablet PO 50 mg DAILY SHIREEN Administration Pantoprazole Sodium 40 mg 08/21/21 09:00 08/21/21 10:[address] 40 Mg Tablet PO 40 mg DAILY SHIREEN Administration Ropinirole HCl 1 mg 08/21/21 09:00 08/21/21 10:10 Ropinirole 1 Mg Tablet PO 1 mg DAILY SHIREEN Administration Senna/Docusate Sodium 2 tab 08/21/21 18:00 08/21/21 17:52 Sennosides-Docusate Tablet PO 2 tab BID SHIREEN Administration Venlafaxine HCl 225 mg 08/21/21 09:00 08/21/21 10:09 Venlafaxine Er (24hr) 75 Mg Capsule PO 225 mg DAILY SHIREEN Administration PFSH Acute PFSH: Medical History Acid reflux Anxiety and depression CKD (chronic kidney disease), stage III Constipation, slow transit DDD (degenerative disc disease) Essential (primary) hypertension Fall Intermittent self-catheterization of bladder Mixed hyperlipidemia Multiple sclerosis 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 Wheel chair as ambulatory aid Surgical History H/O splenectomy History of appendectomy History of back surgery Family History Mother CAD (coronary artery disease) Diabetes Father CAD (coronary artery disease) Diabetes Other Cancer Social History Smoking and tobacco status: former smoker Second hand smoke exposure: No Smoking risk assessment/counseling performed?: No Alcohol intake: current Desire information about alcohol rehabilitation?: No Counseling given: No Desire information about substance/drug rehabilitation?: No Counseling given: No Adopted: No Caregiver/support person: Yes Lives independently: No Household members: spouse Marital status: Current occupational status: disabled History of recent travel: No Current gender identity: Male Vitals/I&O/Wt Last Vital Signs Temp 98.6 F 08/21/21 16:00 Pulse 90 08/21/21 16:00 Resp 14 08/21/21 16:00 BP 114/65 08/21/21 16:00 Pulse Ox 94 08/21/21 16:00 08/21/21 08/21/21 08/21/21 06:59 14:59 22:59 Intake Total 170 / 170 Output Total 500 / 500 Balance 170 / -330 -500 / -330 Weight last 48 hrs Weight 225 lb 9 oz Weight 210 lb Physical Exam Narrative: The patient was encountered in his hospital room. He is laying on his left side. He does not appear to be in any distress. The pupils are equal. No carotid bruits are heard. The lungs seem relatively clear posteriorly. He has a superficial wound involving the sacral and ischial regions. Part of this is covered by some thin brown eschar but other areas show evidence of early budding. There is no evidence of any thick black eschar that I can see anywhere. Urinary Catheter Management: Thrasher: Cath Placed During This Visit: yes Reason for Continuing Indwelling Catheter: Acute Urinary Retention or Obstruction Urinary Catheter Date of Insertion: 08/21/21 Urinary Catheter Time of Insertion: 02:57 Data : 08/21/21 02:26 08/21/21 14:22 Micro: Microbiology 08/21/21 03:32 Blood Culture - Preliminary Blood SPECIMEN COLLECTED 08/21/21 02:46 Blood Culture - Preliminary Blood SPECIMEN COLLECTED A&P Assessment and plan (1) Stage II pressure ulcer: The patient appears to have a stage II pressure ulcer involving the sacral area/ischial regions. The eschar that I am seeing today actually does not look very thick. It is possible this may be able to be chemically debrided with collagenase. Given his other ongoing medical issues, I am going the start collagenase dressing changes and if that ends up failing then surgical debridement could always be entertained. Hopefully if that is needed, by then his other medical issues have improved. I will continue following with you. Status: Acute Consult Attestations Medical Necessity Statement: See admitting service's notation. Coding Level of Care Code Acute Talent Acquisition Manager for Keila Leonardo Diagnoses Stage II pressure ulcer L89.92
[2021-08-21] MEDS: atorvastatin 40 mg Tablet 20 MG PO (21:03)
[2021-08-21] MEDS: morphine 4 mg/mL SDV 1 mL 1 MG IVP (21:10)
[2021-08-21 21:19] LABS: Glucose Point of Care 136 mg/dL (70-110)
[2021-08-21 21:19] LABS: Glucose Point of Care 162 mg/dL (70-110)
[2021-08-21] MEDS: insulin lispro 100 unit/1 mL SUBCUT (21:30)
[2021-08-21 23:16] LABS: Bacillus cereus group Not Detected (NOT DETECT); Bacillus subtillis group Not Detected (NOT DETECT); Corynebacterium Not Detected (NOT DETECT); Cutibacterium acnes (P.acnes) Not Detected (NOT DETECT); Enterococcus Not Detected (NOT DETECT); Enterococcus faecalis Not Detected (NOT DETECT); Enterococcus faecium Not Detected (NOT DETECT); Lactobacillus species Not Detected (NOT DETECT); Listeria Not Detected (NOT DETECT); Listeria monocytogenes Not Detected (NOT DETECT); Micrococcus Not Detected (NOT DETECT); Pan Candida Not Detected (NOT DETECT); Pan Gram-Negative Not Detected (NOT DETECT); Staphylococcus epidermidis Not Detected (NOT DETECT); Staphylococcus lugdunensis Not Detected (NOT DETECT); Staphylococcus species Detected (NOT DETECT); Streptococcus agalactiae Not Detected (NOT DETECT); Streptococcus anginosus group Not Detected (NOT DETECT); Streptococcus pneumoniae Not Detected (NOT DETECT); Streptococcus pyogenes Not Detected (NOT DETECT); Streptococcus species Not Detected (NOT DETECT); mecA Detected (NOT DETECT); mecC Not Detected (NOT DETECT)
[2021-08-22] VITALS (8 sets, daily range): BP systolic 112–144; BP diastolic 67–75; PULSE 60–73; RESP 16–18; TEMP 36.2–37.1; O2SAT 94–98
[2021-08-22 03:14] LABS: Basophils # 0.1 10^3/uL (0.0-0.1); Basophils % 1.1 %; Eosinophils # 0.3 10^3/uL (0.0-0.8); Eosinophils % 3.7 %; Hematocrit 32.5 % (42.0-52.0); Hemoglobin 10.3 g/dL (11.7-16.6); Lymphocytes # 1.7 10^3/uL (0.8-4.8); Lymphocytes % 18.8 %; Mean Corpuscular HGB Conc 31.7 g/dL (30.0-36.0); Mean Corpuscular Hemoglobin 28.4 pg (28.0-34.0); Mean Corpuscular Volume 89.5 fl (80-94); Mean Platelet Volume 10.8 fL (7.4-10.4); Monocytes % 10.3 %; Neutrophils % 65.8 %; Nucleated Red Blood Cells % 0.3 %; Platelet Count 464 10^3/cmm (130-400); Red Blood Count 3.63 10^6/uL (4.1-5.3); Red Cell Distribution Width 15.9 % (12.1-15.1); White Blood Count 9.3 10^3/uL (4.0-10.0)
[2021-08-22 03:27] LABS: Chol HDL Ratio 3.17 mg/dL (1.0-5.00); Cholesterol 92 mg/dL (0-200); HDL Cholesterol 29 mg/dL (60-100); LDL Cholesterol Calculated 41 mg/dL (50-129); LDL HDL Ratio 1.41 RATIO (0.00-3.22); Phosphorus 7.4 mg/dL (2.5-4.5); Triglycerides 110 mg/dL (0-150)
[2021-08-22 03:28] LABS: Alanine Aminotransferase < 5 U/L (0-41); Albumin Level 2.7 g/dL (3.5-5.2); Alkaline Phosphatase 117 IU/L (40-130); Anion Gap 20.1 (5-19); Aspartate Amino Transferase 12 U/L (0-40); Blood Urea Nitrogen 48 mg/dL (8-23); Calcium 8.1 mg/dL (8.5-10.5); Carbon Dioxide 14 mmol/L (22-29); Chloride 109 mmol/L (98-107); Globulin 2.8 g/dL (1.3-4.6); Glucose 80 mg/dL (65-115); Osmolality Calculated 300 mOsm/kg (285-295); Potassium 4.1 mmol/L (3.5-5.1); Sodium 139 mmol/L (136-145); Total Bilirubin 0.3 mg/dL (0.15-1.2); Total Protein 5.5 g/dL (6.6-8.7)
[2021-08-22 03:40] LABS: Parathyroid Hormone 209.4 pg/mL (15-65)
[2021-08-22 03:53] LABS: Ferritin 173 ng/mL (30-400); Iron 12 ug/dL (59-158); Percent Saturation 15.3 % (20-50); Total Iron Binding Capacity 78 mcg/dl; Unsaturated Iron Binding 66 ug/dL (112-347)
[2021-08-22 04:09] LABS: 25 Hydroxy Vitamin D 10 ng/mL (30-100)
[2021-08-22] MEDS: FUROsemide 10 mg/mL SDV 10mL 60 MG IVP (05:51)
[2021-08-22] MEDS: BuSPIRONE 10 mg Tablet 15 MG PO ×3 (05:51→20:45)
[2021-08-22] MEDS: piperacillin-tazobactam 3.375 GM in sodium chloride 0.9% (plus) 50 ML IV ×2 (05:52→17:30)
--- NOTE | 2021-08-22 06:22 | PC.NURSE ---
Pt incontinent of large loose stool. Pt cleaned, dried and turned. Pt has large wound on coccyx area. Wound cleaned and dried open to air. Pt now resting in bed with eyes closed. No c/o pain or discomfort at the present time. Call light in reach.
[2021-08-22 06:46] LABS: Glucose Point of Care 82 mg/dL (70-110)
--- NOTE | 2021-08-22 07:45 | PM.PN ---
Subjective Subjective: weak, leg edema, nausea, poor appetite. no sob or cp or house or diarrhea Medications: Reviewed: Yes Medication Review Details: Current Medications Acetaminophen (Acetaminophen 325 Mg Tablet) 650 mg PO Q6H PRN PRN Reason: Mild/Mod Pain Or Temp >/= 101 Last Admin: 08/21/21 18:02 Dose: 650 mg Documented by: Aspirin (Aspirin 81 Mg Ec Tablet) 81 mg PO DAILY [facility] Last Admin: 08/21/21 10:10 Dose: 81 mg Documented by: Atorvastatin Calcium (Atorvastatin 40 Mg Tablet) 20 mg PO BEDTIME [facility] Last Admin: 08/21/21 21:03 Dose: 20 mg Documented by: Buspirone HCl (Buspirone 10 Mg Tablet) 15 mg PO Q8H [facility] Last Admin: 08/22/21 05:51 Dose: 15 mg Documented by: Carbamazepine (Carbamazepine Xr (12 Hr) 200 Mg Tablet) 200 mg PO BID@0900,2100 [facility] Last Admin: 08/21/21 21:03 Dose: 200 mg Documented by: Collagenase (Collagenase Oint 30 Gm) 1 applic TOPICAL DAILY [facility] Dextrose (Dextrose 50% Syringe 50 Ml) 25 ml IVP ONCE PRN; Protocol PRN Reason: hypoglycemia protocol Dextrose (Dextrose 50% Syringe 50 Ml) 50 ml IVP PRN PRN; Protocol PRN Reason: hypoglycemia protocol Folic Acid (Folic Acid 1 Mg Tablet) 1 mg PO DAILY [facility] Last Admin: 08/21/21 10:09 Dose: 1 mg Documented by: Furosemide (Furosemide 10 Mg/Ml Sdv 10ml) 60 mg IVP Q12H [facility] Last Admin: 08/22/21 05:51 Dose: 60 mg Documented by: Gabapentin (Gabapentin 100 Mg Capsule) 100 mg PO TID@0900,1200,2100 [facility] Last Admin: 08/21/21 21:11 Dose: 100 mg Documented by: Glucagon (Glucagon 1 Mg/Ml Inj 1 Ml) 1 mg IM ONCE PRN; Protocol PRN Reason: Adult Acute Hypoglycemia Prot. Heparin Sodium (Porcine) (Heparin 5,000 Unit/Ml Inj 1 Ml) 5,000 unit SUBCUT Q12H [facility] Last Admin: 08/21/21 21:05 Dose: 5,000 unit Documented by: Hydralazine HCl (Hydralazine 25 Mg Tablet) 25 mg PO TID [facility] Last Admin: 08/21/21 21:04 Dose: 25 mg Documented by: Dextrose (D5w) 500 mls @ 100 mls/hr IV ONCE PRN; Protocol PRN Reason: Adult Acute Hypoglycemia Prot Piperacillin Sod/Tazobactam (Sod 3.375 gm/ Sodium Chloride) 50 mls @ 12.5 mls/hr IV Q12H [facility]; Protocol Last Admin: 08/22/21 05:52 Dose: 12.5 mls/hr Documented by: Albumin Human (Albumin) 25 gm in 100 mls @ 60 mls/hr IV Q12H [facility] Last Infusion: 08/22/21 02:42 Dose: Infused Documented by: Vancomycin/PEG/NADA/Lysine/Water (Vancocin) 1,250 mg in 250 mls @ 200 mls/hr IV Q48H [facility] Insulin Human Lispro (Insulin Lispro 100 Unit/1 Ml) 0 unit SUBCUT WM&BEDTIME [facility]; Protocol Last Admin: 08/21/21 21:30 Dose: 4 unit Documented by: Metoprolol Succinate (Metoprolol Succinate Er (24 Hr) 50 Mg Tablet) 50 mg PO DAILY [facility] Last Admin: 08/21/21 10:10 Dose: 50 mg Documented by: Morphine Sulfate (Morphine 4 Mg/Ml Sdv 1 Ml) 1 mg IVP Q4H PRN PRN Reason: SEVERE PAIN Last Admin: 08/21/21 21:10 Dose: 1 mg Documented by: Multivitamins (N-Fugrdza-Lgdimcd C Tablet) 1 each PO DAILY [facility] Naloxone HCl (Naloxone 0.4 Mg/Ml Sdv) 0.1 mg IVP Q2M PRN PRN Reason: OPIATERV Ondansetron HCl (Ondansetron 2 Mg/Ml Sdv 2 Ml) 4 mg IVP Q8H PRN PRN Reason: vomiting, or N/V if npo Pantoprazole Sodium (Pantoprazole Dr 40 Mg Tablet) 40 mg PO DAILY [facility] Last Admin: 08/21/21 10:10 Dose: 40 mg Documented by: Ropinirole HCl (Ropinirole 1 Mg Tablet) 1 mg PO DAILY [facility] Last Admin: 08/21/21 10:10 Dose: 1 mg Documented by: Senna/Docusate Sodium (Sennosides-Docusate Tablet) 2 tab PO BID [facility] Last Admin: 08/21/21 17:52 Dose: 2 tab Documented by: Venlafaxine HCl (Venlafaxine Er (24hr) 75 Mg Capsule) 225 mg PO DAILY [facility] Last Admin: 08/21/21 10:09 Dose: 225 mg Documented by: Vitals/I&O/Wt Last Vital Signs Temp 97.8 F 08/22/21 04:00 Pulse 66 08/22/21 06:00 Resp 16 08/22/21 04:00 BP 144/75 08/22/21 04:00 Pulse Ox 96 08/22/21 04:00 08/21/21 08/22/21 08/22/21 22:59 06:59 14:59 Intake Total 100 / 370 100 / 470 Output Total 500 / 500 500 / 1000 Balance -400 / -130 -400 / -530 Weight last 48 hrs Weight 102.313 kg Weight 95.254 kg Physical Exam Narrative: vs noted swollen in bed, comfortable w/o nc o2 heent- nc/at, eomi, manicteric neck supple lungs -improved b/l heart reg, +JAMIE abd soft, nt, nd, + bs, + edema ext 2+ b/l leg edema through thighs felder+ neuro- a,a, o x 3 skin-sacral decubitus Urinary Catheter Management: Felder: Cath Placed During This Visit: yes Reason for Continuing Indwelling Catheter: Acute Urinary Retention or Obstruction Urinary Catheter Date of Insertion: 08/21/21 Urinary Catheter Time of Insertion: 02:57 Data : 08/22/21 02:48 08/22/21 02:48 Micro: Microbiology 08/21/21 03:32 Blood Culture - Preliminary Blood NEGATIVE TO DATE 08/21/21 02:46 Blood Culture - Preliminary Blood A&P Assessment and plan (1) Acute kidney injury superimposed on CKD: 71 yr old man w/ htn, dm, self cath due to neurogenic bladder, recurrent UTI 1. progressive renal failure- likely from DM, HTN. -normal size kidneys on renal us. no hydronephrosis -ua noted- but felder and he self cath - pth 209- repeat after vit d repleted check serologies -check spep/ sife 2. edema -normal tsh -normal venous dopplers of legs -LDL 41- atypical for nephrotic syndrome albumin 2.7 -diuresis w/ lasix and albumin for leg edema 3. Leukocytosis/ UTI/ Q PNA- renal dose abx- wbc improving 4. met acidosis- inc AGMA - normal lactic acid -likely from renal failure -sugar 131- unlikely DKA -abg met acidosis w/ resp compensation and beta- hydroxybuterate 5. anemia eval - hgb down to 10.3 -iron sat 15% ferritin 173- give iv iron 6. DM control DM w/ stage 4 CKD 7. replace vit d 8. check echo 9. uric acid 8.2 9. sacral decubitus per medicine seen and examined w/ RN- telehealth visit time spent 30 min Status: Acute Plan see above Attestations Medical Necessity Statement*: hosea, sacral decub, edema Time Spent in Patient Care: 16 - 35 minutes (>than 50% of time spent in counselling and/or direct pt care on unit). Coding Level of Care Code Acute Supervisor [facility] for Keila Leonardo Diagnoses Acute kidney injury superimposed on CKD N17.9; N18.9
[2021-08-22] MEDS: hyDRALAzine 25 mg Tablet PO ×3 (08:41→20:46)
[2021-08-22] MEDS: ropinirole 1 mg Tablet PO (08:41)
[2021-08-22] MEDS: b-complex-vitamin c Tablet 1 EACH PO (08:41)
[2021-08-22] MEDS: sennosides-docusate Tablet 2 TAB PO (08:41)
[2021-08-22] MEDS: metoprolol succinate ER (24 HR) 50 mg Tablet PO (08:41)
[2021-08-22] MEDS: aspirin 81 mg EC Tablet PO (08:41)
[2021-08-22] MEDS: venlafaxine ER (24HR) 75 mg Capsule 225 MG PO (08:41)
[2021-08-22] MEDS: folic acid 1 mg Tablet PO (08:42)
[2021-08-22] MEDS: pantoprazole DR 40 mg Tablet PO (08:42)
[2021-08-22] MEDS: gabapentin 100 mg Capsule PO ×3 (08:49→20:45)
[2021-08-22] MEDS: carBAMazepine XR (12 HR) 200 mg Tablet PO ×2 (08:53→20:47)
[2021-08-22] MEDS: collagenase oint 30 gm 1 APPLIC TOPICAL (08:54)
[2021-08-22] MEDS: ergocalciferol (vitamin D2) 50,000 Unit Capsule 50000 UNIT PO (08:57)
[2021-08-22] MEDS: heparin 5,000 unit/mL INJ 1 mL 5000 UNIT SUBCUT ×2 (09:00→21:04)
--- NOTE | 2021-08-22 09:02 | PM.PN ---
Subjective Subjective: No complaints this morning. Vitals/I&O/Wt Last Vital Signs Temp 98.7 F 08/22/21 08:00 Pulse 68 08/22/21 08:00 Resp 17 08/22/21 08:00 BP 115/74 08/22/21 08:00 Pulse Ox 98 08/22/21 08:00 08/21/21 08/22/21 08/22/21 22:59 06:59 14:59 Intake Total 100 / 470 100 / 470 Output Total 500 / 1000 500 / 1000 Balance -400 / -530 -400 / -530 Weight last 48 hrs Weight 225 lb 9 oz Weight 210 lb Physical Exam Narrative: Patient is eating breakfast sitting up in bed at present. Urinary Catheter Management: Thrasher: Cath Placed During This Visit: yes Reason for Continuing Indwelling Catheter: Acute Urinary Retention or Obstruction Urinary Catheter Date of Insertion: 08/21/21 Urinary Catheter Time of Insertion: 02:57 Data : 08/22/21 02:48 08/22/21 02:48 Micro: Microbiology 08/21/21 03:32 Blood Culture - Preliminary Blood NEGATIVE TO DATE 08/21/21 02:46 Blood Culture - Preliminary Blood A&P Assessment and plan (1) Stage II pressure ulcer: Initiating collagenase dressings. Patient says he is agreeable to being discharged to a intermediate for further care. Arrangements could be made for him to follow-up in wound clinic as needed. Status: Acute Attestations Medical Necessity Statement*: See admitting service's notation. Coding Level of Care Code Acute Hand Singer for Keila Leonardo Diagnoses Stage II pressure ulcer L89.92
--- NOTE | 2021-08-22 09:14 | P.PN_ITS ---
Subjective Subjective: [place] reports he is not short of breath this morning. Denies any chest discomfort. Is amenable to going to the nursing facility for wound care. 500 cc negative as of yesterday. Medications: Reviewed: Yes Vitals/I&O/Wt Last Vital Signs Temp 98.7 F 08/22/21 08:00 Pulse 68 08/22/21 08:00 Resp 17 08/22/21 08:00 BP 115/74 08/22/21 08:00 Pulse Ox 98 08/22/21 08:00 08/21/21 08/22/21 08/22/21 22:59 06:59 14:59 Intake Total 100 / 370 100 / 470 Output Total 500 / 500 500 / 1000 Balance -400 / -130 -400 / -530 Weight last 48 hrs Weight 102.313 kg Weight 95.254 kg Physical Exam Narrative: General exam is no obvious distress Neck is supple no lymphadenopathy or thyromegaly Cardiovascular regular rate and rhythm without murmur, heart sounds distant Lungs clear no wheezing or crackles. Diminished breath sounds at the bases. Abdomen is soft. Positive bowel sounds Extremities venous stasis changes, skin breakdown left second toe, 2+ edema to the thighs. Large decubitus present buttocks with slight surrounding erythema surrounding a black eschar No obvious drainage. Small tunneled area superiorly, of which opening is very small. Overall unchanged from yesterday. Urinary Catheter Management: Thrasher: Cath Placed During This Visit: yes Reason for Continuing Indwelling Catheter: Acute Urinary Retention or Obstruction Urinary Catheter Date of Insertion: 08/21/21 Urinary Catheter Time of Insertion: 02:57 Data : 08/22/21 02:48 08/22/21 02:48 Micro: Microbiology 08/21/21 03:32 Blood Culture - Preliminary Blood NEGATIVE TO DATE 08/21/21 02:46 Blood Culture - Preliminary Blood A&P Assessment and plan (1) Decubitus ulcer: Patient presented with a large decubitus ulcer with black eschar with some surrounding cellulitis. CT scan cannot rule out phlegmon Vancomycin and Zosyn initiated Blood cultures were obtained Appreciate surgical consultation. No surgery at this time but will continue to follow in case this is needed. Collagenase treatment started. Considering the extensive nature of his wound he may be best served by nursing facility care on discharge for wound care. At this point he agrees Status: Acute (2) Cellulitis: See above Wound without drainage White blood cell count now normal Status: Acute (3) Anasarca: Patient has evidence of anasarca on exam with lower extremity edema, some edema along his back, as well as abdominal wall. Bilateral pleural effusions are present. I think this is likely secondary to his significantly low albumin, and his urinalysis with heavy proteinuria suspicious for nephrotic syndrome. Appreciate nephrology input, LDL is not typical for nephrotic syndrome Spot protein and creatinine suggest this, but diuretics and infection could have created inaccurate measure data Echocardiogram demonstrates preserved EF, indeterminate diastolic dysfunction, no significant change from previous Status: Acute (4) CHF (congestive heart failure): No evidence of systolic dysfunction. Certainly could be diastolic heart failure. Continue Lasix, albumin per nephrology Status: Acute (5) CKD (chronic kidney disease), stage III: Significant chronic kidney disease, with acute kidney injury superimposed. Avoid all anti-inflammatories Reduce Neurontin dosing Appreciate nephrology consultation Suspect his renal failure may be a combination of CK was checked and normal Hold lisinopril Continue to follow closely. This is not yet improved. Status: Chronic Qualifiers: Chronic kidney disease stage 3 subtype: unspecified whether 3a or 3b Qualified Code(s): N18.30 - Chronic kidney disease, stage 3 unspecified (6) Multiple sclerosis: Status: Chronic (7) Essential (primary) hypertension: Continue metoprolol Status: Chronic (8) UTI (urinary tract infection): Patient with history of self cath Apparent UTI on admission Zosyn, urine culture No evidence of obstruction on CT noncontrast Status: Acute (9) Constipation, slow transit: Initiate senna Status: Chronic (10) Diabetes mellitus: Sliding scale insulin. Change to mild sliding scale considering severe renal failure. Status: Chronic Qualifiers: Diabetes mellitus type: type 2 Diabetes mellitus penitentiary insulin use: with continuous churn buttermaker use Diabetes mellitus complication status: with other specified complication Qualified Code(s): E11.69 - Type 2 diabetes mellitus with other specified complication; Z79.4 - manager long term care (current) use of insulin Plan Multiple other medical problems as outlined in past medical history Full code Heparin for DVT prophylaxis I have been informed that he has had exposure to a Covid positive patient here in the hospital. We will obtain a Covid PCR on Mr. Quach, and then we will approach him regarding monoclonal antibody or other preventative treatment. Attestations Medical Necessity Statement*: Needs continued hospitalization secondary to cellulitis requiring IV antibiotics as well as acute kidney injury. Coding Level of Care Code Acute Catering Manager for g [facility] Diagnoses Decubitus ulcer L89.90 Cellulitis L03.90 Anasarca R60.1 CHF (congestive heart failure) I50.9 CKD (chronic kidney disease), stage III N18.30 Chronic kidney disease stage 3 subtype: unspecified whether 3a or 3b Multiple sclerosis G35 Essential (primary) hypertension I10 UTI (urinary tract infection) N39.0 Constipation, slow transit K59.01 Diabetes mellitus E11.69; Z79.4 Diabetes mellitus type: type 2 Diabetes mellitus continuous churn buttermaker insulin use: with continuous churn buttermaker use Diabetes mellitus complication status: with other specified complication
[2021-08-22 10:28] LABS: Anti-streptolysin O <50 IU/mL (<200)
--- NOTE | 2021-08-22 11:13 | PC.CHAP ---
Pastoral Care Encounter/Spiritual Assessment Type of Contact [] Declined fur blower visit [] Patient/Family/Request visit [] Outpatient visit [] Follow-up visit [] Physician referral [] Code/Alert [] Routine visit [] Staff referral [] Actively dying [] Patient sleeping [] Family support [] [] Out of room [] Palliative care [] [] Receiving care in room [] Pre-surgical visit [] Trauma [] Long length of stay [] ICU visit [X] Other: with staff unable to communicate Relational/Emotional Strength [] Patient feels connected with others/family/visitors/staff [] Distress [] Loneliness/isolation [] Abandonment Spirituality of Patient [] Person of Maribel [] Attends Holiness of their Maribel [] Believes in Prayer [] Reads Bible or Anglican materials [] There are Spiritual issues to be addressed Psychodramatist Interventions [] Prayer [] Active listening [] Non-anxious presence [] Spiritual/emotional support [] Crisis/trauma care [] Spiritual counseling [] Bereavement support [] Provided bereavement packet [] Provided Bible/devotional materials [] Provided toy/stuffed animal, coloring book to patient or family member [] Provided Communion [] Anointing/[place] [] Salvation [] Completed spiritual assessment [] Other: Impact on Illness or Injury [] Angry [] Fearful [] Anxious [] Often cries [] Exhaustion [] Unable to work [] Unable to attend judaism [] Unable to walk/stand [] Unable to read [] Unable to drive [] Unable to eat/drink [] Unable to sleep [] Unable to be with family [] Patient intubated [] Other: Summary with staff unable to communicate Time spent with patient 5 mins
[2021-08-22 11:28] LABS: Glucose Point of Care 119 mg/dL (70-110)
[2021-08-22 11:42] LABS: Adenovirus Not Detected (NOT DETECT); Chlamydia Pneumoniae Not Detected (NOT DETECT); Coronavirus 229E,HKU1,NL63,OC4 Not Detected (NOT DETECT); Human Metapneumovirus Not Detected (NOT DETECT); Human Rhinovirus/Enterovirus Not Detected (NOT DETECT); Influenza A Not Detected (NOT DETECT); Influenza A H1 Not Detected (NOT DETECT); Influenza A H1-2009 Not Detected (NOT DETECT); Influenza A H3 Not Detected (NOT DETECT); Influenza B Not Detected (NOT DETECT); Mycoplasma Pneumoniae Not Detected (NOT DETECT); Parainfluenza Virus Type 1 Not Detected (NOT DETECT); Parainfluenza Virus Type 2 Not Detected (NOT DETECT); Parainfluenza Virus Type 3 Not Detected (NOT DETECT); Parainfluenza Virus Type 4 Not Detected (NOT DETECT); Respiratory Syncytial Virus A Not Detected (NOT DETECT); Respiratory Syncytial Virus B Not Detected (NOT DETECT); SARS-COV-2 Not Detected (NOT DETECT)
[2021-08-22 14:27] LABS: Anti-Double Strand DNA AB <1 IU/mL
[2021-08-22 15:42] LABS: KAPPA LIGHT CHAIN, FREE, SERUM 126.4 mg/L (3.3-19.4); KAPPA/LAMBDA LIGHT CHAINS FREE 1.05 (0.26-1.65); LAMBDA LIGHT CHAIN, FREE, SERU 120.1 mg/L (5.7-26.3)
[2021-08-22 17:12] LABS: Glucose Point of Care 116 mg/dL (70-110)
[2021-08-22] MEDS: FUROsemide 10 mg/mL SDV 4mL 30 MG IVP (17:30)
--- NOTE | 2021-08-22 19:22 | PC.NURSE ---
Patient AAOx4, turned Q2H with minimal assistance, c/o pain when cleaning patient up. Patient has had multiple soft stools throughout shift. Santyl placed to the wounds, no new events, VSS, no needs at this time.
[2021-08-22] MEDS: atorvastatin 40 mg Tablet 20 MG PO (20:45)
--- NOTE | 2021-08-22 20:49 | PC.NURSE ---
i reported low temp to nurse 97.5
[2021-08-22 21:44] LABS: Glucose Point of Care 125 mg/dL (70-110)
[2021-08-22] MEDS: vancomycin 1,250 MG/250 ML PIGGYBACK 200 MG IV (23:52)
[2021-08-23] VITALS (11 sets, daily range): BP systolic 74–114; BP diastolic 51–75; PULSE 60–95; RESP 15–18; TEMP 36.3–36.8; O2SAT 90–95
[2021-08-23 03:52] LABS: Basophils # 0.1 10^3/uL (0.0-0.1); Basophils % 0.4 %; Eosinophils # 0.5 10^3/uL (0.0-0.8); Eosinophils % 4.5 %; Hematocrit 33.1 % (42.0-52.0); Hemoglobin 10.4 g/dL (11.7-16.6); Lymphocytes # 1.8 10^3/uL (0.8-4.8); Lymphocytes % 14.7 %; Mean Corpuscular HGB Conc 31.4 g/dL (30.0-36.0); Mean Platelet Volume 10.6 fL (7.4-10.4); Monocytes # 0.9 10^3/uL (0.2-0.9); Monocytes % 7.7 %; Neutrophils # 8.68 10^3/uL (1.8-7.7); Neutrophils % 72.2 %; Nucleated Red Blood Cells % 0.2 %; Platelet Count 457 10^3/cmm (130-400); Red Blood Count 3.72 10^6/uL (4.1-5.3); Red Cell Distribution Width 16.3 % (12.1-15.1)
[2021-08-23 04:14] LABS: Alanine Aminotransferase 6 U/L (0-41); Albumin Level 3.2 g/dL (3.5-5.2); Alkaline Phosphatase 107 IU/L (40-130); Anion Gap 20.6 (5-19); Aspartate Amino Transferase 17 U/L (0-40); Blood Urea Nitrogen 56 mg/dL (8-23); Carbon Dioxide 14 mmol/L (22-29); Chloride 108 mmol/L (98-107); Globulin 2.7 g/dL (1.3-4.6); Glucose 107 mg/dL (65-115); Osmolality Calculated 302 mOsm/kg (285-295); Potassium 4.6 mmol/L (3.5-5.1); Sodium 138 mmol/L (136-145); Total Bilirubin 0.3 mg/dL (0.15-1.2); Total Protein 5.9 g/dL (6.6-8.7)
[2021-08-23 04:18] LABS: Phosphorus 8.7 mg/dL (2.5-4.5)
[2021-08-23] MEDS: FUROsemide 10 mg/mL SDV 4mL 30 MG IVP (05:30)
[2021-08-23] MEDS: BuSPIRONE 10 mg Tablet 15 MG PO ×2 (05:31→20:51)
[2021-08-23] MEDS: piperacillin-tazobactam 3.375 GM in sodium chloride 0.9% (plus) 50 ML IV ×2 (05:32→17:42)
[2021-08-23 06:30] LABS: Glucose Point of Care 83 mg/dL (70-110)
--- NOTE | 2021-08-23 08:17 | P.PN_ITS ---
Subjective Subjective: [place] reports some shortness of breath when he lies down. Reports some pain in his buttocks. Medications: Reviewed: Yes Vitals/I&O/Wt Last Vital Signs Temp 98.0 F 08/23/21 04:00 Pulse 71 08/23/21 06:00 Resp 17 08/23/21 04:00 BP 102/64 08/23/21 04:00 Pulse Ox 94 08/23/21 04:00 08/22/21 08/23/21 08/23/21 22:59 06:59 14:59 Intake Total 50 / 700 470 / 1170 Output Total 300 / 300 540 / 840 Balance -250 / 400 -70 / 330 Weight last 48 hrs Weight 102.313 kg Physical Exam Narrative: General exam is no obvious distress Neck is supple no lymphadenopathy or thyromegaly Cardiovascular regular rate and rhythm without murmur, heart sounds distant Lungs clear no wheezing or crackles. Diminished breath sounds at the bases. Abdomen is soft. Positive bowel sounds Extremities venous stasis changes, skin breakdown left second toe, 1+ edema to the thighs. Large decubitus present buttocks with slight surrounding erythema surrounding a black eschar. Collagenase has been placed on this and some debridment is noted. No obvious drainage. Small tunneled area superiorly, of which opening is very small. Cellulitis surrounding decub improved. Urinary Catheter Management: Thrasher: Cath Placed During This Visit: yes Reason for Continuing Indwelling Catheter: Assist Healing of Perineal & Sacral Wounds- Incontinent Patients Urinary Catheter Date of Insertion: 08/21/21 Urinary Catheter Time of Insertion: 02:57 Data : 08/23/21 03:35 08/23/21 03:35 Micro: Microbiology 08/21/21 02:54 Urine Culture - Final Urine,Clean Catch Escherichia coli Morganella morganii 08/21/21 02:46 Blood Culture - Preliminary Blood Coagulase negativ staphylococc 08/21/21 03:32 Blood Culture - Preliminary Blood NEGATIVE TO DATE A&P Assessment and plan (1) Decubitus ulcer: Patient presented with a large decubitus ulcer with black eschar with some surrounding cellulitis. CT scan cannot rule out phlegmon Vancomycin and Zosyn initiated Blood cultures were obtained. 1/4 bottles positive, consistent with contaminant. Appreciate surgical consultation. No surgery at this time but will continue to follow in case this is needed. Collagenase treatment started. Considering the extensive nature of his wound he may be best served by nursing facility care on discharge for wound care. At this point he agrees Status: Acute (2) Cellulitis: See above Wound without drainage Overall improved Status: Acute (3) Anasarca: Patient has evidence of anasarca on exam with lower extremity edema, some edema along his back, as well as abdominal wall. Bilateral pleural effusions are present. I think this is likely secondary to his significantly low albumin, and his urinalysis with heavy proteinuria suspicious for nephrotic syndrome. Appreciate nephrology input, LDL is not typical for nephrotic syndrome Spot protein and creatinine suggest this, but diuretics and infection could have created inaccurate measure data Echocardiogram demonstrates preserved EF, indeterminate diastolic dysfunction, no significant change from previous Status: Acute (4) CHF (congestive heart failure): No evidence of systolic dysfunction. Certainly could be diastolic heart failure. Currently on Lasix, albumin infusions. Unfortunately creatinine has gotten worse. Edema in his legs is somewhat better. We may be limited on being able to diurese him further. Nephrology will make a decision today regarding his diuretics. Status: Acute (5) CKD (chronic kidney disease), stage III: Significant chronic kidney disease, with acute kidney injury superimposed. Avoid all anti-inflammatories Reduce Neurontin dosing Appreciate nephrology consultation Suspect his renal failure may be a combination of CK was checked and normal Hold lisinopril This is continued to worsen. Further diuresis may not be possible. Status: Chronic Qualifiers: Chronic kidney disease stage 3 subtype: unspecified whether 3a or 3b Qualified Code(s): N18.30 - Chronic kidney disease, stage 3 unspecified (6) Multiple sclerosis: Status: Chronic (7) Essential (primary) hypertension: Continue metoprolol Status: Chronic (8) UTI (urinary tract infection): Patient with history of self cath Apparent UTI on admission Zosyn, urine culture No evidence of obstruction on CT noncontrast Status: Acute (9) Constipation, slow transit: Resolved. Some loose stools now. Stop senna. Status: Chronic (10) Diabetes mellitus: Sliding scale insulin. Change to mild sliding scale considering severe renal failure. Status: Chronic Qualifiers: Diabetes mellitus type: type 2 Diabetes mellitus long distance operator insulin use: with jail use Diabetes mellitus complication status: with other specified complication Qualified Code(s): E11.69 - Type 2 diabetes mellitus with other specified complication; Z79.4 - terminal operations manager (current) use of insulin Plan Multiple other medical problems as outlined in past medical history Full code Heparin for DVT prophylaxis Positive Covid and roommate was reported to me in error. He had 229 Covid test positive, not consistent with COVID-19. Attestations Medical Necessity Statement*: Needs continued hospitalization for treatment of the severe acute on chronic renal failure as well as IV antibiotics for cellulitis. Coding Level of Care Code Acute Back Roll Lathe Operator for [facility] Fwd Diagnoses Decubitus ulcer L89.90 Cellulitis L03.90 Anasarca R60.1 CHF (congestive heart failure) I50.9 CKD (chronic kidney disease), stage III N18.30 Chronic kidney disease stage 3 subtype: unspecified whether 3a or 3b Multiple sclerosis G35 Essential (primary) hypertension I10 UTI (urinary tract infection) N39.0 Constipation, slow transit K59.01 Diabetes mellitus E11.69; Z79.4 Diabetes mellitus type: type 2 Diabetes mellitus long distance operator insulin use: with long distance operator use Diabetes mellitus complication status: with other specified complication
[2021-08-23] MEDS: acetaminophen 325 mg Tablet 650 MG PO (08:31)
[2021-08-23] MEDS: metoprolol succinate ER (24 HR) 50 mg Tablet PO (08:32)
[2021-08-23] MEDS: venlafaxine ER (24HR) 75 mg Capsule 225 MG PO (08:32)
[2021-08-23] MEDS: b-complex-vitamin c Tablet 1 EACH PO (08:32)
[2021-08-23] MEDS: carBAMazepine XR (12 HR) 200 mg Tablet PO ×2 (08:32→20:50)
[2021-08-23] MEDS: ropinirole 1 mg Tablet PO (08:32)
[2021-08-23] MEDS: collagenase oint 30 gm 1 APPLIC TOPICAL (08:33)
[2021-08-23] MEDS: pantoprazole DR 40 mg Tablet PO (08:33)
[2021-08-23] MEDS: folic acid 1 mg Tablet PO (08:33)
[2021-08-23] MEDS: aspirin 81 mg EC Tablet PO (08:33)
[2021-08-23] MEDS: hyDRALAzine 25 mg Tablet PO ×2 (08:33→20:52)
[2021-08-23] MEDS: gabapentin 100 mg Capsule PO ×3 (08:53→20:51)
--- NOTE | 2021-08-23 09:22 | P.PN_ITS ---
Subjective Subjective: No new complaints. Vitals/I&O/Wt Last Vital Signs Temp 97.4 F L 08/23/21 08:00 Pulse 73 08/23/21 08:00 Resp 17 08/23/21 04:00 BP 110/65 08/23/21 08:00 Pulse Ox 95 08/23/21 08:00 08/22/21 08/23/21 08/23/21 22:59 06:59 14:59 Intake Total 50 / 1170 470 / 1170 Output Total 300 / 840 540 / 840 Balance -250 / 330 -70 / 330 Physical Exam Narrative: The patient has no remaining eschar on the right side. Still with some on the left. Urinary Catheter Management: Thrasher: Cath Placed During This Visit: yes Reason for Continuing Indwelling Catheter: Assist Healing of Perineal & Sacral Wounds- Incontinent Patients Urinary Catheter Date of Insertion: 08/21/21 Urinary Catheter Time of Insertion: 02:57 Data : 08/23/21 03:35 08/23/21 03:35 Micro: Microbiology 08/21/21 02:54 Urine Culture - Final Urine,Clean Catch Escherichia coli Morganella morganii 08/21/21 02:46 Blood Culture - Preliminary Blood Coagulase negativ staphylococc A&P Assessment and plan (1) Stage II pressure ulcer: Continue collagenase dressings. Patient says he is agreeable to being d ischarged to a retirement for further care. Arrangements could be made for him to follow-up in wound clinic as needed. Status: Acute Attestations Medical Necessity Statement*: See admitting service's notation. Coding Level of Care Code Acute Medical Affairs Specialist for Keila Leonardo Diagnoses Stage II pressure ulcer L89.92
[2021-08-23] MEDS: heparin 5,000 unit/mL INJ 1 mL 5000 UNIT SUBCUT ×2 (09:46→22:09)
[2021-08-23] MEDS: HYDROcodone-acetaminophen 5-325 mg Tablet 1 TAB PO ×2 (11:34→20:50)
[2021-08-23 11:47] LABS: Glucose Point of Care 93 mg/dL (70-110)
--- NOTE | 2021-08-23 11:51 | P.PN_ITS ---
Subjective Subjective: continues to have pain from sacral wound, receiving pain medications Medications: Reviewed: Yes Vitals/I&O/Wt Last Vital Signs Temp 97.4 F L 08/23/21 08:00 Pulse 73 08/23/21 08:00 Resp 17 08/23/21 04:00 BP 110/65 08/23/21 08:00 Pulse Ox 95 08/23/21 08:00 08/22/21 08/23/21 08/23/21 22:59 06:59 14:59 Intake Total 50 / 700 470 / 1170 450 / 450 Output Total 300 / 300 540 / 840 Balance -250 / 400 -70 / 330 450 / 450 Physical Exam Extremity: NARRATIVE EXTREMITY EXAM: diffuse edema Urinary Catheter Management: Thrasher: Cath Placed During This Visit: yes Reason for Continuing Indwelling Catheter: Assist Healing of Perineal & Sacral Wounds- Incontinent Patients Urinary Catheter Date of Insertion: 08/21/21 Urinary Catheter Time of Insertion: 02:57 Data : 08/23/21 03:35 08/23/21 03:35 Other Labs: Ca 8, albumin 3.2, phos 8.7 K/L 1.05 Micro: Microbiology 08/21/21 02:54 Urine Culture - Final Urine,Clean Catch Escherichia coli Morganella morganii 08/21/21 02:46 Blood Culture - Preliminary Blood Coagulase negativ staphylococc US: Radiologist's impression: 1.? Thrasher catheter. Bladder is decompressed. 2.? No hydronephrosis in either kidney. 3.? Partially visualized RIGHT pleural effusion. A&P Assessment and plan (1) Hyperphosphatemia: Status: Acute Plan 1. Acute nonoliguric kidney injury with proteinuria (not yet quantified). Renal function continues to worsen. Serologic workup pending 2. UTI, bacteremia 3. Metabolic acidosis 4. Hyperphosphatemia 5. Hypertension, well-controlled 6. Anemia, Hb stable Recommend: check vancomycin level. Begin sodium bicarbonate and phosphate binder. continue IV lasix Attestations Medical Necessity Statement*: per primary service Coding Level of Care Code Acute [employer] Plans Staff Officer for Keila Leonardo Diagnoses Hyperphosphatemia E83.39
[2021-08-23] MEDS: morphine 4 mg/mL SDV 1 mL 1 MG IVP (12:59)
[2021-08-23] MEDS: FUROsemide 10 mg/mL SDV 4mL 40 MG IVP (15:07)
[2021-08-23] MEDS: sodium bicarbonate 650 mg Tablet PO ×2 (15:08→20:51)
[2021-08-23 16:02] LABS: Creatinine, Random Urine 21 mg/dL (20-320); Protein, Total, Random 202 mg/dL (5-25); Protein/Creatinine Ratio 9.619 (0.022-0.128); Protein/Creatinine Ratio 9619 mg/g creat (22-128)
[2021-08-23 16:43] LABS: Anti-Nuclear Antibody Pattern Nuclear, Homogeneous; Anti-Nuclear Antibody Screen POSITIVE (NEGATIVE)
[2021-08-23 16:53] LABS: CREATININE, 24 HOUR URINE 0.48 g/24 h (0.50-2.15); PROTEIN, TOTAL, 24 HR UR 3988 mg/24 h (<150); Protein/Creatinine Ratio 8395 mg/g creat (< OR = 114)
[2021-08-23 17:45] LABS: Glucose Point of Care 76 mg/dL (70-110)
[2021-08-23] MEDS: calcium acetate 667 mg Capsule 1334 MG PO (17:49)
--- NOTE | 2021-08-23 18:25 | PC.NURSE ---
Patient repositioned in bed multiple times an hour throughout shift attempting to get patient comfortable. Patients bottom has had santyl dressing applied multiple times during shift. Santyl applied to bilateral heels one time during shift. Patient is AAOx4 and having difficult time controlling pain. BP on soft side, will report to oncoming nurse.
[2021-08-23] MEDS: atorvastatin 40 mg Tablet 20 MG PO (20:51)
[2021-08-23 21:06] LABS: Glucose Point of Care 57 mg/dL (70-110)
[2021-08-23 21:06] LABS: Glucose Point of Care 54 mg/dL (70-110)
[2021-08-23 21:41] LABS: Glucose Point of Care 61 mg/dL (70-110)
[2021-08-23] MEDS: dextrose 10% 250 ML 83.3 ML IV (22:53)
[2021-08-23 23:56] LABS: Glucose Point of Care 62 mg/dL (70-110)
[2021-08-24] VITALS (14 sets, daily range): BP systolic 82–112; BP diastolic 55–74; PULSE 63–82; RESP 16–22; TEMP 36.6–36.8; O2SAT 91–97
[2021-08-24] MEDS: sodium chloride 0.9% 500 ML 999 ML IV (00:48)
[2021-08-24] MEDS: dextrose 5%-sod chloride 0.9% 1,000 ML 125 ML IV (00:48)
[2021-08-24 03:43] LABS: Glucose Point of Care 123 mg/dL (70-110)
[2021-08-24 03:51] LABS: Basophils # 0.1 10^3/uL (0.0-0.1); Basophils % 0.3 %; Eosinophils # 0.4 10^3/uL (0.0-0.8); Eosinophils % 2.1 %; Hematocrit 32.4 % (42.0-52.0); Hemoglobin 10.4 g/dL (11.7-16.6); Lymphocytes # 1.5 10^3/uL (0.8-4.8); Mean Corpuscular HGB Conc 32.1 g/dL (30.0-36.0); Mean Corpuscular Hemoglobin 29.1 pg (28.0-34.0); Mean Corpuscular Volume 90.5 fl (80-94); Monocytes # 1.4 10^3/uL (0.2-0.9); Monocytes % 7.5 %; Neutrophils # 14.83 10^3/uL (1.8-7.7); Neutrophils % 81.4 %; Nucleated Red Blood Cells # 0.1 /100WBC; Nucleated Red Blood Cells % 0.3 %; Platelet Count 462 10^3/cmm (130-400); Red Blood Count 3.58 10^6/uL (4.1-5.3); Red Cell Distribution Width 16.7 % (12.1-15.1); White Blood Count 18.2 10^3/uL (4.0-10.0)
--- NOTE | 2021-08-24 04:05 | XRR_ITS ---
PROCEDURE INFORMATION: Exam: XR Chest Exam date and time: 08/24/2021 4:13 AM Age: 71 years old Clinical indication: Prior surgery; Surgery type: Splenectomy; Patient HX: Onset of dyspnea. ; Additional info: Difficulty breathing TECHNIQUE: Imaging protocol: XR of the chest. Views: 1 view. COMPARISON: CR (CHEST, ) 08/21/2021 1:51 AM FINDINGS: Tubes, catheters and devices: Surgical clips project over the left upper quadrant. Lungs: Persistent redistribution and indistinctness of the pulmonary vasculature, in association with haziness of the lungs and small bilateral pleural effusions, which in the setting of cardiomegaly is consistent with pulmonary edema. Pneumonia should be excluded clinically. No pneumothorax. Pleural spaces: See Lungs finding. Heart/Mediastinum: Stable cardiomediastinal silhouette. Bones/joints: Degenerative changes of the spine seen. XR/XR chest 1V portable [id number] IMPRESSION: Persistent pulmonary edema with small bilateral pleural effusions. Pneumonia should be excluded clinically.
[2021-08-24 04:16] LABS: Alanine Aminotransferase 7 U/L (0-41); Albumin Level 3.5 g/dL (3.5-5.2); Alkaline Phosphatase 125 IU/L (40-130); Blood Urea Nitrogen 60 mg/dL (8-23); Calcium 8.1 mg/dL (8.5-10.5); Carbon Dioxide 13 mmol/L (22-29); Chloride 105 mmol/L (98-107); Glucose 131 mg/dL (65-115); Osmolality Calculated 299 mOsm/kg (285-295); Sodium 135 mmol/L (136-145); Total Bilirubin 0.3 mg/dL (0.15-1.2); Total Protein 6.5 g/dL (6.6-8.7)
[2021-08-24 04:21] LABS: Anion Gap 21.7 (5-19); Potassium 4.7 mmol/L (3.5-5.1)
[2021-08-24 04:22] LABS: Aspartate Amino Transferase 20 U/L (0-40); Phosphorus 8.3 mg/dL (2.5-4.5)
[2021-08-24] MEDS: BuSPIRONE 10 mg Tablet 15 MG PO (04:44)
[2021-08-24] MEDS: FUROsemide 10 mg/mL SDV 4mL 40 MG IVP (04:44)
[2021-08-24] MEDS: piperacillin-tazobactam 3.375 GM in sodium chloride 0.9% (plus) 50 ML IV ×2 (05:34→18:14)
[2021-08-24 06:27] LABS: Glucose Point of Care 105 mg/dL (70-110)
[2021-08-24] MEDS: venlafaxine ER (24HR) 75 mg Capsule 225 MG PO (08:44)
[2021-08-24] MEDS: b-complex-vitamin c Tablet 1 EACH PO (08:45)
[2021-08-24] MEDS: ropinirole 1 mg Tablet PO (08:45)
[2021-08-24] MEDS: aspirin 81 mg EC Tablet PO (08:45)
[2021-08-24] MEDS: pantoprazole DR 40 mg Tablet PO (08:45)
[2021-08-24] MEDS: folic acid 1 mg Tablet PO (08:45)
[2021-08-24] MEDS: sodium bicarbonate 650 mg Tablet PO (08:45)
[2021-08-24] MEDS: gabapentin 100 mg Capsule PO (08:45)
[2021-08-24] MEDS: collagenase oint 30 gm 1 APPLIC TOPICAL (08:46)
[2021-08-24] MEDS: acetaminophen 325 mg Tablet 650 MG PO (08:48)
[2021-08-24] MEDS: calcium acetate 667 mg Capsule 1334 MG PO (08:49)
--- NOTE | 2021-08-24 09:01 | CTR_ITS ---
PROCEDURE INFORMATION: Exam: CT Head Without Contrast Exam date and time: 08/24/2021 10:13 AM Age: 71 years old Clinical indication: Altered mental status/memory loss; Confusion or disorientation; Additional info: Alteration in mental status TECHNIQUE: Imaging protocol: Computed tomography of the head without contrast. Radiation optimization: All CT scans at this facility use at least one of these dose optimization techniques: automated exposure control; mA and/or kV adjustment per patient size (includes targeted exams where dose is matched to clinical indication); or iterative reconstruction. COMPARISON: No relevant prior studies available. RADIATION DOSE METRICS: Total DLP (mGy-cm): 1439.778 FINDINGS: Brain: No hemorrhage, mass effect or midline shift. There is a focus of decreased attenuation in the right mejia radiata, consistent with age-indeterminate infarct.There is foci of decreased attenuation in the periventricular and subcortical white matter, likely representing chronic small vessel ischemic changes. Mild cerebral volume loss is present. No intra-axial or extra-axial fluid collection seen. Cerebral ventricles: No ventriculomegaly. Paranasal sinuses: Visualized sinuses are unremarkable. No fluid levels. Mastoid air cells: Visualized mastoid air cells are well aerated. Bones/joints: Unremarkable. No acute fracture. Soft tissues: Unremarkable. 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 Further evaluation with brain MRI should be considered in the adequate clinical setting.
--- NOTE | 2021-08-24 09:03 | PC.NURSE ---
Patient is oriented to name and place but is unable to follow commands and pupil size is pinpoint and sluggish. Not able to swallow, informed physician and orders placed for Head CT.
--- NOTE | 2021-08-24 09:15 | P.PN_ITS ---
Subjective Subjective: The patient says his buttocks remain sore. Vitals/I&O/Wt Last Vital Signs Temp 98.1 F 08/24/21 08:00 Pulse 82 08/24/21 08:00 Resp 16 08/24/21 08:00 BP 112/73 08/24/21 08:00 Pulse Ox 97 08/24/21 08:00 08/23/21 08/24/21 08/24/21 22:59 06:59 14:59 Intake Total 650 / 2700.417 1360.417 / 2700.417 Balance 650 / 2700.417 1360.417 / 2700.417 Physical Exam Narrative: On examination, I realized that I documented incorrectly that there was no further eschar on the right side. There is currently no eschar on the LEFT side. The right-sided eschar is somewhat dark in color but is actually quite soft and there does not appear do be a lot of erythema associated with this area. Urinary Catheter Management: Thrasher: Cath Placed During This Visit: yes Reason for Continuing Indwelling Catheter: Assist Healing of Perineal & Sacral Wounds- Incontinent Patients Urinary Catheter Date of Insertion: 08/21/21 Urinary Catheter Time of Insertion: 02:57 Data : 08/24/21 03:24 08/24/21 03:24 Micro: Microbiology 08/23/21 17:18 Blood Culture - Preliminary Blood SPECIMEN COLLECTED 08/23/21 17:18 Blood Culture - Preliminary Blood SPECIMEN COLLECTED 08/21/21 02:54 Urine Culture - Final Urine,Clean Catch Escherichia coli Morganella morganii A&P Assessment and plan (1) Stage II pressure ulcer: I see that the patient's white blood cell count is up, but I do not know that it has a lot to do with the buttock wounds; there does not appear to be an obvious infection here but clearly there will be some inflammatory change. The remaining eschar appears to be getting very soft and I am hopeful that the collagenase will eventually get rid of this completely. Continue collagenase dressings. Patient says he is agreeable to being discharged to a [facility] for further care. Arrangements could be made for him to follow-up in wound clinic as needed. Status: Acute Attestations Medical Necessity Statement*: See admitting service's notation. Coding Level of Care Code Acute International Guest Coordinator for Keila Leonardo Diagnoses Stage II pressure ulcer L89.92
[2021-08-24] MEDS: heparin 5,000 unit/mL INJ 1 mL 5000 UNIT SUBCUT ×2 (09:16→21:18)
[2021-08-24 10:57] LABS: Glucose Point of Care 119 mg/dL (70-110)
--- NOTE | 2021-08-24 10:57 | PC.NURSE ---
Patients called for update, asked for this nurse to update friend that she is staying with named Aamnda Lyle, and that when we call Britt to call number [phone].
[2021-08-24] MEDS: vancomycin 1,000 MG in sodium chloride 0.9% 250 ML 250 MG IV (11:22)
[2021-08-24] MEDS: dextrose 5%-sod chloride 0.9% 1,000 ML 50 ML IV (11:31)
--- NOTE | 2021-08-24 11:58 | PM.PN ---
Subjective Subjective: Anuric overnight. More lethargic, not eating or drinking much Medications: Reviewed: Yes Vitals/I&O/Wt Last Vital Signs Temp 98.1 F 08/24/21 08:00 Pulse 82 08/24/21 08:00 Resp 16 08/24/21 08:00 BP 112/73 08/24/21 08:00 Pulse Ox 97 08/24/21 08:00 08/23/21 08/24/21 08/24/21 22:59 06:59 14:59 Intake Total 650 / 1340 1360.417 / 2700.417 150 / 150 Balance 650 / 1340 1360.417 / 2700.417 150 / 150 Physical Exam Extremity: NARRATIVE EXTREMITY EXAM: + edema Urinary Catheter Management: Thrasher: Cath Placed During This Visit: yes Reason for Continuing Indwelling Catheter: Assist Healing of Perineal & Sacral Wounds- Incontinent Patients Urinary Catheter Date of Insertion: 08/21/21 Urinary Catheter Time of Insertion: 02:57 Data : 08/24/21 03:24 08/24/21 03:24 Other Labs: ALMITA +1:80, nuclear homogeneous, dsDNA neg urine protein/Cr ratio 8400 mg/g, 24h urine protein 4000 mg vanco 13 Micro: Microbiology 08/23/21 17:18 Blood Culture - Preliminary Blood SPECIMEN COLLECTED 08/23/21 17:18 Blood Culture - Preliminary Blood SPECIMEN COLLECTED 08/21/21 02:54 Urine Culture - Final Urine,Clean Catch Escherichia coli Morganella morganii A&P Assessment and plan (1) Uremia: Status: Acute Plan 1. Acute oliguric kidney injury with nephrotic range proteinuria. Renal function continues to worsen. ANCA pending. Not renal biopsy candidate at this time. Rec; send [id number] if possible (screen for primary membranous nephropathy) 2. UTI, bacteremia. rec daily vanco level 3. Metabolic acidosis: discontinue oral sodium bicarbonate, add to IVF 4. Hyperphosphatemia: increase calcium acetate 5. Hypertension, low BP yesterday. Recommend discontinue hydralazine. 6. Anemia, Hb stable Recommend: Discussed with Dr Calles. He will discuss dialysis with [facility] . Recommend placement of hemodialysis catheter if family agrees. Attestations Medical Necessity Statement*: see above Coding Level of Care Code Acute Senior Manufacturing Supervisor for Keila Leonardo Diagnoses Uremia N19
--- NOTE | 2021-08-24 12:02 | PC.CHAP ---
Pastoral Care Encounter/Spiritual Assessment Type of Contact [] Declined pump house technician visit [] Patient/Family/Request visit [] Outpatient visit [] Follow-up visit [] Physician referral [] Code/Alert [X] Routine visit [] Staff referral [] Actively dying [] Patient sleeping [] Family support [] [] Out of room [] Palliative care [] [X] Receiving care in room [] Pre-surgical visit [] Trauma [] Long length of stay [] ICU visit [] Other: Relational/Emotional Strength [] Patient feels connected with others/family/visitors/staff [] Distress [] Loneliness/isolation [] Abandonment Spirituality of Patient [] Person of Maribel [] Attends Muslim of their Maribel [] Believes in Prayer [] Reads Bible or Yarsanism materials [] There are Spiritual issues to be addressed Hybrid Powertrain Development Engineer Interventions [] Prayer [] Active listening [] Non-anxious presence [] Spiritual/emotional support [] Crisis/trauma care [] Spiritual counseling [] Bereavement support [] Provided bereavement packet [] Provided Bible/devotional materials [] Provided toy/stuffed animal, coloring book to patient or family member [] Provided Communion [] Anointing/Atco [] Salvation [] Completed spiritual assessment [] Other: Impact on Illness or Injury [] Angry [] Fearful [] Anxious [] Often cries [] Exhaustion [] Unable to work [] Unable to attend sabianist [] Unable to walk/stand [] Unable to read [] Unable to drive [] Unable to eat/drink [] Unable to sleep [] Unable to be with family [] Patient intubated [] Other: Summary Time spent with patient
--- NOTE | 2021-08-24 13:13 | PM.PN ---
Subjective Subjective: Hospital course, labs appreciated. Examination today patient is confused, lethargic but arousable and wakes up to answer and follow counts appropriately and then dozes off again. Overnight have been told that patient had an episode of hypotension with blood pressures going into high 80s and hyperglycemia which was treated with oral substrate. Today morning on examination patient's blood pressures are better but running in low 100s with heart rate running in 90s saturating well on room air. Vitals/I&O/Wt Last Vital Signs Temp 98.2 F 08/24/21 12:00 Pulse 67 08/24/21 12:00 Resp 18 08/24/21 12:00 BP 102/64 08/24/21 12:00 Pulse Ox 94 08/24/21 12:00 08/23/21 08/24/21 08/24/21 22:59 06:59 14:59 Intake Total 650 / 1340 1360.417 / 2700.417 479.167 / 479.167 Balance 650 / 1340 1360.417 / 2700.417 479.167 / 479.167 Physical Exam Narrative: General: No acute distress, lethargic, sleepy but arousable, wakes up to answer appropriately and then dozes off again HEENT: PERRLA, pupils bilaterally equal and reactive Chest: Normal vesicular breath sounds, no added sounds, equal good air entry bilaterally CVS: S1-S2 regular, no murmurs, no tachycardia, no gallops, no rubs Abdomen: Soft, nontender, no organomegaly, bowel sounds present Neuro: No focal deficits, no facial deformity, Extremities: venous stasis changes, skin breakdown left second toe, 1+ edema to the thighs.? Large decubitus present buttocks with slight surrounding erythema surrounding a black eschar.? Collagenase has been placed on this and some debridment is noted.? No obvious drainage.? Small tunneled area superiorly, of which opening is very small.? Cellulitis surrounding decub improved. Urinary Catheter Management: Thrasher: Cath Placed During This Visit: yes Reason for Continuing Indwelling Catheter: Assist Healing of Perineal & Sacral Wounds- Incontinent Patients Urinary Catheter Date of Insertion: 08/21/21 Urinary Catheter Time of Insertion: 02:57 Data : 08/24/21 03:24 08/24/21 03:24 Micro: Microbiology 08/23/21 17:18 Blood Culture - Preliminary Blood SPECIMEN COLLECTED 08/23/21 17:18 Blood Culture - Preliminary Blood SPECIMEN COLLECTED A&P Assessment and plan (1) Altered mental status: Status: Acute (2) Uremia: Status: Acute (3) Acute kidney injury superimposed on CKD: Status: Acute (4) Decubitus ulcer: Status: Inactive (5) UTI (urinary tract infection): Status: Acute (6) Cellulitis: Status: Acute (7) Stage II pressure ulcer: Status: Acute (8) Anasarca: Status: Acute (9) CHF (congestive heart failure): Status: Acute (10) Multiple sclerosis: Status: Chronic (11) Essential (primary) hypertension: Status: Chronic (12) Diabetes mellitus: Status: Chronic Qualifiers: Diabetes mellitus complication status: with other specified complication Diabetes mellitus oil heaterman insulin use: with oil heaterman use Diabetes mellitus type: type 2 Qualified Code(s): E11.69 - Type 2 diabetes mellitus with other specified complication; Z79.4 - MCC (current) use of insulin (13) H/O splenectomy: Status: Acute (14) Oliguria: Status: Acute Plan Altered mental status: Most likely secondary to uremia, polypharmacy in setting of YEYO on CKD. Renal function worsening. Multiple medication including BuSpar, Zanaflex and at a higher dose. Hold venlafaxine and BuSpar for now. Change dose of gabapentin 200 mg 3 times daily. Continue carbamazepine at 1 mg twice daily. Check levels. YEYO on CKD: Nephrotic range disease. Repeat urinalysis. Appreciate nephrology recommendations. Given oliguria, uremia, altered mental status patient would need dialysis. Nephrology agreeable. Confirmed with patient's /DPOA. She is agreeable. Plan for temporary dialysis catheter placement with Dr. Hernandes within next 24 hours and dialysis. D5 with sodium bicarb 150 mEq at 60 cc/h. Monitor BMP daily for now. High anion gap metabolic acidosis: Treatment as above. Medical reconciliation done for nephrotoxic drugs. Sepsis secondary to UTI and cellulitis: Stage II decubitus ulcer: Appreciate surgical recommendations. Wound care as per surgical team. Urine culture consistent with E. coli and Morganella. Continue with vancomycin and Zosyn for now. Blood culture from 08/23 so far negative. Decrease pain medication with increasing frequency given altered mental status. Congestive heart failure: Diastolic type. Dehydrated currently. Echocardiogram done shows an EF 55 to 60% with indeterminate diastolic function. IV fluids as above. Atrial fibrillation: Currently rate controlled. Continue with metoprolol at 25 mg twice daily. Chronically not on anticoagulation because of risk of falls. Type 2 diabetes mellitus: Hypoglycemia. Hold insulin sliding scale at low-dose protocol every 6 hours for now. Start on D5W as above. HbA1c 6.9. Full code. Renal nondialysis diet, mechanical soft. Heparin for DVT prophylaxis. Famotidine for PUD prophylaxis. Attestations Medical Necessity Statement*: Requires further hospitalization for management of altered mental status, YEYO on CKD, uremia, sepsis secondary to UTI and cellulitis Time Spent in Patient Care: Greater than 35 minutes Coding Level of Care Code Acute Floorworker for [facility] Fwd Diagnoses Decubitus ulcer L89.90 Cellulitis L03.90 Anasarca R60.1 CHF (congestive heart failure) I50.9 Multiple sclerosis G35 Essential (primary) hypertension I10 UTI (urinary tract infection) N39.0 Diabetes mellitus E11.69; Z79.4 Diabetes mellitus complication status: with other specified complication Diabetes mellitus oil heaterman insulin use: with oil heaterman use Diabetes mellitus type: type 2 Altered mental status R41.82 Uremia N19 Acute kidney injury superimposed on CKD N17.9; N18.9 Stage II pressure ulcer L89.92 H/O splenectomy Z90.81 Oliguria R34
--- NOTE | 2021-08-24 13:24 | PC.SOCIAL ---
IM reviewed and copy provided no questions voiced.
[2021-08-24 14:36] LABS: ANCA Screen NEGATIVE (NEGATIVE)
[2021-08-24] MEDS: famotidine 20 mg/2 mL INJ IVP (16:30)
[2021-08-24 17:05] LABS: Glucose Point of Care 142 mg/dL (70-110)
--- NOTE | 2021-08-24 18:44 | PC.NURSE ---
Patient remains resting in bed, moans from time to time mostly during turns. Patient placed on air mattress to self shift to prevent further coccyx breakdown. Collangense dressing applied multiple times during shift. Patient remains lethargic, little UOP, opens eyes to verbal stimuli and can answer his name and sometimes place. Pupils remain pinpoint, remains unable to swallow including on command, recieved orders to make NPO. Blood sugars remained stable with IVF. No pain medications given during shift and BP remained stable. Spoke with family multiple times during shift. WIll report to oncoming nurse at shift change.
[2021-08-24 21:08] LABS: Glucose Point of Care 88 mg/dL (70-110)
[2021-08-25] VITALS (69 sets, daily range): BP systolic 80–155; BP diastolic 51–134; PULSE 61–89; RESP 12–19; TEMP 35.5–36.7; O2SAT 88–99
--- NOTE | 2021-08-25 | SCC_ITS ---
Procedure done: 1. 12 [place] 16 cm hemodialysis catheter placement into the right internal jugular vein with intraoperative fluoroscopy and ultrasound interpretation. 4.4 seconds of fluoroscopic guidance, for a cumulative dose of 0.29 mGy, was provided to Dr. Hernandes by the radiology department. C-arm images of the chest were saved for the patient's permanent record. CRISTELA
[2021-08-25] MEDS: famotidine 20 mg/2 mL INJ IVP ×2 (02:13→14:52)
[2021-08-25 02:27] LABS: Beta-Hydroxybutyrate 0.23 mmol/L
[2021-08-25 05:29] LABS: ABG PCO2 42.3 mmHg (35-45); Arterial Blood Gas Hematocrit 33.6 % (42-52); Base Excess ABG -14.4 mmol/L (-2.0-2.0); Blood Gas Allen Test Pos; Blood Gas Sample Site Radial, left; Blood Gas Sample Type Arterial; HCO3 ABG 14.1 mmol/L (22-26); Oxygen Device NC; PO2 ABG 71.3 mmHg (80.0-100.0)
[2021-08-25 05:32] LABS: ABG PH Result 7.13 (7.35-7.45)
[2021-08-25] MEDS: piperacillin-tazobactam 3.375 GM in sodium chloride 0.9% (plus) 50 ML IV ×2 (05:57→18:46)
[2021-08-25] MEDS: sodium bicarbonate 8.4% 1 mEq/mL 50mL Syr 50 MEQ IVP (06:16)
[2021-08-25 06:35] LABS: Basophils # 0.1 10^3/uL (0.0-0.1); Basophils % 0.3 %; Eosinophils # 0.1 10^3/uL (0.0-0.8); Eosinophils % 0.4 %; Hematocrit 34.9 % (42.0-52.0); Hemoglobin 11.2 g/dL (11.7-16.6); Lymphocytes # 1.2 10^3/uL (0.8-4.8); Lymphocytes % 4.8 %; Mean Corpuscular HGB Conc 32.1 g/dL (30.0-36.0); Mean Corpuscular Hemoglobin 28.9 pg (28.0-34.0); Mean Corpuscular Volume 89.9 fl (80-94); Mean Platelet Volume 11.4 fL (7.4-10.4); Monocytes # 2.2 10^3/uL (0.2-0.9); Monocytes % 8.6 %; Neutrophils # 21.39 10^3/uL (1.8-7.7); Neutrophils % 84.6 %; Nucleated Red Blood Cells # 0.3 /100WBC; Nucleated Red Blood Cells % 1.1 %; Platelet Count 462 10^3/cmm (130-400); Red Blood Count 3.88 10^6/uL (4.1-5.3); Red Cell Distribution Width 16.8 % (12.1-15.1); White Blood Count 25.3 10^3/uL (4.0-10.0)
[2021-08-25 06:36] LABS: Glucose Point of Care 113 mg/dL (70-110)
[2021-08-25 06:36] LABS: Glucose Point of Care 113 mg/dL (70-110)
[2021-08-25 06:44] LABS: Alanine Aminotransferase 8 U/L (0-41); Albumin Level 3.6 g/dL (3.5-5.2); Alkaline Phosphatase 129 IU/L (40-130); Blood Urea Nitrogen 65 mg/dL (8-23); Calcium 7.9 mg/dL (8.5-10.5); Carbon Dioxide 12 mmol/L (22-29); Chloride 106 mmol/L (98-107); Globulin 1.8 g/dL (1.3-4.6); Glucose 103 mg/dL (65-115); Osmolality Calculated 301 mOsm/kg (285-295); Sodium 136 mmol/L (136-145); Total Bilirubin 0.4 mg/dL (0.15-1.2); Total Protein 5.4 g/dL (6.6-8.7)
[2021-08-25 06:46] LABS: Vancomycin Random 18.3 ug/mL (20.0-40.0)
[2021-08-25 06:48] LABS: Anion Gap 23.1 (5-19); Aspartate Amino Transferase 16 U/L (0-40); Potassium 5.1 mmol/L (3.5-5.1)
--- NOTE | 2021-08-25 08:37 | P.PN_ITS ---
Subjective Subjective: Yesterday I was asked to place a dialysis catheter in Mr. Quach today. I had him scheduled for midday because there was already a 5-hour orthopedic case that was starting at 7 AM and there was only one surgical team available, as this is a Thursday. Dr. Gutierrez from nephrology called me this morn ing to let me know that the patient has continued to deteriorate rather rapidly, however, and thought a temporary dialysis catheter needed to be placed urgently. I tried a get ahold of the patient's , Britt, yesterday afternoon. She was unavailable at the number that I had called but they expected her do be back within an hour. I left my phone number so that I could discuss any questions or concerns that she may have regarding the proposed surgery for today. She never did contact me back. We are making arrangements for an urgent temporary dialysis catheter placement. I was originally going the debride the patient's buttock wound, but given his rapid deterioration we will save this for another date, hopefully following stabilization postdialysis at some point. Vitals/I&O/Wt Last Vital Signs Temp 98.1 F 08/25/21 08:00 Pulse 61 08/25/21 08:00 Resp 18 08/25/21 08:00 BP 97/59 08/25/21 08:00 Pulse Ox 93 08/25/21 08:00 08/24/21 08/25/21 08/25/21 22:59 06:59 14:59 Intake Total 50 / 1437.167 908 / 1437.167 Output Total 0 / 125 25 / 125 Balance 50 / 1312.167 883 / 1312.167 Physical Exam Narrative: White blood cell count is up the 25,000. Potassium is 6.0 this morning. Urinary Catheter Management: Thrasher: Cath Placed During This Visit: yes Reason for Continuing Indwelling Catheter: Assist Healing of Perineal & Sacral Wounds- Incontinent Patients Urinary Catheter Date of Insertion: 08/21/21 Urinary Catheter Time of Insertion: 02:57 Data : 08/25/21 05:45 08/25/21 05:45 Micro: Microbiology 08/23/21 17:18 Blood Culture - Preliminary Blood NEGATIVE TO DATE 08/23/21 17:18 Blood Culture - Preliminary Blood NEGATIVE TO DATE A&P Assessment and plan (1) Acute kidney injury superimposed on CKD: Status: Acute Plan The operating room and scrambling did get some more people into help us get this case done under controlled circumstances in the operating room. We will plan on placing an internal jugular temporary hemodialysis catheter this morning. Attestations Medical Necessity Statement*: See admitting service's notation. Coding Level of Care Code Acute Software Security Architect for Keila Serranod Diagnoses Acute kidney injury superimposed on CKD N17.9; N18.9
--- NOTE | 2021-08-25 08:58 | SC_ITS ---
WS: [id number] Exam: C-arm FL for CVA [id number] Date/Time of Exam: 08/25/2021 8:58 AM Reason For Exam: SURGICAL A single AP limited C-arm image of the upper chest and neck is submitted for evaluation. A catheter a pparatus and guidewire superimpose the right neck and may represent an IJ catheter. The catheter exte nds along superior mediastinum on the right. No other significant finding on this limited image.
--- NOTE | 2021-08-25 09:02 | SUR.PREOP ---
0682 PT TO OPS BAY 8 PT AWAKE, UNABLE TO VERBALIZE NAME OR PLACE, WHEN ASKED IF HE HAS DENTURES PT STATES (NO), ONLY CLEAR RESPONSE NOTED. PT VSS IV PATENT PER PUMP TO RT FOREARM #20 IV WITH ZOSYN INFUSING AT 12.5MG/HR, AND NS 1000ML WITH BICARB 150 MEQ INFUSING AT 60ML/HR, PT HAS HAGER CATHETER WITH CLOUDY YELLOW URINE NOTED IN TUBING APPROX 5 ML. BILAT HEEL PROTECTORS IN PLACE. BED LOCKED AND CALL LIGHT WITHIN REACH, PT CALLED AND PERMISSION FOR SURGERY OBTAINED BY PHONE WITH 2 RNS PRESENT WHEN CONSENT OBTAINED. PT ON AIRBED, MATTRESS INFLATED , PT ON 3LNC. SATS MAINTAINED AT 98%
--- NOTE | 2021-08-25 09:12 | PM.PN ---
Subjective Subjective: moaning, confused, weak Medications: Reviewed: Yes Medication Review Details: Current Medications Acetaminophen (Acetaminophen 325 Mg Tablet) 650 mg PO Q6H PRN PRN Reason: Mild/Mod Pain Or Temp >/= 101 Last Admin: 08/24/21 08:48 Dose: 650 mg Documented by: Hydrocodone Bitart/Acetaminophen (Hydrocodone-Acetaminophen 5-325 Mg Tablet) 1 tab PO Q8H PRN PRN Reason: MODERATE PAIN Albuterol Sulfate (Albuterol 2.5 Mg/0.5 Ml Neb) 2.5 mg INHALATION ONCE PRN PRN Reason: WHEEZING Aspirin (Aspirin 81 Mg Ec Tablet) 81 mg PO DAILY [facility] Last Admin: 08/25/21 07:56 Dose: Not Given Documented by: Atorvastatin Calcium (Atorvastatin 40 Mg Tablet) 20 mg PO BEDTIME [facility] Last Admin: 08/24/21 21:16 Dose: Not Given Documented by: Buspirone HCl (Buspirone 10 Mg Tablet) 15 mg PO Q8H [facility] Last Admin: 08/24/21 04:44 Dose: 15 mg Documented by: Carbamazepine (Carbamazepine Xr (12 Hr) 200 Mg Tablet) 200 mg PO BID@0900,2100 [facility] Last Admin: 08/25/21 07:57 Dose: Not Given Documented by: Collagenase (Collagenase Oint 30 Gm) 1 applic TOPICAL DAILY [facility] Last Admin: 08/25/21 07:57 Dose: Not Given Documented by: Dextrose (Dextrose 50% Syringe 50 Ml) 25 ml IVP ONCE PRN; Protocol PRN Reason: hypoglycemia protocol Dextrose (Dextrose 50% Syringe 50 Ml) 50 ml IVP PRN PRN; Protocol PRN Reason: hypoglycemia protocol Diphenhydramine HCl (Diphenhydramine 50 Mg/Ml Sdv 1ml) 12.5 mg IVP ONCE PRN PRN Reason: ANESTHESIA Famotidine (Famotidine 20 Mg/2 Ml Inj) 20 mg IVP Q12H [facility] Last Admin: 08/25/21 02:13 Dose: 20 mg Documented by: Famotidine (Famotidine 20 Mg/2 Ml Inj) 20 mg IVP ONCE PRN PRN Reason: HEARTBURN Fentanyl (Fentanyl 50 Mcg/Ml Inj 2ml) 100 mcg IVP ONCE PRN PRN Reason: Per anesthesia for block Fentanyl (Fentanyl 50 Mcg/Ml Inj 2ml) 50 mcg IVP Q10M PRN PRN Reason: Preop Pain Fentanyl (Fentanyl 50 Mcg/Ml Inj 2ml) 50 mcg IVP Q5M PRN PRN Reason: Pain level 1-6 PACU Phase I Stop: 08/26/21 08:55 Folic Acid (Folic Acid 1 Mg Tablet) 1 mg PO DAILY [facility] Last Admin: 08/25/21 07:57 Dose: Not Given Documented by: Gabapentin (Gabapentin 100 Mg Capsule) 100 mg PO TID@0900,1200,2100 [facility] Last Admin: 08/25/21 07:57 Dose: Not Given Documented by: Glucagon (Glucagon 1 Mg/Ml Inj 1 Ml) 1 mg IM ONCE PRN; Protocol PRN Reason: Adult Acute Hypoglycemia Prot. Heparin Sodium (Porcine) (Heparin 5,000 Unit/Ml Inj 1 Ml) 5,000 unit SUBCUT Q12H [facility] Last Admin: 08/24/21 21:18 Dose: 5,000 unit Documented by: Hydralazine HCl (Hydralazine 25 Mg Tablet) 25 mg PO TID [facility] Last Admin: 08/24/21 08:02 Dose: Not Given Documented by: Hydromorphone HCl (Hydromorphone 1 Mg/Ml Inj 1 Ml) 0.5 mg IVP Q10M PRN PRN Reason: Pain level 6-10 PACU Phase I Stop: 08/26/21 08:55 Dextrose (D5w) 500 mls @ 100 mls/hr IV ONCE PRN; Protocol PRN Reason: Adult Acute Hypoglycemia Prot Piperacillin Sod/Tazobactam (Sod 3.375 gm/ Sodium Chloride) 50 mls @ 12.5 mls/hr IV Q12H [facility]; Protocol Last Admin: 08/25/21 05:57 Dose: 12.5 mls/hr Documented by: Vancomycin HCl 1,000 mg/ (Sodium Chloride) 250 mls @ 250 mls/hr IV Q24H [facility] Last Infusion: 08/24/21 12:31 Dose: Infused Documented by: Sodium Bicarbonate 150 meq/ (Dextrose) 1,000 mls @ 60 mls/hr IV .[id number] [facility] Last Admin: 08/25/21 05:57 Dose: 60 mls/hr Documented by: Cefazolin Sodium 2,000 mg/ (Sodium Chloride) 60 mls @ 100 mls/hr IV ONCE ONE Stop: 08/25/21 13:35 Sodium Chloride (Sodium Chloride 0.9%) 1,000 mls @ 30 mls/hr IV .Q24H [facility] Stop: 08/26/21 08:59 Sodium Chloride (Sodium Chloride 0.9%) 500 mls @ 999 mls/hr IV .Q31M PRN PRN Reason: HYPOTENSION Insulin Human Lispro (Insulin Lispro 100 Unit/1 Ml) 0 unit SUBCUT TIDWM [facility]; Protocol Last Admin: 08/24/21 07:03 Dose: Not Given Documented by: Ipratropium [place] (Ipratropium 0.5 Mg/2.5 Ml Neb) 0.5 mg INHALATION ONCE PRN PRN Reason: WHEEZING Meperidine HCl (Meperidine 50 Mg/Ml Inj) 12.5 mg IVP Q5M PRN PRN Reason: Shivering PACU Phase I Stop: 08/26/21 08:55 Metoprolol Tartrate (Metoprolol Tartrate 25 Mg Tablet) 25 mg PO BID@0900,2100 [facility] Last Admin: 08/25/21 07:57 Dose: Not Given Documented by: Midazolam HCl (Midazolam 1 Mg/Ml Inj 2 Ml) 2 mg IVP Q5M PRN PRN Reason: Preop Anxiety Midazolam HCl (Midazolam 1 Mg/Ml Inj 5 Ml) 5 mg IVP ONCE PRN PRN Reason: Per anesthesia for block Multivitamins (W-Swojxjm-Rthwpqb C Tablet) 1 each PO DAILY [facility] Last Admin: 08/25/21 07:56 Dose: Not Given Documented by: Naloxone HCl (Naloxone 0.4 Mg/Ml Sdv) 0.1 mg IVP Q2M PRN PRN Reason: OPIATERV Ondansetron HCl (Ondansetron 2 Mg/Ml Sdv 2 Ml) 4 mg IVP Q8H PRN PRN Reason: vomiting, or N/V if npo Ondansetron HCl (Ondansetron 2 Mg/Ml Sdv 2 Ml) 4 mg IVP Q15M PRN PRN Reason: Nausea/Vomiting PACU PHASE II Ondansetron HCl (Ondansetron 2 Mg/Ml Sdv 2 Ml) 4 mg IVP Q5M PRN PRN Reason: Nausea PACU Phase I Stop: 08/26/21 08:55 Ondansetron HCl (Ondansetron 2 Mg/Ml Sdv 2 Ml) 4 mg IVP Q5M PRN PRN Reason: NAUSEA AND VOMITING Scopolamine (Scopolamine 1.5 Patch) 1 patch TRANSDERMA ONCE PRN PRN Reason: Nausea/ Vomiting Prophylaxis Vitals/I&O/Wt Last Vital Signs Temp 97.7 F 08/25/21 09:01 Pulse 87 08/25/21 09:01 Resp 18 08/25/21 09:01 BP 120/55 08/25/21 09:01 Pulse Ox 98 08/25/21 09:01 08/24/21 08/25/21 08/25/21 22:59 06:59 14:59 Intake Total 50 / 529.167 908 / 1437.167 Output Total 0 / 100 25 / 125 Balance 50 / 429.167 883 / 1312.167 Physical Exam Narrative: vs noted swollen in bed, confused, weak, nc 02 heent- nc/at, eomi, manicteric neck no jvp lungs -wheezes b/l heart reg, +JAMIE abd soft, nt, nd, + bs, + edema ext + b/l leg edema through thighs felder+ neuro- moans, not responsive skin-sacral decubitus Urinary Catheter Management: Felder: Cath Placed During This Visit: yes Reason for Continuing Indwelling Catheter: Assist Healing of Perineal & Sacral Wounds- Incontinent Patients Urinary Catheter Date of Insertion: 08/21/21 Urinary Catheter Time of Insertion: 02:57 Data : 08/25/21 05:45 08/25/21 05:45 Micro: Microbiology 08/23/21 17:18 Blood Culture - Preliminary Blood NEGATIVE TO DATE 08/23/21 17:18 Blood Culture - Preliminary Blood NEGATIVE TO DATE A&P Assessment and plan (1) Acute kidney injury superimposed on CKD: 71 yr old man w/ htn, dm, self cath due to neurogenic bladder, recurrent UTI 1. progressive renal failure- likely from DM, HTN. -normal size kidneys on renal us. no hydronephrosis -ua noted- but felder and he self cath - pth 209- repeat after vit d repleted - ALMITA + 1:80. anca neg -as AMS, met acidosis, oliguric- will initiate dialysis today- 2.5 hrs, 2k, no fluid removal - nephrotic range proteinuria likely from DM agree w/ checking Anti-PLA2R 2. AMS, sepsis secondary to UTI/ cellulitis/ sacral decub- -leukocytosis- broad spectrum abx -consider sacral decub debridement if concern for abscess 3 / met acidosis-7. - inc AGMA - repeat lactic acid -likely from renal failure -normal glucose- unlikely DKA -initiate hd -already on a bicarb drip 4. anemia eval - hgb stable no iv iron w/ sepsis 5. DM control DM w/ stage 4 CKD 6. phos binder when eats 7. replace vit d 8. echo - EF 55-60% a fib 9. uric acid 8.2 10. sacral decubitus per medicine and surgery seen and examined w/ RN- telehealth visit time spent > 30 min Status: Acute Plan see above Attestations Medical Necessity Statement*: hosea, septic shock, met acidosis Time Spent in Patient Care: 16 - 35 minutes (>than 50% of time spent in counselling and/or direct pt care on unit). Coding Level of Care Code Acute [employer] for Keila Leonardo Diagnoses Acute kidney injury superimposed on CKD N17.9; N18.9
--- NOTE | 2021-08-25 10:12 | P.OP_ITS ---
Operative Report Date of procedure: August 25, 2021 Pre-op diagnosis: Preop Diagnosis 1. Acute on chronic renal disease. 2. Multiple buttock wounds with eschars. Post-op diagnosis: Same. Procedure done: 1. 12 Danish 16 cm hemodialysis catheter placement into the right internal jugular vein with intraoperative fluoroscopy and ultrasound interpretation. 2. Sharp debridement of approximately 65 cm? of eschar/subcutaneous tissue from the buttocks. Specimens removed/disposition: None sent. Surgeon: General Surgery Aman Hernandes MD Estimated blood loss: 25 mL. Complications: None. Procedure: The patient was brought to the operating room and was placed in a supine position on the operating room table. A monitored anesthetic was induced. The right side of the neck and chest were prepped and draped in a sterile fashion. Intraoperative ultrasound was used to find the right internal jugular vein as evidenced by its size and compressibility. 2 percent bupivacaine with 1 to 100,000 parts epinephrine was used for local anesthetic on the neck and the right internal jugular vein was accessed with a needle and syringe on the first pass as evidenced by the return of dark nonpulsatile blood. The guidewire was easily passed down the needle and the needle was removed. The C-arm was positioned and showed the guidewire extending down the vena cava. A scalpel was used to slightly enlarge the skin opening at the insertion point of the J-wire. Small to medium sized dilators were then sequentially placed over the guidewire to dilate the skin and subcutaneous tissue. The dialysis catheter was then easily passed over the wire into the vein. The wire was removed. The C-arm was once again positioned and showed good placement of the dialysis catheter tip in the vena cava. Both ports were aspirated and flushed with hep flush solution. Both ports showed excellent flow and were then left filled with concentrated hep flush solution. The catheter was sewn in place on the right side of the neck with some interrupted sutures of 3-0 nylon. A sterile dressing followed. The patient had remained fairly stable throughout the procedure and had some eschars on his buttocks that we (along with the hospitalists and rolled materials worker) were anxious to have removed. For that reason the patient was then moved to a left lateral decubitus position on the operating room table. The buttocks were prepped and draped in a sterile fashion. The patient had some thin to moderate thickness eschars involving primarily the right buttock, but one of these areas just slightly crossed the midline posterior of the anus. Approximately 65 cm? of tissue were sharply debrided back to healthy tissue into the subcutaneous layer using a scalpel. Cautery was used to maintain hemostasis. After all the eschar had been removed some Silvadene was placed over all of the decubitus wounds and a dressing followed. The patient was taken to the recovery area in stable condition postoperatively. INTRAOPERATIVE FLUOROSCOPY interpretation: FINDINGS: Intraoperative fluoroscopic images of a hemodialysis catheter placement were reviewed. An initial image reveals a J-wire entering the right internal jugular vein and extending down the vena cava. Subsequent images reveal a dialysis catheter on that side of the chest with its tubing tip in good location in the superior vena cava. No obvious pneumothorax is identified.
--- NOTE | 2021-08-25 10:34 | ANES.PREANE2 ---
Pre-Anesthetic Assessment Height/Weight: Height 1.73 m Weight 102.313 kg Temp Pulse Resp BP Pulse Ox 97.7 F 87 18 120/55 98 08/25/21 09:01 08/25/21 09:01 08/25/21 09:01 08/25/21 09:01 08/25/21 09:01 Preop Diagnosis: Right distasl femur fracture Operation Date: 08/25/21 11:15 Proposed Procedures p Dialysis Catheter Insertion(Not Applicable) - Aman Hernandes MD s Debridement(Not Applicable) - Aman Hernandes MD Familial anesthetic complications: None Was Beta Kimberli taken within 24 hours: Yes Was Clonidine taken within 24 hours: N/A Social No alcohol and No tobacco Exam alert, oriented x 3, clear to auscultation bilaterally and regular rate & rhythm Airway Submandibular: within normal limits Cervical ROM: within normal limits Mallampati: Class II Dentition: false CV/HEM Congestive Heart Failure Metabolic Diabetes Mellitus Neuropsych Anxiety, Depression and Neuropathy MS Anesthetic Plan ASA status: 3E Anesthesia: MAC Medications/Allergies Home Medications Medication Instructions Recorded Confirmed Last Taken Type Coloplast Self cath 10 belarusian #2 ea 04/18/20 08/21/21 Unknown Rx roho cushion #1 ea 08/30/20 08/21/21 Unknown Rx aspirin 81 mg tablet,delayed 81 mg PO DAILY@0900 #30 tab 12/20/20 08/21/21 Unknown Rx release buspirone 15 mg tablet 15 mg PO TID@ #90 tab 12/20/20 08/21/21 Unknown Rx carbamazepine 200 mg 200 mg PO BID@0900,2100 #60 tab 12/20/20 08/21/21 Unknown Rx tablet,extended release,12 hr (Tegretol XR) famotidine 20 mg tablet 20 mg PO BID@0900,2100 #60 tab 12/20/20 08/21/21 Unknown Rx gabapentin 600 mg tablet 600 mg PO TID@ #90 tab 12/20/20 08/21/21 Unknown Rx hydralazine 25 mg tablet 25 mg PO TID #90 tab 12/20/20 08/21/21 Unknown Rx metoprolol succinate 50 mg 50 mg PO DAILY@0900 #30 tab 12/20/20 08/21/21 Unknown Rx tablet,extended release 24 hr (Toprol XL) pen needle, diabetic 32 gauge x #200 ea 12/20/20 08/21/21 Unknown Rx /32 (BD Ultra-Fine Nadia Pen Needle) venlafaxine 75 mg capsule,extended 225 mg PO DAILY@0900 #30 cap 12/20/20 08/21/21 Unknown Rx release 24 hr (Effexor XR) Wheelchair repair #1 ea 12/23/20 08/21/21 Unknown Rx power mobility chair #1 ea 12/24/20 08/21/21 Unknown Rx ergocalciferol (vitamin D2) 1,250 1,250 mcg PO Q7D 08/21/21 08/21/21 Unknown History mcg (50,000 unit) capsule insulin aspart U-100 100 unit/mL See Rx Instructions .ROUTE .COMPLEX 08/21/21 08/21/21 Unknown History (3 mL) subcutaneous pen (Novolog Flexpen U-100 Insulin aspart) insulin degludec 200 unit/mL (3 76 unit SUBCUT DAILY 08/21/21 08/21/21 Unknown History mL) subcutaneous pen (Tresiba FlexTouch U-200 insulin) Allergies Allergy/AdvReac Type Severity Reaction Status Date / Time baclofen Allergy ADR-Dizzine Verified 05/22/20 14:46 ss thiopental [From Pentothal] Allergy ALGY-Anaphy Verified 05/22/20 14:46 laxis Current Medications Generic Name Dose Route Start Last Admin Trade Name Freq PRN Reason Stop Dose Admin Acetaminophen 650 mg 08/21/21 05:43 08/24/21 08:48 Acetaminophen 325 Mg Tablet PO 650 mg Q6H PRN Administration Mild/Mod Pain Or Temp >/= 101 Aspirin 81 mg 08/21/21 09:00 08/25/21 07:56 Aspirin 81 Mg Ec Tablet PO Not Given DAILY [facility] Atorvastatin Calcium 20 mg 08/21/21 21:00 08/24/21 21:16 Atorvastatin 40 Mg Tablet PO Not Given BEDTIME [facility] Buspirone HCl 15 mg 08/21/21 05:45 08/24/21 04:44 Buspirone 10 Mg Tablet PO 15 mg Q8H [facility] Administration Carbamazepine 200 mg 08/21/21 09:00 08/25/21 07:57 Carbamazepine Xr (12 Hr) 200 Mg Tablet PO Not Given BID@0900,2100 [facility] Collagenase 1 applic 08/22/21 09:00 08/25/21 07:57 Collagenase Oint 30 Gm TOPICAL Not Given DAILY [facility] Famotidine 20 mg 08/24/21 14:45 08/25/21 02:13 Famotidine 20 Mg/2 Ml Inj IVP 20 mg Q12H [facility] Administration Folic Acid 1 mg 08/21/21 09:00 08/25/21 07:57 Folic Acid 1 Mg Tablet PO Not Given DAILY [facility] Gabapentin 100 mg 08/21/21 13:30 08/25/21 07:57 Gabapentin 100 Mg Capsule PO Not Given TID@0900,1200,2100 [facility] Heparin Sodium (Porcine) 5,000 unit 08/21/21 10:00 08/24/21 21:18 Heparin 5,000 Unit/Ml Inj 1 Ml SUBCUT 5,000 unit Q12H [facility] Administration Hydralazine HCl 25 mg 08/21/21 09:00 08/24/21 08:02 Hydralazine 25 Mg Tablet PO Not Given TID [facility] Piperacillin Sod/Tazobactam 50 mls @ 12.5 mls/hr 08/21/21 06:30 08/25/21 05:57 Sod 3.375 gm/ Sodium Chloride IV 12.5 mls/hr Q12H [facility] Administration Protocol Vancomycin HCl 1,000 mg/ 250 mls @ 250 mls/hr 08/24/21 11:00 08/24/21 12:31 Sodium Chloride IV Infused Q24H [facility] Infusion Sodium Bicarbonate 150 meq/ 1,000 mls @ 60 mls/hr 08/24/21 13:00 08/25/21 05:57 Dextrose IV 60 mls/hr .[id number] [facility] Administration Insulin Human Lispro 0 unit 08/22/21 12:00 08/24/21 07:03 Insulin Lispro 100 Unit/1 Ml SUBCUT Not Given TIDWM [facility] Protocol Metoprolol Tartrate 25 mg 08/24/21 21:00 08/25/21 07:57 Metoprolol Tartrate 25 Mg Tablet PO Not Given BID@0900,2100 [facility] Multivitamins 1 each 08/22/21 09:00 08/25/21 07:56 B-Hghznox-Xtcooku C Tablet PO Not Given DAILY [facility] Anesthesia Medical History (Updated 08/24/21 @ 14:28 by Alejandro Sanders MD) Acid reflux Anxiety and depression CKD (chronic kidney disease), stage III Constipation, slow transit DDD (degenerative disc disease) Decubitus ulcer Essential (primary) hypertension Fall Intermittent self-catheterization of bladder Mixed hyperlipidemia Multiple sclerosis Restless leg Supracondylar fracture of right femur 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 Wheel chair as ambulatory aid Surgical History (Updated 08/24/21 @ 14:26 by Alejandro Sanders MD) H/O splenectomy History of appendectomy History of back surgery Family History Mother CAD (coronary artery disease) Diabetes Father CAD (coronary artery disease) Diabetes Other Cancer Social History Smoking and tobacco status: former smoker Second hand smoke exposure: No Smoking risk assessment/counseling performed?: No Alcohol intake: current Desire information about alcohol rehabilitation?: No Counseling given: No Desire information about substance/drug rehabilitation?: No Counseling given: No Adopted: No Caregiver/support person: Yes Lives independently: No Household members: spouse Marital status: Current occupational status: disabled History of recent travel: No Current gender identity: Male Data Anesthesia : 08/25/21 05:45 08/25/21 05:45 Short CBC 08/24/21 08/25/21 Range/Units 03:24 05:45 WBC 18.2 H 25.3 H (4.0-10.0) 10^3/uL Hgb 10.4 L 11.2 L (11.7-16.6) g/dL Hct 32.4 L 34.9 L (42.0-52.0) % MCV 90.5 89.9 (80-94) fl Plt Count 462 H 462 H (130-400) 10^3/cmm Neut % (Auto) 81.4 84.6 % Neut # (Auto) 14.83 H 21.39 H (1.8-7.7) 10^3/uL BMP 08/24/21 08/25/21 03:24 05:45 Sodium 135 L 136 Potassium 4.7 5.1 Chloride 105 106 Carbon Dioxide 13 L 12 L BUN 60 H 65 H Creatinine 5.3 H 6.0 H* Glucose 131 H 103 Calcium 8.1 L 7.9 L Liver Function 08/24/21 08/25/21 Range/Units 03:24 05:45 Total Bilirubin 0.3 0.4 (0.15-1.2) mg/dL AST 20 16 (0-40) U/L ALT 7 8 (0-41) U/L Alkaline Phosphatase 125 129 (40-130) IU/L Albumin 3.5 3.6 (3.5-5.2) g/dL ABG 08/25/21 05:18 Specimen Type Arterial Sample Site Radial, left ABG pH 7.13 L* ABG pCO2 42.3 ABG pO2 71.3 L ABG HCO3 14.1 L ABG Base Excess -14.4 L O2 Delivery Device Nc O2 Liters/Min 2.0 Microbiology 08/23/21 17:18 Blood Culture - Preliminary Blood NEGATIVE TO DATE 08/23/21 17:18 Blood Culture - Preliminary Blood NEGATIVE TO DATE Cardiac Studies: Echocardiogram 08/21/21 Echocardiogram Ultrasound 07/27/20
--- NOTE | 2021-08-25 10:36 | ANE.PACU2 ---
Inpatient post-anesthesia follow up: Airway intact: Yes Vital signs: Temperature 97.7 F Pulse Rate 87 Respiratory Rate 18 Blood Pressure 120/55 Pulse Oximetry 98 Oxygen Delivery Me thod Nasal Cannula Oxygen Flow Rate 3 Fraction of Inspir ed Oxygen Hydration adequate: Yes Nausea and vomiting: No Pain level: 1 Mental status: Baseline
--- NOTE | 2021-08-25 10:37 | PC.NURSE ---
PATIENT TRANSFERRED TO ICU-8, VSS, IV PATENT RIGHT FOREARM, HAGER CATH TO DEP. GRAVITY DRAINAGE. PATIENT RESPONDS TO YES/NO QUESTIONS.
[2021-08-25 10:43] LABS: Glucose Point of Care 96 mg/dL (70-110)
--- NOTE | 2021-08-25 10:58 | XRR_ITS ---
PROCEDURE INFORMATION: Exam: XR Abdomen Exam date and time: 08/25/2021 4:28 PM Age: 71 years old Clinical indication: Bloating; Additional info: Abdomen distended and rigid TECHNIQUE: Imaging protocol: XR of the abdomen. Views: Frontal supine view of the abdomen. 1 View. COMPARISON: CT abdomen pelvis con [id number] 08/21/2021 3:11 AM FINDINGS: Gastrointestinal tract: [id number] constipation without bowel dilation to indicate obstruction. Bones/joints: Unremarkable. XR/XR KUB portable [id number] IMPRESSION: [id number] constipation without bowel dilation to indicate obstruction.
--- NOTE | 2021-08-25 11:47 | PM.PN ---
Subjective Subjective: Overnight patient has remained stable. He was put on 2 L oxygen supplementation to maintain saturation over 92%. Blood pressures have been better. Patient still remains confused and somnolent. Had been continued on D5W with 50 mEq of sodium bicarb at 60 cc/h overnight. Today morning patient underwent Shiley cath placement and deep debridement of his decub ulcers and was transferred to ICU for dialysis. Has remained afebrile. On examination patient is sleeping, waking up to physical and verbal cue, not following commands, confused. Vitals/I&O/Wt Last Vital Signs Temp 97.2 F L 08/25/21 10:28 Pulse 70 08/25/21 11:25 Resp 16 08/25/21 11:25 BP 99/73 08/25/21 11:25 Pulse Ox 93 08/25/21 11:25 08/24/21 08/25/21 08/25/21 22:59 06:59 14:59 Intake Total 50 / 529.167 908 / 1437.167 Output Total 0 / 100 25 / 125 Balance 50 / 429.167 883 / 1312.167 Physical Exam Narrative: General: No acute distress, lethargic, sleepy but arousable, wakes up to answer appropriately and then dozes off again HEENT: PERRLA, pupils bilaterally equal and reactive Chest: Normal vesicular breath sounds, no added sounds, equal good air entry bilaterally CVS: S1-S2 regular, no murmurs, no tachycardia, no gallops, no rubs Abdomen: Soft, nontender, no organomegaly, bowel sounds present, bilateral dependent subcutaneous edema present up to the flanks Neuro: No focal deficits, no facial deformity, Extremities: venous stasis changes, skin breakdown left second toe, 1+ edema to the thighs.? Large decubitus present buttocks with slight surrounding erythema surrounding a black eschar.? Collagenase has been placed on this and some debridment is noted.? No obvious drainage.? Small tunneled area superiorly, of which opening is very small.? Cellulitis surrounding decub improved. Urinary Catheter Management: Thrasher: Cath Placed During This Visit: yes Reason for Continuing Indwelling Catheter: Assist Healing of Perineal & Sacral Wounds- Incontinent Patients Urinary Catheter Date of Insertion: 08/21/21 Urinary Catheter Time of Insertion: 02:57 Data : 08/25/21 05:45 08/25/21 05:45 Micro: Microbiology 08/23/21 17:18 Blood Culture - Preliminary Blood NEGATIVE TO DATE 08/23/21 17:18 Blood Culture - Preliminary Blood NEGATIVE TO DATE A&P Assessment and plan (1) Altered mental status: Status: Acute (2) Uremia: Status: Acute (3) Acute kidney injury superimposed on CKD: Status: Acute (4) Decubitus ulcer: Status: Inactive (5) UTI (urinary tract infection): Status: Acute (6) Cellulitis: Status: Acute (7) Stage II pressure ulcer: Status: Acute (8) Anasarca: Status: Acute (9) CHF (congestive heart failure): Status: Acute (10) Multiple sclerosis: Status: Chronic (11) Essential (primary) hypertension: Status: Chronic (12) Diabetes mellitus: Status: Chronic Qualifiers: Diabetes mellitus type: type 2 Diabetes mellitus intermediate project manager insulin use: with alf use Diabetes mellitus complication status: with other specified complication Qualified Code(s): E11.69 - Type 2 diabetes mellitus with other specified complication; Z79.4 - manager long term care (current) use of insulin (13) H/O splenectomy: Status: Acute (14) Oliguria: Status: Acute Plan Altered mental status: Most likely secondary to uremia, polypharmacy in setting of YEYO on CKD. Renal function worsening. Multiple medication including BuSpar, Zanaflex and at a higher dose. N.p.o. as patient is at high risk of aspiration. Hold venlafaxine and BuSpar for now. Change dose of gabapentin to 100 mg 3 times daily. Continue carbamazepine at 200 mg twice daily. Check levels. YEYO on CKD: Nephrotic range disease. Appreciate nephrology recommendations. Given oliguria, uremia, altered mental status patient would need dialysis. Nephrology agreeable. Confirmed with patient's /DPOA. She is agreeable. Temporary dialysis catheter placed. Plan for dialysis. For now continue on D5W at 60 cc/h with sodium bicarb. Repeat BMP in afternoon. High anion gap metabolic acidosis: Treatment as above. Medical reconciliation done for nephrotoxic drugs. Sepsis secondary to UTI and cellulitis: Stage II decubitus ulcer: Post debridement on 08/25 Appreciate surgical recommendations. Wound care as per surgical team. Urine culture consistent with E. coli and Morganella. Both sensitive to Zosyn. Continue with vancomycin and Zosyn for now. Blood culture from 08/23 so far negative. Decrease pain medication with increasing frequency given altered mental status. Keep mean artery pressure 65. Midodrine 10 mg 3 times daily as needed. If needed can do Levophed as well. Congestive heart failure: Diastolic type. Dehydrated currently. Echocardiogram done shows an EF 55 to 60% with indeterminate diastolic function. IV fluids as above. Atrial fibrillation: Currently rate controlled. Continue with metoprolol at 25 mg twice daily. Chronically not on anticoagulation because of risk of falls. Type 2 diabetes mellitus: Hypoglycemia. Hold insulin sliding scale at low-dose protocol every 6 hours for now. Start on D5W as above. HbA1c 6.9. Full code. NPO. Heparin for DVT prophylaxis. Famotidine for PUD prophylaxis. Plan for day: Continue with antibiotics. Shiley placement and dialysis today. Hold Zanaflex and and BuSpar. Repeat BMP in afternoon. Continue with D5W with sodium bicarb for now at 60 cc/h. Discharge plan: Most likely patient would need to be discharged to SNF for aggressive wound care. Will need to follow-up further regarding possibility of dialysis as an outpatient. Attestations Medical Necessity Statement*: Requires further hospitalization for management of altered mental status secondary to kidney failure, high anion gap metabolic acidosis, sepsis secondary to cellulitis and stage II decubitus ulcer Critical Care Time: The high probability of a clinically significant, sudden or life threatening deterioration of the patient's [renal, neurological, ID system(s) required my full and direct attention, intervention and personal management. The critical care time is as shown. This time is in addition to time spent performing any reported procedures but includes the following: [x] Data and vital sign review and interpretation [x] Patient assessment, examination and intervention [x] Documentation [x] Medication orders and management Critical Care Time (min): 90 Coding Level of Care Code Acute Grants And Contracts Assistant for [facility] Fwd Diagnoses Altered mental status R41.82 Uremia N19 Acute kidney injury superimposed on CKD N17.9; N18.9 Decubitus ulcer L89.90 UTI (urinary tract infection) N39.0 Cellulitis L03.90 Stage II pressure ulcer L89.92 Anasarca R60.1 CHF (congestive heart failure) I50.9 Multiple sclerosis G35 Essential (primary) hypertension I10 Diabetes mellitus E11.69; Z79.4 Diabetes mellitus type: type 2 Diabetes mellitus intermediate project manager insulin use: with alf use Diabetes mellitus complication status: with other specified complication H/O splenectomy Z90.81 Oliguria R34
--- NOTE | 2021-08-25 12:00 | PC.NURSE ---
Patient brought to ICU 8 via patient bed. Dialysis port placed right chest. IV Right AC. Patient alert to voice. Unable to verbally respond respond. Sacral wound debrided in OR by Dr. Hernandes. Pressure wounds to Right posterior foot and Right lateral Heel. Verbal orders from Hospitalist to apply silvadene to wounds. Abdomen distended and rigid. Hospitalist notified with order for KUB of abdomen ordered. Patient on 8 liters via mask. Patient currently on dialysis. , Britt, gave verbal consent for Dialysis treatment via phone with secondary nurse Zonia TO as secondary confirmation.
[2021-08-25] MEDS: silver sulfadiazine cream 1% 50 gm 1 APPLIC TOPICAL (13:00)
--- NOTE | 2021-08-25 15:44 | PC.NURSE ---
New IV site : right AC. Ultra Sound guided placement
[2021-08-25 16:44] LABS: Anion Gap 20.9 (5-19); Blood Urea Nitrogen 45 mg/dL (8-23); Carbon Dioxide 20 mmol/L (22-29); Chloride 101 mmol/L (98-107); Glucose 100 mg/dL (65-115); Osmolality Calculated 298 mOsm/kg (285-295); Potassium 3.9 mmol/L (3.5-5.1); Sodium 138 mmol/L (136-145)
[2021-08-25 17:27] LABS: Kappa Free Light Chains Urine 114.78 mg/L (<=32.90)
[2021-08-25] MEDS: heparin 5,000 unit/mL INJ 1 mL 5000 UNIT SUBCUT (23:42)
[2021-08-25] MEDS: morphine 4 mg/mL SDV 1 mL 2 MG IVP (23:45)
[2021-08-26] VITALS (101 sets, daily range): BP systolic 91–170; BP diastolic 52–95; PULSE 62–99; RESP 9–27; TEMP 35.5–36.7; O2SAT 67–100
[2021-08-26] MEDS: famotidine 20 mg/2 mL INJ IVP ×2 (03:43→15:10)
[2021-08-26] MEDS: morphine 4 mg/mL SDV 1 mL 2 MG IVP ×2 (04:06→15:09)
[2021-08-26] MEDS: piperacillin-tazobactam 3.375 GM in sodium chloride 0.9% (plus) 50 ML IV ×2 (05:31→17:38)
[2021-08-26 05:32] LABS: Alanine Aminotransferase 7 U/L (0-41); Albumin Level 2.6 g/dL (3.5-5.2); Alkaline Phosphatase 114 IU/L (40-130); Blood Urea Nitrogen 45 mg/dL (8-23); Calcium 7.6 mg/dL (8.5-10.5); Carbon Dioxide 16 mmol/L (22-29); Glucose 99 mg/dL (65-115); Phosphorus 7.2 mg/dL (2.5-4.5); Total Bilirubin 0.3 mg/dL (0.15-1.2); Total Protein 5.6 g/dL (6.6-8.7)
[2021-08-26 07:28] LABS: Chloride 100 mmol/L (98-107); Osmolality Calculated 295 mOsm/kg (285-295); Sodium 136 mmol/L (136-145)
[2021-08-26 07:32] LABS: Anion Gap 27.5 (5-19); Potassium 4.5 mmol/L (3.5-5.1)
[2021-08-26 07:33] LABS: Aspartate Amino Transferase 16 U/L (0-40)
--- NOTE | 2021-08-26 07:43 | PM.PN ---
Subjective Subjective: more awake. however, confused and not giving a ROS Medications: Reviewed: Yes Medication Review Details: Current Medications Acetaminophen (Acetaminophen 325 Mg Tablet) 650 mg PO Q6H PRN PRN Reason: Mild/Mod Pain Or Temp >/= 101 Last Admin: 08/24/21 08:48 Dose: 650 mg Documented by: Hydrocodone Bitart/Acetaminophen (Hydrocodone-Acetaminophen 5-325 Mg Tablet) 1 tab PO Q8H PRN PRN Reason: MODERATE PAIN Aspirin (Aspirin 81 Mg Ec Tablet) 81 mg PO DAILY [facility] Last Admin: 08/25/21 07:56 Dose: Not Given Documented by: Atorvastatin Calcium (Atorvastatin 40 Mg Tablet) 20 mg PO BEDTIME [facility] Last Admin: 08/25/21 21:54 Dose: Not Given Documented by: Buspirone HCl (Buspirone 10 Mg Tablet) 15 mg PO Q8H [facility] Last Admin: 08/24/21 04:44 Dose: 15 mg Documented by: Carbamazepine (Carbamazepine Xr (12 Hr) 200 Mg Tablet) 200 mg PO BID@0900,2100 [facility] Last Admin: 08/25/21 21:54 Dose: Not Given Documented by: Collagenase (Collagenase Oint 30 Gm) 1 applic TOPICAL DAILY [facility] Last Admin: 08/25/21 07:57 Dose: Not Given Documented by: Dextrose (Dextrose 50% Syringe 50 Ml) 25 ml IVP ONCE PRN; Protocol PRN Reason: hypoglycemia protocol Dextrose (Dextrose 50% Syringe 50 Ml) 50 ml IVP PRN PRN; Protocol PRN Reason: hypoglycemia protocol Famotidine (Famotidine 20 Mg/2 Ml Inj) 20 mg IVP Q12H [facility] Last Admin: 08/26/21 03:43 Dose: 20 mg Documented by: Folic Acid (Folic Acid 1 Mg Tablet) 1 mg PO DAILY [facility] Last Admin: 08/25/21 07:57 Dose: Not Given Documented by: Glucagon (Glucagon 1 Mg/Ml Inj 1 Ml) 1 mg IM ONCE PRN; Protocol PRN Reason: Adult Acute Hypoglycemia Prot. Heparin Sodium (Porcine) (Heparin 5,000 Unit/Ml Inj 1 Ml) 5,000 unit SUBCUT Q12H [facility] Last Admin: 08/25/21 23:42 Dose: 5,000 unit Documented by: Hydralazine HCl (Hydralazine 25 Mg Tablet) 25 mg PO TID [facility] Last Admin: 08/24/21 08:02 Dose: Not Given Documented by: Dextrose (D5w) 500 mls @ 100 mls/hr IV ONCE PRN; Protocol PRN Reason: Adult Acute Hypoglycemia Prot Piperacillin Sod/Tazobactam (Sod 3.375 gm/ Sodium Chloride) 50 mls @ 12.5 mls/hr IV Q12H [facility]; Protocol Last Admin: 08/26/21 05:31 Dose: 12.5 mls/hr Documented by: Vancomycin HCl 1,000 mg/ (Sodium Chloride) 250 mls @ 250 mls/hr IV Q24H [facility] Last Infusion: 08/24/21 12:31 Dose: Infused Documented by: Sodium Bicarbonate 150 meq/ (Dextrose) 1,000 mls @ 60 mls/hr IV .[id number] [facility] Last Admin: 08/25/21 14:52 Dose: 60 mls/hr Documented by: Albumin Human (Albumin) 12.5 gm in 50 mls @ 60 mls/hr IV PRN PRN PRN Reason: Hypotension and/or symptomatic Norepinephrine Bitartrate 4 mg (/ Dextrose) 254 mls @ 0 mls/hr IV .Q0M [facility]; Protocol Insulin Human Lispro (Insulin Lispro 100 Unit/1 Ml) 0 unit SUBCUT TIDWM [facility]; Protocol Last Admin: 08/24/21 07:03 Dose: Not Given Documented by: Metoprolol Tartrate (Metoprolol Tartrate 25 Mg Tablet) 25 mg PO BID@0900,2100 [facility] Last Admin: 08/25/21 21:55 Dose: Not Given Documented by: Midodrine (Midodrine 5 Mg Tablet) 10 mg PO TID PRN PRN Reason: Systolic blood pressure less than 100 mmHg. Morphine Sulfate (Morphine 4 Mg/Ml Sdv 1 Ml) 2 mg IVP Q4H PRN PRN Reason: SEVERE PAIN Last Admin: 08/26/21 04:06 Dose: 2 mg Documented by: Multivitamins (D-Hdixxiq-Vsofjkm C Tablet) 1 each PO DAILY [facility] Last Admin: 08/25/21 07:56 Dose: Not Given Documented by: Naloxone HCl (Naloxone 0.4 Mg/Ml Sdv) 0.1 mg IVP Q2M PRN PRN Reason: OPIATERV Ondansetron HCl (Ondansetron 2 Mg/Ml Sdv 2 Ml) 4 mg IVP Q8H PRN PRN Reason: vomiting, or N/V if npo Silver Sulfadiazine (Silver Sulfadiazine Cream 1% 50 Gm) 1 applic TOPICAL ONCE [facility] Last Admin: 08/25/21 13:00 Dose: 1 applic Documented by: Vitals/I&O/Wt Last Vital Signs Temp 98.0 F 08/26/21 03:30 Pulse 66 08/26/21 06:45 Resp 12 08/26/21 06:45 BP 114/60 08/26/21 06:45 Pulse Ox 100 08/26/21 06:45 08/25/21 08/26/21 08/26/21 22:59 06:59 14:59 Intake Total 50 / 935 Output Total 0 / 300 Balance 50 / 635 Weight last 48 hrs Weight 108.9 kg Physical Exam Narrative: vs noted - no pressors swollen in bed, awake, tracks, talks a little. still confused, weak, nc 02 heent- nc/at, eomi, manicteric neck no jvp. RT IJ dialysis access lungs -dec wheezes b/l heart reg, +JAMIE abd soft, nt, nd, + bs, + edema ext + b/l leg edema through thighs felder+ neuro- confused, but awakens skin-sacral decubitus Urinary Catheter Management: Felder: Cath Placed During This Visit: yes Reason for Continuing Indwelling Catheter: Assist Healing of Perineal & Sacral Wounds- Incontinent Patients Urinary Catheter Date of Insertion: 08/21/21 Urinary Catheter Time of Insertion: 02:57 Data : 08/25/21 05:45 08/26/21 03:38 Micro: Microbiology 08/21/21 03:32 Blood Culture - Final Blood NO GROWTH AFTER 5 DAYS A&P Assessment and plan (1) Acute kidney injury superimposed on CKD: 71 yr old man w/ htn, dm, self cath due to neurogenic bladder, recurrent UTI 1. progressive renal failure- likely from DM, HTN. -normal size kidneys on renal us. no hydronephrosis -ua noted- but felder and he self cath - pth 209- repeat after vit d repleted - ALMITA + 1:80. anca neg -s/p first HD yesterday -repeat dialysis today- 3 hrs, 3k, 1l fluid removal - nephrotic range proteinuria likely from DM agree w/ checking Anti-PLA2R 2. AMS, sepsis secondary to UTI/ cellulitis/ sacral decub, and uremia- -leukocytosis- broad spectrum abx -s/p sacral decub debridement per Dr. Hernandes on 08/25/21 3 / met acidosis-7. - inc AGMA - repeat lactic acid -likely from renal failure -normal glucose- unlikely DKA -monitor w/ HD 4. anemia eval - hgb stable no iv iron w/ sepsis 5. DM control DM w/ stage 4 CKD 6. phos binder when eats 7. replace vit d 8. echo - EF 55-60% a fib 9. uric acid 8.2 10. sacral decubitus per medicine and surgery seen and examined w/ RN- telehealth visit time spent > 30 min Status: Acute Plan see above Attestations Medical Necessity Statement*: hosea, sepsis Time Spent in Patient Care: 16 - 35 minutes (>than 50% of time spent in counselling and/or direct pt care on unit). Coding Level of Care Code Acute Rn Surgical Pcu for [facility] Diagnoses Acute kidney injury superimposed on CKD N17.9; N18.9
[2021-08-26] MEDS: metoprolol tartrate 25 mg Tablet PO (08:29)
[2021-08-26] MEDS: carBAMazepine XR (12 HR) 200 mg Tablet PO (08:29)
[2021-08-26] MEDS: aspirin 81 mg EC Tablet PO (08:29)
[2021-08-26] MEDS: b-complex-vitamin c Tablet 1 EACH PO (08:29)
[2021-08-26] MEDS: folic acid 1 mg Tablet PO (08:29)
--- NOTE | 2021-08-26 09:32 | PM.PN ---
Subjective Subjective: The patient seems more alert and says he feels better today. Nursing has reported that he is having some significant oozing from his debridement sites on his buttocks. Vitals/I&O/Wt Last Vital Signs Temp 98.0 F 08/26/21 03:30 Pulse 99 08/26/21 08:46 Resp 12 08/26/21 06:45 BP 114/60 08/26/21 06:45 Pulse Ox 97 08/26/21 08:46 08/25/21 08/26/21 08/26/21 22:59 06:59 14:59 Intake Total 50 / 935 1000 / 1000 Output Total 0 / 300 Balance 50 / 635 1000 / 1000 Weight last 48 hrs Weight 240 lb 1.334 oz Physical Exam Narrative: The buttock wounds were inspected. The patient has some ongoing bleeding from a couple different sites. There was significant old blood on the bandage/in his bed. The wounds were dressed with some Surgicel and somewhat of a pressure dressing and this appeared to stop the bleeding. Urinary Catheter Management: Thrasher: Cath Placed During This Visit: yes Reason for Continuing Indwelling Catheter: Assist Healing of Perineal & Sacral Wounds- Incontinent Patients Urinary Catheter Date of Insertion: 08/21/21 Urinary Catheter Time of Insertion: 02:57 Data : 08/25/21 05:45 08/26/21 03:38 Micro: Microbiology 08/21/21 03:32 Blood Culture - Final Blood NO GROWTH AFTER 5 DAYS A&P Assessment and plan (1) Acute kidney injury superimposed on CKD: Status post dialysis catheter placement on 08/26/2021. Status: Acute (2) Stage II pressure ulcer: Status post debridement of multiple buttock wounds on 08/26/2021. The patient is having some significant oozing from a couple different sites here. These areas were redressed with some Surgicel and I am hoping that we will stop the oozing. We are discontinuing any Santyl to the wounds as the mechanical debridement took care of all the necrotic tissue. I am going a hold the patient's subcutaneous heparin for now, as well, until we are sure the bleeding has stopped. SCDs. Status: Acute Attestations Medical Necessity Statement*: See admitting service's notation. Coding Level of Care Code Acute Research Phlebotomist for [facility] Diagnoses Acute kidney injury superimposed on CKD N17.9; N18.9 Stage II pressure ulcer L89.92
--- NOTE | 2021-08-26 10:06 | XR_ITS ---
WS: [id number] Exam: XR chest 1V portable [id number] Date/Time of Exam: 08/26/2021 10:09 AM Reason For Exam: sob There is cardiac enlargement with diffuse interstitial infiltrates and pulmonary vascular engorgement . A right IJ catheter is noted and probably ends in the right atrium. No pneumothorax. No pleural eff usion seen. XR/XR chest 1V portable [id number] IMPRESSION: 1. Extensive interstitial infiltrates throughout both lungs that could represen t interstitial pneumonia or pulmonary edema. 2. Cardiac enlargement with pulmonary vascular congestion suggesting CHF.
--- NOTE | 2021-08-26 10:42 | PC.CHAP ---
Pastoral Care Encounter/Spiritual Assessment Type of Contact [] Declined inspection supervisor visit [] Patient/Family/Request visit [] Outpatient visit [] Follow-up visit [] Physician referral [] Code/Alert [x] Routine visit [] Staff referral [] Actively dying [] Patient sleeping [] Family support [] [] Out of room [] Palliative care [] [] Receiving care in room [] Pre-surgical visit [] Trauma [] Long length of stay [x] ICU visit [x] Other: dialyses Relational/Emotional Strength [] Patient feels connected with others/family/visitors/staff [] Distress [] Loneliness/isolation [] Abandonment Spirituality of Patient [] Person of Maribel [] Attends Orthodoxy of their Maribel [] Believes in Prayer [] Reads Bible or Evangelical materials [] There are Spiritual issues to be addressed Nail Mill Worker Interventions [x] Prayer [] Active listening [] Non-anxious presence [] Spiritual/emotional support [] Crisis/trauma care [] Spiritual counseling [] Bereavement support [] Provided bereavement packet [] Provided Bible/devotional materials [] Provided toy/stuffed animal, coloring book to patient or family member [] Provided Communion [] Anointing/Sedan [] Salvation [x] Completed spiritual assessment [] Other: Impact on Illness or Injury [] Angry [] Fearful [] Anxious [] Often cries [] Exhaustion [] Unable to work [] Unable to attend restorationism [] Unable to walk/stand [] Unable to read [] Unable to drive [] Unable to eat/drink [] Unable to sleep [] Unable to be with family [] Patient intubated [] Other: Summary Time spent with patient
[2021-08-26 10:49] LABS: Basophils # 0.1 10^3/uL (0.0-0.1); Basophils % 0.6 %; Eosinophils # 0.6 10^3/uL (0.0-0.8); Eosinophils % 2.7 %; Hematocrit 24.7 % (42.0-52.0); Lymphocytes # 1.8 10^3/uL (0.8-4.8); Lymphocytes % 8.6 %; Mean Corpuscular HGB Conc 32.4 g/dL (30.0-36.0); Mean Corpuscular Hemoglobin 28.2 pg (28.0-34.0); Mean Platelet Volume 11.7 fL (7.4-10.4); Monocytes # 1.4 10^3/uL (0.2-0.9); Monocytes % 6.8 %; Neutrophils # 16.46 10^3/uL (1.8-7.7); Neutrophils % 80.7 %; Nucleated Red Blood Cells # 0.4 /100WBC; Nucleated Red Blood Cells % 2.1 %; Platelet Count 397 10^3/cmm (130-400); Red Blood Count 2.84 10^6/uL (4.1-5.3); Red Cell Distribution Width 16.5 % (12.1-15.1); White Blood Count 20.4 10^3/uL (4.0-10.0)
[2021-08-26 11:22] LABS: C Reactive Protein 296.8 mg/L (0.0-4.9)
--- NOTE | 2021-08-26 11:27 | P.PN_ITS ---
Subjective Subjective: Patient was seen this morning he is alert to person, to place, not to time, he does follow commands such as squeezing my fingers, he is a bit drowsy this morning, off frequently requires redirection nursing staff tell me that his is surgical debridement site dressings have been soaked in blood, re quiring recurrent dressing changes, he was reexamined early in the morning, during his dialysis session he is much more alert awake, following commands, tells me that he is feeling better, no chest pain, no nausea no shortness of breath, is on 4 L Vitals/I&O/Wt Last Vital Signs Temp 98.0 F 08/26/21 03:30 Pulse 71 08/26/21 10:45 Resp 16 08/26/21 10:45 BP 106/60 08/26/21 10:45 Pulse Ox 100 08/26/21 10:45 08/25/21 08/26/21 08/26/21 22:59 06:59 14:59 Intake Total 50 / 935 1410 / 1410 Output Total 0 / 300 Balance 50 / 635 1410 / 1410 Weight last 48 hrs Weight 108.9 kg Physical Exam Const: COMMON NORMALS: no acute distress GENERAL APPEARANCE: cooperative and comfortable ORIENTATION/CONSCIOUSNESS: Yes awake, Yes oriented to person and Yes oriented to place; not oriented to time Resp: COMMON NORMALS: normal respiratory effort, No retractions, No use of accessory muscles and clear to auscultation bilaterally AUSCULTATION: clear to auscultation bilaterally Cardio: COMMON NORMALS: regular rate, regular rhythm, S1 normal heart sound present and S2 normal heart sound present RATE: regular rate RHYTHM: regular rhythm HEART SOUNDS: S1 normal heart sound present and S2 normal heart sound present GI: COMMON NORMALS: Normal to inspection, nondistended, normoactive bowel sounds present, Soft to palpation, non-tender and No hepatosplenomegaly present PALPATION: Yes Soft to palpation and Yes No hepatosplenomegaly present Extremity: COMMON NORMALS: no pedal edema Neuro: SENSORIUM/ORIENTATION: Yes oriented to person, Yes oriented to place and No oriented to time Urinary Catheter Management: Thrasher: Cath Placed During This Visit: yes Reason for Continuing Indwelling Catheter: Assist Healing of Perineal & Sacral Wounds- Incontinent Patients Urinary Catheter Date of Insertion: 08/21/21 Urinary Catheter Time of Insertion: 02:57 Data : 08/26/21 10:28 08/26/21 03:38 Micro: Microbiology 08/21/21 03:32 Blood Culture - Final Blood NO GROWTH AFTER 5 DAYS A&P Assessment and plan (1) Acute kidney injury superimposed on CKD: Status: Acute (2) Oliguria: Status: Acute (3) H/O splenectomy: Status: Acute (4) Altered mental status: Status: Acute (5) Uremia: Status: Acute (6) Hyperphosphatemia: Status: Acute (7) Stage II pressure ulcer: Status: Acute (8) Anasarca: Status: Acute (9) Cellulitis: Status: Acute (10) Pleural effusion: Status: Acute (11) CHF (congestive heart failure): Status: Acute (12) Pressure injury of ischium, stage 2: Status: Acute Qualifiers: Laterality: right Qualified Code(s): L89.312 - Pressure ulcer of right buttock, stage 2 Plan Altered mental status: Most likely secondary to uremia, polypharmacy in setting of YEYO on CKD, sepsis secondary to infection -Mentation is improving today Renal function worsening. Multiple medication including BuSpar, Zanaflex and at a higher dose. Mentation has improved, start renal dialysis diet, consult speech therapy Hold venlafaxine and BuSpar for now.? Change dose of gabapentin to 100 mg 3 times daily. Continue carbamazepine at 200 mg twice daily. Is receiving dialysis today YEYO on CKD: Nephrotic range disease. Appreciate nephrology recommendations. Given oliguria, uremia, altered mental status patient would need dialysis.? Nephrology agreeable.? Confirmed with patient's /DPOA.? She is agreeable. Temporary dialysis catheter placed. Received dialysis yesterday, Is receiving dialysis today For now continue on D5W with 60 cc/h with sodium bicarb. High anion gap metabolic acidosis: Treatment as above. Medical reconciliation done for nephrotoxic drugs. Sepsis secondary to UTI and cellulitis: Stage II decubitus ulcer: Post debridement on 08/25 Patient has extensive sacral decubitus ulcer status post debridement, that requires aggressive wound care, repositioning and will require residential placement Appreciate surgical recommendations, dressing changes wet-to-dry Wound care as per surgical team. Urine culture consistent with E. coli and Morganella.? Both sensitive to Zosyn. Continue with vancomycin and Zosyn for now.? Blood culture from 08/23 so far negative. Decrease pain medication with increasing frequency given altered mental status. Keep mean artery pressure 65.? Midodrine 10 mg 3 times daily as needed.? If needed can do Levophed as well. Congestive heart failure: Diastolic type.? On 4 L, no crackles on exam continue to monitor Echocardiogram done shows an EF 55 to 60% with indeterminate diastolic function. IV fluids as above. Atrial fibrillation: Currently rate controlled. Continue with metoprolol at 25 mg twice daily. Chronically not on anticoagulation because of risk of falls. Type 2 diabetes mellitus: Hypoglycemia. Hold insulin sliding scale at low-dose protocol every 6 hours for now.? Start on D5W as above. HbA1c 6.9. Acute anemia, secondary renal failure, surgery, hemoglobin 8.0, recheck hemoglobin in the evening Full code. Renal dialysis status Heparin for DVT prophylaxis. Famotidine for PUD prophylaxis. Plan for day:?Continue with antibiotics. dialysis today.? Hold Zanaflex and and BuSpar.?? Continue with D5W with sodium bicarb for now at 60 cc/h. Discharge plan: Most likely patient would need to be discharged to SNF for aggressive wound care.? Will need to follow-up further regarding possibility of dialysis as an outpatient. Attestations Medical Necessity Statement*: Patient requires hospitalization for altered mental status, sacral decubitus ulcers, dialysis dependent, critical care time spent 35 minutes Coding Level of Care Code Acute Surveying Crew Rodman for [facility] Fwd Diagnoses Acute kidney injury superimposed on CKD N17.9; N18.9 Oliguria R34 H/O splenectomy Z90.81 Altered mental status R41.82 Uremia N19 Hyperphosphatemia E83.39 Stage II pressure ulcer L89.92 Anasarca R60.1 Cellulitis L03.90 Pleural effusion J90 CHF (congestive heart failure) I50.9 Pressure injury of ischium, stage 2 L89.312 Laterality: right
[2021-08-26 11:28] LABS: Procalcitonin 12.26 ng/mL (0-0.5)
[2021-08-26] MEDS: vancomycin 1,000 MG in sodium chloride 0.9% 250 ML 250 MG IV (15:10)
--- NOTE | 2021-08-26 16:16 | PC.SOCIAL ---
IMM update IMM updated with patient. Copy Pg 2 provided. Initialled, dated, timed, and placed in chart.
--- NOTE | 2021-08-26 18:03 | PC.NURSE ---
Diaylsis on patient today, able to remove 1 liter of fluid. Patient more alert this shift.
[2021-08-26 18:30] LABS: Hematocrit 23.9 % (42.0-52.0); Hemoglobin 7.7 g/dL (11.7-16.6)
[2021-08-27] VITALS (69 sets, daily range): BP systolic 112–191; BP diastolic 61–103; PULSE 62–89; RESP 12–22; TEMP 36.6–36.8; O2SAT 86–100
[2021-08-27 00:33] LABS: Glucose Point of Care 125 mg/dL (70-110)
[2021-08-27] MEDS: famotidine 20 mg/2 mL INJ IVP ×2 (03:07→15:14)
[2021-08-27 05:02] LABS: Ammonia 51 umol/L (16-60)
[2021-08-27 05:09] LABS: NT Pro B Type Natriuretic Pept 20245 pg/mL (0-125); Procalcitonin 8.28 ng/mL (0-0.5)
[2021-08-27 05:21] LABS: Alanine Aminotransferase 6 U/L (0-41); Albumin Level 2.3 g/dL (3.5-5.2); Alkaline Phosphatase 102 IU/L (40-130); Aspartate Amino Transferase 11 U/L (0-40); Blood Urea Nitrogen 30 mg/dL (8-23); C Reactive Protein 247.4 mg/L (0.0-4.9); Calcium 7.9 mg/dL (8.5-10.5); Carbon Dioxide 21 mmol/L (22-29); Chloride 101 mmol/L (98-107); Creatine Phosphokinase 29 U/L (39-308); Globulin 2.9 g/dL (1.3-4.6); Glucose 123 mg/dL (65-115); Magnesium 1.9 mg/dL (1.7-2.3); Osmolality Calculated 292 mOsm/kg (285-295); Phosphorus 5.1 mg/dL (2.5-4.5); Sodium 137 mmol/L (136-145); Total Bilirubin 0.3 mg/dL (0.15-1.2); Total Protein 5.2 g/dL (6.6-8.7); Uric Acid 4.7 mg/dL (3.4-7.0)
[2021-08-27] MEDS: piperacillin-tazobactam 3.375 GM in sodium chloride 0.9% (plus) 50 ML IV ×2 (06:10→19:58)
--- NOTE | 2021-08-27 07:05 | PM.PN ---
Subjective Subjective: off pressors. MS improving- more awake, but confused. on 02- oxygenating well. BP elevated Medications: Reviewed: Yes Medication Review Details: Current Medications Acetaminophen (Acetaminophen 325 Mg Tablet) 650 mg PO Q6H PRN PRN Reason: Mild/Mod Pain Or Temp >/= 101 Last Admin: 08/24/21 08:48 Dose: 650 mg Documented by: Hydrocodone Bitart/Acetaminophen (Hydrocodone-Acetaminophen 5-325 Mg Tablet) 1 tab PO Q8H PRN PRN Reason: MODERATE PAIN Aspirin (Aspirin 81 Mg Ec Tablet) 81 mg PO DAILY [facility] Last Admin: 08/26/21 08:29 Dose: 81 mg Documented by: Atorvastatin Calcium (Atorvastatin 40 Mg Tablet) 20 mg PO BEDTIME [facility] Last Admin: 08/26/21 22:04 Dose: Not Given Documented by: Buspirone HCl (Buspirone 10 Mg Tablet) 15 mg PO Q8H [facility] Last Admin: 08/24/21 04:44 Dose: 15 mg Documented by: Carbamazepine (Carbamazepine Xr (12 Hr) 200 Mg Tablet) 200 mg PO BID@0900,2100 [facility] Last Admin: 08/26/21 22:04 Dose: Not Given Documented by: Collagenase (Collagenase Oint 30 Gm) 1 applic TOPICAL DAILY [facility] Last Admin: 08/26/21 08:59 Dose: Not Given Documented by: Dextrose (Dextrose 50% Syringe 50 Ml) 25 ml IVP ONCE PRN; Protocol PRN Reason: hypoglycemia protocol Dextrose (Dextrose 50% Syringe 50 Ml) 50 ml IVP PRN PRN; Protocol PRN Reason: hypoglycemia protocol Famotidine (Famotidine 20 Mg/2 Ml Inj) 20 mg IVP Q12H [facility] Last Admin: 08/27/21 03:07 Dose: 20 mg Documented by: Folic Acid (Folic Acid 1 Mg Tablet) 1 mg PO DAILY [facility] Last Admin: 08/26/21 08:29 Dose: 1 mg Documented by: Glucagon (Glucagon 1 Mg/Ml Inj 1 Ml) 1 mg IM ONCE PRN; Protocol PRN Reason: Adult Acute Hypoglycemia Prot. Hydralazine HCl (Hydralazine 25 Mg Tablet) 25 mg PO TID [facility] Last Admin: 08/24/21 08:02 Dose: Not Given Documented by: Dextrose (D5w) 500 mls @ 100 mls/hr IV ONCE PRN; Protocol PRN Reason: Adult Acute Hypoglycemia Prot Piperacillin Sod/Tazobactam (Sod 3.375 gm/ Sodium Chloride) 50 mls @ 12.5 mls/hr IV Q12H [facility]; Protocol Last Admin: 08/27/21 06:10 Dose: 12.5 mls/hr Documented by: Sodium Bicarbonate 150 meq/ (Dextrose) 1,000 mls @ 60 mls/hr IV .[id number] [facility] Last Admin: 08/27/21 02:35 Dose: 60 mls/hr Documented by: Norepinephrine Bitartrate 4 mg (/ Dextrose) 254 mls @ 0 mls/hr IV .Q0M [facility]; Protocol Albumin Human (Albumin) 12.5 gm in 50 mls @ 60 mls/hr IV PRN PRN PRN Reason: Hypotension and/or symptomatic Vancomycin HCl 1,000 mg/ (Sodium Chloride) 250 mls @ 250 mls/hr IV DIALYSIS [facility] Last Infusion: 08/26/21 16:13 Dose: Infused Documented by: Insulin Human Lispro (Insulin Lispro 100 Unit/1 Ml) 0 unit SUBCUT TIDWM [facility]; Protocol Last Admin: 08/24/21 07:03 Dose: Not Given Documented by: Metoprolol Tartrate (Metoprolol Tartrate 25 Mg Tablet) 25 mg PO BID@0900,2100 [facility] Last Admin: 08/26/21 22:05 Dose: Not Given Documented by: Midodrine (Midodrine 5 Mg Tablet) 10 mg PO TID PRN PRN Reason: Systolic blood pressure less than 100 mmHg. Morphine Sulfate (Morphine 4 Mg/Ml Sdv 1 Ml) 2 mg IVP Q4H PRN PRN Reason: SEVERE PAIN Last Admin: 08/26/21 15:09 Dose: 2 mg Documented by: Multivitamins (M-Tobigze-Fuosmfj C Tablet) 1 each PO DAILY [facility] Last Admin: 08/26/21 08:29 Dose: 1 each Documented by: Naloxone HCl (Naloxone 0.4 Mg/Ml Sdv) 0.1 mg IVP Q2M PRN PRN Reason: OPIATERV Ondansetron HCl (Ondansetron 2 Mg/Ml Sdv 2 Ml) 4 mg IVP Q8H PRN PRN Reason: vomiting, or N/V if npo Silver Sulfadiazine (Silver Sulfadiazine Cream 1% 50 Gm) 1 applic TOPICAL ONCE [facility] Last Admin: 08/25/21 13:00 Dose: 1 applic Documented by: Vitals/I&O/Wt Last Vital Signs Temp 97.9 F 08/27/21 00:15 Pulse 87 08/27/21 06:00 Resp 15 08/27/21 06:00 BP 172/83 08/27/21 06:00 Pulse Ox 100 08/27/21 06:00 08/26/21 08/27/21 08/27/21 22:59 06:59 14:59 Intake Total 720 / 2370 1000 / 3370 Output Total 1350 / 1350 10 1360 Balance -630 / 1020 990 / 2010 Weight last 48 hrs Weight 109.4 kg Weight 108.9 kg Physical Exam Narrative: vs noted - no pressors swollen in bed, awake, tracks, talking. still confused, nc 02 heent- nc/at, eomi, manicteric neck no jvp. RT IJ dialysis access lungs : wheezes b/l heart reg, +JAMIE abd soft, nt, nd, + bs, + edema ext + b/l leg edema improving felder+ neuro- confused, but awakens skin-sacral decubitus Urinary Catheter Management: Felder: Cath Placed During This Visit: yes Reason for Continuing Indwelling Catheter: Accurate Measurement of Urinary Output in Critically Ill Patients Urinary Catheter Date of Insertion: 08/21/21 Urinary Catheter Time of Insertion: 02:57 Data : 08/26/21 18:03 08/27/21 04:09 Micro: Microbiology 08/21/21 03:32 Blood Culture - Final Blood NO GROWTH AFTER 5 DAYS A&P Assessment and plan (1) Acute kidney injury superimposed on CKD: 71 yr old man w/ htn, dm, self cath due to neurogenic bladder, recurrent UTI 1. progressive renal failure- likely from DM, HTN. -normal size kidneys on renal us. no hydronephrosis -ua noted- but felder and he self cath - pth 209- repeat after vit d repleted - ALMITA + 1:80. anca neg -s/p HD x 2 -repeat dialysis today- 3 hrs, remove 2 liter, SUF only, QB 250 - nephrotic range proteinuria likely from DM agree w/ checking Anti-PLA2R -phos binder when eats 2. AMS, sepsis secondary to UTI/ cellulitis/ sacral decub, and uremia- -leukocytosis- broad spectrum abx -s/p sacral decub debridement per Dr. Hernandes on 08/25/21 3. met acidosis-improving w/ HD 4. anemia eval - hgb fell from 11 to 8. now 7.5- consider prbc tx if hgb falls further -eval per emdicine 5. DM control DM w/ stage 4 CKD 6. replace vit d 7. echo - EF 55-60% a fib 8. uric acid -monitor 9. sacral decubitus per medicine and surgery seen and examined w/ RN- telehealth visit time spent > 30 min Status: Acute Plan see above Attestations Medical Necessity Statement*: hosea, ams, sepsis Time Spent in Patient Care: 16 - 35 minutes (>than 50% of time spent in counselling and/or direct pt care on unit). Coding Level of Care Code Acute Eye Technician for [facility] Fwd Diagnoses Acute kidney injury superimposed on CKD N17.9; N18.9
[2021-08-27 07:07] LABS: Basophils # 0.1 10^3/uL (0.0-0.1); Basophils % 0.5 %; Eosinophils # 0.7 10^3/uL (0.0-0.8); Eosinophils % 3.3 %; Hemoglobin 7.5 g/dL (11.7-16.6); Lymphocytes # 2.4 10^3/uL (0.8-4.8); Lymphocytes % 10.5 %; Mean Corpuscular HGB Conc 32.6 g/dL (30.0-36.0); Mean Corpuscular Hemoglobin 28.6 pg (28.0-34.0); Mean Corpuscular Volume 87.8 fl (80-94); Mean Platelet Volume 11.6 fL (7.4-10.4); Monocytes # 2.7 10^3/uL (0.2-0.9); Monocytes % 11.9 %; Neutrophils # 16.44 10^3/uL (1.8-7.7); Neutrophils % 73.2 %; Nucleated Red Blood Cells # 0.7 /100WBC; Platelet Count 409 10^3/cmm (130-400); Red Blood Count 2.62 10^6/uL (4.1-5.3); Red Cell Distribution Width 16.2 % (12.1-15.1); White Blood Count 22.4 10^3/uL (4.0-10.0)
[2021-08-27 08:28] LABS: Vit D 1,25 (Oh)2, Total <8 pg/mL (18-72); Vit D2 1,25 (Oh)2 <8 pg/mL; Vit D3 1,25 (Oh)2 <8 pg/mL
[2021-08-27] MEDS: folic acid 1 mg Tablet PO (08:30)
[2021-08-27] MEDS: metoprolol tartrate 25 mg Tablet PO ×2 (08:30→22:36)
[2021-08-27] MEDS: aspirin 81 mg EC Tablet PO (08:30)
[2021-08-27] MEDS: carBAMazepine XR (12 HR) 200 mg Tablet PO ×2 (08:30→22:37)
[2021-08-27] MEDS: b-complex-vitamin c Tablet 1 EACH PO (08:30)
[2021-08-27] MEDS: morphine 4 mg/mL SDV 1 mL 2 MG IVP (08:35)
--- NOTE | 2021-08-27 11:30 | XR_ITS ---
WS: [id number] Exam: XR chest 1V portable [id number] Date/Time of Exam: 08/27/2021 11:33 AM Reason For Exam: chf, hosea Comparison 08/26/2021. Diffuse interstitial infiltrates throughout both lungs showing little change. Decreased left-sided pl eural effusion. The heart remains enlarged and unchanged in size. No pneumothorax. The mediastinal si lhouette appears normal. Bony structures are intact. XR/XR chest 1V portable [id number] IMPRESSION: 1. Diffuse bilateral interstitial infiltrates showing little change since prior study. This may represent interstitial pulmonary edema or pneumonia. 2. Left-sided pleural effusion has improved. Cardiac enlargement unchanged.
--- NOTE | 2021-08-27 11:43 | P.PN_ITS ---
Subjective Subjective: The patient is currently undergoing hemodialysis. Nursing reports that the bleeding on the buttock wounds has ceased. Vitals/I&O/Wt Last Vital Signs Temp 97.9 F 08/27/21 00:15 Pulse 77 08/27/21 10:30 Resp 16 08/27/21 10:30 BP 141/85 08/27/21 10:30 Pulse Ox 97 08/27/21 10:30 08/26/21 08/27/21 08/27/21 22:59 06:59 14:59 Intake Total 720 / 3370 1000 / 3370 595 / 595 Output Total 1350 / 1360 10 / 1360 Balance -2009 595 / 595 Weight last 48 hrs Weight 241 lb 2.971 oz Weight 240 lb 1.334 oz Physical Exam Narrative: Per nursing, no further bleeding from buttock wounds. The patient is currently undergoing dialysis so a formal examination was not carried out. Urinary Catheter Management: Thrasher: Cath Placed During This Visit: yes Reason for Continuing Indwelling Catheter: Accurate Measurement of Urinary Output in Critically Ill Patients Urinary Catheter Date of Insertion: 08/21/21 Urinary Catheter Time of Insertion: 02:57 Data : 08/27/21 06:20 08/27/21 04:09 A&P Assessment and plan (1) Acute kidney injury superimposed on CKD: Status post dialysis catheter placement on 08/26/2021. Status: Acute (2) Stage II pressure ulcer: Status post debridement of multiple buttock wounds on 08/26/2021. No further bleeding from buttock wounds reported. Continue dressing changes. Status: Acute Attestations Medical Necessity Statement*: See admitting service's notation. Coding Level of Care Code Acute Machine Pecan Gatherer for [facility] Diagnoses Acute kidney injury superimposed on CKD N17.9; N18.9 Stage II pressure ulcer L89.92
--- NOTE | 2021-08-27 14:08 | PC.NURSE ---
3L off from dialysis today.
--- NOTE | 2021-08-27 16:56 | PM.PN ---
Subjective Subjective: Patient was seen this morning, to person, to place, time, he tells me that his mouth is dry and at times he feels that his speech is off, is not exactly sure what it is, denies any slurring of his words, denies any facial droop, no changes in his vision, he tells me that he is weak all over, Vitals/I&O/Wt Last Vital Signs Temp 97.9 F 08/27/21 00:15 Pulse 70 08/27/21 16:00 Resp 14 08/27/21 16:00 BP 145/78 08/27/21 16:00 Pulse Ox 98 08/27/21 16:00 08/27/21 08/27/21 08/27/21 06:59 14:59 22:59 Intake Total 999 / 3370 715 / 715 Output Total 1359 Balance 2009 715 / 715 Weight last 48 hrs Weight 109.4 kg Physical Exam Const: COMMON NORMALS: no acute distress OTHER: Alert to person, to place, not to time Resp: COMMON NORMALS: normal respiratory effort, No retractions, No use of accessory muscles and clear to auscultation bilaterally AUSCULTATION: clear to auscultation bilaterally Cardio: COMMON NORMALS: regular rate, regular rhythm, S1 normal heart sound present and S2 normal heart sound present RATE: regular rate RHYTHM: regular rhythm HEART SOUNDS: S1 normal heart sound present and S2 normal heart sound present GI: COMMON NORMALS: Normal to inspection, nondistended, normoactive bowel sounds present, Soft to palpation, non-tender and No hepatosplenomegaly present PALPATION: Yes Soft to palpation and Yes No hepatosplenomegaly present Extremity: COMMON NORMALS: no pedal edema Psych: COMMON NORMALS: mental status grossly normal Urinary Catheter Management: Thrasher: Cath Placed During This Visit: yes Reason for Continuing Indwelling Catheter: Accurate Measurement of Urinary Output in Critically Ill Patients Urinary Catheter Date of Insertion: 08/21/21 Urinary Catheter Time of Insertion: 02:57 Data : 08/27/21 06:20 08/27/21 04:09 A&P Assessment and plan (1) Acute kidney injury superimposed on CKD: Status: Acute (2) Oliguria: Status: Acute (3) H/O splenectomy: Status: Acute (4) Altered mental status: Status: Acute (5) Uremia: Status: Acute (6) Hyperphosphatemia: Status: Acute (7) Stage II pressure ulcer: Status: Acute (8) Anasarca: Status: Acute (9) Cellulitis: Status: Acute (10) Pleural effusion: Status: Acute (11) CHF (congestive heart failure): Status: Acute (12) Pressure injury of ischium, stage 2: Status: Acute Qualifiers: Laterality: right Qualified Code(s): L89.312 - Pressure ulcer of right buttock, stage 2 Plan Altered mental status: Most likely secondary to uremia, polypharmacy in setting of YEYO on CKD, sepsis secondary to infection -Mentation is improving today Renal function worsening. Multiple medication including BuSpar, Zanaflex and at a higher dose. Mentation has improved, start renal dialysis diet, consult speech therapy Hold venlafaxine and BuSpar for now.? Change dose of gabapentin to 100 mg 3 times daily. Continue carbamazepine at 200 mg twice daily. Is receiving dialysis today YEYO on CKD: Nephrotic range disease. Appreciate nephrology recommendations. Given oliguria, uremia, altered mental status patient would need dialysis.? Nephrology agreeable.? Confirmed with patient's /DPOA.? She is agreeable. Temporary dialysis catheter placed. Receiving dialysis today Is receiving dialysis today High anion gap metabolic acidosis: Treatment as above. Medical reconciliation done for nephrotoxic drugs. Sepsis secondary to UTI and cellulitis: Stage II decubitus ulcer: Post debridement on 08/25 Patient has extensive sacral decubitus ulcer status post debridement, that requires aggressive wound care, repositioning and will require [place] [facility] Appreciate surgical recommendations, dressing changes wet-to-dry Wound care as per surgical team. Urine culture consistent with E. coli and Morganella.? Both sensitive to Zosyn. Continue with vancomycin and Zosyn for now.? Blood culture from 08/23 so far negative. Decrease pain medication with increasing frequency given altered mental status. Keep mean artery pressure 65.? Midodrine 10 mg 3 times daily as needed.? If needed can do Levophed as well. Congestive heart failure: Diastolic type.? On 4 L, no crackles on exam continue to monitor Echocardiogram done shows an EF 55 to 60% with indeterminate diastolic function. IV fluids as above. Atrial fibrillation: Currently rate controlled. Continue with metoprolol at 25 mg twice daily. Chronically not on anticoagulation because of risk of falls. Type 2 diabetes mellitus: Hypoglycemia. Hold insulin sliding scale at low-dose protocol every 6 hours for now.? Start on D5W as above. HbA1c 6.9. 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 Renal dialysis status Heparin for DVT prophylaxis. Famotidine for PUD prophylaxis. Plan for day:?Continue with antibiotics. dialysis today.? Hold Zanaflex and and BuSpar.?? Will move out of ICU Discharge plan: Most likely patient would need to be discharged to SNF for aggressive wound care.? Will need to follow-up further regarding possibility of dialysis as an outpatient. Attestations Medical Necessity Statement*: Patient requires hospitalization for YEYO, single dose of is also status post debridement, sepsis, cellulitis Coding Level of Care Code Acute Automotive Engineering Technician for g Fwd Diagnoses Acute kidney injury superimposed on CKD N17.9; N18.9 Oliguria R34 H/O splenectomy Z90.81 Altered mental status R41.82 Uremia N19 Hyperphosphatemia E83.39 Stage II pressure ulcer L89.92 Anasarca R60.1 Cellulitis L03.90 Pleural effusion J90 CHF (congestive heart failure) I50.9 Pressure injury of ischium, stage 2 L89.312 Laterality: right
--- NOTE | 2021-08-27 17:52 | PC.NURSE ---
Patient transferred to [facility] at approximately 1750.
--- NOTE | 2021-08-27 18:27 | PC.NURSE ---
Patient arrived from ICU. Patient is sleepy and is hoarse when speaking. He is able to tell me his name and his date of , I couldn't hear him very well and had to depend on lip-reading. Both IV sites on the right arm are patent. Catheter was cleaned and then re-attached to his leg strap.
--- NOTE | 2021-08-27 18:32 | PC.NURSE ---
Called Dr. Hernandes and updated him on bleeding from patients sacral wound. Applied more surgicel to stop/slow bleeding.
[2021-08-27 21:35] LABS: Glucose Point of Care 123 mg/dL (70-110)
[2021-08-27] MEDS: atorvastatin 40 mg Tablet 20 MG PO (22:36)
[2021-08-28] VITALS (11 sets, daily range): BP systolic 121–164; BP diastolic 65–88; PULSE 73–81; RESP 14–20; TEMP 36.1–37.1; O2SAT 88–100
[2021-08-28] MEDS: morphine 4 mg/mL SDV 1 mL 2 MG IVP ×2 (01:17→22:04)
[2021-08-28] MEDS: famotidine 20 mg/2 mL INJ IVP (03:50)
[2021-08-28 05:53] LABS: Basophils # 0.1 10^3/uL (0.0-0.1); Basophils % 0.5 %; Eosinophils # 1.1 10^3/uL (0.0-0.8); Eosinophils % 4.8 %; Hemoglobin 6.7 g/dL (11.7-16.6); Lymphocytes # 3.4 10^3/uL (0.8-4.8); Lymphocytes % 15.4 %; Mean Corpuscular HGB Conc 31.9 g/dL (30.0-36.0); Mean Corpuscular Hemoglobin 28.6 pg (28.0-34.0); Mean Corpuscular Volume 89.7 fl (80-94); Mean Platelet Volume 11.6 fL (7.4-10.4); Monocytes # 2.2 10^3/uL (0.2-0.9); Monocytes % 10.1 %; Neutrophils # 15.17 10^3/uL (1.8-7.7); Neutrophils % 68.5 %; Nucleated Red Blood Cells # 0.6 /100WBC; Nucleated Red Blood Cells % 2.8 %; Platelet Count 430 10^3/cmm (130-400); Red Blood Count 2.34 10^6/uL (4.1-5.3); Red Cell Distribution Width 16.9 % (12.1-15.1); White Blood Count 22.1 10^3/uL (4.0-10.0)
[2021-08-28 06:09] LABS: C Reactive Protein 165.1 mg/L (0.0-4.9)
[2021-08-28 06:15] LABS: Lactate (Lactic Acid level) 0.7 mmol/L (0.5-2.2)
[2021-08-28 06:16] LABS: Procalcitonin 6.54 ng/mL (0-0.5)
[2021-08-28 06:24] LABS: Glucose Point of Care 101 mg/dL (70-110)
[2021-08-28 06:28] LABS: Alanine Aminotransferase < 5 U/L (0-41); Albumin Level 2.4 g/dL (3.5-5.2); Alkaline Phosphatase 90 IU/L (40-130); Aspartate Amino Transferase 10 U/L (0-40); Blood Urea Nitrogen 39 mg/dL (8-23); Calcium 7.8 mg/dL (8.5-10.5); Carbon Dioxide 24 mmol/L (22-29); Chloride 102 mmol/L (98-107); Creatine Phosphokinase 17 U/L (39-308); Globulin 2.5 g/dL (1.3-4.6); Glucose 103 mg/dL (65-115); Magnesium 1.9 mg/dL (1.7-2.3); Osmolality Calculated 302 mOsm/kg (285-295); Phosphorus 6.8 mg/dL (2.5-4.5); Sodium 141 mmol/L (136-145); Total Bilirubin 0.3 mg/dL (0.15-1.2); Total Protein 4.9 g/dL (6.6-8.7)
[2021-08-28 06:32] LABS: Ammonia 41 umol/L (16-60)
[2021-08-28] MEDS: piperacillin-tazobactam 3.375 GM in sodium chloride 0.9% (plus) 50 ML IV ×2 (06:33→18:55)
[2021-08-28 07:42] LABS: ALBUMIN 58 %; ALPHA-1-GLOBULINS 5 %; ALPHA-2-GLOBULINS 11 %; BETA GLOBULINS 11 %; GAMMA GLOBULINS 17 %
[2021-08-28 07:42] LABS: Albumin,Urine Random 55 %; Alpha-1-Globulins Urine Random 8 %; Alpha-2-Globulins Urine Random 9 %; Beta-Globulin,Urine Random 15 %; Gamma Globulin,Urine Random 13 %
--- NOTE | 2021-08-28 07:51 | P.PN_ITS ---
Subjective Subjective: more awake. confused. weak. not answering appropriately. Medications: Reviewed: Yes Medication Review Details: Current Medications Acetaminophen (Acetaminophen 325 Mg Tablet) 650 mg PO Q6H PRN PRN Reason: Mild/Mod Pain Or Temp >/= 101 Last Admin: 08/24/21 08:48 Dose: 650 mg Documented by: Hydrocodone Bitart/Acetaminophen (Hydrocodone-Acetaminophen 5-325 Mg Tablet) 1 tab PO Q8H PRN PRN Reason: MODERATE PAIN Aspirin (Aspirin 81 Mg Ec Tablet) 81 mg PO DAILY [facility] Last Admin: 08/27/21 08:30 Dose: 81 mg Documented by: Atorvastatin Calcium (Atorvastatin 40 Mg Tablet) 20 mg PO BEDTIME [facility] Last Admin: 08/27/21 22:36 Dose: 20 mg Documented by: Buspirone HCl (Buspirone 10 Mg Tablet) 15 mg PO Q8H [facility] Last Admin: 08/24/21 04:44 Dose: 15 mg Documented by: Carbamazepine (Carbamazepine Xr (12 Hr) 200 Mg Tablet) 200 mg PO BID@0900,2100 [facility] Last Admin: 08/27/21 22:37 Dose: 200 mg Documented by: Collagenase (Collagenase Oint 30 Gm) 1 applic TOPICAL DAILY [facility] Last Admin: 08/27/21 07:29 Dose: Not Given Documented by: Dextrose (Dextrose 50% Syringe 50 Ml) 25 ml IVP ONCE PRN; Protocol PRN Reason: hypoglycemia protocol Dextrose (Dextrose 50% Syringe 50 Ml) 50 ml IVP PRN PRN; Protocol PRN Reason: hypoglycemia protocol Famotidine (Famotidine 20 Mg/2 Ml Inj) 20 mg IVP Q12H [facility] Last Admin: 08/28/21 03:50 Dose: 20 mg Documented by: Folic Acid (Folic Acid 1 Mg Tablet) 1 mg PO DAILY [facility] Last Admin: 08/27/21 08:30 Dose: 1 mg Documented by: Glucagon (Glucagon 1 Mg/Ml Inj 1 Ml) 1 mg IM ONCE PRN; Protocol PRN Reason: Adult Acute Hypoglycemia Prot. Hydralazine HCl (Hydralazine 25 Mg Tablet) 25 mg PO TID [facility] Last Admin: 08/24/21 08:02 Dose: Not Given Documented by: Piperacillin Sod/Tazobactam (Sod 3.375 gm/ Sodium Chloride) 50 mls @ 12.5 mls /hr IV Q12H [facility]; Protocol Last Admin: 08/28/21 06:33 Dose: 12.5 mls/hr Documented by: Albumin Human (Albumin) 12.5 gm in 50 mls @ 60 mls/hr IV PRN PRN PRN Reason: Hypotension and/or symptomatic Vancomycin HCl 750 mg/ Sodium (Chloride) 250 mls @ 250 mls/hr IV DIALYSIS [facility] Insulin Human Lispro (Insulin Lispro 100 Unit/1 Ml) 0 unit SUBCUT TIDWM [facility]; Protocol Last Admin: 08/24/21 07:03 Dose: Not Given Documented by: Metoprolol Tartrate (Metoprolol Tartrate 25 Mg Tablet) 25 mg PO BID@0900,2100 [facility] Last Admin: 08/27/21 22:36 Dose: 25 mg Documented by: Midodrine (Midodrine 5 Mg Tablet) 10 mg PO TID PRN PRN Reason: Systolic blood pressure less than 100 mmHg. Morphine Sulfate (Morphine 4 Mg/Ml Sdv 1 Ml) 2 mg IVP Q4H PRN PRN Reason: SEVERE PAIN Last Admin: 08/28/21 01:17 Dose: 2 mg Documented by: Multivitamins (X-Gudqcql-Ackjbeb C Tablet) 1 each PO DAILY [facility] Last Admin: 08/27/21 08:30 Dose: 1 each Documented by: Naloxone HCl (Naloxone 0.4 Mg/Ml Sdv) 0.1 mg IVP Q2M PRN PRN Reason: OPIATERV Ondansetron HCl (Ondansetron 2 Mg/Ml Sdv 2 Ml) 4 mg IVP Q8H PRN PRN Reason: vomiting, or N/V if npo Silver Sulfadiazine (Silver Sulfadiazine Cream 1% 50 Gm) 1 applic TOPICAL ONCE [facility] Last Admin: 08/25/21 13:00 Dose: 1 applic Documented by: Vitals/I&O/Wt Last Vital Signs Temp 98.7 F 08/28/21 07:13 Pulse 73 08/28/21 07:13 Resp 14 08/28/21 07:13 BP 121/75 08/28/21 07:13 Pulse Ox 100 08/28/21 07:13 08/27/21 08/28/21 08/28/21 22:59 06:59 14:59 Intake Total 100 / 815 Output Total 100 / 100 Balance 0 / 715 Weight last 48 hrs Weight 109.4 kg Physical Exam Narrative: vs noted - swollen in bed, awake, tracks, talking. still confused heent- nc/at, eomi, manicteric neck no jvp. RT IJ dialysis access lungs : clear b/l heart reg, +JAMIE abd soft, nt, nd, + bs, + edema ext + b/l leg edema improving felder+ neuro- confused, but awakens, talks. moves, interactive skin-sacral decubitus Urinary Catheter Management: Felder: Cath Placed During This Visit: yes Reason for Continuing Indwelling Catheter: Assist Healing of Perineal & Sacral Wounds- Incontinent Patients Urinary Catheter Date of Insertion: 08/21/21 Urinary Catheter Time of Insertion: 02:57 Data : 08/28/21 05:36 08/28/21 05:36 A&P Assessment and plan (1) Acute kidney injury superimposed on CKD: 71 yr old man w/ htn, dm, self cath due to neurogenic bladder, recurrent UTI 1. progressive renal failure- likely from DM, HTN. -normal size kidneys on renal us. no hydronephrosis -ua noted- but felder and he self cath - pth 209- repeat after vit d repleted - ALMITA + 1:80. anca neg -s/p HD x 3.5 hrs, 3k, remove 2.5 l, QB 350, QD 600 - nephrotic range proteinuria likely from DM agree w/ checking Anti-PLA2R -phos binder when eats 2. AMS, sepsis secondary to UTI/ cellulitis/ sacral decub, and uremia- -leukocytosis- broad spectrum abx -s/p sacral decub debridement per Dr. Hernandes on 08/25/21 3. anemia eval - hgb fell from 11 to 6.7 - consider prbc tx -eval per medicine -Q if bleeding from sacral decub or GI -iv iron and CHELSEA -SPEP/ UPE neg 4. DM control DM w/ stage 4 CKD 5. replace vit d 6. echo - EF 55-60% -fluid removal on hd a fib 7. uric acid -monitor 8. sacral decubitus per medicine and surgery seen and examined w/ RN- telehealth visit time spent > 30 min Status: Acute Plan see above Attestations Medical Necessity Statement*: hosea, AMS Time Spent in Patient Care: 16 - 35 minutes (>than 50% of time spent in counselling and/or direct pt care on unit) . Coding Level of Care Code Acute Color Maker for Chg Fwd Diagnoses Acute kidney injury superimposed on CKD N17.9; N18.9
--- NOTE | 2021-08-28 09:02 | PC.SOCIAL ---
IMM Update pg 2 of IMM updated and reviewed w/ patient. Copy in chart updated and Copy provided to patient.
--- NOTE | 2021-08-28 09:30 | PM.PN ---
Subjective Subjective: The patient denies any discomfort this morning. Nursing had reported to me that he had some very minor spots of bruising on his buttock wounds yesterday prior to his transfer on the floor, but much improved over the previous day. Vitals/I&O/Wt Last Vital Signs Temp 98.7 F 08/28/21 07:13 Pulse 73 08/28/21 07:13 Resp 14 08/28/21 07:13 BP 121/75 08/28/21 07:13 Pulse Ox 100 08/28/21 07:13 08/27/21 08/28/21 08/28/21 22:59 06:59 14:59 Intake Total 100 / 815 Output Total 100 / 100 Balance 0 / 715 Weight last 48 hrs Weight 241 lb 2.971 oz Physical Exam Narrative: Wounds are dressed. Urinary Catheter Management: Thrasher: Cath Placed During This Visit: yes Reason for Continuing Indwelling Catheter: Assist Healing of Perineal & Sacral Wounds- Incontinent Patients Urinary Catheter Date of Insertion: 08/21/21 Urinary Catheter Time of Insertion: 02:57 Data : 08/28/21 05:36 08/28/21 05:36 A&P Assessment and plan (1) Acute kidney injury superimposed on CKD: Status post dialysis catheter placement on 08/26/2021. Status: Acute (2) Stage II pressure ulcer: Status post debridement of multiple buttock wounds on 08/26/2021. No further significant bleeding from buttock wounds reported. Continue dressing changes. Hemoglobin has drifted to 6.7 but the patient's vital signs appear stable. I will leave the decision of transfusion up to the hospitalist service. Status: Acute Attestations Medical Necessity Statement*: See admitting service's notation. Coding Level of Care Code Acute E Commerce Solution Architect for Keila Fwsarah Diagnoses Acute kidney injury superimposed on CKD N17.9; N18.9 Stage II pressure ulcer L89.92
[2021-08-28] MEDS: folic acid 1 mg Tablet PO (10:29)
[2021-08-28] MEDS: b-complex-vitamin c Tablet 1 EACH PO (10:29)
[2021-08-28] MEDS: metoprolol tartrate 25 mg Tablet PO ×2 (10:29→20:17)
[2021-08-28] MEDS: carBAMazepine XR (12 HR) 200 mg Tablet PO ×2 (10:34→20:17)
[2021-08-28] MEDS: collagenase oint 30 gm 1 APPLIC TOPICAL (10:35)
[2021-08-28] MEDS: aspirin 81 mg EC Tablet PO (10:44)
[2021-08-28 11:20] LABS: Glucose Point of Care 109 mg/dL (70-110)
--- NOTE | 2021-08-28 11:39 | PC.SOCIAL ---
IMM Update pg 2 of IMM updated and reviewed w/ patient. Copy provided and Copy in chart updated.
--- NOTE | 2021-08-28 12:48 | PM.PN ---
Subjective Subjective: Patient was seen this morning, is alert to person, to place, not to time, he tells me that he wants to talk to his , he does not know why he is here in the hospital, I had a detailed discussion with him about his acute renal failure, sacral ulcers and debridement, his cellulitis, will require extensive wound care he is much more understandable, but he still wants to talk to his , nursing staff tell me that he is chronically weak, bilateral upper and lower extremity weakness, requires assistance for feeding, Vitals/I&O/Wt Last Vital Signs Temp 98.7 F 08/28/21 07:13 Pulse 73 08/28/21 07:13 Resp 14 08/28/21 07:13 BP 121/75 08/28/21 07:13 Pulse Ox 100 08/28/21 07:13 08/27/21 08/28/21 08/28/21 22:59 06:59 14:59 Intake Total 100 / 815 310 / 310 Output Total 100 / 100 Balance 0 / 715 310 / 310 Weight last 48 hrs Weight 109.4 kg Physical Exam Const: COMMON NORMALS: no acute distress ORIENTATION/CONSCIOUSNESS: Yes awake, Yes oriented to person and Yes oriented to place Resp: COMMON NORMALS: normal respiratory effort, No retractions, No use of accessory muscles and clear to auscultation bilaterally AUSCULTATION: clear to auscultation bilaterally Cardio: COMMON NORMALS: regular rate, regular rhythm, S1 normal heart sound present and S2 normal heart sound present RATE: regular rate RHYTHM: regular rhythm HEART SOUNDS: S1 normal heart sound present and S2 normal heart sound present GI: COMMON NORMALS: Normal to inspection, nondistended, normoactive bowel sounds present, Soft to palpation, non-tender and No hepatosplenomegaly present PALPATION: Yes Soft to palpation and Yes No hepatosplenomegaly present Extremity: COMMON NORMALS: no pedal edema Neuro: SENSORIUM/ORIENTATION: Yes oriented to person and Yes oriented to place Psych: COMMON NORMALS: mental status grossly normal Urinary Catheter Management: Thrasher: Cath Placed During This Visit: yes Reason for Continuing Indwelling Catheter: Assist Healing of Perineal & Sacral Wounds- Incontinent Patients Urinary Catheter Date of Insertion: 08/21/21 Urinary Catheter Time of Insertion: 02:57 Data : 08/28/21 05:36 03/30/22 05:36 A&P Assessment and plan (1) Acute kidney injury superimposed on CKD: Status: Acute (2) Oliguria: Status: Acute (3) Uremia: Status: Acute (4) Hyperphosphatemia: Status: Acute (5) Stage II pressure ulcer: Status: Acute (6) Anasarca: Status: Acute (7) Cellulitis: Status: Acute (8) Pleural effusion: Status: Acute (9) CHF (congestive heart failure): Status: Acute Plan Altered mental status: Most likely secondary to uremia, polypharmacy in setting of YEYO on CKD, sepsis secondary to infection -Mentation is improving today, want to talk to his Renal function worsening. Multiple medication including BuSpar, Zanaflex and at a higher dose. Mentation has improved, start renal dialysis diet, consult speech therapy Hold venlafaxine and BuSpar for now.? Change dose of gabapentin to 100 mg 3 times daily. Continue carbamazepine at 200 mg twice daily. Is receiving dialysis today YEYO on CKD: Nephrotic range disease. Appreciate nephrology recommendations. Given oliguria, uremia, altered mental status patient would need dialysis.? Nephrology agreeable.? Confirmed with patient's /DPOA. Temporary dialysis catheter placed Receiving dialysis today High anion gap metabolic acidosis: Treatment as above. Medical reconciliation done for nephrotoxic drugs. Sepsis secondary to UTI and cellulitis: Stage II decubitus ulcer: Post debridement on 08/25 Patient has extensive sacral decubitus ulcer status post debridement, that requires aggressive wound care, repositioning and will require longterm placement Appreciate surgical recommendations, dressing changes wet-to-dry Wound care as per surgical team. Urine culture consistent with E. coli and Morganella.? Both sensitive to Zosyn. Continue with vancomycin and Zosyn for now.? Blood culture from 08/23 so far negative. Decrease pain medication with increasing frequency given altered mental status. Keep mean artery pressure 65.? Midodrine 10 mg 3 times daily as needed.? If needed can do Levophed as well. Congestive heart failure: Diastolic type.? On 4 L, no crackles on exam continue to monitor Echocardiogram done shows an EF 55 to 60% with indeterminate diastolic function. Atrial fibrillation: Currently rate controlled. Continue with metoprolol at 25 mg twice daily. Chronically not on anticoagulation because of risk of falls. Type 2 diabetes mellitus: Hypoglycemia. Hold insulin sliding scale at low-dose protocol every 6 hours for now.? Start on D5W as above. HbA1c 6.9. 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 Renal dialysis status Heparin for DVT prophylaxis. Famotidine for PUD prophylaxis. Plan for day:?Continue with antibiotics. dialysis today.?on floors. Discharge plan: Most likely patient would need to be discharged to SNF for aggressive wound care.? Will need to follow-up further regarding possibility of dialysis as an outpatient. Attestations Medical Necessity Statement*: patient requires hospitalization for fluid overload, cellultiis, sacral ulcer Coding Level of Care Code Acute Financial Sales Representative for g Fwd Diagnoses Acute kidney injury superimposed on CKD N17.9; N18.9 Oliguria R34 Uremia N19 Hyperphosphatemia E83.39 Stage II pressure ulcer L89.92 Anasarca R60.1 Cellulitis L03.90 Pleural effusion J90 CHF (congestive heart failure) I50.9
[2021-08-28] MEDS: sodium chloride 0.9% (100 ml) 100 ML 50 ML (15:23)
--- NOTE | 2021-08-28 20:03 | PC.NURSE ---
i reported high reps 20 to nurse
[2021-08-28] MEDS: vancomycin 750 MG in sodium chloride 0.9% 250 ML 250 MG IV (20:09)
[2021-08-28] MEDS: atorvastatin 40 mg Tablet 20 MG PO (20:17)
--- NOTE | 2021-08-28 22:14 | PC.NURSE ---
CONFUSION/YELLING OUT Has been very confused since returning from Dialysis just prior to shift change. Yelling out. Thinks we have him tied down. All attempts to reorient unsuccessful. Calling out for Artie. Called his to let him talk to her and this did not change his behavior. Dr Chiang was called but does not want to medicate pt unless he starts pulling things out. Would be ok with 1:1 sitter if would be helpful. So far pt is not pulling anything out. At present is starting to settle down. Allowed us to reposition him. ABD's saturated with blood and were changed. Also telling me he would take his meds now. Earlier he spit them all back out. Meds given and was medicated with IV Morphine for pain c/o.
[2021-08-28 22:28] LABS: Glucose Point of Care 130 mg/dL (70-110)
[2021-08-29] VITALS: BP 134/72; PULSE 76; RESP 18; TEMP 36.6; O2SAT 90
[2021-08-29] MEDS: famotidine 20 mg/2 mL INJ IVP ×2 (03:08→18:06)
[2021-08-29 04:00] VITALS: BP 128/66; PULSE 72; RESP 17; O2SAT 90
[2021-08-29 05:53] LABS: Basophils # 0.2 10^3/uL (0.0-0.1); Basophils % 0.7 %; Eosinophils # 0.5 10^3/uL (0.0-0.8); Eosinophils % 2.3 %; Lymphocytes # 2.4 10^3/uL (0.8-4.8); Lymphocytes % 10.6 %; Mean Corpuscular Volume 90.6 fl (80-94); Mean Platelet Volume 11.6 fL (7.4-10.4); Monocytes # 3.2 10^3/uL (0.2-0.9); Monocytes % 13.9 %; Neutrophils # 16.26 10^3/uL (1.8-7.7); Neutrophils % 71.5 %; Nucleated Red Blood Cells # 0.7 /100WBC; Nucleated Red Blood Cells % 3.1 %; Platelet Count 344 10^3/cmm (130-400); Red Blood Count 2.76 10^6/uL (4.1-5.3); Red Cell Distribution Width 16.5 % (12.1-15.1); White Blood Count 22.8 10^3/uL (4.0-10.0)
--- NOTE | 2021-08-29 05:57 | PC.NURSE ---
Addendum entered by Louise Arevalo LPN 08/29/21 06:28: Dressing to right foot not left Original Note: SHIFT SUMMARY Rested well after receiving IV Morphine in the evening. Remains confused but has not been yelling out anymore. Wakes when repositioned but goes back to sleep. Having bloody drainage to buttocks dressing. Has been changed this shift. Bed with air mattress in place. Dressing to left foot C&D. Heel protectors to BLE.
[2021-08-29] MEDS: piperacillin-tazobactam 3.375 GM in sodium chloride 0.9% (plus) 50 ML IV ×2 (06:01→18:06)
[2021-08-29 06:37] LABS: Alanine Aminotransferase 6 U/L (0-41); Albumin Level 2.5 g/dL (3.5-5.2); Alkaline Phosphatase 89 IU/L (40-130); Anion Gap 19.8 (5-19); Aspartate Amino Transferase 19 U/L (0-40); Blood Urea Nitrogen 24 mg/dL (8-23); Calcium 7.7 mg/dL (8.5-10.5); Carbon Dioxide 22 mmol/L (22-29); Chloride 103 mmol/L (98-107); Globulin 1.8 g/dL (1.3-4.6); Glucose 121 mg/dL (65-115); Osmolality Calculated 295 mOsm/kg (285-295); Potassium 4.8 mmol/L (3.5-5.1); Sodium 140 mmol/L (136-145); Total Bilirubin 0.4 mg/dL (0.15-1.2); Total Protein 4.3 g/dL (6.6-8.7)
[2021-08-29 06:42] LABS: Glucose Point of Care 131 mg/dL (70-110)
--- NOTE | 2021-08-29 09:09 | P.PN_ITS ---
Subjective Subjective: confused , comforrtable in bed. not answering appropriately. Medications: Reviewed: Yes Medication Review Details: Current Medications Acetaminophen (Acetaminophen 325 Mg Tablet) 650 mg PO Q6H PRN PRN Reason: Mild/Mod Pain Or Temp >/= 101 Last Admin: 08/24/21 08:48 Dose: 650 mg Documented by: Hydrocodone Bitart/Acetaminophen (Hydrocodone-Acetaminophen 5-325 Mg Tablet) 1 tab PO Q8H PRN PRN Reason: MODERATE PAIN Aspirin (Aspirin 81 Mg Ec Tablet) 81 mg PO DAILY [facility] Last Admin: 08/28/21 10:44 Dose: 81 mg Documented by: Atorvastatin Calcium (Atorvastatin 40 Mg Tablet) 20 mg PO BEDTIME [facility] Last Admin: 08/28/21 20:17 Dose: 20 mg Documented by: Buspirone HCl (Buspirone 10 Mg Tablet) 15 mg PO Q8H [facility] Last Admin: 08/24/21 04:44 Dose: 15 mg Documented by: Carbamazepine (Carbamazepine Xr (12 Hr) 200 Mg Tablet) 200 mg PO BID@0900,2100 [facility] Last Admin: 08/28/21 20:17 Dose: 200 mg Documented by: Collagenase (Collagenase Oint 30 Gm) 1 applic TOPICAL DAILY [facility] Last Admin: 08/28/21 10:35 Dose: 1 applic Documented by: Dextrose (Dextrose 50% Syringe 50 Ml) 25 ml IVP ONCE PRN; Protocol PRN Reason: hypoglycemia protocol Dextrose (Dextrose 50% Syringe 50 Ml) 50 ml IVP PRN PRN; Protocol PRN Reason: hypoglycemia protocol Famotidine (Famotidine 20 Mg/2 Ml Inj) 20 mg IVP Q12H [facility] Last Admin: 08/29/21 03:08 Dose: 20 mg Documented by: Folic Acid (Folic Acid 1 Mg Tablet) 1 mg PO DAILY [facility] Last Admin: 08/28/21 10:29 Dose: 1 mg Documented by: Glucagon (Glucagon 1 Mg/Ml Inj 1 Ml) 1 mg IM ONCE PRN; Protocol PRN Reason: Adult Acute Hypoglycemia Prot. Piperacillin Sod/Tazobactam (Sod 3.375 gm/ Sodium Chloride) 50 mls @ 12.5 mls/hr IV Q12H [facility]; Protocol Last Admin: 08/29/21 06:01 Dose: 12.5 mls/hr Documented by: Albumin Human (Albumin) 12.5 gm in 50 mls @ 60 mls/hr IV PRN PRN PRN Reason: Hypotension and/or symptomatic Vancomycin HCl 750 mg/ Sodium (Chloride) 250 mls @ 250 mls/hr IV DIALYSIS [facility] Last Infusion: 08/28/21 22:11 Dose: Infused Documented by: Albumin Human (Albumin) 12.5 gm in 50 mls @ 60 mls/hr IV PRN PRN PRN Reason: Hypotension and/or symptomatic Insulin Human Lispro (Insulin Lispro 100 Unit/1 Ml) 0 unit SUBCUT TIDWM [facility]; Protocol Last Admin: 08/24/21 07:03 Dose: Not Given Documented by: Metoprolol Tartrate (Metoprolol Tartrate 25 Mg Tablet) 25 mg PO BID@0900,2100 [facility] Last Admin: 08/28/21 20:17 Dose: 25 mg Documented by: Midodrine (Midodrine 5 Mg Tablet) 10 mg PO TID PRN PRN Reason: Systolic blood pressure less than 100 mmHg. Morphine Sulfate (Morphine 4 Mg/Ml Sdv 1 Ml) 2 mg IVP Q4H PRN PRN Reason: SEVERE PAIN Last Admin: 08/28/21 22:04 Dose: 2 mg Documented by: Multivitamins (P-Zusnlaw-Cfyajiq C Tablet) 1 each PO DAILY [facility] Last Admin: 08/28/21 10:29 Dose: 1 each Documented by: Naloxone HCl (Naloxone 0.4 Mg/Ml Sdv) 0.1 mg IVP Q2M PRN PRN Reason: OPIATERV Ondansetron HCl (Ondansetron 2 Mg/Ml Sdv 2 Ml) 4 mg IVP Q8H PRN PRN Reason: vomiting, or N/V if npo Silver Sulfadiazine (Silver Sulfadiazine Cream 1% 50 Gm) 1 applic TOPICAL ONCE [facility] Last Admin: 08/25/21 13:00 Dose: 1 applic Documented by: Vitals/I&O/Wt Last Vital Signs Temp 97.8 F 08/29/21 00:00 Pulse 72 08/29/21 04:00 Resp 17 08/29/21 04:00 BP 128/66 08/29/21 04:00 Pulse Ox 90 08/29/21 04:00 08/28/21 08/29/21 08/29/21 22:59 06:59 14:59 Intake Total 750 / 1060 170 / 1230 Output Total 535 / 535 Balance 750 / 1060 -365 / 695 Physical Exam Narrative: vs noted - swollen in bed, awake, tracks, talking. still confused heent- nc/at, eomi, manicteric neck no jvp. RT IJ dialysis access lungs : clear b/l heart reg, +JAMIE abd soft, nt, nd, + bs, + edema ext + b/l leg edema improving felder+ neuro- confused, but awakens, talks. moves, interactive skin-sacral decubitus Urinary Catheter Management: Felder: Cath Placed During This Visit: yes Reason for Continuing Indwelling Catheter: Assist Healing of Perineal & Sacral Wounds- Incontinent Patients Urinary Catheter Date of Insertion: 08/21/21 Urinary Catheter Time of Insertion: 02:57 Data : 08/29/21 05:27 08/29/21 05:27 Micro: Microbiology 08/21/21 02:46 Blood Culture - Final Blood Coagulase negativ staphylococc 08/23/21 17:18 Blood Culture - Final Blood NO GROWTH AFTER 5 DAYS 08/23/21 17:18 Blood Culture - Final Blood NO GROWTH AFTER 5 DAYS A&P Assessment and plan (1) Acute kidney injury superimposed on CKD: 71 yr old man w/ htn, dm, self cath due to neurogenic bladder, recurrent UTI 1. progressive renal failure- likely from DM, HTN. -normal size kidneys on renal us. no hydronephrosis -ua noted- but felder and he self cath - pth 209- repeat after vit d repleted - ALMITA + 1:80. anca neg -s/p HD yesterday - nephrotic range proteinuria likely from DM agree w/ checking Anti-PLA2R -phos binder when eats -hold hd and start lasix- monitor for renal recovery 2. AMS, sepsis secondary to UTI/ cellulitis/ sacral decub, and uremia- 3.leukocytosis- broad spectrum abx -wbc not improving -s/p sacral decub debridement per Dr. Hernandes on 08/25/21 4. anemia eval - hgb fell from 11 to 6.7 to 8 - eval per medicine -Q if bleeding from sacral decub or GI -iv iron and CHELSEA -SPEP/ UPE neg 5. DM control DM w/ stage 4 CKD 6. echo - EF 55-60% -fluid removal on hd a fib 7. uric acid -monitor 8. sacral decubitus per medicine and surgery seen and examined w/ RN- telehealth visit time spent 30 min Status: Acute Plan see above Attestations Medical Necessity Statement*: sepsis, sacral decub, AMS, YEYO Time Spent in Patient Care: 16 - 35 minutes (>than 50% of time spent in cou nselling and/or direct pt care on unit) . Coding Level of Care Code Acute Rubbish Collection Supervisor for Keila Leonardo Diagnoses Acute kidney injury superimposed on CKD N17.9; N18.9
[2021-08-29 10:16] LABS: Magnesium 1.9 mg/dL (1.7-2.3); Phosphorus 5.6 mg/dL (2.5-4.5)
[2021-08-29] MEDS: FUROsemide 10 mg/mL SDV 10mL 60 MG IVP ×2 (10:55→23:45)
[2021-08-29] MEDS: carBAMazepine XR (12 HR) 200 mg Tablet PO ×2 (10:56→20:18)
[2021-08-29] MEDS: aspirin 81 mg EC Tablet PO (10:56)
[2021-08-29] MEDS: b-complex-vitamin c Tablet 1 EACH PO (10:56)
[2021-08-29] MEDS: folic acid 1 mg Tablet PO (10:56)
[2021-08-29] MEDS: collagenase oint 30 gm 1 APPLIC TOPICAL (10:57)
[2021-08-29] MEDS: metoprolol tartrate 25 mg Tablet PO ×2 (10:58→20:18)
[2021-08-29 11:10] LABS: C Reactive Protein 147.1 mg/L (0.0-4.9); Creatine Phosphokinase 58 U/L (39-308); Uric Acid 4.6 mg/dL (3.4-7.0)
[2021-08-29 11:25] VITALS: BP 164/80; PULSE 87; O2SAT 99
--- NOTE | 2021-08-29 12:27 | CT_ITS ---
WS: [id number] CT HEAD TECHNIQUE: Noncontrast CT of the head obtained from the skullbase to the vertex. CLINICAL INFORMATION: ams COMPARISON: August 24, 2021. DLP: 891.[address] scans at [facility] use at least one of these dose optimization techniques: automated e xposure control; mA and/or kV adjustment per patient size (includes targeted exams where dose is matc hed to clinical indication); or iterative reconstruction. FINDINGS: No evidence of intracranial hemorrhage or mass effect. Ventricular system and basal cisterns are gonzales nt. Mild small vessel changes with moderate parenchymal volume loss. Moderate cerebellar atrophy. Low -attenuation change in the RIGHT mejia radiata unchanged from prior examinations August 24, 2021 and . No Extra-axial fluid collections. No evidence of mass or mass effect. Otherwise normal winters -white differentiation. Paranasal sinuses and mastoid air cells are well aerated. .Normal visualized soft tissues. CT/CT head wo con* [id number] IMPRESSION: 1. No evidence of intracranial hemorrhage or mass effect. 2. Mild small vessel changes. Moderate parenchymal volume loss. 3. Low-attenuation change compatible with chronic ischemia in the RIGHT mejia radiata unchanged since August 24, 2021. This is also unchanged since . 4. No interval changes since August 24, 2021
[2021-08-29 12:31] LABS: NT Pro B Type Natriuretic Pept 22890 pg/mL (0-125)
--- NOTE | 2021-08-29 16:20 | PM.PN ---
Subjective Subjective: Patient was seen this morning, he does have episodes of confusion, he is yelling out for help, he tells me he does not know why he is here in the hospital, he does not know why we are letting him go home, I had a detailed discussion with patient again about his acute renal failure requiring dialysis, his sacral decubitus ulcers that required debridement with surrounding cellulitis, he will require extensive wound care, which can only really be done at a halfway facility, I advised him that he would have the best chance recovery at a halfway facility allowing him to get rehab because he has generalized weakness Vitals/I&O/Wt Last Vital Signs Temp 97.8 F 08/29/21 00:00 Pulse 87 08/29/21 11:25 Resp 17 08/29/21 04:00 BP 164/80 08/29/21 11:25 Pulse Ox 99 08/29/21 11:25 08/29/21 08/29/21 08/29/21 06:59 14:59 22:59 Intake Total 170 / 1230 50 / 50 Output Total 535 / 535 Balance -365 / 695 50 / 50 Physical Exam Const: COMMON NORMALS: no acute distress and patient oriented x3 Resp: COMMON NORMALS: normal respiratory effort, No retractions, No use of accessory muscles and clear to auscultation bilaterally AUSCULTATION: clear to auscultation bilaterally Cardio: COMMON NORMALS: regular rate, regular rhythm, S1 normal heart sound present and S2 normal heart sound present RATE: regular rate RHYTHM: regular rhythm HEART SOUNDS: S1 normal heart sound present and S2 normal heart sound present GI: COMMON NORMALS: Normal to inspection, nondistended, normoactive bowel sounds present, Soft to palpation and non-tender PALPATION: Yes Soft to palpation Extremity: COMMON NORMALS: no pedal edema Neuro: COMMON NORMALS: patient oriented x3 Psych: COMMON NORMALS: mental status grossly normal Urinary Catheter Management: Thrasher: Cath Placed During This Visit: yes Reason for Continuing Indwelling Catheter: Assist Healing of Perineal & Sacral Wounds- Incontinent Patients Urinary Catheter Date of Insertion: 08/21/21 Urinary Catheter Time of Insertion: 02:57 Data : 08/29/21 05:27 08/29/21 05:27 Micro: Microbiology 08/21/21 02:46 Blood Culture - Final Blood Coagulase negativ staphylococc 08/23/21 17:18 Blood Culture - Final Blood NO GROWTH AFTER 5 DAYS 08/23/21 17:18 Blood Culture - Final Blood NO GROWTH AFTER 5 DAYS A&P Assessment and plan (1) Acute kidney injury superimposed on CKD: Status: Acute (2) Oliguria: Status: Acute (3) Uremia: Status: Acute (4) Hyperphosphatemia: Status: Acute (5) Stage II pressure ulcer: Status: Acute (6) Anasarca: Status: Acute (7) Cellulitis: Status: Acute (8) Pleural effusion: Status: Acute (9) CHF (congestive heart failure): Status: Acute Plan Altered mental status: Most likely secondary to uremia, polypharmacy in setting of YEYO on CKD, sepsis secondary to infection -Mentation waxing today, will do a CT of his head Renal function worsening. Multiple medication including BuSpar, Zanaflex and at a higher dose. Mentation has improved with dialysis start renal dialysis diet, consult speech therapy Hold venlafaxine and BuSpar for now.? Change dose of gabapentin to 100 mg 3 times daily. Continue carbamazepine at 200 mg twice daily. YEYO on CKD: Nephrotic range disease. Appreciate nephrology recommendations. Given oliguria, uremia, altered mental status patient would need dialysis.? Nephrology agreeable.? Confirmed with patient's /DPOA. Temporary dialysis catheter placed High anion gap metabolic acidosis: Treatment as above. Medical reconciliation done for nephrotoxic drugs. Sepsis secondary to UTI and cellulitis: Stage II decubitus ulcer: Post debridement on 08/25 Patient has extensive sacral decubitus ulcer status post debridement, that requires aggressive wound care, repositioning and will require snf placement Appreciate surgical recommendations, dressing changes wet-to-dry Wound care as per surgical team. Urine culture consistent with E. coli and Morganella.? Both sensitive to Zosyn. Continue with vancomycin and Zosyn for now.? Blood culture from 08/23 so far negative. Decrease pain medication with increasing frequency given altered mental status. Keep mean artery pressure 65.? Midodrine 10 mg 3 times daily as needed.? If needed can do Levophed as well. Continues to have leukocytosis 22.8, pro-Steven decreasing to 4.1, CRP decreasing to 147 Congestive heart failure: Diastolic type.? On 4 L, no crackles on exam continue to monitor Echocardiogram done shows an EF 55 to 60% with indeterminate diastolic function. Atrial fibrillation: Currently rate controlled. Continue with metoprolol at 25 mg twice daily. Chronically not on anticoagulation because of risk of falls. Type 2 diabetes mellitus: Hypoglycemia. Hold insulin sliding scale at low-dose protocol every 6 hours for now.? Start on D5W as above. HbA1c 6.9. 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 Renal dialysis status Heparin for DVT prophylaxis. Famotidine for PUD prophylaxis. Plan for day:?Continue with antibiotics. dialysis today.?on floors. Discharge plan: Most likely patient would need to be discharged to SNF for aggressive wound care.? Will need to follow-up further regarding possibility of dialysis as an outpatient. Attestations Medical Necessity Statement*: Patient requires hospitalization for sacral disuse ulcer with cellulitis, continue leukocytosis, altered mental status Coding Level of Care Code Acute Group Product Manager for [facility] Fwd Diagnoses Acute kidney injury superimposed on CKD N17.9; N18.9 Oliguria R34 Uremia N19 Hyperphosphatemia E83.39 Stage II pressure ulcer L89.92 Anasarca R60.1 Cellulitis L03.90 Pleural effusion J90 CHF (congestive heart failure) I50.9
[2021-08-29 18:10] LABS: Glucose Point of Care 143 mg/dL (70-110)
[2021-08-29 19:00] VITALS: BP 128/78; PULSE 84; RESP 19; TEMP 36.4; O2SAT 98
[2021-08-29] MEDS: atorvastatin 40 mg Tablet 20 MG PO (20:18)
[2021-08-30] VITALS (16 sets, daily range): BP systolic 145–171; BP diastolic 72–91; PULSE 78–98; RESP 14–19; TEMP 36.3–37.1; O2SAT 92–100
[2021-08-30] MEDS: famotidine 20 mg/2 mL INJ IVP (02:42)
[2021-08-30] MEDS: piperacillin-tazobactam 3.375 GM in sodium chloride 0.9% (plus) 50 ML IV ×2 (06:07→18:28)
[2021-08-30] MEDS: acetaminophen 325 mg Tablet 650 MG PO ×2 (06:15→21:31)
[2021-08-30 06:31] LABS: Basophils # 0.1 10^3/uL (0.0-0.1); Basophils % 0.6 %; Eosinophils % 6.1 %; Hematocrit 22.3 % (42.0-52.0); Hemoglobin 6.9 g/dL (11.7-16.6); Lymphocytes % 17.6 %; Mean Corpuscular HGB Conc 30.9 g/dL (30.0-36.0); Mean Corpuscular Hemoglobin 28.3 pg (28.0-34.0); Mean Corpuscular Volume 91.4 fl (80-94); Mean Platelet Volume 11.2 fL (7.4-10.4); Monocytes % 17.5 %; Neutrophils # 9.71 10^3/uL (1.8-7.7); Neutrophils % 57.4 %; Nucleated Red Blood Cells # 0.8 /100WBC; Nucleated Red Blood Cells % 4.7 %; Platelet Count 391 10^3/cmm (130-400); Red Blood Count 2.44 10^6/uL (4.1-5.3); Red Cell Distribution Width 16.4 % (12.1-15.1); White Blood Count 16.9 10^3/uL (4.0-10.0)
[2021-08-30 06:40] LABS: Alanine Aminotransferase 6 U/L (0-41); Albumin Level 2.4 g/dL (3.5-5.2); Alkaline Phosphatase 88 IU/L (40-130); Anion Gap 20.2 (5-19); Aspartate Amino Transferase 13 U/L (0-40); Blood Urea Nitrogen 32 mg/dL (8-23); Calcium 8.4 mg/dL (8.5-10.5); Carbon Dioxide 23 mmol/L (22-29); Chloride 104 mmol/L (98-107); Globulin 2.7 g/dL (1.3-4.6); Glucose 168 mg/dL (65-115); Magnesium 2.1 mg/dL (1.7-2.3); Osmolality Calculated 307 mOsm/kg (285-295); Phosphorus 6.3 mg/dL (2.5-4.5); Potassium 4.2 mmol/L (3.5-5.1); Sodium 143 mmol/L (136-145); Total Bilirubin 0.4 mg/dL (0.15-1.2); Total Protein 5.1 g/dL (6.6-8.7)
[2021-08-30 07:25] LABS: Glucose Point of Care 189 mg/dL (70-110)
[2021-08-30] MEDS: b-complex-vitamin c Tablet 1 EACH PO (08:41)
[2021-08-30] MEDS: aspirin 81 mg EC Tablet PO (08:41)
[2021-08-30] MEDS: folic acid 1 mg Tablet PO (08:41)
[2021-08-30] MEDS: metoprolol tartrate 25 mg Tablet PO ×2 (08:48→21:32)
[2021-08-30] MEDS: collagenase oint 30 gm 1 APPLIC TOPICAL (08:48)
[2021-08-30] MEDS: FUROsemide 10 mg/mL SDV 10mL 60 MG IVP ×2 (09:00→21:33)
--- NOTE | 2021-08-30 10:33 | PM.PN ---
Subjective Subjective: [place] is more lucid, interactive. He still has significant global edema, hemodynamics are reviewed, blood pressure remains a little on the high side. Dialysis is pending for today. Temporary dialysis catheter in place. Anemia noted with hemoglobin 6.9, receiving blood transfusion today. Urine output noted to be only 250 mL. Continues on combination antibiotics for significant decubitus ulcer. Vitals/I&O/Wt Last Vital Signs Temp 98.3 F 08/30/21 10:05 Pulse 85 08/30/21 10:05 Resp 14 08/30/21 10:05 BP 156/79 08/30/21 10:05 Pulse Ox 98 08/30/21 10:05 08/29/21 08/30/21 08/30/21 22:59 06:59 14:59 Intake Total 260 / 670 270 / 940 414 / 414 Output Total 250 / 250 Balance 260 / 670 20 / 690 414 / 414 Physical Exam Narrative: Constitutional: Awake, comfortable HEENT: Wet mucosa, no jvp, non icteric Lungs: Bilaterally clear without discernible wheeze, rales in all lung zones CVS: S1 S2, no murmurs Abdo: Soft, BS ok Ext 4: Minimal edema, peripheral perfusion with no cyanosis Neurological: Grossly non-focal Urinary Catheter Management: Thrasher: Cath Placed During This Visit: yes Reason for Continuing Indwelling Catheter: Acute Urinary Retention or Obstruction Urinary Catheter Date of Insertion: 08/21/21 Urinary Catheter Time of Insertion: 02:57 Data : 08/30/21 05:45 08/30/21 05:45 Micro: Microbiology 08/21/21 02:46 Blood Culture - Final Blood Coagulase negativ staphylococc A&P Assessment and plan (1) Acute kidney injury superimposed on CKD: 1. 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 He is not a candidate for kidney biopsy given his poor mobility, significant decubitus ulceration. SHERRIE 2R is pending. SPEP negative. No evidence of renal recovery we will plan for dialysis for today. Continue dialysis Thursday, Thursday and Thursday If no recovery over the weekend, will plan for permacath early next week with transition to outpatient hemodialysis. Continue Lasix for the time being Dose medication for GFR less than 15 on dialysis 2. Chemistry Well-balanced 3. Anemia Hemoglobin 6.9, receiving packed red blood cells today. High saturation 15.3 ferritin 173, will load with Venofer Will give EPO x1 today 4. Hemodynamics Blood pressure little on the high side, will come down with effective ultrafiltration, no adjustments in antihypertensives today. 5. ID Currently on combination of Zosyn and vancomycin for significant decubitus ulceration. Blood cultures noted Management per surgery, wound care Thank you for consultation Kelvin Huddleston MD Nephrology [phone] Patient seen and examined via telemedicine, with the assistance of the bedside RN > 25 min spent in evaluation and mgmt of patient Status: Acute Attestations Medical Necessity Statement*: renal failure Coding Level of Care Code Acute Marker [employer]ments for [facility] Fwd Diagnoses Acute kidney injury superimposed on CKD N17.9; N18.9
[2021-08-30 10:41] LABS: Vancomycin Random 23.5 ug/mL (20.0-40.0)
[2021-08-30] MEDS: iron sucrose 200 MG in sodium chloride 0.9% (100 ml) 100 ML 220 MG IV (11:15)
--- NOTE | 2021-08-30 11:39 | PC.SOCIAL ---
IMM update IMM updated with patient. Verbalized an understanding. Copy Pg 2 provided. Initialled,dated,timed and placed in chart.
[2021-08-30 12:36] LABS: Glucose Point of Care 181 mg/dL (70-110)
--- NOTE | 2021-08-30 16:26 | PM.PN ---
Subjective Subjective: Patient was seen this morning, he is much more alert and awake, sitting up in bed, no fevers, chills, nausea, vomiting, continues to have leukocytosis, Vitals/I&O/Wt Last Vital Signs Temp 97.8 F 08/30/21 15:33 Pulse 84 08/30/21 15:33 Resp 18 08/30/21 15:33 BP 165/75 08/30/21 15:33 Pulse Ox 98 08/30/21 15:41 08/30/21 08/30/21 08/30/21 06:59 14:59 22:59 Intake Total 270 / 940 574 / 574 0 / 574 Output Total 250 / 250 Balance 20 / 690 574 / 574 0 / 574 Physical Exam Const: COMMON NORMALS: no acute distress and patient oriented x3 Resp: COMMON NORMALS: normal respiratory effort, No retractions, No use of accessory muscles and clear to auscultation bilaterally AUSCULTATION: clear to auscultation bilaterally Cardio: COMMON NORMALS: regular rate, regular rhythm, S1 normal heart sound present and S2 normal heart sound present RATE: regular rate RHYTHM: regular rhythm HEART SOUNDS: S1 normal heart sound present and S2 normal heart sound present GI: COMMON NORMALS: Normal to inspection, nondistended, normoactive bowel sounds present, Soft to palpation and non-tender PALPATION: Yes Soft to palpation Extremity: NARRATIVE EXTREMITY EXAM: Right lower extremity, base of second digit, diabetic ulcer measuring 2 x 2 cm Neuro: COMMON NORMALS: patient oriented x3 Psych: COMMON NORMALS: mental status grossly normal Urinary Catheter Management: Thrasher: Cath Placed During This Visit: yes Reason for Continuing Indwelling Catheter: Acute Urinary Retention or Obstruction Urinary Catheter Date of Insertion: 08/21/21 Urinary Catheter Time of Insertion: 02:57 Data : 08/30/21 05:45 08/30/21 05:45 A&P Assessment and plan (1) Acute kidney injury superimposed on CKD: Status: Acute (2) Oliguria: Status: Acute (3) Uremia: Status: Acute (4) Hyperphosphatemia: Status: Acute (5) Stage II pressure ulcer: Status: Acute (6) Anasarca: Status: Acute (7) Cellulitis: Status: Acute (8) Pleural effusion: Status: Acute (9) CHF (congestive heart failure): Status: Acute Plan Altered mental status: Most likely secondary to uremia, polypharmacy in setting of YEYO on CKD, sepsis secondary to infection -Mentation significantly improved today -CTA of the head within normal limits Renal function worsening. Multiple medication including BuSpar, Zanaflex and at a higher dose. Mentation has improved with dialysis start renal dialysis diet, consult speech therapy Hold venlafaxine and BuSpar for now.? Change dose of gabapentin to 100 mg 3 times daily. Continue carbamazepine at 200 mg twice daily. YEYO on CKD: Nephrotic range disease. Appreciate nephrology recommendations. Given oliguria, uremia, altered mental status patient would need dialysis.? Nephrology agreeable.? Confirmed with patient's /DPOA. Temporary dialysis catheter placed High anion gap metabolic acidosis: Treatment as above. Medical reconciliation done for nephrotoxic drugs. Sepsis secondary to UTI and cellulitis: Stage II decubitus ulcer: Post debridement on 08/25 Patient has extensive sacral decubitus ulcer status post debridement, that requires aggressive wound care, repositioning and will require intermediate placement Appreciate surgical recommendations, dressing changes wet-to-dry Wound care as per surgical team. Urine culture consistent with E. coli and Morganella.? Both sensitive to Zosyn. Continue with vancomycin and Zosyn for now.? Blood culture from 08/23 so far negative. Decrease pain medication with increasing frequency given altered mental status. Keep mean artery pressure 65.? Midodrine 10 mg 3 times daily as needed.? If needed can do Levophed as well. Continues to have leukocytosis 16.8, Right lower extremity, diabetic ulcer, possible source of patient's persistent leukocytosis, will have Dr. Cazares, and take a look Congestive heart failure: Diastolic type.? On 4 L, no crackles on exam continue to monitor Echocardiogram done shows an EF 55 to 60% with indeterminate diastolic function. Atrial fibrillation: Currently rate controlled. Continue with metoprolol at 25 mg twice daily. Chronically not on anticoagulation because of risk of falls. Type 2 diabetes mellitus: Hypoglycemia. Hold insulin sliding scale at low-dose protocol every 6 hours for now.? Start on D5W as above. HbA1c 6.9. 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 Renal dialysis status Heparin for DVT prophylaxis. Famotidine for PUD prophylaxis. Plan for day:?Continue with antibiotics. dialysis today.?on floors. Right foot diabetic ulcer, consult Dr. Cazares Discharge plan: Most likely patient would need to be discharged to SNF for aggressive wound care.? Will need to follow-up further regarding possibility of dialysis as an outpatient. Attestations Medical Necessity Statement*: Patient requires hospitalization for uremia, sacral disturbance ulcer, cellulitis Coding Level of Care Code Acute Morphology Teacher for [facility] Fwd Diagnoses Acute kidney injury superimposed on CKD N17.9; N18.9 Oliguria R34 Uremia N19 Hyperphosphatemia E83.39 Stage II pressure ulcer L89.92 Anasarca R60.1 Cellulitis L03.90 Pleural effusion J90 CHF (congestive heart failure) I50.9
[2021-08-30] MEDS: vancomycin 750 MG in sodium chloride 0.9% 250 ML 250 MG IV (16:44)
[2021-08-30 17:34] LABS: Glucose Point of Care 188 mg/dL (70-110)
[2021-08-30 17:45] LABS: Glucose Point of Care 176 mg/dL (70-110)
[2021-08-30 17:45] LABS: Glucose Point of Care 184 mg/dL (70-110)
--- NOTE | 2021-08-30 20:22 | PM.CONSULT ---
Providers/Reason For Consult Consulting Physician/Specialty*: Reji Cazares D.P.M. Reason for Consult*: Right foot ulcer Attending Physician: James Mackenzie MD Primary Care Provider: HAYDER Silverio History of Present Illness History of Present Illness London Quach is a 71 year old diabetic male with past medical history including multiple sclerosis, he is nonambulatory, utilizes a wheelchair. I was consulted for evaluation of lower extremity wounds. He has a wound at the right plantar forefoot and the right posterior heel. Patient seen bedside, he has a offloading mattress, has foam heel protectors in place and heels suspended. Review of Systems General: Reports: 10 or more systems reviewed and unremarkable except in HPI and below Const: Denies: fever(s) or chills Card: Denies: chest pain or palpitations Resp: Denies: productive cough GI: Denies: abdominal pain, nausea or vomiting : Denies: flank pain Musc: Reports: extremity swelling, joint pain, joint stiffness, limited range of motion and deformity Skin/Breast: Reports: sores, nail changes and change in hair; Denies: rash Neuro: Reports: numbness in extremities, sensory changes and difficulty walking Psych: Denies: suicidal ideation Rohit/Lymph: Denies: easy bruising Medications/Allergies Home Medications Medication Instructions Recorded Confirmed Last Taken Type Coloplast Self cath 10 belarusian #2 ea 04/18/20 08/21/21 Unknown Rx jen nicole #1 ea 08/30/20 08/21/21 Unknown Rx aspirin 81 mg tablet,delayed 81 mg PO DAILY@0900 #30 tab 12/20/20 08/21/21 Unknown Rx release buspirone 15 mg tablet 15 mg PO TID@ #90 tab 12/20/20 08/21/21 Unknown Rx carbamazepine 200 mg 200 mg PO BID@0900,2100 #60 tab 12/20/20 08/21/21 Unknown Rx tablet,extended release,12 hr (Tegretol XR) famotidine 20 mg tablet 20 mg PO BID@0900,2100 #60 tab 12/20/20 08/21/21 Unknown Rx gabapentin 600 mg tablet 600 mg PO TID@ #90 tab 12/20/20 08/21/21 Unknown Rx hydralazine 25 mg tablet 25 mg PO TID #90 tab 12/20/20 08/21/21 Unknown Rx metoprolol succinate 50 mg 50 mg PO DAILY@0900 #30 tab 12/20/20 08/21/21 Unknown Rx tablet,extended release 24 hr (Toprol XL) pen needle, diabetic 32 gauge x #200 ea 12/20/20 08/21/21 Unknown Rx 5/32 (BD Ultra-Fine Nadia Pen Needle) venlafaxine 75 mg capsule,extended 225 mg PO DAILY@0900 #30 cap 12/20/20 08/21/21 Unknown Rx release 24 hr (Effexor XR) Wheelchair repair #1 ea 12/23/20 08/21/21 Unknown Rx power mobility chair #1 ea 12/24/20 08/21/21 Unknown Rx ergocalciferol (vitamin D2) 1,250 1,250 mcg PO Q7D 08/21/21 08/21/21 Unknown History mcg (50,000 unit) capsule insulin aspart U-100 100 unit/mL See Rx Instructions .ROUTE .COMPLEX 08/21/21 08/21/21 Unknown History (3 mL) subcutaneous pen (Novolog Flexpen U-100 Insulin aspart) insulin degludec 200 unit/mL (3 76 unit SUBCUT DAILY 08/21/21 08/21/21 Unknown History mL) subcutaneous pen (Tresiba FlexTouch U-200 insulin) Allergies Allergy/AdvReac Type Severity Reaction Status Date / Time baclofen Allergy ADR-Dizzine Verified 05/22/20 14:46 ss thiopental [From Pentothal] Allergy ALGY-Anaphy Verified 05/22/20 14:46 laxis Current Medications Generic Name Dose Route Start Last Admin Trade Name Freq PRN Reason Stop Dose Admin Acetaminophen 650 mg 08/21/21 05:43 08/30/21 06:15 Acetaminophen 325 Mg Tablet PO 650 mg Q6H PRN Administration Mild/Mod Pain Or Temp >/= 101 Aspirin 81 mg 08/21/21 09:00 08/30/21 08:41 Aspirin 81 Mg Ec Tablet PO 81 mg DAILY SHIREEN Administration Atorvastatin Calcium 20 mg 08/21/21 21:00 08/29/21 20:18 Atorvastatin 40 Mg Tablet PO 20 mg BEDTIME SHIREEN Administration Buspirone HCl 15 mg 08/21/21 05:45 08/24/21 04:44 Buspirone 10 Mg Tablet PO 15 mg Q8H SHIREEN Administration Carbamazepine 200 mg 08/21/21 09:00 08/30/21 08:45 Carbamazepine Xr (12 Hr) 200 Mg Tablet PO Not Given BID@0900,2099 SHIREEN Collagenase 1 applic 08/22/21 09:00 08/30/21 08:48 Collagenase Oint 30 Gm TOPICAL 1 applic DAILY SHIREEN Administration Famotidine 20 mg 08/30/21 15:00 08/30/21 16:45 Famotidine 20 Mg Tablet PO Not Given BID SHIREEN Folic Acid 1 mg 08/21/21 09:00 08/30/21 08:41 Folic Acid 1 Mg Tablet PO 1 mg DAILY SHIREEN Administration Furosemide 60 mg 08/29/21 10:00 08/30/21 09:00 Furosemide 10 Mg/Ml Sdv 10ml IVP 60 mg Q12H SHIREEN Administration Piperacillin Sod/Tazobactam 50 mls @ 12.5 mls/hr 08/21/21 06:30 08/30/21 18:28 Sod 3.375 gm/ Sodium Chloride IV 12.5 mls/hr Q12H SHIREEN Administration Protocol Vancomycin HCl 750 mg/ Sodium 250 mls @ 250 mls/hr 08/28/21 16:00 08/30/21 17:57 Chloride IV Infused DIALYSIS SHIREEN Infusion Iron Sucrose 200 mg/ Sodium 110 mls @ 220 mls/hr 08/30/21 10:45 08/30/21 11:45 Chloride IV 09/03/21 11:14 Infused Q24H SHIREEN Infusion Insulin Human Lispro 0 unit 08/22/21 12:00 08/24/21 07:03 Insulin Lispro 100 Unit/1 Ml SUBCUT Not Given TIDWM [facility] Protocol Metoprolol Tartrate 25 mg 08/24/21 21:00 08/30/21 08:48 Metoprolol Tartrate 25 Mg Tablet PO 25 mg BID@0900,2100 [facility] Administration Multivitamins 1 each 08/22/21 09:00 08/30/21 08:41 P-Ctkylzr-Dofipid C Tablet PO 1 each DAILY SHIREEN Administration Silver Sulfadiazine 1 applic 08/25/21 10:15 08/25/21 13:00 Silver Sulfadiazine Cream 1% 50 Gm TOPICAL 1 applic ONCE SHIREEN Administration PFSH Acute PFSH: Medical History (Updated 08/30/21 @ 20:33 by Reji Cazares DPM) Acid reflux Anxiety and depression CKD (chronic kidney disease), stage III Constipation, slow transit DDD (degenerative disc disease) Decubitus ulcer Essential (primary) hypertension Fall Intermittent self-catheterization of bladder Mixed hyperlipidemia Multiple sclerosis Restless leg Supracondylar fracture of right femur 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 Wheel chair as ambulatory aid Surgical History (Updated 08/24/21 @ 14:26 by Alejandro Sanders MD) H/O splenectomy History of appendectomy History of back surgery Family History Mother CAD (coronary artery disease) Diabetes Father CAD (coronary artery disease) Diabetes Other Cancer Social History Smoking and tobacco status: former smoker Second hand smoke exposure: No Smoking risk assessment/counseling performed?: No Alcohol intake: current Desire information about alcohol rehabilitation?: No Counseling given: No Desire information about substance/drug rehabilitation?: No Counseling given: No Adopted: No Caregiver/support person: Yes Lives independently: No Household members: spouse Marital status: Current occupational status: disabled History of recent travel: No Current gender identity: Male Vitals/I&O/Wt Last Vital Signs Temp 97.3 F L 08/30/21 17:05 Pulse 88 08/30/21 17:05 Resp 18 08/30/21 17:05 BP 161/76 08/30/21 17:05 Pulse Ox 95 08/30/21 16:34 08/30/21 08/30/21 08/30/21 06:59 14:59 22:59 Intake Total 270 / 940 574 / 574 370 / 944 Output Total 250 / 250 250 / 250 Balance 20 / 690 574 / 574 120 / 694 Physical Exam Narrative: GENERAL: Patient is alert and oriented ?3 and in no acute distress. The following is a focused bilateral lower extremity exam. VASCULAR: Dorsalis pedis palpable, posterior tibial arteries palpable. Capillary refill time less than 5 seconds to the distal hallux bilaterally. Calf is supple and nontender proximally and distally. Decreased pedal hair growth. +1 pitting edema. NEUROLOGICAL: Protective sensation intact 0/10 sites, tested with [employer] monofilament to bilateral feet. DERMATOLOGICAL: Grade 2 ulcer to the right plantar forefoot subfifth metatarsal head with epithelialized margin and granular base measures 3.7 cm x 1.9 cm x 0.2 cm, there is no periwound erythema, no purulent drainage, does not probe to bone, tunnel or undermine. There is a grade 2 ulcer at the right posterior heel measures 1.8 cm x 1.4 cm x 0.2 cm with fibrogranular base, does not probe to bone, no purulence and no periwound erythema. Indurated lower extremity, dry flaking skin to the bilateral lower extremity with chronic skin pigmentation changes. Dystrophic toenails 1 through 5 bilaterally. MUSCULOSKELETAL: Decreased muscle strength in all 3 planes. No pain with posterior calf squeeze. No pain with palpation or debridement of noted wound secondary to neuropathy. Urinary Catheter Management: Thrasher: Cath Placed During This Visit: yes Reason for Continuing Indwelling Catheter: Assist Healing of Perineal & Sacral Wounds- Incontinent Patients Urinary Catheter Date of Insertion: 08/21/21 Urinary Catheter Time of Insertion: 02:57 Data : 08/30/21 05:45 08/30/21 05:45 A&P Assessment and plan (1) Multiple sclerosis: Status: Chronic (2) Acute kidney injury superimposed on CKD: Status: Acute (3) Diabetic peripheral neuropathy associated with type 2 diabetes mellitus: Status: Acute (4) Non-pressure chronic ulcer of other part of left foot with fat layer exposed: Status: Acute (5) Chronic ulcer of right heel with fat layer exposed: Status: Acute Plan 71-year-old male with insulin-dependent diabetes, peripheral neuropathy, multiple sclerosis and chronic kidney disease. Patient has grade 2 ulceration to the right plantar forefoot and right posterior heel, wounds are clinically stable without acute signs of infection. Excisional debridement performed to right lower extremity wounds down to and including subcutaneous tissue and fat layer. Wound was debrided of devitalized epidermis, dermis, subcutaneous tissue sharply with a dermal curette with hemostasis family no pressure and no anesthesia required secondary to neuropathy. Wounds are clinically stable, no deep structures exposed. No erythema or purulence. Wounds show healing potential. -Dressing changes daily with Hydrofera Blue -Ordered right foot x-ray and noninvasive arterial studies SHONNA/TBI/PVR -Continue with offloading with foam heel boots and pillows at posterior leg with heel suspended -No plans for surgical debridement during his hospitalization for the right foot wounds, wounds are stable without acute signs of infection. Podiatry will follow. Coding Level of Care Code Acute Pollution Control Chemist for Chg Fwd Diagnoses Multiple sclerosis G35 Acute kidney injury superimposed on CKD N17.9; N18.9 Diabetic peripheral neuropathy associated with type 2 diabetes mellitus E11.42 Non-pressure chronic ulcer of other part of left foot with fat layer exposed L97.522 Chronic ulcer of right heel with fat layer exposed L97.412
--- NOTE | 2021-08-30 20:28 | XRR_ITS ---
PROCEDURE INFORMATION: Exam: XR Right Foot Exam date and time: 08/30/2021 8:36 PM Age: 71 years old Clinical indication: Condition or disease; Other: Ulcers; Prior surgery; Surgery date: 6+ months; Additional info: Posterior heel ulcer and ulcer subfifth metatarsal head TECHNIQUE: Imaging protocol: XR Right foot. Views: 3 or more views. COMPARISON: MRI Foot w/wo RIGHT [id number] 10/30/2015 10:28 AM FINDINGS: Bones/joints: An intramedullary geneva and bone screw transfixes the right ankle. Soft tissues: Normal. XR/XR foot RT min 3V* [id number] IMPRESSION: There are no acute osseous findings.
--- NOTE | 2021-08-30 20:29 | USCV_ITS ---
Philomena London Age: 71 Gender: M : 1950 Exam Date: 08/30/2021 22:29 Ordering Phys: Reji Cazares DPM Technologist: Shivam Glover Clothing Room Supervisor Exam Location: [facility] [place] Indication: decreased pedal pulse, right heel ulcer RIGHT LEFT Brachial 141.00 mmHg Brachial 174.00 mmHg Pressure (mmHg) Waveform Pressure (mmHg) Waveform 188.00 Above Knee 168.00 Below Knee 156.00 DPA 0.90 Ankle/Brachial Index 135.00 Pre-Exercise Toe Pressure 169.00 0.78 Pre-Exercise Toe/Brachial Index 0.97 FINDINGS Minimally diminished resting SHONNA on the right side Normal resting TBIs bilaterally No Doppler signals on the right posterior tibial artery Blunted dicrotic notch on the PVR waveforms CONCLUSIONS Features of mild peripheral artery disease bilaterally Possible occlusion of the posterior tibial artery on the right side Dr Saida Alegre MD [facility] (Electronically Signed) Final Date: 02 September 2021 22:45 S
[2021-08-30 20:33] LABS: Glucose Point of Care 225 mg/dL (70-110)
[2021-08-30] MEDS: carBAMazepine XR (12 HR) 200 mg Tablet PO (21:30)
[2021-08-30] MEDS: atorvastatin 40 mg Tablet 20 MG PO (21:31)
[2021-08-31] VITALS (9 sets, daily range): BP systolic 154–182; BP diastolic 79–86; PULSE 65–94; RESP 16–19; TEMP 36.5–37; O2SAT 94–98
[2021-08-31 05:20] LABS: Basophils # 0.2 10^3/uL (0.0-0.1); Eosinophils # 0.8 10^3/uL (0.0-0.8); Eosinophils % 4.6 %; Hematocrit 28.5 % (42.0-52.0); Hemoglobin 9.2 g/dL (11.7-16.6); Lymphocytes # 2.3 10^3/uL (0.8-4.8); Lymphocytes % 13.8 %; Mean Corpuscular HGB Conc 32.3 g/dL (30.0-36.0); Mean Corpuscular Hemoglobin 29.3 pg (28.0-34.0); Mean Corpuscular Volume 90.8 fl (80-94); Mean Platelet Volume 11.1 fL (7.4-10.4); Monocytes # 2.8 10^3/uL (0.2-0.9); Monocytes % 16.5 %; Neutrophils # 10.47 10^3/uL (1.8-7.7); Neutrophils % 62.5 %; Nucleated Red Blood Cells # 1.2 /100WBC; Nucleated Red Blood Cells % 7.3 %; Platelet Count 396 10^3/cmm (130-400); Red Blood Count 3.14 10^6/uL (4.1-5.3); Red Cell Distribution Width 16.6 % (12.1-15.1); White Blood Count 16.8 10^3/uL (4.0-10.0)
[2021-08-31 05:35] LABS: Alanine Aminotransferase 7 U/L (0-41); Albumin Level 2.5 g/dL (3.5-5.2); Alkaline Phosphatase 134 IU/L (40-130); Anion Gap 13.9 (5-19); Aspartate Amino Transferase 23 U/L (0-40); Blood Urea Nitrogen 18 mg/dL (8-23); Calcium 8.3 mg/dL (8.5-10.5); Carbon Dioxide 27 mmol/L (22-29); Chloride 99 mmol/L (98-107); Globulin 3.2 g/dL (1.3-4.6); Glucose 208 mg/dL (65-115); Magnesium 1.9 mg/dL (1.7-2.3); Osmolality Calculated 290 mOsm/kg (285-295); Phosphorus 3.9 mg/dL (2.5-4.5); Potassium 3.9 mmol/L (3.5-5.1); Sodium 136 mmol/L (136-145); Total Bilirubin 0.4 mg/dL (0.15-1.2); Total Protein 5.7 g/dL (6.6-8.7)
[2021-08-31] MEDS: piperacillin-tazobactam 3.375 GM in sodium chloride 0.9% (plus) 50 ML IV ×2 (05:53→17:22)
[2021-08-31 06:28] LABS: Glucose Point of Care 185 mg/dL (70-110)
--- NOTE | 2021-08-31 09:24 | P.PN_ITS ---
Subjective Subjective: No new issues with London today. Dialysis went well yesterday. Remains globally anasarca. Urine output noted to be 450 mL despite high-dose IV diuretics. He is comfortable, lucid, interactive. No acute uremic symptoms. Hemodynamics reviewed, remained stable, breathing comfortably on nasal cannula. Medications: Reviewed: Yes Medication Review Details: Current Medications Acetaminophen (Acetaminophen 325 Mg Tablet) 650 mg PO Q6H PRN PRN Reason: Mild/Mod Pain Or Temp >/= 101 Last Admin: 08/24/21 08:48 Dose: 650 mg Documented by: Hydrocodone Bitart/Acetaminophen (Hydrocodone-Acetaminophen 5-325 Mg Tablet) 1 tab PO Q8H PRN PRN Reason: MODERATE PAIN Aspirin (Aspirin 81 Mg Ec Tablet) 81 mg PO DAILY [facility] Last Admin: 08/28/21 10:44 Dose: 81 mg Documented by: Atorvastatin Calcium (Atorvastatin 40 Mg Tablet) 20 mg PO BEDTIME [facility] Last Admin: 08/28/21 20:17 Dose: 20 mg Documented by: Buspirone HCl (Buspirone 10 Mg Tablet) 15 mg PO Q8H [facility] Last Admin: 08/24/21 04:44 Dose: 15 mg Documented by: Carbamazepine (Carbamazepine Xr (12 Hr) 200 Mg Tablet) 200 mg PO BID@0900,2100 [facility] Last Admin: 08/28/21 20:17 Dose: 200 mg Documented by: Collagenase (Collagenase Oint 30 Gm) 1 applic TOPICAL DAILY [facility] Last Admin: 08/28/21 10:35 Dose: 1 applic Documented by: Dextrose (Dextrose 50% Syringe 50 Ml) 25 ml IVP ONCE PRN; Protocol PRN Reason: hypoglycemia protocol Dextrose (Dextrose 50% Syringe 50 Ml) 50 ml IVP PRN PRN; Protocol PRN Reason: hypoglycemia protocol Famotidine (Famotidine 20 Mg/2 Ml Inj) 20 mg IVP Q12H [facility] Last Admin: 08/29/21 03:08 Dose: 20 mg Documented by: Folic Acid (Folic Acid 1 Mg Tablet) 1 mg PO DAILY [facility] Last Admin: 08/28/21 10:29 Dose: 1 mg Documented by: Glucagon (Glucagon 1 Mg/Ml Inj 1 Ml) 1 mg IM ONCE PRN; Protocol PRN Reason: Adult Acute Hypoglycemia Prot. Piperacillin Sod/Tazobactam (Sod 3.375 gm/ Sodium Chloride) 50 mls @ 12.5 mls/hr IV Q12H [facility]; Protocol Last Admin: 08/29/21 06:01 Dose: 12.5 mls/hr Documented by: Albumin Human (Albumin) 12.5 gm in 50 mls @ 60 mls/hr IV PRN PRN PRN Reason: Hypotension and/or symptomatic Vancomycin HCl 750 mg/ Sodium (Chloride) 250 mls @ 250 mls/hr IV DIALYSIS [facility] Last Infusion: 08/28/21 22:11 Dose: Infused Documented by: Albumin Human (Albumin) 12.5 gm in 50 mls @ 60 mls/hr IV PRN PRN PRN Reason: Hypotension and/or symptomatic Insulin Human Lispro (Insulin Lispro 100 Unit/1 Ml) 0 unit SUBCUT TIDWM [facility]; Protocol Last Admin: 08/24/21 07:03 Dose: Not Given Documented by: Metoprolol Tartrate (Metoprolol Tartrate 25 Mg Tablet) 25 mg PO BID@0900,2100 [facility] Last Admin: 08/28/21 20:17 Dose: 25 mg Documented by: Midodrine (Midodrine 5 Mg Tablet) 10 mg PO TID PRN PRN Reason: Systolic blood pressure less than 100 mmHg. Morphine Sulfate (Morphine 4 Mg/Ml Sdv 1 Ml) 2 mg IVP Q4H PRN PRN Reason: SEVERE PAIN Last Admin: 08/28/21 22:04 Dose: 2 mg Documented by: Multivitamins (X-Vibhhjh-Usazmkl C Tablet) 1 each PO DAILY [facility] Last Admin: 08/28/21 10:29 Dose: 1 each Documented by: Naloxone HCl (Naloxone 0.4 Mg/Ml Sdv) 0.1 mg IVP Q2M PRN PRN Reason: OPIATERV Ondansetron HCl (Ondansetron 2 Mg/Ml Sdv 2 Ml) 4 mg IVP Q8H PRN PRN Reason: vomiting, or N/V if npo Silver Sulfadiazine (Silver Sulfadiazine Cream 1% 50 Gm) 1 applic TOPICAL ONCE [facility] Last Admin: 08/25/21 13:00 Dose: 1 applic Documented by: Vitals/I&O/Wt Last Vital Signs Temp 97.7 F 08/31/21 07:42 Pulse 90 08/31/21 07:42 Resp 18 08/31/21 07:42 BP 159/86 08/31/21 07:42 Pulse Ox 95 08/31/21 07:42 08/30/21 08/31/21 08/31/21 22:59 06:59 14:59 Intake Total 520 / 1094 680 / 1774 Output Total 250 / 250 200 / 450 Balance 270 / 844 480 / 1324 Physical Exam Narrative: Constitutional: Awake, comfortable HEENT: Wet mucosa, no jvp, non icteric Lungs: Bilaterally clear without discernible wheeze, rales in all lung zones CVS: S1 S2, no murmurs Abdo: Soft, BS ok Ext 4: Minimal edema, peripheral perfusion with no cyanosis Neurological: Grossly non-focal Urinary Catheter Management: Thrasher: Cath Placed During This Visit: yes Reason for Continuing Indwelling Catheter: Assist Healing of Perineal & Sacral Wounds- Incontinent Patients Urinary Catheter Date of Insertion: 08/21/21 Urinary Catheter Time of Insertion: 02:57 Data : 08/31/21 05:00 08/31/21 05:00 A&P Assessment and plan (1) Acute kidney injury superimposed on CKD: 1. 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 He is not a candidate for kidney biopsy given his poor mobility, significant decubitus ulceration. SHERRIE 2R is pending. SPEP negative. No evidence of renal recovery Continue dialysis Thursday, Thursday and Thursday If no recovery over the weekend, will plan for permacath early next week with transition to outpatient hemodialysis. Continue Lasix for the time being Dose medication for GFR less than 15 on dialysis 2. Chemistry Well-balanced 3. Anemia Hemoglobin 6.9, receiving packed red blood cells today. High saturation 15.3 ferritin 173, will load with Venofer, EPO x1 08/30 4. Hemodynamics Blood pressure little on the high side, will come down with effective ultrafiltration, no adjustments in antihypertensives today. 5. ID Currently on combination of Zosyn and vancomycin for significant decubitus ulceration. Blood cultures noted Management per surgery, wound care Thank you for consultation Kelvin Huddleston MD Nephrology [phone] Patient seen and examined via telemedicine, with the assistance of the bedside RN > 25 min spent in evaluation and mgmt of patient Status: Acute Attestations Medical Necessity Statement*: YEYO Coding Level of Care Code Acute Political Scientist for g Fwd Diagnoses Acute kidney injury superimposed on CKD N17.9; N18.9
[2021-08-31] MEDS: metoprolol tartrate 25 mg Tablet PO ×2 (09:58→20:57)
[2021-08-31] MEDS: carBAMazepine XR (12 HR) 200 mg Tablet PO ×2 (09:58→20:57)
[2021-08-31] MEDS: FUROsemide 10 mg/mL SDV 10mL 60 MG IVP ×2 (09:58→20:57)
[2021-08-31] MEDS: famotidine 20 mg Tablet PO ×2 (09:58→17:22)
[2021-08-31] MEDS: folic acid 1 mg Tablet PO (09:58)
[2021-08-31] MEDS: aspirin 81 mg EC Tablet PO (09:58)
[2021-08-31] MEDS: b-complex-vitamin c Tablet 1 EACH PO (09:58)
[2021-08-31] MEDS: iron sucrose 200 MG in sodium chloride 0.9% (100 ml) 100 ML 220 MG IV (10:00)
[2021-08-31] MEDS: collagenase oint 30 gm 1 APPLIC TOPICAL (10:01)
[2021-08-31 11:26] LABS: Glucose Point of Care 200 mg/dL (70-110)
--- NOTE | 2021-08-31 13:03 | PM.PN ---
Subjective Subjective: Patient was seen this morning, alert to person, to place, to time, he tells me that his strength is slowly improving, no fevers overnight, Vitals/I&O/Wt Last Vital Signs Temp 97.7 F 08/31/21 11:08 Pulse 94 08/31/21 11:08 Resp 16 08/31/21 11:08 BP 160/84 08/31/21 11:08 Pulse Ox 98 08/31/21 11:08 08/30/21 08/31/21 08/31/21 22:59 06:59 14:59 Intake Total 520 / 1094 680 / 1774 160 / 160 Output Total 250 / 250 200 / 450 Balance 270 / 844 480 / 1324 160 / 160 Physical Exam Const: COMMON NORMALS: no acute distress and patient oriented x3 Resp: COMMON NORMALS: normal respiratory effort, No retractions, No use of accessory muscles and clear to auscultation bilaterally AUSCULTATION: clear to auscultation bilaterally Cardio: COMMON NORMALS: regular rate, regular rhythm, S1 normal heart sound present and S2 normal heart sound present RATE: regular rate RHYTHM: regular rhythm HEART SOUNDS: S1 normal heart sound present and S2 normal heart sound present GI: COMMON NORMALS: Normal to inspection, nondistended, normoactive bowel sounds present, Soft to palpation and non-tender PALPATION: Yes Soft to palpation Extremity: COMMON NORMALS: no clubbing, cyanosis or edema and no pedal edema Neuro: COMMON NORMALS: patient oriented x3 Psych: COMMON NORMALS: mental status grossly normal Urinary Catheter Management: Thrasher: Cath Placed During This Visit: yes Reason for Continuing Indwelling Catheter: Assist Healing of Perineal & Sacral Wounds- Incontinent Patients Urinary Catheter Date of Insertion: 08/21/21 Urinary Catheter Time of Insertion: 02:57 Data : 08/31/21 05:00 08/31/21 05:00 A&P Assessment and plan (1) Acute kidney injury superimposed on CKD: Status: Acute (2) Oliguria: Status: Acute (3) Uremia: Status: Acute (4) Hyperphosphatemia: Status: Acute (5) Stage II pressure ulcer: Status: Acute (6) Anasarca: Status: Acute (7) Cellulitis: Status: Acute (8) Pleural effusion: Status: Acute (9) CHF (congestive heart failure): Status: Acute Plan Altered mental status: Most likely secondary to uremia, polypharmacy in setting of YEYO on CKD, sepsis secondary to infection -Mentation back to baseline alert oriented x3 -CTA of the head within normal limits Renal function worsening. Multiple medication including BuSpar, Zanaflex and at a higher dose. Mentation has improved with dialysis start renal dialysis diet, consult speech therapy Hold venlafaxine and BuSpar for now.? Change dose of gabapentin to 100 mg 3 times daily. Continue carbamazepine at 200 mg twice daily. YEYO on CKD: Nephrotic range disease. Appreciate nephrology recommendations. Given oliguria, uremia, altered mental status patient would need dialysis.? Nephrology agreeable.? Confirmed with patient's /DPOA. Temporary dialysis catheter placed End-stage nephrotic syndrome, with diabetic glomerulopathy Continue dialysis Thursday Will consider permacath early next week with transition to outpatient hemodialysis Currently on Lasix High anion gap metabolic acidosis: Treatment as above. Medical reconciliation done for nephrotoxic drugs. Sepsis secondary to UTI and cellulitis: Stage II decubitus ulcer: Post debridement on 08/25 Patient has extensive sacral decubitus ulcer status post debridement, that requires aggressive wound care, repositioning and will require long term placement Appreciate surgical recommendations, dressing changes wet-to-dry Wound care as per surgical team. Urine culture consistent with E. coli and Morganella.? Both sensitive to Zosyn. Continue with vancomycin and Zosyn for now.? Blood culture from 08/23 so far negative. Decrease pain medication with increasing frequency given altered mental status. Keep mean artery pressure 65 Continues to have leukocytosis 16.8, Right lower extremity, grade 2 ulceration of the right plantar forefoot and posterior heel, status post bedside debridement Dr. Cazares, daily dressing changes, flow studies ordered, offloading with foam heel boots Congestive heart failure: Diastolic type.? On 4 L, no crackles on exam continue to monitor Echocardiogram done shows an EF 55 to 60% with indeterminate diastolic function. Atrial fibrillation: Currently rate controlled. Continue with metoprolol at 25 mg twice daily. Chronically not on anticoagulation because of risk of falls. Type 2 diabetes mellitus: Hypoglycemia. Hold insulin sliding scale at low-dose protocol every 6 hours for now.? Start on D5W as above. HbA1c 6.9. 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 Renal dialysis status Heparin for DVT prophylaxis. Famotidine for PUD prophylaxis. Plan for day:?Continue with antibiotics. Monitor kidney function, monitor urine output Discharge plan: Most likely patient would need to be discharged to SNF for aggressive wound care.? Will need to follow-up further regarding possibility of dialysis as an outpatient. Attestations Medical Necessity Statement*: Patient requires hospitalization for YEYO, sacral ulcer, anemia, requiring dialysis Coding Level of Care Code Acute Reference Assistant for [facility] Fwd Diagnoses Acute kidney injury superimposed on CKD N17.9; N18.9 Oliguria R34 Uremia N19 Hyperphosphatemia E83.39 Stage II pressure ulcer L89.92 Anasarca R60.1 Cellulitis L03.90 Pleural effusion J90 CHF (congestive heart failure) I50.9
[2021-08-31 17:13] LABS: Glucose Point of Care 247 mg/dL (70-110)
[2021-08-31 20:23] LABS: Glucose Point of Care 260 mg/dL (70-110)
[2021-08-31] MEDS: atorvastatin 40 mg Tablet 20 MG PO (20:56)
[2021-08-31] MEDS: acetaminophen 325 mg Tablet 650 MG PO (21:19)
[2021-09-01] VITALS (9 sets, daily range): BP systolic 134–159; BP diastolic 72–89; PULSE 71–97; RESP 15–18; TEMP 36.6–36.9; O2SAT 94–99
[2021-09-01] MEDS: piperacillin-tazobactam 3.375 GM in sodium chloride 0.9% (plus) 50 ML IV ×2 (05:57→17:38)
[2021-09-01 06:28] LABS: Glucose Point of Care 230 mg/dL (70-110)
[2021-09-01 07:09] LABS: Basophils # 0.2 10^3/uL (0.0-0.1); Basophils % 0.8 %; Eosinophils # 1.3 10^3/uL (0.0-0.8); Eosinophils % 5.8 %; Hematocrit 28.6 % (42.0-52.0); Hemoglobin 9.1 g/dL (11.7-16.6); Lymphocytes # 2.6 10^3/uL (0.8-4.8); Lymphocytes % 11.9 %; Mean Corpuscular HGB Conc 31.8 g/dL (30.0-36.0); Mean Corpuscular Hemoglobin 29.4 pg (28.0-34.0); Mean Corpuscular Volume 92.3 fl (80-94); Mean Platelet Volume 11.4 fL (7.4-10.4); Monocytes % 13.5 %; Neutrophils # 14.53 10^3/uL (1.8-7.7); Neutrophils % 66.2 %; Nucleated Red Blood Cells % 8.9 %; Platelet Count 434 10^3/cmm (130-400); Red Cell Distribution Width 17.4 % (12.1-15.1)
[2021-09-01 07:29] LABS: Alanine Aminotransferase 7 U/L (0-41); Albumin Level 2.7 g/dL (3.5-5.2); Alkaline Phosphatase 115 IU/L (40-130); Anion Gap 16.7 (5-19); Aspartate Amino Transferase 16 U/L (0-40); Blood Urea Nitrogen 22 mg/dL (8-23); Calcium 8.5 mg/dL (8.5-10.5); Carbon Dioxide 27 mmol/L (22-29); Chloride 101 mmol/L (98-107); Globulin 2.5 g/dL (1.3-4.6); Glucose 222 mg/dL (65-115); Osmolality Calculated 302 mOsm/kg (285-295); Phosphorus 5.2 mg/dL (2.5-4.5); Potassium 3.7 mmol/L (3.5-5.1); Sodium 141 mmol/L (136-145); Total Bilirubin 0.4 mg/dL (0.15-1.2); Total Protein 5.2 g/dL (6.6-8.7)
[2021-09-01] MEDS: famotidine 20 mg Tablet PO ×2 (08:21→17:43)
[2021-09-01] MEDS: folic acid 1 mg Tablet PO (08:21)
[2021-09-01] MEDS: metoprolol tartrate 25 mg Tablet PO (08:21)
[2021-09-01] MEDS: aspirin 81 mg EC Tablet PO (08:21)
[2021-09-01] MEDS: b-complex-vitamin c Tablet 1 EACH PO (08:22)
[2021-09-01] MEDS: carBAMazepine XR (12 HR) 200 mg Tablet PO (08:23)
[2021-09-01] MEDS: collagenase oint 30 gm 1 APPLIC TOPICAL (08:25)
--- NOTE | 2021-09-01 08:47 | P.PN_ITS ---
Subjective Subjective: wants to go home. swollen, is urinating. no n/v/f/c/house/d. + leg pains Medications: Reviewed: Yes Medication Review Details: Current Medications Acetaminophen (Acetaminophen 325 Mg Tablet) 650 mg PO Q6H PRN PRN Reason: Mild/Mod Pain Or Temp >/= 101 Last Admin: 08/31/21 21:19 Dose: 650 mg Documented by: Aspirin (Aspirin 81 Mg Ec Tablet) 81 mg PO DAILY [facility] Last Admin: 09/01/21 08:21 Dose: 81 mg Documented by: Atorvastatin Calcium (Atorvastatin 40 Mg Tablet) 20 mg PO BEDTIME [facility] Last Admin: 08/31/21 20:56 Dose: 20 mg Documented by: Buspirone HCl (Buspirone 10 Mg Tablet) 15 mg PO Q8H [facility] Last Admin: 08/24/21 04:44 Dose: 15 mg Documented by: Carbamazepine (Carbamazepine Xr (12 Hr) 200 Mg Tablet) 200 mg PO BID@0900,2100 [facility] Last Admin: 09/01/21 08:23 Dose: 200 mg Documented by: Collagenase (Collagenase Oint 30 Gm) 1 applic TOPICAL DAILY [facility] Last Admin: 09/01/21 08:25 Dose: 1 applic Documented by: Dextrose (Dextrose 50% Syringe 50 Ml) 25 ml IVP ONCE PRN; Protocol PRN Reason: hypoglycemia protocol Dextrose (Dextrose 50% Syringe 50 Ml) 50 ml IVP PRN PRN; Protocol PRN Reason: hypoglycemia protocol Famotidine (Famotidine 20 Mg Tablet) 20 mg PO BID [facility] Last Admin: 09/01/21 08:21 Dose: 20 mg Documented by: Folic Acid (Folic Acid 1 Mg Tablet) 1 mg PO DAILY [facility] Last Admin: 09/01/21 08:21 Dose: 1 mg Documented by: Furosemide (Furosemide 10 Mg/Ml Sdv 10ml) 60 mg IVP Q12H [facility] Last Admin: 08/31/21 20:57 Dose: 60 mg Documented by: Glucagon (Glucagon 1 Mg/Ml Inj 1 Ml) 1 mg IM ONCE PRN; Protocol PRN Reason: Adult Acute Hypoglycemia Prot. Piperacillin Sod/Tazobactam (Sod 3.375 gm/ Sodium Chloride) 50 mls @ 12.5 mls/hr IV Q12H [facility]; Protocol Last Admin: 09/01/21 05:57 Dose: 12.5 mls/hr Documented by: Albumin Human (Albumin) 12.5 gm in 50 mls @ 60 mls/hr IV PRN PRN PRN Reason: Hypotension and/or symptomatic Vancomycin HCl 750 mg/ Sodium (Chloride) 250 mls @ 250 mls/hr IV DIALYSIS [facility] Last Infusion: 08/30/21 17:57 Dose: Infused Documented by: Albumin Human (Albumin) 12.5 gm in 50 mls @ 60 mls/hr IV PRN PRN PRN Reason: Hypotension and/or symptomatic Iron Sucrose 200 mg/ Sodium (Chloride) 110 mls @ 220 mls/hr IV Q24H [facility] Stop: 09/03/21 11:14 Last Infusion: 08/31/21 10:53 Dose: Infused Documented by: Insulin Human Lispro (Insulin Lispro 100 Unit/1 Ml) 0 unit SUBCUT TIDWM [facility]; Protocol Last Admin: 08/24/21 07:03 Dose: Not Given Documented by: Metoprolol Tartrate (Metoprolol Tartrate 25 Mg Tablet) 25 mg PO BID@0900,2100 [facility] Last Admin: 09/01/21 08:21 Dose: 25 mg Documented by: Midodrine (Midodrine 5 Mg Tablet) 10 mg PO TID PRN PRN Reason: Systolic blood pressure less than 100 mmHg. Multivitamins (Z-Yneenah-Pdrhxrr C Tablet) 1 each PO DAILY [facility] Last Admin: 09/01/21 08:22 Dose: 1 each Documented by: Naloxone HCl (Naloxone 0.4 Mg/Ml Sdv) 0.1 mg IVP Q2M PRN PRN Reason: OPIATERV Ondansetron HCl (Ondansetron 2 Mg/Ml Sdv 2 Ml) 4 mg IVP Q8H PRN PRN Reason: vomiting, or N/V if npo Silver Sulfadiazine (Silver Sulfadiazine Cream 1% 50 Gm) 1 applic TOPICAL ONCE [facility] Last Admin: 08/25/21 13:00 Dose: 1 applic Documented by: Vitals/I&O/Wt Last Vital Signs Temp 98.3 F 09/01/21 04:00 Pulse 89 09/01/21 07:48 Resp 18 09/01/21 07:48 BP 159/78 09/01/21 07:48 Pulse Ox 98 09/01/21 07:48 08/31/21 09/01/21 09/01/21 22:59 06:59 14:59 Intake Total 170 / 330 Output Total 600 / 600 600 / 1200 Balance -430 / -270 -600 / -870 Physical Exam Narrative: vs noted - swollen in bed, awake, confused heent- nc/at, eomi, anicteric neck no jvp. RT IJ dialysis access lungs : crackles b/l heart -irreg irreg, +JAMIE abd soft, nt, nd, + bs, + edema ext + 2+ b/l leg edema improving felder+ neuro- confused, but awake and alert to name and hospital skin-sacral decubitus Urinary Catheter Management: Felder: Cath Placed During This Visit: yes Reason for Continuing Indwelling Catheter: Assist Healing of Perineal & Sacral Wounds- Incontinent Patients Urinary Catheter Date of Insertion: 08/21/21 Urinary Catheter Time of Insertion: 02:57 Data : 09/01/21 05:55 09/01/21 05:55 A&P Assessment and plan (1) Acute kidney injury superimposed on CKD: 71 yr old man w/ htn, dm, self cath due to neurogenic bladder, recurrent UTI 1. progressive renal failure- likely from DM, HTN. -normal size kidneys on renal us. no hydronephrosis -ua noted- but felder and he self cath - pth 209- repeat after vit d repleted - ALMITA + 1:80. anca neg -clinically improving w/ HD - nephrotic range proteinuria likely from DM await Anti-PLA2R -phos binder when eats -plan HD in am 2. AMS, sepsis secondary to UTI/ cellulitis/ sacral decub, and uremia- 3.leukocytosis- broad spectrum abx -wbc not improving -s/p sacral decub debridement per Dr. Hernandes on 08/25/21 -monitor vanco levels. renal dose zosyn 4. anemia eval per medicine -Q if bleeding from sacral decub or GI -iv iron and CHELSEA -SPEP/ UPE neg -s/p prbc tx yesterday 5. DM control DM w/ stage 4 CKD 6. echo - EF 55-60% -fluid removal on hd a fib 7. uric acid -monitor 8. htn- monitor w/ fluid removal seen and examined w/ RN- telehealth visit time spent 30 min Status: Acute Plan see above Attestations Medical Necessity Statement*: hosea, sacral decub, leukocytosis, anemia Time Spent in Patient Care: 16 - 35 minutes (>than 50% of time spent in counselling and/or direct pt care on unit) . Coding Level of Care Code Acute Health And Wellness Coordinator for [employer] Diagnoses Acute kidney injury superimposed on CKD N17.9; N18.9
[2021-09-01] MEDS: FUROsemide 10 mg/mL SDV 10mL 60 MG IVP (09:45)
[2021-09-01] MEDS: epoetin alfa 10,000 unit/mL INJ 10000 UNIT SUBCUT (09:45)
--- NOTE | 2021-09-01 10:44 | PC.SOCIAL ---
IMM Update Pg. 2 of IMM updated and reviewed with patient, who verbalized understanding. Copy provided.
[2021-09-01 10:46] LABS: Glucose Point of Care 301 mg/dL (70-110)
[2021-09-01] MEDS: iron sucrose 200 MG in sodium chloride 0.9% (100 ml) 100 ML 220 MG IV (11:51)
[2021-09-01] MEDS: insulin lispro 100 unit/1 mL SUBCUT ×2 (11:58→17:43)
[2021-09-01] MEDS: baclofen 10 mg Tablet 5 MG PO (11:59)
--- NOTE | 2021-09-01 15:02 | P.PN_ITS ---
Subjective Subjective: Patient was seen this morning, he tells me that he takes baclofen at home for his bilateral lower extremity spasms associated with his multiple sclerosis Vitals/I&O/Wt Last Vital Signs Temp 98.4 F 09/01/21 12:00 Pulse 92 09/01/21 12:00 Resp 18 09/01/21 12:00 BP 142/76 09/01/21 12:00 Pulse Ox 94 09/01/21 12:00 09/01/21 09/01/21 09/01/21 06:59 14:59 22:59 Intake Total 1360 / 1360 Output Total 600 / 1200 Balance -600 / -870 1360 / 1360 Physical Exam Const: COMMON NORMALS: no acute distress and patient oriented x3 Resp: COMMON NORMALS: normal respiratory effort, No retractions, No use of accessory muscles and clear to auscultation bilaterally AUSCULTATION: clear to auscultation bilaterally Cardio: COMMON NORMALS: regular rate, regular rhythm, S1 normal heart sound present and S2 normal heart sound present RATE: regular rate RHYTHM: regular rhythm HEART SOUNDS: S1 normal heart sound present and S2 normal heart sound present GI: COMMON NORMALS: Normal to inspection, nondistended, normoactive bowel sounds present, Soft to palpation, non-tender and No hepatosplenomegaly present PALPATION: Yes Soft to palpation and Yes No hepatosplenomegaly present Extremity: COMMON NORMALS: no pedal edema Neuro: COMMON NORMALS: patient oriented x3 Psych: COMMON NORMALS: mental status grossly normal Urinary Catheter Management: Thrasher: Cath Placed During This Visit: yes Reason for Continuing Indwelling Catheter: Assist Healing of Perineal & Sacral Wounds- Incontinent Patients Urinary Catheter Date of Insertion: 08/21/21 Urinary Catheter Time of Insertion: 02:57 Data : 09/01/21 05:55 09/01/21 05:55 A&P Assessment and plan (1) Acute kidney injury superimposed on CKD: Status: Acute (2) Oliguria: Status: Acute (3) Uremia: Status: Acute (4) Hyperphosphatemia: Status: Acute (5) Stage II pressure ulcer: Status: Acute (6) Anasarca: Status: Acute (7) Cellulitis: Status: Acute (8) Pleural effusion: Status: Acute (9) CHF (congestive heart failure): Status: Acute Plan Altered mental status: Most likely secondary to uremia, polypharmacy in setting of YEYO on CKD, sepsis secondary to infection -Mentation back to baseline alert oriented x3 -CTA of the head within normal limits Renal function worsening. Multiple medication including BuSpar, Zanaflex and at a higher dose. Mentation has improved with dialysis start renal dialysis diet, consult speech therapy Hold venlafaxine and BuSpar for now.? Change dose of gabapentin to 100 mg 3 times daily. Continue carbamazepine at 200 mg twice daily. YEYO on CKD: Nephrotic range disease. Appreciate nephrology recommendations. Given oliguria, uremia, altered mental status patient would need dialysis.? Nephrology agreeable.? Confirmed with patient's /DPOA. Temporary dialysis catheter placed End-stage nephrotic syndrome, with diabetic glomerulopathy Continue dialysis Thursday Will consider permacath early next week with transition to outpatient hemodialysis Currently on Lasix High anion gap metabolic acidosis: Treatment as above. Medical reconciliation done for nephrotoxic drugs. Sepsis secondary to UTI and cellulitis: Stage II decubitus ulcer: Post debridement on 08/25 Patient has extensive sacral decubitus ulcer status post debridement, that requires aggressive wound care, repositioning and will require penitentiary placement Appreciate surgical recommendations, dressing changes wet-to-dry Wound care as per surgical team. Urine culture consistent with E. coli and Morganella.? Both sensitive to Zosyn. Continue with vancomycin and Zosyn for now.? Blood culture from 08/23 so far negative. Decrease pain medication with increasing frequency given altered mental status. Keep mean artery pressure 65 Continues to have leukocytosis 16.8, Right lower extremity, grade 2 ulceration of the right plantar forefoot and posterior heel, status post bedside debridement Dr. Cazares, daily dressing changes, flow studies ordered, offloading with foam heel boots Congestive heart failure: Diastolic type.? On 4 L, no crackles on exam continue to monitor Echocardiogram done shows an EF 55 to 60% with indeterminate diastolic function. Atrial fibrillation: Currently rate controlled. Continue with metoprolol at 25 mg twice daily. Chronically not on anticoagulation because of risk of falls. Type 2 diabetes mellitus: Hypoglycemia. Hold insulin sliding scale at low-dose protocol every 6 hours for now.? Start on D5W as above. HbA1c 6.9. 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 Renal dialysis status Heparin for DVT prophylaxis. Famotidine for PUD prophylaxis. Plan for day:?Continue with antibiotics. Monitor kidney function, monitor urine output, start baclofen Discharge plan: Most likely patient would need to be discharged to SNF for aggressive wound care.? Will need to follow-up further regarding possibility of dialysis as an outpatient. Attestations Medical Necessity Statement*: Patient requires hospitalization for sacral ulcer, chronic leukocytosis Coding Level of Care Code Acute Mill Stenciler for Chg Fwd Diagnoses Acute kidney injury superimposed on CKD N17.9; N18.9 Oliguria R34 Uremia N19 Hyperphosphatemia E83.39 Stage II pressure ulcer L89.92 Anasarca R60.1 Cellulitis L03.90 Pleural effusion J90 CHF (congestive heart failure) I50.9
[2021-09-01 16:47] LABS: Glucose Point of Care 201 mg/dL (70-110)
[2021-09-02] VITALS (11 sets, daily range): BP systolic 112–179; BP diastolic 70–96; PULSE 69–112; RESP 14–18; TEMP 36.4–36.9; O2SAT 89–97
[2021-09-02] MEDS: heparin, porcine 1,000 unit/mL INJ 10 mL 10000 UNIT INJECTION (00:04)
[2021-09-02] MEDS: baclofen 10 mg Tablet 5 MG PO (00:16)
[2021-09-02 00:17] LABS: Glucose Point of Care 117 mg/dL (70-110)
[2021-09-02] MEDS: carBAMazepine XR (12 HR) 200 mg Tablet PO ×2 (00:26→22:42)
[2021-09-02] MEDS: atorvastatin 40 mg Tablet 20 MG PO ×2 (00:28→22:42)
[2021-09-02] MEDS: FUROsemide 10 mg/mL SDV 10mL 60 MG IVP ×2 (00:29→22:47)
[2021-09-02 02:59] LABS: Basophils # 0.2 10^3/uL (0.0-0.1); Basophils % 0.7 %; Eosinophils # 0.9 10^3/uL (0.0-0.8); Eosinophils % 3.3 %; Hematocrit 28.5 % (42.0-52.0); Lymphocytes # 2.5 10^3/uL (0.8-4.8); Lymphocytes % 9.2 %; Mean Corpuscular HGB Conc 31.6 g/dL (30.0-36.0); Mean Corpuscular Hemoglobin 29.1 pg (28.0-34.0); Mean Corpuscular Volume 92.2 fl (80-94); Mean Platelet Volume 11.6 fL (7.4-10.4); Monocytes # 3.5 10^3/uL (0.2-0.9); Monocytes % 13.3 %; Neutrophils # 19.19 10^3/uL (1.8-7.7); Neutrophils % 72.1 %; Nucleated Red Blood Cells # 1.9 /100WBC; Nucleated Red Blood Cells % 6.9 %; Platelet Count 452 10^3/cmm (130-400); Red Blood Count 3.09 10^6/uL (4.1-5.3); Red Cell Distribution Width 17.7 % (12.1-15.1); White Blood Count 26.6 10^3/uL (4.0-10.0)
[2021-09-02 03:14] LABS: Vancomycin Random 17.4 ug/mL (20.0-40.0)
[2021-09-02 03:15] LABS: Alanine Aminotransferase 8 U/L (0-41); Albumin Level 2.6 g/dL (3.5-5.2); Alkaline Phosphatase 129 IU/L (40-130); Anion Gap 16.5 (5-19); Aspartate Amino Transferase 18 U/L (0-40); Blood Urea Nitrogen 10 mg/dL (8-23); Calcium 8.3 mg/dL (8.5-10.5); Carbon Dioxide 26 mmol/L (22-29); Chloride 98 mmol/L (98-107); Glucose 137 mg/dL (65-115); Magnesium 1.8 mg/dL (1.7-2.3); Osmolality Calculated 285 mOsm/kg (285-295); Phosphorus 2.4 mg/dL (2.5-4.5); Potassium 3.5 mmol/L (3.5-5.1); Sodium 137 mmol/L (136-145); Total Bilirubin 0.4 mg/dL (0.15-1.2); Total Protein 5.6 g/dL (6.6-8.7)
[2021-09-02 03:39] LABS: Slide Review Slide Review Perform
[2021-09-02 06:36] LABS: Glucose Point of Care 137 mg/dL (70-110)
[2021-09-02] MEDS: piperacillin-tazobactam 3.375 GM in sodium chloride 0.9% (plus) 50 ML IV ×2 (06:41→17:29)
--- NOTE | 2021-09-02 07:50 | PM.PN ---
Subjective Subjective: awake, alert. feels better. wants to go home. no n/v/f/c/house/d/leg pains. + back pain Medications: Reviewed: Yes Medication Review Details: Current Medications Acetaminophen (Acetaminophen 325 Mg Tablet) 650 mg PO Q6H PRN PRN Reason: Mild/Mod Pain Or Temp >/= 101 Last Admin: 08/31/21 21:19 Dose: 650 mg Documented by: Aspirin (Aspirin 81 Mg Ec Tablet) 81 mg PO DAILY [facility] Last Admin: 09/01/21 08:21 Dose: 81 mg Documented by: Atorvastatin Calcium (Atorvastatin 40 Mg Tablet) 20 mg PO BEDTIME [facility] Last Admin: 09/02/21 00:28 Dose: 20 mg Documented by: Baclofen (Baclofen 10 Mg Tablet) 5 mg PO Q12H PRN PRN Reason: spasm Last Admin: 09/02/21 00:16 Dose: 5 mg Documented by: Buspirone HCl (Buspirone 10 Mg Tablet) 15 mg PO Q8H [facility] Last Admin: 08/24/21 04:44 Dose: 15 mg Documented by: Carbamazepine (Carbamazepine Xr (12 Hr) 200 Mg Tablet) 200 mg PO BID@0900,2100 [facility] Last Admin: 09/02/21 00:26 Dose: 200 mg Documented by: Collagenase (Collagenase Oint 30 Gm) 1 applic TOPICAL DAILY [facility] Last Admin: 09/01/21 08:25 Dose: 1 applic Documented by: Dextrose (Dextrose 50% Syringe 50 Ml) 25 ml IVP ONCE PRN; Protocol PRN Reason: hypoglycemia protocol Dextrose (Dextrose 50% Syringe 50 Ml) 50 ml IVP PRN PRN; Protocol PRN Reason: hypoglycemia protocol Famotidine (Famotidine 20 Mg Tablet) 20 mg PO BID [facility] Last Admin: 09/01/21 17:43 Dose: 20 mg Documented by: Folic Acid (Folic Acid 1 Mg Tablet) 1 mg PO DAILY [facility] Last Admin: 09/01/21 08:21 Dose: 1 mg Documented by: Furosemide (Furosemide 10 Mg/Ml Sdv 10ml) 60 mg IVP Q12H [facility] Last Admin: 09/02/21 00:29 Dose: 60 mg Documented by: Glucagon (Glucagon 1 Mg/Ml Inj 1 Ml) 1 mg IM ONCE PRN; Protocol PRN Reason: Adult Acute Hypoglycemia Prot. Piperacillin Sod/Tazobactam (Sod 3.375 gm/ Sodium Chloride) 50 mls @ 12.5 mls/hr IV Q12H [facility]; Protocol Last Admin: 09/02/21 06:41 Dose: 12.5 mls/hr Documented by: Vancomycin HCl 750 mg/ Sodium (Chloride) 250 mls @ 250 mls/hr IV DIALYSIS [facility] Last Infusion: 08/30/21 17:57 Dose: Infused Documented by: Albumin Human (Albumin) 12.5 gm in 50 mls @ 60 mls/hr IV PRN PRN PRN Reason: Hypotension and/or symptomatic Iron Sucrose 200 mg/ Sodium (Chloride) 110 mls @ 220 mls/hr IV Q24H [facility] Stop: 09/03/21 11:14 Last Infusion: 09/01/21 13:46 Dose: Infused Documented by: Dextrose (D5w) 500 mls @ 100 mls/hr IV ONCE PRN; Protocol PRN Reason: Adult Acute Hypoglycemia Prot Insulin Human Lispro (Insulin Lispro 100 Unit/1 Ml) 0 unit SUBCUT TIDWM [facility]; Protocol Last Admin: 09/02/21 07:20 Dose: Not Given Documented by: Metoprolol Tartrate (Metoprolol Tartrate 25 Mg Tablet) 25 mg PO BID@0900,2100 [facility] Last Admin: 09/01/21 23:46 Dose: Not Given Documented by: Midodrine (Midodrine 5 Mg Tablet) 10 mg PO TID PRN PRN Reason: Systolic blood pressure less than 100 mmHg. Multivitamins (Z-Ohfayjj-Xfworji C Tablet) 1 each PO DAILY [facility] Last Admin: 09/01/21 08:22 Dose: 1 each Documented by: Naloxone HCl (Naloxone 0.4 Mg/Ml Sdv) 0.1 mg IVP Q2M PRN PRN Reason: OPIATERV Ondansetron HCl (Ondansetron 2 Mg/Ml Sdv 2 Ml) 4 mg IVP Q8H PRN PRN Reason: vomiting, or N/V if npo Silver Sulfadiazine (Silver Sulfadiazine Cream 1% 50 Gm) 1 applic TOPICAL ONCE [facility] Last Admin: 08/25/21 13:00 Dose: 1 applic Documented by: Vitals/I&O/Wt Last Vital Signs Temp 97.7 F 09/02/21 04:00 Pulse 110 H 09/02/21 07:10 Resp 14 09/02/21 07:10 BP 163/91 09/02/21 07:10 Pulse Ox 97 09/02/21 07:10 09/01/21 09/02/21 09/02/21 22:59 06:59 14:59 Intake Total 240 / 1600 50 / 1650 Output Total 3855 / 3855 Balance 240 / 1600 -3805 / -2205 Weight last 48 hrs Weight 98.9 kg Physical Exam Narrative: vs noted - swollen in bed, awake, alert heent- nc/at, eomi, anicteric neck no jvp. RT IJ dialysis access lungs : improved air movement b/l heart -irreg irreg, +JAMIE abd soft, nt, nd, + bs, + edema ext + 1+ b/l leg edema felder+ neuro- a,a, o x 3, moves all extremitiesl skin-sacral decubitus Urinary Catheter Management: Felder: Cath Placed During This Visit: yes Reason for Continuing Indwelling Catheter: Assist healing open wound Urinary Catheter Date of Insertion: 08/21/21 Urinary Catheter Time of Insertion: 02:57 Data : 09/02/21 02:24 09/02/21 02:24 A&P Assessment and plan (1) Acute kidney injury superimposed on CKD: 71 yr old man w/ htn, dm, self cath due to neurogenic bladder, recurrent UTI 1. progressive renal failure- likely from DM, HTN. -normal size kidneys on renal us. no hydronephrosis -ua noted- but felder and he self cath - pth 209- repeat after vit d repleted - ALMITA + 1:80. anca neg -clinically improving w/ HD - nephrotic range proteinuria likely from DM await Anti-PLA2R -phos normal -plan HD in am 2. AMS, sepsis secondary to UTI/ cellulitis/ sacral decub, and uremia- improved 3.leukocytosis- broad spectrum abx -wbc not improving -s/p sacral decub debridement per Dr. Hernandes on 08/25/21 -monitor vanco levels. renal dose zosyn -CAN REDOSE VANCO TODAY -consider removing dialysis catheter. plan for a permacath 4. anemia eval per medicine -Q if bleeding from sacral decub or GI -iv iron and CHELSEA -SPEP/ UPE neg -s/p prbc tx 5. DM control DM w/ stage 4 CKD 6. echo - EF 55-60% -fluid removal on hd a fib 7. uric acid -monitor 8. htn- monitor w/ fluid removal seen and examined w/ RN- telehealth visit time spent 30 min Status: Acute Plan see above Attestations Medical Necessity Statement*: infection, hosea Time Spent in Patient Care: 16 - 35 minutes (>than 50% of time spent in counselling and/or direct pt care on unit). Coding Level of Care Code Acute Seo Expert for Keila Leonardo Diagnoses Acute kidney injury superimposed on CKD N17.9; N18.9
[2021-09-02] MEDS: aspirin 81 mg EC Tablet PO (09:01)
[2021-09-02] MEDS: b-complex-vitamin c Tablet 1 EACH PO (09:01)
[2021-09-02] MEDS: famotidine 20 mg Tablet PO ×2 (09:02→17:30)
[2021-09-02] MEDS: folic acid 1 mg Tablet PO (09:02)
[2021-09-02] MEDS: metoprolol tartrate 25 mg Tablet PO ×2 (09:05→22:56)
[2021-09-02] MEDS: collagenase oint 30 gm 1 APPLIC TOPICAL (10:32)
--- NOTE | 2021-09-02 10:40 | PC.NURSE ---
DIALYSIS CATHETER REMOVED. PRESSURE WAS APPLIED UNTIL BLEEDING STOPPED. TIP SENT TO LAB ORDERED. HAGER CATHETER REMOVED. TIP SENT TO LAB FOR CULTURED ORDERED. PATIENT TOLERATED WELL
[2021-09-02] MEDS: iron sucrose 200 MG in sodium chloride 0.9% (100 ml) 100 ML 220 MG IV (11:22)
--- NOTE | 2021-09-02 11:35 | PC.NURSE ---
Thrasher catheter replaced. Urine collected for urine culture order and sent to lab
[2021-09-02 11:37] LABS: Procalcitonin 1.21 ng/mL (0-0.5)
[2021-09-02 12:06] LABS: Erythrocyte Sedimentation Rate 18 mm/hr (0-10)
--- NOTE | 2021-09-02 13:55 | PM.PN ---
Subjective Subjective: Patient was seen this morning, afebrile overnight, no nausea, vomiting, chest pain, he tells me that he does not want dialysis for the last of his life, he is okay with short-term dialysis, but he really wants to try to get home, I discussed with him that he has generalized weakness, with his MS, now has a sacral decubitus ulcer, he will likely require extensive nursing care, now will likely require dialysis Thursday for some period of time until his renal function improves Patient was advised that he continues to have leukocytosis, left remove his dialysis catheter, culture the tip, remove Thrasher catheter culture the tip, will have a permacath placed on Thursday, agreeable, wants me to call his Vitals/I&O/Wt Last Vital Signs Temp 97.8 F 09/02/21 12:00 Pulse 103 H 09/02/21 12:00 Resp 18 09/02/21 12:00 BP 179/96 09/02/21 12:00 Pulse Ox 92 09/02/21 12:00 09/01/21 09/02/21 09/02/21 22:59 06:59 14:59 Intake Total 240 / 1600 50 / 1650 160 / 160 Output Total 3855 / 3855 Balance 240 / 1600 -3805 / -2205 160 / 160 Weight last 48 hrs Weight 98.9 kg Physical Exam Const: COMMON NORMALS: no acute distress and patient oriented x3 Resp: COMMON NORMALS: normal respiratory effort, No retractions, No use of accessory muscles and clear to auscultation bilaterally AUSCULTATION: clear to auscultation bilaterally Cardio: COMMON NORMALS: regular rate, regular rhythm, S1 normal heart sound present and S2 normal heart sound present RATE: regular rate RHYTHM: regular rhythm HEART SOUNDS: S1 normal heart sound present and S2 normal heart sound present GI: COMMON NORMALS: Normal to inspection, nondistended, normoactive bowel sounds present, Soft to palpation, non-tender and No hepatosplenomegaly present PALPATION: Yes Soft to palpation and Yes No hepatosplenomegaly present Extremity: COMMON NORMALS: no pedal edema Neuro: COMMON NORMALS: patient oriented x3 Psych: COMMON NORMALS: mental status grossly normal Skin: NARRATIVE SKIN EXAM: Sacral decubitus ulcer, over sacrum, measuring 3 x 3 cm, irregular borders, examined today, good granulation tissue, packed Urinary Catheter Management: Thrasher: Cath Placed During This Visit: yes Reason for Continuing Indwelling Catheter: Assist healing open wound Urinary Catheter Date of Insertion: 08/21/21 Urinary Catheter Time of Insertion: 02:57 Data : 09/02/21 02:24 09/02/21 02:24 Micro: Microbiology 09/02/21 12:15 Blood Culture - Preliminary Blood SPECIMEN COLLECTED 09/02/21 10:30 Blood Culture - Preliminary Blood SPECIMEN COLLECTED A&P Assessment and plan (1) Acute kidney injury superimposed on CKD: Status: Acute (2) Oliguria: Status: Acute (3) Uremia: Status: Acute (4) Hyperphosphatemia: Status: Acute (5) Stage II pressure ulcer: Status: Acute (6) Anasarca: Status: Acute (7) Cellulitis: Status: Acute (8) Pleural effusion: Status: Acute (9) CHF (congestive heart failure): Status: Acute Plan Persistent leukocytosis -Afebrile -26.6, primarily neutrophilia -Etiology unclear -Pro-Steven 1.21 -CRP 116 -ESR 18 -Upon examination, his sacral decubitus ulcer looks clean and dry, wet-to-dry dressing, slight tunneling -Remove Thrasher catheter, culture tip, replace -Remove right dialysis catheter, culture tip -Repeat blood cultures, urine cultures, sputum cultures -Continue antibiotics Altered mental status: Most likely secondary to uremia, polypharmacy in setting of YEYO on CKD, sepsis secondary to infection -Mentation back to baseline alert oriented x3 -CTA of the head within normal limits Renal function worsening. Multiple medication including BuSpar, Zanaflex and at a higher dose. Mentation has improved with dialysis start renal dialysis diet, consult speech therapy Hold venlafaxine and BuSpar for now.? Change dose of gabapentin to 100 mg 3 times daily. Continue carbamazepine at 200 mg twice daily. YEYO on CKD: Nephrotic range disease. Appreciate nephrology recommendations. Given oliguria, uremia, altered mental status patient would need dialysis.? Nephrology agreeable.? Confirmed with patient's /DPOA. Temporary dialysis catheter placed End-stage nephrotic syndrome, with diabetic glomerulopathy Continue dialysis Thursday Remove dialysis catheter Permacath on Thursday with transition to outpatient hemodialysis Currently on Lasix High anion gap metabolic acidosis: Treatment as above. Medical reconciliation done for nephrotoxic drugs. Sepsis secondary to UTI and cellulitis: Stage II decubitus ulcer: Post debridement on 08/25 Patient has extensive sacral decubitus ulcer status post debridement, that requires aggressive wound care, repositioning and will require halfway placement Appreciate surgical recommendations, dressing changes wet-to-dry Wound care as per surgical team. Urine culture consistent with E. coli and Morganella.? Both sensitive to Zosyn. Continue with vancomycin and Zosyn for now.? Blood culture from 08/23 so far negative. Decrease pain medication with increasing frequency given altered mental status. Keep mean artery pressure 65 Right lower extremity, grade 2 ulceration of the right plantar forefoot and posterior heel, status post bedside debridement Dr. Cazares, daily dressing changes, flow studies ordered, offloading with foam heel boots Congestive heart failure: Diastolic type.? On 4 L, no crackles on exam continue to monitor Echocardiogram done shows an EF 55 to 60% with indeterminate diastolic function. Atrial fibrillation: Currently rate controlled. Continue with metoprolol at 25 mg twice daily. Chronically not on anticoagulation because of risk of falls. Type 2 diabetes mellitus: Hypoglycemia. Hold insulin sliding scale at low-dose protocol every 6 hours for now.? Start on D5W as above. HbA1c 6.9. 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 Renal dialysis status Heparin for DVT prophylaxis. Famotidine for PUD prophylaxis. Plan for day:?Continue with antibiotics. Monitor kidney function, monitor urine output, start baclofen, remove dialysis catheter culture tip, no Thrasher catheter culture tip, repeat blood cultures Discharge plan: Most likely patient would need to be discharged to SNF for aggressive wound care.? Will need to follow-up further regarding possibility of dialysis as an outpatient. Attestations Medical Necessity Statement*: Patient requires hospitalization for YEYO, sepsis, persistent leukocytosis, decubitus ulcer, acute renal failure Coding Level of Care Code Acute Intern Brand for [facility] Fwd Diagnoses Acute kidney injury superimposed on CKD N17.9; N18.9 Oliguria R34 Uremia N19 Hyperphosphatemia E83.39 Stage II pressure ulcer L89.92 Anasarca R60.1 Cellulitis L03.90 Pleural effusion J90 CHF (congestive heart failure) I50.9
[2021-09-02] MEDS: polyethylene glycol 3350 Pkt 17 gm PO (14:52)
[2021-09-02] MEDS: docusate sodium 100 mg Capsule PO (17:29)
[2021-09-02] MEDS: insulin lispro 100 unit/1 mL SUBCUT (17:38)
[2021-09-02] MEDS: insulin glargine 100 units/1 mL 5 UNIT SUBCUT (22:43)
[2021-09-03] VITALS (9 sets, daily range): BP systolic 116–198; BP diastolic 58–100; PULSE 75–99; RESP 18–20; TEMP 36.5–36.8; O2SAT 90–100
--- NOTE | 2021-09-03 03:57 | PC.NURSE ---
REED TO PATIENT'S NURSE NOTIFIED OF BLOOD PRESSURE 179/80 PULSE OF 90.
--- NOTE | 2021-09-03 04:22 | PC.NURSE ---
pt hemodialysis cath removed
[2021-09-03 04:44] LABS: Basophils # 0.1 10^3/uL (0.0-0.1); Basophils % 0.8 %; Eosinophils # 0.3 10^3/uL (0.0-0.8); Eosinophils % 1.6 %; Hematocrit 27.9 % (42.0-52.0); Hemoglobin 8.7 g/dL (11.7-16.6); Lymphocytes # 2.1 10^3/uL (0.8-4.8); Lymphocytes % 11.3 %; Mean Corpuscular HGB Conc 31.2 g/dL (30.0-36.0); Mean Corpuscular Hemoglobin 29.3 pg (28.0-34.0); Mean Corpuscular Volume 93.9 fl (80-94); Mean Platelet Volume 11.3 fL (7.4-10.4); Monocytes # 2.5 10^3/uL (0.2-0.9); Monocytes % 13.8 %; Neutrophils # 13.01 10^3/uL (1.8-7.7); Neutrophils % 71.6 %; Nucleated Red Blood Cells # 1.1 /100WBC; Nucleated Red Blood Cells % 6.1 %; Platelet Count 468 10^3/cmm (130-400); Red Blood Count 2.97 10^6/uL (4.1-5.3); Red Cell Distribution Width 18.5 % (12.1-15.1); White Blood Count 18.2 10^3/uL (4.0-10.0)
[2021-09-03 05:05] LABS: Vancomycin Random 15.2 ug/mL (20.0-40.0)
[2021-09-03 05:08] LABS: Alanine Aminotransferase 6 U/L (0-41); Albumin Level 2.4 g/dL (3.5-5.2); Alkaline Phosphatase 117 IU/L (40-130); Aspartate Amino Transferase 15 U/L (0-40); Blood Urea Nitrogen 19 mg/dL (8-23); Calcium 8.1 mg/dL (8.5-10.5); Carbon Dioxide 25 mmol/L (22-29); Chloride 100 mmol/L (98-107); Globulin 2.6 g/dL (1.3-4.6); Glucose 212 mg/dL (65-115); Magnesium 2.2 mg/dL (1.7-2.3); Osmolality Calculated 301 mOsm/kg (285-295); Phosphorus 4.1 mg/dL (2.5-4.5); Sodium 141 mmol/L (136-145); Total Bilirubin 0.4 mg/dL (0.15-1.2); Uric Acid 3.9 mg/dL (3.4-7.0)
[2021-09-03] MEDS: acetaminophen 325 mg Tablet 650 MG PO ×2 (06:11→21:25)
[2021-09-03] MEDS: piperacillin-tazobactam 3.375 GM in sodium chloride 0.9% (plus) 50 ML IV ×2 (06:14→18:11)
[2021-09-03 06:28] LABS: Glucose Point of Care 208 mg/dL (70-110)
--- NOTE | 2021-09-03 07:08 | PC.NURSE ---
I reported the high bp to the nurse 198/100 187/98
[2021-09-03] MEDS: metoprolol tartrate 25 mg Tablet PO (07:28)
--- NOTE | 2021-09-03 07:29 | PC.NURSE ---
Lopressor gave early r/t hypertension
--- NOTE | 2021-09-03 08:04 | P.PN_ITS ---
Subjective Subjective: wants to go home. denies any other issues. has a sacral decub. no n/v/f/c/house/d Medications: Reviewed: Yes Medication Review Details: Current Medications Acetaminophen (Acetaminophen 325 Mg Tablet) 650 mg PO Q6H PRN PRN Reason: Mild/Mod Pain Or Temp >/= 101 Last Admin: 09/03/21 06:11 Dose: 650 mg Documented by: Aspirin (Aspirin 81 Mg Ec Tablet) 81 mg PO DAILY [facility] Last Admin: 09/02/21 09:01 Dose: 81 mg Documented by: Atorvastatin Calcium (Atorvastatin 40 Mg Tablet) 20 mg PO BEDTIME [facility] Last Admin: 09/02/21 22:42 Dose: 20 mg Documented by: Baclofen (Baclofen 10 Mg Tablet) 5 mg PO Q12H PRN PRN Reason: spasm Last Admin: 09/02/21 00:16 Dose: 5 mg Documented by: Buspirone HCl (Buspirone 10 Mg Tablet) 15 mg PO Q8H [facility] Last Admin: 08/24/21 04:44 Dose: 15 mg Documented by: Carbamazepine (Carbamazepine Xr (12 Hr) 200 Mg Tablet) 200 mg PO BID@0900,2100 [facility] Last Admin: 09/02/21 22:42 Dose: 200 mg Documented by: Collagenase (Collagenase Oint 30 Gm) 1 applic TOPICAL DAILY [facility] Last Admin: 09/02/21 10:32 Dose: 1 applic Documented by: Dextrose (Dextrose 50% Syringe 50 Ml) 25 ml IVP ONCE PRN; Protocol PRN Reason: hypoglycemia protocol Dextrose (Dextrose 50% Syringe 50 Ml) 50 ml IVP PRN PRN; Protocol PRN Reason: hypoglycemia protocol Docusate Sodium (Docusate Sodium 100 Mg Capsule) 100 mg PO BID [facility] Last Admin: 09/02/21 17:29 Dose: 100 mg Documented by: Famotidine (Famotidine 20 Mg Tablet) 20 mg PO BID [facility] Last Admin: 09/02/21 17:30 Dose: 20 mg Documented by: Folic Acid (Folic Acid 1 Mg Tablet) 1 mg PO DAILY [facility] Last Admin: 09/02/21 09:02 Dose: 1 mg Documented by: Furosemide (Furosemide 10 Mg/Ml Sdv 10ml) 60 mg IVP Q12H [facility] Last Admin: 09/02/21 22:47 Dose: 60 mg Documented by: Glucagon (Glucagon 1 Mg/Ml Inj 1 Ml) 1 mg IM ONCE PRN; Protocol PRN Reason: Adult Acute Hypoglycemia Prot. Piperacillin Sod/Tazobactam (Sod 3.375 gm/ Sodium Chloride) 50 mls @ 12.5 mls/hr IV Q12H [facility]; Protocol Last Admin: 09/03/21 06:14 Dose: 12.5 mls/hr Documented by: Vancomycin HCl 750 mg/ Sodium (Chloride) 250 mls @ 250 mls/hr IV DIALYSIS [facility] Last Admin: 09/02/21 16:41 Dose: Not Given Documented by: Albumin Human (Albumin) 12.5 gm in 50 mls @ 60 mls/hr IV PRN PRN PRN Reason: Hypotension and/or symptomatic Iron Sucrose 200 mg/ Sodium (Chloride) 110 mls @ 220 mls/hr IV Q24H [facility] Stop: 09/03/21 11:14 Last Infusion: 09/02/21 11:55 Dose: Infused Documented by: Dextrose (D5w) 500 mls @ 100 mls/hr IV ONCE PRN; Protocol PRN Reason: Adult Acute Hypoglycemia Prot Insulin Glargine (Insulin Glargine 100 Units/1 Ml) 5 unit SUBCUT BEDTIME [facility] Last Admin: 09/02/21 22:43 Dose: 5 unit Documented by: Insulin Human Lispro (Insulin Lispro 100 Unit/1 Ml) 0 unit SUBCUT TIDWM [facility]; Protocol Last Admin: 09/02/21 17:38 Dose: 4 unit Documented by: Metoprolol Tartrate (Metoprolol Tartrate 25 Mg Tablet) 25 mg PO BID@0900,2100 [facility] Last Admin: 09/03/21 07:28 Dose: 25 mg Documented by: Midodrine (Midodrine 5 Mg Tablet) 10 mg PO TID PRN PRN Reason: Systolic blood pressure less than 100 mmHg. Multivitamins (Y-Jhlrtdh-Cbitkhu C Tablet) 1 each PO DAILY [facility] Last Admin: 09/02/21 09:01 Dose: 1 each Documented by: Naloxone HCl (Naloxone 0.4 Mg/Ml Sdv) 0.1 mg IVP Q2M PRN PRN Reason: OPIATERV Ondansetron HCl (Ondansetron 2 Mg/Ml Sdv 2 Ml) 4 mg IVP Q8H PRN PRN Reason: vomiting, or N/V if npo Polyethylene Glycol (Polyethylene Glycol 3350 Pkt 17 Gm) 17 gm PO DAILY [facility] Last Admin: 09/02/21 14:52 Dose: 17 gm Documented by: Silver Sulfadiazine (Silver Sulfadiazine Cream 1% 50 Gm) 1 applic TOPICAL ONCE [facility] Last Admin: 08/25/21 13:00 Dose: 1 applic Documented by: Vitals/I&O/Wt Last Vital Signs Temp 97.9 F 09/03/21 07:07 Pulse 99 09/03/21 07:07 Resp 18 09/03/21 07:07 BP 187/98 09/03/21 07:08 Pulse Ox 98 09/03/21 07:07 09/02/21 09/03/21 09/03/21 22:59 06:59 14:59 Intake Total 50 / 650 Output Total 200 / 200 200 / 400 Balance -150 / 450 -200 / 250 Weight last 48 hrs Weight 98.9 kg Physical Exam Narrative: vs noted - BP elevated swollen in bed, awake, alert heent- nc/at, eomi, anicteric neck no jvp. lungs- clear b/l heart -irreg irreg, +JAMIE abd soft, nt, nd, + bs, + edema ext + 1+ b/l leg edema neuro- a,a, o x 2+, moves all extremities skin-sacral decubitus Urinary Catheter Management: Felder: Cath Placed During This Visit: yes Reason for Continuing Indwelling Catheter: Assist Healing of Perineal & Sacral Wounds- Incontinent Patients Urinary Catheter Date of Insertion: 08/21/21 Urinary Catheter Time of Insertion: 02:57 Data : 09/03/21 04:11 09/03/21 04:11 Micro: Microbiology 09/02/21 12:15 Blood Culture - Preliminary Blood SPECIMEN COLLECTED 09/02/21 10:30 Blood Culture - Preliminary Blood SPECIMEN COLLECTED A&P Assessment and plan (1) Acute kidney injury superimposed on CKD: 71 yr old man w/ htn, dm, self cath due to neurogenic bladder, recurrent UTI 1. progressive renal failure- likely from DM, HTN. -normal size kidneys on renal us. no hydronephrosis -ua noted- but felder and he self cath - pth 209- repeat after vit d repleted - ALMITA + 1:80. anca neg -clinically improving w/ HD - nephrotic range proteinuria likely from DM await Anti-PLA2R -phos normal -plan Permacath in am -plan HD in am - remove fluids- 3.5 hr, 3k 2. AMS, sepsis secondary to UTI/ cellulitis/ sacral decub, and uremia- improved 3.leukocytosis- broad spectrum abx -wbc improving -s/p sacral decub debridement per Dr. Hernandes on 08/25/21 -monitor vanco levels. renal dose zosyn 4. anemia eval per medicine -Q if bleeding from sacral decub or GI -iv iron and CHELSEA -SPEP/ UPE neg -s/p prbc tx 5. DM control DM w/ stage 4 CKD 6. echo - EF 55-60% -fluid removal on hd a fib 7. uric acid -monitor 8. htn- monitor w/ fluid removal seen and examined w/ RN- telehealth visit time spent 30 min Status: Acute Plan see above Attestations Medical Necessity Statement*: YEYO, DM ulcer Time Spent in Patient Care: 16 - 35 minutes (>than 50% of time spent in counselling and/or direct pt care on unit) . Coding Level of Care Code Acute Accounting Teacher for Keila Leonardo Diagnoses Acute kidney injury superimposed on CKD N17.9; N18.9
[2021-09-03] MEDS: insulin lispro 100 unit/1 mL SUBCUT ×3 (08:18→18:07)
[2021-09-03] MEDS: polyethylene glycol 3350 Pkt 17 gm PO (08:18)
[2021-09-03] MEDS: folic acid 1 mg Tablet PO (08:19)
[2021-09-03] MEDS: docusate sodium 100 mg Capsule PO ×2 (08:19→18:12)
[2021-09-03] MEDS: aspirin 81 mg EC Tablet PO (08:19)
[2021-09-03] MEDS: b-complex-vitamin c Tablet 1 EACH PO (08:19)
[2021-09-03] MEDS: famotidine 20 mg Tablet PO ×2 (08:19→18:12)
[2021-09-03] MEDS: carBAMazepine XR (12 HR) 200 mg Tablet PO ×2 (09:31→21:24)
--- NOTE | 2021-09-03 09:49 | PC.CHAP ---
Pastoral Care Encounter/Spiritual Assessment Type of Contact [] Declined room designer visit [] Patient/Family/Request visit [] Outpatient visit [] Follow-up visit [] Physician referral [] Code/Alert [x] Routine visit [] Staff referral [] Actively dying [] Patient sleeping [] Family support [] [] Out of room [] Palliative care [] [] Receiving care in room [] Pre-surgical visit [] Trauma [] Long length of stay [] ICU visit [] Other: Relational/Emotional Strength [x] Patient feels connected with others/family/visitors/staff [] Distress [] Loneliness/isolation [] Abandonment Spirituality of Patient [x] Person of Maribel [] Attends Hinduism of their Maribel [x] Believes in Prayer [] Reads Bible or Catholic materials [] There are Spiritual issues to be addressed Glass Cutter Interventions [x] Prayer [x] Active listening [x] Non-anxious presence [x] Spiritual/emotional support [] Crisis/trauma care [] Spiritual counseling [] Bereavement support [] Provided bereavement packet [] Provided Bible/devotional materials [] Provided toy/stuffed animal, coloring book to patient or family member [] Provided Communion [] Anointing/Hiddenite [] Salvation [x] Completed spiritual assessment [] Other: Impact on Illness or Injury [] Angry [] Fearful [] Anxious [] Often cries [] Exhaustion [] Unable to work [] Unable to attend church [] Unable to walk/stand [] Unable to read [] Unable to drive [] Unable to eat/drink [] Unable to sleep [] Unable to be with family [] Patient intubated [] Other: Summary Pt was trying to eat his breakfast while laying down in bed and was having some difficulty. He had a wound on his foot which the doctors have taken care of and he hopes to be able to go home soon. He lives with his so he will have assistance when he returns home. Pt is a person of maribel, he said his father was a animal cruelty investigation supervisor for 50 years. Pt requested prayer and invited room designer to return daily for prayer. Time spent with patient 10m
[2021-09-03 10:53] LABS: Glucose Point of Care 216 mg/dL (70-110)
[2021-09-03 10:53] LABS: Glucose Point of Care 213 mg/dL (70-110)
[2021-09-03 10:53] LABS: Glucose Point of Care 181 mg/dL (70-110)
--- NOTE | 2021-09-03 11:14 | PC.SOCIAL ---
IMM Update Pg. 2 of IMM updated and reviewed with patient, who verbalized understanding. Copy provided.
[2021-09-03 11:47] LABS: Glucose Point of Care 248 mg/dL (70-110)
--- NOTE | 2021-09-03 12:49 | PM.PN ---
Subjective Subjective: Patient was seen multiple times during the morning -I discussed patient's overall goals of care, he tells me that he really wants to go home, he does want dialysis, but he does not want to remain in the bed forever, he does not want to have dialysis forever -I discussed his acute renal failure, he likely will be dialysis dependent, in terms of how long he will get dialysis it could vary, will see how his kidney function his urine output does over the course of time -However he continues to be quite deconditioned, weak, with his underlying MS, now has end-stage renal disease on dialysis, and has sacral decubitus ulcers with cellulitis, he is going to require extensive care -Unfortunate this care cannot be done at home -He will require retirement care, skilled rehab -He voiced understanding, all questions answered, agreed to proceed -Patient's was at bedside, him and his were in an argument, he tells me that his does not want him to be at home, his told him that she cannot take care of him, -I advised patient that here in the hospital he requires multiple people to help ambulate him, get him up out of bed, he will be dialysis dependent for some period of time which will require dialysis Thursday, he requires extensive wound care, given his deconditioning him his MS, he needs a lot of help which cannot be done at home -After discussion with all parties involved, patient agreeable to go to [place] [facility], agreeable to dialysis -Discussed risks and benefits he wishes any, all questions answered agreed to proceed -However he is quite upset with his , he tells me that his does not want to take care of him Vitals/I&O/Wt Last Vital Signs Temp 98.2 F 09/03/21 11:13 Pulse 80 09/03/21 11:13 Resp 18 09/03/21 11:13 BP 175/73 09/03/21 11:13 Pulse Ox 90 09/03/21 11:13 09/02/21 09/03/21 09/03/21 22:59 06:59 14:59 Intake Total 50 / 650 410 / 410 Output Total 200 / 200 200 / 400 Balance -150 / 450 -200 / 250 410 / 410 Weight last 48 hrs Weight 98.9 kg Physical Exam Const: COMMON NORMALS: no acute distress and patient oriented x3 Resp: COMMON NORMALS: normal respiratory effort, No retractions, No use of accessory muscles and clear to auscultation bilaterally AUSCULTATION: clear to auscultation bilaterally Cardio: COMMON NORMALS: regular rate, regular rhythm, S1 normal heart sound present and S2 normal heart sound present RATE: regular rate RHYTHM: regular rhythm HEART SOUNDS: S1 normal heart sound present and S2 normal heart sound present GI: COMMON NORMALS: Normal to inspection, nondistended, normoactive bowel sounds present, Soft to palpation, non-tender and No hepatosplenomegaly present PALPATION: Yes Soft to palpation and Yes No hepatosplenomegaly present Extremity: COMMON NORMALS: no pedal edema Neuro: COMMON NORMALS: patient oriented x3 Psych: COMMON NORMALS: mental status grossly normal Urinary Catheter Management: Thrasher: Cath Placed During This Visit: yes Reason for Continuing Indwelling Catheter: Assist Healing of Perineal & Sacral Wounds- Incontinent Patients Urinary Catheter Date of Insertion: 08/21/21 Urinary Catheter Time of Insertion: 02:57 Data : 09/03/21 04:11 09/03/21 04:11 Micro: Microbiology 09/02/21 12:15 Blood Culture - Preliminary Blood NEGATIVE TO DATE 09/02/21 10:30 Blood Culture - Preliminary Blood NEGATIVE TO DATE 09/02/21 11:37 Urine Culture - Preliminary Urine Catheterized A&P Assessment and plan (1) Acute kidney injury superimposed on CKD: Status: Acute (2) Oliguria: Status: Acute (3) Uremia: Status: Acute (4) Hyperphosphatemia: Status: Acute (5) Stage II pressure ulcer: Status: Acute (6) Anasarca: Status: Acute (7) Cellulitis: Status: Acute (8) Pleural effusion: Status: Acute (9) CHF (congestive heart failure): Status: Acute Plan Persistent leukocytosis -Afebrile -18.2, primarily neutrophilia -Etiology unclear -Pro-Steven 1.21 -CRP 116 -ESR 18 -Upon examination, his sacral decubitus ulcer looks clean and dry, wet-to-dry dressing, slight tunneling -Remove Thrasher catheter, culture tip, replace -Remove right dialysis catheter, culture tip -Repeat blood cultures, urine cultures, sputum cultures -We will do CT scan abdomen pelvis with contrast to look for any underlying abscess -Continue antibiotics Altered mental status: Most likely secondary to uremia, polypharmacy in setting of YEYO on CKD, sepsis secondary to infection -Mentation back to baseline alert oriented x3 -CTA of the head within normal limits Renal function worsening. Multiple medication including BuSpar, Zanaflex and at a higher dose. Mentation has improved with dialysis start renal dialysis diet, consult speech therapy Hold venlafaxine and BuSpar for now.? Change dose of gabapentin to 100 mg 3 times daily. Continue carbamazepine at 200 mg twice daily. YEYO on CKD: Nephrotic range disease. Appreciate nephrology recommendations. Given oliguria, uremia, altered mental status patient would need dialysis.? Nephrology agreeable.? Confirmed with patient's /DPOA. Temporary dialysis catheter p removed End-stage nephrotic syndrome, with diabetic glomerulopathy Continue dialysis Thursday Agreeable for dialysis, agreeable for dialysis catheter placement Permacath on Thursday with transition to outpatient hemodialysis Currently on Lasix High anion gap metabolic acidosis: Treatment as above. Medical reconciliation done for nephrotoxic drugs. Sepsis secondary to UTI and cellulitis: Stage II decubitus ulcer: Post debridement on 08/25 Patient has extensive sacral decubitus ulcer status post debridement, that requires aggressive wound care, repositioning and will require retirement placement Appreciate surgical recommendations, dressing changes wet-to-dry Wound care as per surgical team. Urine culture consistent with E. coli and Morganella.? Both sensitive to Zosyn. Continue with vancomycin and Zosyn for now.? Blood culture from 08/23 so far negative. Decrease pain medication with increasing frequency given altered mental status. Keep mean artery pressure 65 Right lower extremity, grade 2 ulceration of the right plantar forefoot and posterior heel, status post bedside debridement Dr. Cazares, daily dressing changes, flow studies ordered, offloading with foam heel boots Congestive heart failure: Diastolic type.? On 4 L, no crackles on exam continue to monitor Echocardiogram done shows an EF 55 to 60% with indeterminate diastolic function. Atrial fibrillation: Currently rate controlled. Continue with metoprolol at 25 mg twice daily. Chronically not on anticoagulation because of risk of falls. Type 2 diabetes mellitus: Hypoglycemia. Hold insulin sliding scale at low-dose protocol every 6 hours for now.? Start on D5W as above. HbA1c 6.9. 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 Renal dialysis status Heparin for DVT prophylaxis. Famotidine for PUD prophylaxis. Plan for day:?Continue with antibiotics. Monitor kidney function, monitor urine output, follow cultures, do CT scan abdomen pelvis, n.p.o. midnight for dialysis catheter placement tomorrow Discharge plan: Most likely patient would need to be discharged to SNF for aggressive wound care.? Will need to follow-up further regarding possibility of dialysis as an outpatient. Attestations Medical Necessity Statement*: Patient requires hospitalization for end-stage renal disease, requiring dialysis, sacral decubitus ulcer requiring antibiotics wound care, persistent leukocytosis Coding Level of Care Code Acute Arc Furnace Operator for g Fwd Diagnoses Acute kidney injury superimposed on CKD N17.9; N18.9 Oliguria R34 Uremia N19 Hyperphosphatemia E83.39 Stage II pressure ulcer L89.92 Anasarca R60.1 Cellulitis L03.90 Pleural effusion J90 CHF (congestive heart failure) I50.9
--- NOTE | 2021-09-03 12:54 | CTR_ITS ---
PROCEDURE INFORMATION: Exam: CT Abdomen And Pelvis Without Contrast Exam date and time: 09/03/2021 2:29 PM Age: 71 years old Clinical indication: Abdominal pain; Prior surgery; Surgery type: Spleen, appy; Additional info: Sacral ulcer, persistent leukocytosis TECHNIQUE: Imaging protocol: Computed tomography of the abdomen and pelvis without contrast. Radiation optimization: All CT scans at this facility use at least one of these dose optimization techniques: automated exposure control; mA and/or kV adjustment per patient size (includes targeted exams where dose is matched to clinical indication); or iterative reconstruction. COMPARISON: CT abdomen pelvis wo con [id number] 08/21/2021 3:11 AM RADIATION DOSE METRICS: Total DLP (mGy-cm): 1919.04 FINDINGS: Lungs: Bibasilar airspace infiltrates. Pleural spaces: Moderate bilateral pleural effusions. Heart: Coronary artery atherosclerotic calcifications. Small pericardial effusion measuring up to 8 mm. Liver: Normal. No mass. Gallbladder and bile ducts: Cholelithiasis. Gallbladder is somewhat prominent, ultrasound could further evaluate this. Pancreas: Normal. No ductal dilation. Spleen: Normal. No splenomegaly. Adrenal glands: Normal. No mass. Kidneys and ureters: Normal. No hydronephrosis. Stomach and bowel: Unremarkable. No obstruction. No mucosal thickening. Appendix: No evidence of appendicitis. Intraperitoneal space: Unremarkable. No free air. No significant fluid collection. Vasculature: Unremarkable. No abdominal aortic aneurysm. Lymph nodes: Scattered prominent subcentimeter short axis mediastinal lymph nodes, nonspecific. Urinary bladder: Thrasher catheter in the urinary bladder. Reproductive: Unremarkable as visualized. Bones/joints: Possible sacral ulcer somewhat visualized without focal fluid collection or bony abnormality. Soft tissues: Unremarkable. CT/CT abdomen pelvis [facility] [id number] IMPRESSION: 1. Possible sacral ulcer somewhat visualized without focal fluid collection or bony abnormality. 2. Coronary artery atherosclerotic calcifications. 3. Small pericardial effusion measuring up to 8 mm. 4. Moderate bilateral pleural effusions. 5. Bibasilar airspace infiltrates. 6. Cholelithiasis. 7. Gallbladder is somewhat prominent, ultrasound could further evaluate this. 8. Thrasher catheter in the urinary bladder. 9. Scattered prominent subcentimeter short axis mediastinal lymph nodes, nonspecific.
[2021-09-03] MEDS: FUROsemide 10 mg/mL SDV 10mL 60 MG IVP (15:15)
[2021-09-03 17:20] LABS: Glucose Point of Care 340 mg/dL (70-110)
[2021-09-03 21:20] LABS: Glucose Point of Care 288 mg/dL (70-110)
[2021-09-03] MEDS: iron sucrose 200 MG in sodium chloride 0.9% (100 ml) 100 ML 220 MG IV (21:24)
[2021-09-03] MEDS: insulin glargine 100 units/1 mL 5 UNIT SUBCUT (21:25)
[2021-09-03] MEDS: metoprolol tartrate 50 mg Tablet PO (21:25)
[2021-09-04] VITALS (14 sets, daily range): BP systolic 120–190; BP diastolic 72–88; PULSE 80–102; RESP 13–27; TEMP 36.5–36.8; O2SAT 93–98
--- NOTE | 2021-09-04 | SCC_ITS ---
Procedure done: Placement of tunneled 16 Fr. 23 cm (from cuff to tip) HemoSplit long-term dialysis catheter into the right internal jugular vein using intraoperative ultrasound guidance and intraoperative fluoroscopy. 2.5 seconds of fluoroscopic guidance, for a cumulative dose of 0.65 mGy, was provided to Dr. Hernandes by the radiology department. C-arm images of the chest were saved for the patient's permanent record. CRISTELA
[2021-09-04] MEDS: FUROsemide 10 mg/mL SDV 10mL 60 MG IVP (03:51)
[2021-09-04 05:07] LABS: Basophils # 0.1 10^3/uL (0.0-0.1); Basophils % 0.6 %; Eosinophils # 0.7 10^3/uL (0.0-0.8); Eosinophils % 3.4 %; Hematocrit 27.2 % (42.0-52.0); Hemoglobin 8.7 g/dL (11.7-16.6); Lymphocytes # 2.5 10^3/uL (0.8-4.8); Lymphocytes % 11.9 %; Mean Corpuscular Hemoglobin 30.2 pg (28.0-34.0); Mean Corpuscular Volume 94.4 fl (80-94); Mean Platelet Volume 11.6 fL (7.4-10.4); Monocytes # 3.3 10^3/uL (0.2-0.9); Monocytes % 15.7 %; Neutrophils # 14.12 10^3/uL (1.8-7.7); Neutrophils % 67.8 %; Nucleated Red Blood Cells # 0.8 /100WBC; Nucleated Red Blood Cells % 3.9 %; Platelet Count 439 10^3/cmm (130-400); Red Blood Count 2.88 10^6/uL (4.1-5.3); Red Cell Distribution Width 19.8 % (12.1-15.1); White Blood Count 20.8 10^3/uL (4.0-10.0)
[2021-09-04 05:23] LABS: Alanine Aminotransferase 9 U/L (0-41); Albumin Level 2.8 g/dL (3.5-5.2); Alkaline Phosphatase 148 IU/L (40-130); Aspartate Amino Transferase 19 U/L (0-40); Blood Urea Nitrogen 24 mg/dL (8-23); Calcium 8.1 mg/dL (8.5-10.5); Carbon Dioxide 24 mmol/L (22-29); Chloride 96 mmol/L (98-107); Globulin 1.8 g/dL (1.3-4.6); Glucose 221 mg/dL (65-115); Magnesium 1.9 mg/dL (1.7-2.3); Osmolality Calculated 291 mOsm/kg (285-295); Phosphorus 3.9 mg/dL (2.5-4.5); Sodium 135 mmol/L (136-145); Total Bilirubin 0.4 mg/dL (0.15-1.2); Total Protein 4.6 g/dL (6.6-8.7)
[2021-09-04 05:25] LABS: Anion Gap 18.8 (5-19); Potassium 3.8 mmol/L (3.5-5.1)
[2021-09-04 06:14] LABS: Glucose Point of Care 233 mg/dL (70-110)
--- NOTE | 2021-09-04 06:22 | PM.PN ---
Subjective Subjective: The patient had his temporary dialysis catheter removed a couple of days ago. I have been asked to place a tunneled dialysis catheter today. The patient has agreed to a tunneled dialysis catheter placement this morning. He actually realizes that he has been somewhat confused and is hoping that ongoing dialysis might help this. Vitals/I&O/Wt Last Vital Signs Temp 97.9 F 09/04/21 04:00 Pulse 80 09/04/21 04:00 Resp 18 09/04/21 04:00 BP 162/79 09/04/21 04:00 Pulse Ox 98 09/04/21 04:00 09/03/21 09/03/21 09/04/21 14:59 22:59 06:59 Intake Total 650 / 1050 400 / 1050 0 / 1050 Output Total 700 / 950 250 / 950 Balance 650 / 100 -300 / 100 -250 / 100 Physical Exam Narrative: The site of the previous dialysis catheter on the neck is unremarkable. Urinary Catheter Management: Thrasher: Cath Placed During This Visit: yes Reason for Continuing Indwelling Catheter: Assist Healing of Perineal & Sacral Wounds- Incontinent Patients Urinary Catheter Date of Insertion: 08/21/21 Urinary Catheter Time of Insertion: 02:57 Data : 09/04/21 04:10 09/04/21 04:10 Micro: Microbiology 09/02/21 10:10 Catheter Tip Culture - Preliminary Other Source Gram Negative Rods 09/02/21 10:15 Catheter Tip Culture - Preliminary Central Line 09/02/21 12:15 Blood Culture - Preliminary Blood NEGATIVE TO DATE 09/02/21 10:30 Blood Culture - Preliminary Blood NEGATIVE TO DATE 09/02/21 11:37 Urine Culture - Preliminary Urine Catheterized A&P Assessment and plan (1) Acute kidney injury superimposed on CKD: The patient's temporary dialysis catheter was recently removed and the tip is growing some heavy mixed gram-positive growth. The patient continues on vancomycin and Zosyn. Tunneled hemodialysis catheter placement today. Status: Acute (2) Stage II pressure ulcer: Status post debridement of multiple buttock wounds on 08/26/2021. Plan is for the patient to eventually transfer to SNF for wound care, among other things. Patient can follow-up in the [facility] wound care clinic as needed. Status: Acute Attestations Medical Necessity Statement*: See admitting service's notation. Coding Level of Care Code Acute Fire Safety Manager for Keila Leonardo Diagnoses Acute kidney injury superimposed on CKD N17.9; N18.9 Stage II pressure ulcer L89.92
[2021-09-04] MEDS: piperacillin-tazobactam 3.375 GM in sodium chloride 0.9% (plus) 50 ML IV ×2 (06:45→19:10)
--- NOTE | 2021-09-04 06:57 | PC.NURSE ---
Left to have dialysis cath placed in OR
[2021-09-04] MEDS: sodium chloride 0.9% 1,000 ML 30 ML IV (07:35)
--- NOTE | 2021-09-04 08:05 | SC_ITS ---
WS: [id number] C-arm FL for CVA [id number] REASON FOR EXAM: intra op FINDINGS: Placement of right internal jugular dual-lumen catheter. The catheter tip lies at the right atrial level. No pneumothorax. SC/C-arm FL for CVA 92230 IMPRESSION: Placement of dual-lumen dialysis catheter. Proper position.
--- NOTE | 2021-09-04 08:24 | P.ANESASSM_ITS ---
Pre-Anesthetic Assessment Height/Weight: Height 1.73 m Weight 98.9 kg Temp Pulse Resp BP Pulse Ox 98.3 F 80 17 183/81 96 09/04/21 07:25 09/04/21 07:25 09/04/21 07:25 09/04/21 07:25 09/04/21 07:25 Preop Diagnosis: Right distasl femur fracture Operation Date: 08/25/21 11:15 Proposed Procedures p Dialysis Catheter Insertion(Not Applicable) - Aman Hernandes MD s Debridement(Not Applicable) - Aman Hernandes MD Operation Date: 09/04/21 08:30 Proposed Procedures p Dialysis Catheter Insertion(Not Applicable) - Aman Hernandes MD Familial anesthetic complications: None Was Beta Kimberli taken within 24 hours: Yes Was Clonidine taken within 24 hours: N/A Last intake: Intake Last Liquid Date 09/03/21 Last Liquid Time 23:50 Last Solid Date 09/03/21 Last Solid Time 21:30 Social No alcohol and No tobacco Exam alert, oriented x 3 and regular rate & rhythm B/L lung sounds course Airway Submandibular: within normal limits Cervical ROM: within normal limits Mallampati: Class I Dentition: false History/ROS No significant complaints CV/HEM Anemia and Hypertension TTE 08/21/21 CONCLUSIONS ?LV systolic function is normal with EF of 55-60% ?Diastolic function is indeterminate because of atrial ?fibrillation ?Pleural effusion is noted ?No significant valvular heart disease ?Compared to prior echocardiogram from 07/27/2020, no significant ?changes are seen Chronic Renal Failure Hepatic None reported GI Gastroesophageal Reflux Disease Musc/skel Decubitus ulcer Neuropsych MS w/ paraplegia RLS Anesthetic Plan ASA status: 4 Anesthesia: Anesthesia Evaluation and MAC Other: I discussed with the patient risks, goals, and benefits of MAC and general anesthesia. We discussed spectrum of MAC anesthesia including conversion to general as well as possibility of recall of intraoperative stimuli including discomfort/pain. Patient agrees to proceed with MAC. Risk of > 500 ml blood loss (7ml/kg in children): No Medications/Allergies Home Medications Medication Instructions Recorded Confirmed Last Taken Type Coloplast Self cath 10 lithuanian #2 ea 04/18/20 08/21/21 Unknown Rx roho cushion #1 ea 08/30/20 08/21/21 Unknown Rx aspirin 81 mg tablet,delayed 81 mg PO DAILY@0900 #30 tab 12/20/20 08/21/21 Unknown Rx release buspirone 15 mg tablet 15 mg PO TID@ #90 tab 12/20/20 08/21/21 Unknown Rx carbamazepine 200 mg 200 mg PO BID@0900,2100 #60 tab 12/20/20 08/21/21 Unknown Rx tablet,extended release,12 hr (Tegretol XR) famotidine 20 mg tablet 20 mg PO BID@0900,2100 #60 tab 12/20/20 08/21/21 Unknown Rx gabapentin 600 mg tablet 600 mg PO TID@,, #90 tab 12/20/20 08/21/21 Unknown Rx hydralazine 25 mg tablet 25 mg PO TID #90 tab 12/20/20 08/21/21 Unknown Rx metoprolol succinate 50 mg 50 mg PO DAILY@0900 #30 tab 12/20/20 08/21/21 Unknown Rx tablet,extended release 24 hr (Toprol XL) pen needle, diabetic 32 gauge x #200 ea 12/20/20 08/21/21 Unknown Rx /32 (BD Ultra-Fine Nadia Pen Needle) venlafaxine 75 mg capsule,extended 225 mg PO DAILY@0900 #30 cap 12/20/20 08/21/21 Unknown Rx release 24 hr (Effexor XR) Wheelchair repair #1 ea 12/23/20 08/21/21 Unknown Rx power mobility chair #1 ea 12/24/20 08/21/21 Unknown Rx ergocalciferol (vitamin D2) 1,250 1,250 mcg PO Q7D 08/21/21 08/21/21 Unknown History mcg (50,000 unit) capsule insulin aspart U-100 100 unit/mL See Rx Instructions .ROUTE .COMPLEX 08/21/21 08/21/21 Unknown History (3 mL) subcutaneous pen (Novolog Flexpen U-100 Insulin aspart) insulin degludec 200 unit/mL (3 76 unit SUBCUT DAILY 08/21/21 08/21/21 Unknown History mL) subcutaneous pen (Tresiba FlexTouch U-200 insulin) Allergies Allergy/AdvReac Type Severity Reaction Status Date / Time baclofen Allergy ADR-Dizzine Verified 05/22/20 14:46 ss thiopental [From Pentothal] Allergy ALGY-Anaphy Verified 05/22/20 14:46 laxis Current Medications Generic Name Dose Route Start Last Admin Trade Name Melvinq PRN Reason Stop Dose Admin Acetaminophen 650 mg 08/21/21 05:43 09/03/21 21:25 Acetaminophen 325 Mg Tablet PO 650 mg Q6H PRN Administration Mild/Mod Pain Or Temp >/= 101 Aspirin 81 mg 08/21/21 09:00 09/03/21 08:19 Aspirin 81 Mg Ec Tablet PO 81 mg DAILY SHIREEN Administration Atorvastatin Calcium 20 mg 08/21/21 21:00 09/02/21 22:42 Atorvastatin 40 Mg Tablet PO 20 mg BEDTIME SHIREEN Administration Baclofen 5 mg 09/01/21 11:28 09/02/21 00:16 Baclofen 10 Mg Tablet PO 5 mg Q12H PRN Administration spasm Buspirone HCl 15 mg 08/21/21 05:45 08/24/21 04:44 Buspirone 10 Mg Tablet PO 15 mg Q8H SHIREEN Administration Carbamazepine 200 mg 08/21/21 09:00 09/03/21 21:24 Carbamazepine Xr (12 Hr) 200 Mg Tablet PO 200 mg BID@0900,2100 SHIREEN Administration Docusate Sodium 100 mg 09/02/21 18:00 09/03/21 18:12 Docusate Sodium 100 Mg Capsule PO 100 mg BID SHIREEN Administration Famotidine 20 mg 08/30/21 15:00 09/03/21 18:12 Famotidine 20 Mg Tablet PO 20 mg BID SHIREEN Administration Folic Acid 1 mg 08/21/21 09:00 09/03/21 08:19 Folic Acid 1 Mg Tablet PO 1 mg DAILY SHIREEN Administration Furosemide 60 mg 08/29/21 10:00 09/04/21 03:51 Furosemide 10 Mg/Ml Sdv 10ml IVP 60 mg Q12H SHIREEN Administration Piperacillin Sod/Tazobactam 50 mls @ 12.5 mls/hr 08/21/21 06:30 09/04/21 06:45 Sod 3.375 gm/ Sodium Chloride IV 12.5 mls/hr Q12H SHIREEN Administration Protocol Vancomycin HCl 750 mg/ Sodium 250 mls @ 250 mls/hr 08/28/21 16:00 09/03/21 15:47 Chloride IV Not Given DIALYSIS SHIREEN Sodium Chloride 1,000 mls @ 30 mls/hr 09/04/21 07:15 09/04/21 07:35 Sodium Chloride 0.9% IV 09/05/21 07:14 30 mls/hr .Q24H SHIREEN Administration Insulin Glargine 5 unit 09/02/21 21:00 09/03/21 21:25 Insulin Glargine 100 Units/1 Ml SUBCUT 5 unit BEDTIME SHIREEN Administration Insulin Human Lispro 0 unit 08/22/21 12:00 09/03/21 18:07 Insulin Lispro 100 Unit/1 Ml SUBCUT 10 unit TIDWM [facility] Administration Protocol Metoprolol Tartrate 50 mg 09/03/21 21:00 09/03/21 21:25 Metoprolol Tartrate 50 Mg Tablet PO 50 mg BID@0900,2100 [facility] Administration Multivitamins 1 each 08/22/21 09:00 09/03/21 08:19 U-Acafwcn-Iucowaf C Tablet PO 1 each DAILY [facility] Administration Polyethylene Glycol 17 gm 09/02/21 14:10 09/03/21 08:18 Polyethylene Glycol 3350 Pkt 17 Gm PO 17 gm DAILY [facility] Administration Silver Sulfadiazine 1 applic 08/25/21 10:15 08/25/21 13:00 Silver Sulfadiazine Cream 1% 50 Gm TOPICAL 1 applic ONCE [facility] Administration Additional Medication Information Current Medications Acetaminophen (Acetaminophen 325 Mg Tablet) 650 mg PO Q6H PRN PRN Reason: Mild/Mod Pain Or Temp >/= 101 Last Admin: 09/03/21 06:11 Dose: 650 mg Documented by: Aspirin (Aspirin 81 Mg Ec Tablet) 81 mg PO DAILY [facility] Last Admin: 09/02/21 09:01 Dose: 81 mg Documented by: Atorvastatin Calcium (Atorvastatin 40 Mg Tablet) 20 mg PO BEDTIME [facility] Last Admin: 09/02/21 22:42 Dose: 20 mg Documented by: Baclofen (Baclofen 10 Mg Tablet) 5 mg PO Q12H PRN PRN Reason: spasm Last Admin: 09/02/21 00:16 Dose: 5 mg Documented by: Buspirone HCl (Buspirone 10 Mg Tablet) 15 mg PO Q8H [facility] Last Admin: 08/24/21 04:44 Dose: 15 mg Documented by: Carbamazepine (Carbamazepine Xr (12 Hr) 200 Mg Tablet) 200 mg PO BID@0900,2100 [facility] Last Admin: 09/02/21 22:42 Dose: 200 mg Documented by: Collagenase (Collagenase Oint 30 Gm) 1 applic TOPICAL DAILY [facility] Last Admin: 09/02/21 10:32 Dose: 1 applic Documented by: Dextrose (Dextrose 50% Syringe 50 Ml) 25 ml IVP ONCE PRN; Protocol PRN Reason: hypoglycemia protocol Dextrose (Dextrose 50% Syringe 50 Ml) 50 ml IVP PRN PRN; Protocol PRN Reason: hypoglycemia protocol Docusate Sodium (Docusate Sodium 100 Mg Capsule) 100 mg PO BID [facility] Last Admin: 09/02/21 17:29 Dose: 100 mg Documented by: Famotidine (Famotidine 20 Mg Tablet) 20 mg PO BID [facility] Last Admin: 09/02/21 17:30 Dose: 20 mg Documented by: Folic Acid (Folic Acid 1 Mg Tablet) 1 mg PO DAILY [facility] Last Admin: 09/02/21 09:02 Dose: 1 mg Documented by: Furosemide (Furosemide 10 Mg/Ml Sdv 10ml) 60 mg IVP Q12H [facility] Last Admin: 09/02/21 22:47 Dose: 60 mg Documented by: Glucagon (Glucagon 1 Mg/Ml Inj 1 Ml) 1 mg IM ONCE PRN; Protocol PRN Reason: Adult Acute Hypoglycemia Prot. Piperacillin Sod/Tazobactam (Sod 3.375 gm/ Sodium Chloride) 50 mls @ 12.5 mls/hr IV Q12H [facility]; Protocol Last Admin: 09/03/21 06:14 Dose: 12.5 mls/hr Documented by: Vancomycin HCl 750 mg/ Sodium (Chloride) 250 mls @ 250 mls/hr IV DIALYSIS [facility] Last Admin: 09/02/21 16:41 Dose: Not Given Documented by: Albumin Human (Albumin) 12.5 gm in 50 mls @ 60 mls/hr IV PRN PRN PRN Reason: Hypotension and/or symptomatic Iron Sucrose 200 mg/ Sodium (Chloride) 110 mls @ 220 mls/hr IV Q24H [facility] Stop: 09/03/21 11:14 Last Infusion: 09/02/21 11:55 Dose: Infused Documented by: Dextrose (D5w) 500 mls @ 100 mls/hr IV ONCE PRN; Protocol PRN Reason: Adult Acute Hypoglycemia Prot Insulin Glargine (Insulin Glargine 100 Units/1 Ml) 5 unit SUBCUT BEDTIME [facility] Last Admin: 09/02/21 22:43 Dose: 5 unit Documented by: Insulin Human Lispro (Insulin Lispro 100 Unit/1 Ml) 0 unit SUBCUT TIDWM [facility]; Protocol Last Admin: 09/02/21 17:38 Dose: 4 unit Documented by: Metoprolol Tartrate (Metoprolol Tartrate 25 Mg Tablet) 25 mg PO BID@0900,2100 [facility] Last Admin: 09/03/21 07:28 Dose: 25 mg Documented by: Midodrine (Midodrine 5 Mg Tablet) 10 mg PO TID PRN PRN Reason: Systolic blood pressure less than 100 mmHg. Multivitamins (N-Fcwwqhs-Zjrboub C Tablet) 1 each PO DAILY [facility] Last Admin: 09/02/21 09:01 Dose: 1 each Documented by: Naloxone HCl (Naloxone 0.4 Mg/Ml Sdv) 0.1 mg IVP Q2M PRN PRN Reason: OPIATERV Ondansetron HCl (Ondansetron 2 Mg/Ml Sdv 2 Ml) 4 mg IVP Q8H PRN PRN Reason: vomiting, or N/V if npo Polyethylene Glycol (Polyethylene Glycol 3350 Pkt 17 Gm) 17 gm PO DAILY [facility] Last Admin: 09/02/21 14:52 Dose: 17 gm Documented by: Silver Sulfadiazine (Silver Sulfadiazine Cream 1% 50 Gm) 1 applic TOPICAL ONCE [facility] Last Admin: 08/25/21 13:00 Dose: 1 applic Documented by: [facility] Anesthesia Medical History Acid reflux Anxiety and depression CKD (chronic kidney disease), stage III Constipation, slow transit DDD (degenerative disc disease) Decubitus ulcer Essential (primary) hypertension Fall Intermittent self-catheterization of bladder Mixed hyperlipidemia Multiple sclerosis Restless leg Supracondylar fracture of right femur 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 Wheel chair as ambulatory aid Surgical History H/O splenectomy History of appendectomy History of back surgery Family History Mother CAD (coronary artery disease) Diabetes Father CAD (coronary artery disease) Diabetes Other Cancer Social History Smoking and tobacco status: former smoker Second hand smoke exposure: No Smoking risk assessment/counseling performed?: No Alcohol intake: current Desire information about alcohol rehabilitation?: No Counseling given: No Desire information about substance/drug rehabilitation?: No Counseling given: No Adopted: No Caregiver/support person: Yes Lives independently: No Household members: spouse Marital status: Current occupational status: disabled History of recent travel: No Current gender identity: Male Data Anesthesia : 09/04/21 04:10 09/04/21 04:10 Short CBC 09/03/21 09/04/21 Range/Units 04:11 04:10 WBC 18.2 H 20.8 H (4.0-10.0) 10^3/uL Hgb 8.7 L 8.7 L (11.7-16.6) g/dL Hct 27.9 L 27.2 L (42.0-52.0) % MCV 93.9 94.4 H (80-94) fl Plt Count 468 H 439 H (130-400) 10^3/cmm Neut % (Auto) 71.6 67.8 % Neut # (Auto) 13.01 H 14.12 H (1.8-7.7) 10^3/uL BMP 09/03/21 09/04/21 04:11 04:10 Sodium 141 135 L Potassium 4.0 3.8 Chloride 100 96 L Carbon Dioxide 25 24 BUN 19 24 H Creatinine 3.3 H 4.0 H Glucose 212 H 221 H Calcium 8.1 L 8.1 L Liver Function 09/03/21 09/04/21 Range/Units 04:11 04:10 Total Bilirubin 0.4 0.4 (0.15-1.2) mg/dL AST 15 19 (0-40) U/L ALT 6 9 (0-41) U/L Alkaline Phosphatase 117 148 H (40-130) IU/L Albumin 2.4 L 2.8 L (3.5-5.2) g/dL Coags 09/02/21 09/02/21 02:24 10:30 ESR 18 H C-Reactive Protein 116.0 H Microbiology 09/02/21 10:10 Catheter Tip Culture - Preliminary Other Source Gram Negative Rods 09/02/21 10:15 Catheter Tip Culture - Preliminary Central Line 09/02/21 12:15 Blood Culture - Preliminary Blood NEGATIVE TO DATE 09/02/21 10:30 Blood Culture - Preliminary Blood NEGATIVE TO DATE 09/02/21 11:37 Urine Culture - Preliminary Urine Catheterized Cardiac Studies: Echocardiogram 08/21/21 Echocardiogram Ultrasound 07/27/20
[2021-09-04] MEDS: heparin, porcine 1,000 unit/mL INJ 10 mL 7000 UNIT XX (09:02)
[2021-09-04] MEDS: neomycin-poly-bacitracin oint 28 gm 1 APPLIC TOPICAL (09:10)
--- NOTE | 2021-09-04 09:18 | PM.OP ---
Operative Report Date of procedure: September 04, 2021 Pre-op diagnosis: Preop Diagnosis Preop Diagnosis 1. Acute on chronic renal disease. Post-op findings: Same. Procedure done: Placement of tunneled 16 Fr. 23 cm (from cuff to tip) HemoSplit long-term dialysis catheter into the right internal jugular vein using intraoperative ultrasound guidance and intraoperative fluoroscopy. Surgeon: General Surgery Aman Hernandes MD Anesthesia: MAC Procedure: The patient was brought to the operating room and was placed in a supine position on the operating room table. A monitored anesthetic was induced. The right side of the neck and chest were prepped and draped in a sterile fashion. Intraoperative ultrasound was used to find the right internal jugular vein as evidenced by its size and compressibility. 1% lidocaine was used for local anesthetic on the neck and the right internal jugular vein was accessed with a needle and syringe as evidenced by the return of dark nonpulsatile blood. The guidewire was easily passed down the needle and the needle was removed. The C-arm was positioned and showed the guidewire extending down the vena cava. A 16 [place] HemoSplit long-term dialysis catheter was then placed on the right side of the chest and measured so that the subcutaneous cuff would be an appropriate location in the subcutaneous tunnel. A combination of 1% lidocaine and 0.5% bupivacaine with 1-200,000 parts epinephrine was used to anesthetize a subcutaneous tract from the right chest wall to the right side of the neck over the top of the clavicle. A small incision was made on the chest wall at the proposed exit point and a small incision was also made adjacent to the guidewire on the right side of the neck. The HemoSplit catheter was then tunneled from the small incision on the chest to the small incision on the right side of the neck using the passer provided in the kit. Small to medium sized dilators were then placed over the guidewire to dilate the skin opening and the subcutaneous tissue. The introducer and sheath were then passed over the guidewire easily into the right internal jugular vein. The guidewire and introducer were removed and the arms of the HemoSplit dialysis catheter were easily passed down the sheath which was then torn away. The C-arm was once again positioned and showed good placement of the dialysis catheter tip in the vena cava. Both ports were aspirated and flushed with hep flush solution. Both ports showed excellent flow and were then left filled with concentrated hep flush solution. The catheter was sewn in place at the skin on the chest with some sutures of 3-0 Prolene. The small incision on the right side of the neck was closed using some interrupted inverted sutures of 4-0 Vicryl. The incision on the neck was covered with some triple antibiotic ointment and a sterile dressing. A sterile dressing was also placed over the HemoSplit exit site on the chest. The patient was taken back to the recovery area postoperatively in stable condition. INTRAOPERATIVE FLUOROSCOPY interpretation: FINDINGS: Intraoperative fluoroscopic images of a hemodialysis catheter placement were reviewed. An initial image reveals a guidewire entering the right internal jugular vein and extending down the vena cava. Subsequent images reveal a dialysis catheter on that side of the chest with its tubing tip in good location in the superior vena cava. No obvious pneumothorax is identified.
--- NOTE | 2021-09-04 09:32 | SUR.OPER ---
at end of procedure, patient was noted to be sitting in stool. The stool was inside the buttocks dressing. Old dressing was removed, patient was cleaned with baby shampoo and water then skin was dried. Fresh 4x4's and abd placed over wound and secured with paper tape.
[2021-09-04 09:38] LABS: Glucose Point of Care 217 mg/dL (70-110)
[2021-09-04] MEDS: fentaNYL 50 mcg/mL INJ 2mL IVP (09:45)
--- NOTE | 2021-09-04 09:50 | SUR.PHASEI ---
0927 PT TO TO PACU 4 ON BED PT AWAKE ALERT BED PLUGGED IN TO INFLATE BED, PT HAS IV #22 TO RT HAND PATENT WITH NS 800 UP WITH MICRO TUBING AT MINIMAL RATE.DRESSING TO RT SUBCLAVIAN DIALYSIS CATHETER, 2 SITES TO RT NECK AND SUBLAVIAN AREA WITH OPSITE OVER ALL D/I WITH 2 PORTS CLAMPED, PT WAS INCONTINENT IN OR, PT HAS DECUBITUS WOUND TO COCCYX AREA REDRESSED IN OR WITH ABD PAD. PT WITH SCD ON BILAT.KERLIX DRESSING TO RT FOOT AND BILAT HEEL PROTECTORS IN PLACE, 0932 PT PLACED ON 3LNC HE KEEPS TAKING MASK OFF, PT C/O OF SEVERE PAIN TO BUTTOCK REGION , SEE MEDS GIVEN 0955 PT STATES PAIN IS MUCH BETTER, PT TALKATIVE AND LAUGHING WITH STUDENT AT BEDSIDE, PT OREINTED X 3, VSS.
--- NOTE | 2021-09-04 10:45 | PC.NURSE ---
PATIENT RETURNED FROM OR. PATIENT HAD RIGHT SUBCLAVIAN DOUBLE LUMEN TUNNEL CATHETER PLACED. DRESSING IN DRY AND INTACT. PATIENT IS AAOX3 AT THIS TIME.
[2021-09-04 11:12] LABS: Glucose Point of Care 207 mg/dL (70-110)
[2021-09-04] MEDS: insulin lispro 100 unit/1 mL SUBCUT (12:14)
--- NOTE | 2021-09-04 12:23 | P.PN_ITS ---
Subjective Subjective: lethargic s/p Rt IJ Permacath Medications: Reviewed: Yes Medication Review Details: Current Medications Acetaminophen (Acetaminophen 325 Mg Tablet) 650 mg PO Q6H PRN PRN Reason: Mild/Mod Pain Or Temp >/= 101 Last Admin: 09/03/21 21:25 Dose: 650 mg Documented by: Aspirin (Aspirin 81 Mg Ec Tablet) 81 mg PO DAILY [facility] Last Admin: 09/03/21 08:19 Dose: 81 mg Documented by: Atorvastatin Calcium (Atorvastatin 40 Mg Tablet) 20 mg PO BEDTIME [facility] Last Admin: 09/02/21 22:42 Dose: 20 mg Documented by: Baclofen (Baclofen 10 Mg Tablet) 5 mg PO Q12H PRN PRN Reason: spasm Last Admin: 09/02/21 00:16 Dose: 5 mg Documented by: Buspirone HCl (Buspirone 10 Mg Tablet) 15 mg PO Q8H [facility] Last Admin: 08/24/21 04:44 Dose: 15 mg Documented by: Carbamazepine (Carbamazepine Xr (12 Hr) 200 Mg Tablet) 200 mg PO BID@0900,2100 [facility] Last Admin: 09/03/21 21:24 Dose: 200 mg Documented by: Dextrose (Dextrose 50% Syringe 50 Ml) 25 ml IVP ONCE PRN; Protocol PRN Reason: hypoglycemia protocol Dextrose (Dextrose 50% Syringe 50 Ml) 50 ml IVP PRN PRN; Protocol PRN Reason: hypoglycemia protocol Docusate Sodium (Docusate Sodium 100 Mg Capsule) 100 mg PO BID [facility] Last Admin: 09/03/21 18:12 Dose: 100 mg Documented by: Famotidine (Famotidine 20 Mg Tablet) 20 mg PO BID [facility] Last Admin: 09/03/21 18:12 Dose: 20 mg Documented by: Folic Acid (Folic Acid 1 Mg Tablet) 1 mg PO DAILY [facility] Last Admin: 09/03/21 08:19 Dose: 1 mg Documented by: Furosemide (Furosemide 10 Mg/Ml Sdv 10ml) 60 mg IVP Q12H [facility] Last Admin: 09/04/21 03:51 Dose: 60 mg Documented by: Glucagon (Glucagon 1 Mg/Ml Inj 1 Ml) 1 mg IM ONCE PRN; Protocol PRN Reason: Adult Acute Hypoglycemia Prot. Piperacillin Sod/Tazobactam (Sod 3.375 gm/ Sodium Chloride) 50 mls @ 12.5 mls/hr IV Q12H [facility]; Protocol Last Infusion: 09/04/21 07:00 Dose: Infused Documented by: Vancomycin HCl 750 mg/ Sodium (Chloride) 250 mls @ 250 mls/hr IV DIALYSIS [facility] Last Admin: 09/03/21 15:47 Dose: Not Given Documented by: Albumin Human (Albumin) 12.5 gm in 50 mls @ 60 mls/hr IV PRN PRN PRN Reason: Hypotension and/or symptomatic Dextrose (D5w) 500 mls @ 100 mls/hr IV ONCE PRN; Protocol PRN Reason: Adult Acute Hypoglycemia Prot Insulin Glargine (Insulin Glargine 100 Units/1 Ml) 5 unit SUBCUT BEDTIME [facility] Last Admin: 09/03/21 21:25 Dose: 5 unit Documented by: Insulin Human Lispro (Insulin Lispro 100 Unit/1 Ml) 0 unit SUBCUT TIDWM [facility]; Protocol Last Admin: 09/04/21 12:14 Dose: 4 unit Documented by: Metoprolol Tartrate (Metoprolol Tartrate 50 Mg Tablet) 50 mg PO BID@0900,2100 [facility] Last Admin: 09/03/21 21:25 Dose: 50 mg Documented by: Midodrine (Midodrine 5 Mg Tablet) 10 mg PO TID PRN PRN Reason: Systolic blood pressure less than 100 mmHg. Multivitamins (Y-Mvbfsgo-Jwdhjmo C Tablet) 1 each PO DAILY [facility] Last Admin: 09/03/21 08:19 Dose: 1 each Documented by: Naloxone HCl (Naloxone 0.4 Mg/Ml Sdv) 0.1 mg IVP Q2M PRN PRN Reason: OPIATERV Ondansetron HCl (Ondansetron 2 Mg/Ml Sdv 2 Ml) 4 mg IVP Q8H PRN PRN Reason: vomiting, or N/V if npo Polyethylene Glycol (Polyethylene Glycol 3350 Pkt 17 Gm) 17 gm PO DAILY [facility] Last Admin: 09/03/21 08:18 Dose: 17 gm Documented by: Vitals/I&O/Wt Last Vital Signs Temp 97.7 F 09/04/21 10:00 Pulse 85 09/04/21 10:00 Resp 15 09/04/21 10:00 BP 168/78 09/04/21 10:00 Pulse Ox 96 09/04/21 10:00 09/03/21 09/04/21 09/04/21 22:59 06:59 14:59 Intake Total 400 / 1050 0 / 1050 60 / 60 Output Total 700 / 700 250 / 950 0 / 0 Balance -300 / 350 -250 / 100 60 / 60 Physical Exam Narrative: vs noted - BP elevated swollen in bed, awake, alert heent- nc/at, eomi, anicteric neck no jvp. lungs- clear b/l heart -irreg irreg, +JAMIE abd soft, nt, nd, + bs, + edema ext + 1+ b/l leg edema neuro- lethargic, oriented x 2+ skin-sacral decubitus Urinary Catheter Management: Felder: Cath Placed During This Visit: yes Reason for Continuing Indwelling Catheter: Assist Healing of Perineal & Sacral Wounds- Incontinent Patients Urinary Catheter Date of Insertion: 08/21/21 Urinary Catheter Time of Insertion: 02:57 Data : 09/04/21 04:10 09/04/21 04:10 Micro: Microbiology 09/02/21 11:37 Urine Culture - Preliminary Urine Catheterized Gram Negative Rods 09/02/21 10:10 Catheter Tip Culture - Preliminary Other Source Gram Negative Rods 09/02/21 10:15 Catheter Tip Culture - Preliminary Central Line 09/02/21 12:15 Blood Culture - Preliminary Blood NEGATIVE TO DATE 09/02/21 10:30 Blood Culture - Preliminary Blood NEGATIVE TO DATE A&P Assessment and plan (1) Acute kidney injury superimposed on CKD: 71 yr old man w/ htn, dm, self cath due to neurogenic bladder, recurrent UTI 1. progressive renal failure- likely from DM, HTN. -normal size kidneys on renal us. no hydronephrosis -ua noted- but felder and he self cath - pth 209- repeat after vit d repleted - ALMITA + 1:80. anca neg -clinically improving w/ HD - nephrotic range proteinuria likely from DM await Anti-PLA2R -phos normal -plan Permacath in am -plan HD today- 3 hr, 3k, remove 1.5 -2 l 2. AMS, sepsis secondary to UTI/ cellulitis/ sacral decub, and uremia- improved 3.leukocytosis- broad spectrum abx -wbc remains 20 -s/p sacral decub debridement per Dr. Hernandes on 08/25/21 -monitor vanco levels. renal dose zosyn 4. anemia eval per medicine -Q if bleeding from sacral decub or GI -iv iron and CHELSEA -SPEP/ UPE neg -s/p prbc tx -hgb stable 5. DM control DM w/ stage 4 CKD 6. echo - EF 55-60% -fluid removal on hd a fib 7. uric acid -monitor 8. htn- monitor w/ fluid removal seen and examined w/ RN- telehealth visit time spent 30 min Status: Acute Plan see above Attestations Medical Necessity Statement*: hosea, htn, sacral decub- on abx Time Spent in Patient Care: 16 - 35 minutes (>than 50% of time spent in counselling and/or direct pt care on unit) . 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
--- NOTE | 2021-09-04 12:34 | P.PN_ITS ---
Subjective Subjective: Patient was seen this morning, status post dialysis catheter placement, has no complaints this morning, is wondering when he is can have dialysis Vitals/I&O/Wt Last Vital Signs Temp 97.7 F 09/04/21 10:00 Pulse 85 09/04/21 10:00 Resp 15 09/04/21 10:00 BP 168/78 09/04/21 10:00 Pulse Ox 96 09/04/21 10:00 09/03/21 09/04/21 09/04/21 22:59 06:59 14:59 Intake Total 400 / 1050 0 / 1050 65 / 65 Output Total 700 / 700 250 / 950 0 / 0 Balance -300 / 350 -250 / 100 65 / 65 Physical Exam Const: COMMON NORMALS: no acute distress and patient oriented x3 Resp: COMMON NORMALS: normal respiratory effort, No retractions, No use of accessory muscles and clear to auscultation bilaterally AUSCULTATION: clear to auscultation bilaterally Cardio: COMMON NORMALS: regular rate, regular rhythm, S1 normal heart sound present and S2 normal heart sound present RATE: regular rate RHYTHM: regular rhythm HEART SOUNDS: S1 normal heart sound present and S2 normal heart sound present GI: COMMON NORMALS: Normal to inspection, nondistended, normoactive bowel sounds present, Soft to palpation, non-tender and No hepatosplenomegaly present PALPATION: Yes Soft to palpation and Yes No hepatosplenomegaly present Extremity: COMMON NORMALS: no pedal edema Neuro: COMMON NORMALS: patient oriented x3 Psych: COMMON NORMALS: mental status grossly normal Urinary Catheter Management: Thrasher: Cath Placed During This Visit: yes Reason for Continuing Indwelling Catheter: Assist Healing of Perineal & Sacral Wounds- Incontinent Patients Urinary Catheter Date of Insertion: 08/21/21 Urinary Catheter Time of Insertion: 02:57 Data : 09/04/21 04:10 09/04/21 04:10 Micro: Microbiology 09/02/21 11:37 Urine Culture - Preliminary Urine Catheterized Gram Negative Rods 09/02/21 10:10 Catheter Tip Culture - Preliminary Other Source Gram Negative Rods 09/02/21 10:15 Catheter Tip Culture - Preliminary Central Line 09/02/21 12:15 Blood Culture - Preliminary Blood NEGATIVE TO DATE 09/02/21 10:30 Blood Culture - Preliminary Blood NEGATIVE TO DATE A&P Assessment and plan (1) Acute kidney injury superimposed on CKD: Status: Acute (2) Oliguria: Status: Acute (3) Uremia: Status: Acute (4) Hyperphosphatemia: Status: Acute (5) Stage II pressure ulcer: Status: Acute (6) Anasarca: Status: Acute (7) Cellulitis: Status: Acute (8) Pleural effusion: Status: Acute (9) CHF (congestive heart failure): Status: Acute Plan Persistent leukocytosis -Afebrile - 20.8, primarily neutrophilia -Etiology unclear -Pro-Steven 1.21 -CRP 116 -ESR 18 -Upon examination, his sacral decubitus ulcer looks clean and dry, wet-to-dry dressing, slight tunneling -Remove Thrasher catheter, culture tip, replace -Remove right dialysis catheter, culture tip -Repeat blood cultures, urine cultures, sputum cultures -CT scan abdomen pelvis shows -1. Possible sacral ulcer somewhat visualized without focal fluid collection or bony abnormality. 2. Coronary artery atherosclerotic calcifications. 3. Small pericardial effusion measuring up to 8 mm. 4. Moderate bilateral pleural effusions. 5. Bibasilar airspace infiltrates. 6. Cholelithiasis. 7. Gallbladder is somewhat prominent, ultrasound could further evaluate this. 8. Thrasher catheter in the urinary bladder. 9. Scattered prominent subcentimeter short axis mediastinal lymph nodes, nonspecific. -Continue antibiotics Altered mental status: Most likely secondary to uremia, polypharmacy in setting of YEYO on CKD, sepsis secondary to infection -Mentation back to baseline alert oriented x3 -CTA of the head within normal limits Renal function worsening. Multiple medication including BuSpar, Zanaflex and at a higher dose. Mentation has improved with dialysis start renal dialysis diet, consult speech therapy Hold venlafaxine and BuSpar for now.? Change dose of gabapentin to 100 mg 3 times daily. Continue carbamazepine at 200 mg twice daily. YEYO on CKD: Nephrotic range disease. Appreciate nephrology recommendations. Given oliguria, uremia, altered mental status patient would need dialysis.? Nephrology agreeable.? Confirmed with patient's /DPOA. Temporary dialysis catheter p removed End-stage nephrotic syndrome, with diabetic glomerulopathy Continue dialysis Thursday Agreeable for dialysis, agreeable for dialysis catheter placement Permacath placed today, will get dialysis Currently on Lasix High anion gap metabolic acidosis: Treatment as above. Medical reconciliation done for nephrotoxic drugs. Sepsis secondary to UTI and cellulitis: Stage II decubitus ulcer: Post debridement on 08/25 Patient has extensive sacral decubitus ulcer status post debridement, that requires aggressive wound care, repositioning and will require long-term placement Appreciate surgical recommendations, dressing changes wet-to-dry Wound care as per surgical team. Urine culture consistent with E. coli and Morganella.? Both sensitive to Zosyn. Continue with vancomycin and Zosyn for now.? Blood culture from 08/23 so far n egative. Decrease pain medication with increasing frequency given altered mental status. Keep mean artery pressure 65 Right lower extremity, grade 2 ulceration of the right plantar forefoot and post erior heel, status post bedside debridement Dr. Cazares, daily dressing changes, flow studies ordered, offloading with foam heel boots Congestive heart failure: Diastolic type.? On 4 L, no crackles on exam continue to monitor Echocardiogram done shows an EF 55 to 60% with indeterminate diastolic function. Atrial fibrillation: Currently rate controlled. Continue with metoprolol at 25 mg twice daily. Chronically not on anticoagulation because of risk of falls. Type 2 diabetes mellitus: Hypoglycemia. Hold insulin sliding scale at low-dose protocol every 6 hours for now.? Start on D5W as above. HbA1c 6.9. History of CVA, age indeterminate infarct in the right emjia radiata Acute anemia, secondary renal failure, surgery, hemoglobin 8.0, status post 1 unit PRBC, continue to monitor hemoglobin Full code. Renal dialysis status Heparin for DVT prophylaxis. Famotidine for PUD prophylaxis. Plan for day:?Continue with antibiotics. Monitor kidney function, monitor urine output, follow cultures, dialysis catheter placed today, will get dialysis Discharge plan: Most likely patient would need to be discharged to SNF for aggressive wound care.? Will need to follow-up further regarding possibility of dialysis as an outpatient. Attestations Medical Necessity Statement*: Patient requires hospitalization for end-stage renal disease requiring dialysis persistent leukocytosis, sacral decubitus ulcer Coding Level of Care Code Acute Civil Engineering Teacher for [facility] Fwd Diagnoses Acute kidney injury superimposed on CKD N17.9; N18.9 Oliguria R34 Uremia N19 Hyperphosphatemia E83.39 Stage II pressure ulcer L89.92 Anasarca R60.1 Cellulitis L03.90 Pleural effusion J90 CHF (congestive heart failure) I50.9
[2021-09-04] MEDS: BuSPIRONE 10 mg Tablet 15 MG PO ×2 (13:19→21:29)
--- NOTE | 2021-09-04 13:35 | ANE.PACU2 ---
Inpatient post-anesthesia follow up: Airway intact: Yes Vital signs: Temperature 97.7 F Pulse Rate 85 Respiratory Rate 15 Blood Pressure 153/72 Pulse Oximetry 96 Oxygen Delivery Me thod [Rate & Room Air Delivery Changed T o] Oxygen Delivery Me thod [ Nasal Cannula Current Rate & Del shazia] Oxygen Delivery Me thod Nasal Cannula Oxygen Flow Rate [ Current Rate 3 & Delivery] Oxygen Flow Rate 3 Fraction of Inspir ed Oxygen Hydration adequate: Yes Nausea and vomiting: No Pain level: 1 Mental status: Baseline
--- NOTE | 2021-09-04 17:01 | XRR_ITS ---
PROCEDURE INFORMATION: Exam: XR Chest Exam date and time: 09/04/2021 5:05 PM Age: 71 years old Clinical indication: Dyspnea and other: Decreased breath sounds; Additional info: Rapid response, decreased breath sounds TECHNIQUE: Imaging protocol: XR of the chest. Views: 1 view. COMPARISON: CR XR chest 1V portable [id number] 08/27/2021 11:36 AM FINDINGS: Tubes, catheters and devices: Tunneled right IJ dialysis catheter with tip over the right atrium. Lungs: Ground-glass opacities in the central lungs. Pleural spaces: Large left and trace right pleural effusions. No pneumothorax. Heart/Mediastinum: Unremarkable. No cardiomegaly. Bones/joints: Unremarkable. Intraperitoneal space: Clips in the left upper abdomen. XR/XR chest 1V portable [id number] IMPRESSION: 1. Pulmonary edema. 2. Large left and trace right pleural effusions
--- NOTE | 2021-09-04 17:06 | PC.NURSE ---
PATIENT WAS IN DIALYSIS WHEN A RAPID RESPONSE WAS CALLED TO DIALYSIS. PATIENT WAS TALKING TO THE NURSE AND SAID I DON'T FEEL WELL PATIENT THEN BECAME UNRESPONSIVE. VITAL SIGNS WERE WITHIN NORMAL LIMITS WELL BLOOD SUGAR. A STAT CHEST XRAY AND BLOOD GASES WERE ORDERED. PATIENT BEGAN TO SPEAKING AND JOKING WITH STAFF. DIALYSIS NURSE WILL CONTINUE TO MONITOR PATIENT IN DIALYSIS.
[2021-09-04 17:08] LABS: ABG PCO2 36.2 mmHg (35-45); ABG PH Result 7.54 (7.35-7.45); Arterial Blood Gas Hematocrit 25.8 % (42-52); Base Excess ABG 7.7 mmol/L (-2.0-2.0); Blood Gas Allen Test Pos; Blood Gas Operator Identificat AMH; Blood Gas Sample Site Radial, left; Blood Gas Sample Type Arterial; HCO3 ABG 30.8 mmol/L (22-26); HGB O2 Sat 97.2 % (95-100); Ionized Calcium Level - ABG 1.1 mmol/L (1.1-1.4); Methemoglobin 0.1 % (0.4-1.5); Oxygen Device NC; Oxygen Saturation ABG 98.3; PO2 ABG 80.4 mmHg (80.0-100.0); Potassium Level - ABG 2.9 mmol/L (3.5-5.0); Total Hemoglobin 8.4 g/dL (14-18)
[2021-09-04 17:42] LABS: Glucose Point of Care 147 mg/dL (70-110)
[2021-09-04] MEDS: docusate sodium 100 mg Capsule PO (19:10)
[2021-09-04] MEDS: famotidine 20 mg Tablet PO (19:10)
[2021-09-04] MEDS: vancomycin 750 MG in sodium chloride 0.9% 250 ML 250 MG IV (19:11)
[2021-09-04 20:20] LABS: Glucose Point of Care 184 mg/dL (70-110)
[2021-09-04 20:20] LABS: Glucose Point of Care 227 mg/dL (70-110)
[2021-09-04] MEDS: atorvastatin 40 mg Tablet 20 MG PO (21:28)
[2021-09-04] MEDS: carBAMazepine XR (12 HR) 200 mg Tablet PO (21:29)
[2021-09-04] MEDS: metoprolol tartrate 50 mg Tablet PO (21:32)
[2021-09-04] MEDS: insulin glargine 100 units/1 mL 5 UNIT SUBCUT (21:56)
[2021-09-04 22:54] LABS: Blood Urea Nitrogen 15 mg/dL (8-23); Carbon Dioxide 27 mmol/L (22-29); Chloride 97 mmol/L (98-107); Glucose 247 mg/dL (65-115); Osmolality Calculated 291 mOsm/kg (285-295); Sodium 136 mmol/L (136-145)
[2021-09-04 23:03] LABS: Anion Gap 15.8 (5-19); Potassium 3.8 mmol/L (3.5-5.1)
[2021-09-05] VITALS: BP 151/75; PULSE 69; RESP 16; TEMP 36.8; O2SAT 97
--- NOTE | 2021-09-05 01:30 | PC.NURSE ---
Pt had bowel movement and soiled wound dressing. Nurse changed dressing on patients sacrum. Old dressing removed, wound cleansed with NS and patted dry, wet to dry 4x4 applied, covered with ABD pads, and secured with mepilex dressing. Pressure dressing on pt's right chest was also changed. pt tolerated well.
[2021-09-05 05:01] LABS: Basophils # 0.1 10^3/uL (0.0-0.1); Basophils % 0.7 %; Eosinophils # 0.6 10^3/uL (0.0-0.8); Hematocrit 26.2 % (42.0-52.0); Hemoglobin 7.9 g/dL (11.7-16.6); Lymphocytes % 9.9 %; Mean Corpuscular HGB Conc 30.2 g/dL (30.0-36.0); Mean Corpuscular Hemoglobin 29.5 pg (28.0-34.0); Mean Corpuscular Volume 97.8 fl (80-94); Mean Platelet Volume 11.5 fL (7.4-10.4); Monocytes # 2.6 10^3/uL (0.2-0.9); Monocytes % 13.2 %; Neutrophils # 14.37 10^3/uL (1.8-7.7); Neutrophils % 72.6 %; Nucleated Red Blood Cells # 0.6 /100WBC; Nucleated Red Blood Cells % 3.2 %; Platelet Count 446 10^3/cmm (130-400); Red Blood Count 2.68 10^6/uL (4.1-5.3); Red Cell Distribution Width 21.3 % (12.1-15.1); White Blood Count 19.8 10^3/uL (4.0-10.0)
[2021-09-05 05:04] VITALS: BP 123/72; PULSE 83; RESP 18; TEMP 36.9; O2SAT 95
[2021-09-05 05:18] LABS: Alanine Aminotransferase 10 U/L (0-41); Albumin Level 2.2 g/dL (3.5-5.2); Alkaline Phosphatase 181 IU/L (40-130); Anion Gap 15.2 (5-19); Aspartate Amino Transferase 55 U/L (0-40); Blood Urea Nitrogen 17 mg/dL (8-23); Calcium 7.7 mg/dL (8.5-10.5); Carbon Dioxide 24 mmol/L (22-29); Chloride 98 mmol/L (98-107); Globulin 2.9 g/dL (1.3-4.6); Glucose 247 mg/dL (65-115); Magnesium 2.1 mg/dL (1.7-2.3); Osmolality Calculated 288 mOsm/kg (285-295); Phosphorus 2.7 mg/dL (2.5-4.5); Potassium 3.2 mmol/L (3.5-5.1); Sodium 134 mmol/L (136-145); Total Bilirubin 0.6 mg/dL (0.15-1.2); Total Protein 5.1 g/dL (6.6-8.7)
[2021-09-05 05:20] LABS: Vancomycin Random 18.3 ug/mL (20.0-40.0)
[2021-09-05] MEDS: BuSPIRONE 10 mg Tablet 15 MG PO ×2 (05:25→13:28)
[2021-09-05] MEDS: piperacillin-tazobactam 3.375 GM in sodium chloride 0.9% (plus) 50 ML IV (05:31)
--- NOTE | 2021-09-05 06:05 | PC.NURSE ---
This nurse scored Patients NIHSS a 9, however patient's condition did not decline on this shift, pt at a baseline has limited mobility in legs and arms due to his history with MS. PT has stated he has not walked and has been bed bound for several years.
[2021-09-05 06:06] LABS: SARS Covid-2 Antigen Negative (Negative)
[2021-09-05 06:48] LABS: Glucose Point of Care 259 mg/dL (70-110)
[2021-09-05 08:00] VITALS: BP 160/75; PULSE 91; RESP 18; TEMP 36.6; O2SAT 96
--- NOTE | 2021-09-05 08:00 | P.PN_ITS ---
Subjective Subjective: back to baseline. knows name, hospital. he wants to go home. he has back pain. Yesterday during HD he became hypotensive w. fluid removal and BM- he was unresponsive. he improved w/ a fluid bolue. no complaints at present. Medications: Reviewed: Yes Medication Review Details: Current Medications Acetaminophen (Acetaminophen 325 Mg Tablet) 650 mg PO Q6H PRN PRN Reason: Mild/Mod Pain Or Temp >/= 101 Last Admin: 09/03/21 21:25 Dose: 650 mg Documented by: Aspirin (Aspirin 81 Mg Ec Tablet) 81 mg PO DAILY [facility] Last Admin: 09/03/21 08:19 Dose: 81 mg Documented by: Atorvastatin Calcium (Atorvastatin 40 Mg Tablet) 20 mg PO BEDTIME [facility] Last Admin: 09/04/21 21:28 Dose: 20 mg Documented by: Baclofen (Baclofen 10 Mg Tablet) 5 mg PO Q12H PRN PRN Reason: spasm Last Admin: 09/02/21 00:16 Dose: 5 mg Documented by: Buspirone HCl (Buspirone 10 Mg Tablet) 15 mg PO Q8H [facility] Last Admin: 09/05/21 05:25 Dose: 15 mg Documented by: Carbamazepine (Carbamazepine Xr (12 Hr) 200 Mg Tablet) 200 mg PO BID@0900,2100 [facility] Last Admin: 09/04/21 21:29 Dose: 200 mg Documented by: Dextrose (Dextrose 50% Syringe 50 Ml) 25 ml IVP ONCE PRN; Protocol PRN Reason: hypoglycemia protocol Dextrose (Dextrose 50% Syringe 50 Ml) 50 ml IVP PRN PRN; Protocol PRN Reason: hypoglycemia protocol Docusate Sodium (Docusate Sodium 100 Mg Capsule) 100 mg PO BID [facility] Last Admin: 09/04/21 19:10 Dose: 100 mg Documented by: Famotidine (Famotidine 20 Mg Tablet) 20 mg PO BID [facility] Last Admin: 09/04/21 19:10 Dose: 20 mg Documented by: Folic Acid (Folic Acid 1 Mg Tablet) 1 mg PO DAILY [facility] Last Admin: 09/03/21 08:19 Dose: 1 mg Documented by: Glucagon (Glucagon 1 Mg/Ml Inj 1 Ml) 1 mg IM ONCE PRN; Protocol PRN Reason: Adult Acute Hypoglycemia Prot. Piperacillin Sod/Tazobactam (Sod 3.375 gm/ Sodium Chloride) 50 mls @ 12.5 mls/hr IV Q12H [facility]; Protocol Last Admin: 09/05/21 05:31 Dose: 12.5 mls/hr Documented by: Albumin Human (Albumin) 12.5 gm in 50 mls @ 60 mls/hr IV PRN PRN PRN Reason: Hypotension and/or symptomatic Dextrose (D5w) 500 mls @ 100 mls/hr IV ONCE PRN; Protocol PRN Reason: Adult Acute Hypoglycemia Prot Vancomycin HCl 750 mg/ Sodium (Chloride) 250 mls @ 250 mls/hr IV DIALYSIS [facility] Last Infusion: 09/05/21 07:40 Dose: Infused Documented by: Insulin Glargine (Insulin Glargine 100 Units/1 Ml) 5 unit SUBCUT BEDTIME [facility] Last Admin: 09/04/21 21:56 Dose: 5 unit Documented by: Insulin Human Lispro (Insulin Lispro 100 Unit/1 Ml) 0 unit SUBCUT TIDWM [facility]; Protocol Last Admin: 09/04/21 19:13 Dose: Not Given Documented by: Metoprolol Tartrate (Metoprolol Tartrate 50 Mg Tablet) 50 mg PO BID@0900,2100 [facility] Last Admin: 09/04/21 21:32 Dose: 50 mg Documented by: Midodrine (Midodrine 5 Mg Tablet) 10 mg PO TID PRN PRN Reason: Systolic blood pressure less than 100 mmHg. Multivitamins (E-Ekpvxqt-Otdjvfs C Tablet) 1 each PO DAILY [facility] Last Admin: 09/03/21 08:19 Dose: 1 each Documented by: Naloxone HCl (Naloxone 0.4 Mg/Ml Sdv) 0.1 mg IVP Q2M PRN PRN Reason: OPIATERV Ondansetron HCl (Ondansetron 2 Mg/Ml Sdv 2 Ml) 4 mg IVP Q8H PRN PRN Reason: vomiting, or N/V if npo Polyethylene Glycol (Polyethylene Glycol 3350 Pkt 17 Gm) 17 gm PO DAILY [facility] Last Admin: 09/03/21 08:18 Dose: 17 gm Documented by: Vitals/I&O/Wt Last Vital Signs Temp 98.4 F 09/05/21 05:04 Pulse 83 09/05/21 05:04 Resp 18 09/05/21 05:04 BP 123/72 09/05/21 05:04 Pulse Ox 95 09/05/21 05:04 09/04/21 09/05/21 09/05/21 22:59 06:59 14:59 Intake Total 50 / 115 250 / 250 Output Total 1000 / 1000 Balance -950 / -885 250 / 250 Physical Exam Narrative: vs noted and stable comfortable in bed, awake, alert heent- nc/at, eomi, anicteric neck no jvp. lungs- clear b/l heart -irreg irreg, +JAMIE abd soft, nt, nd, + bs, + edema ext -trace b/l leg edema neuro- lethargic, oriented x 2+weak and bed bound skin-sacral decubitus Urinary Catheter Management: Felder: Cath Placed During This Visit: yes Reason for Continuing Indwelling Catheter: Assist Healing of Perineal & Sacral Wounds- Incontinent Patients Urinary Catheter Date of Insertion: 08/21/21 Urinary Catheter Time of Insertion: 02:57 Data : 09/05/21 04:24 09/05/21 04:24 Micro: Microbiology 09/02/21 10:15 Catheter Tip Culture - Preliminary Central Line Staphylococcus epidermidis 09/02/21 10:10 Catheter Tip Culture - Final Other Source Serratia marcescens Escherichia coli 09/02/21 11:37 Urine Culture - Preliminary Urine Catheterized Gram Negative Rods A&P Assessment and plan (1) Acute kidney injury superimposed on CKD: 71 yr old man w/ htn, dm, self cath due to neurogenic bladder, recurrent UTI 1. progressive renal failure- likely from DM, HTN. -normal size kidneys on renal us. no hydronephrosis -ua noted- but felder and he self cath - pth 209- repeat after vit d repleted - ALMITA + 1:80. anca neg -clinically improving w/ HD - nephrotic range proteinuria likely from DM await Anti-PLA2R -phos normal -s/p Permacath and HD yesterday -hold HD today and tomorow and assess 2. AMS, sepsis secondary to UTI/ cellulitis/ sacral decub, and uremia- improved 3.leukocytosis- broad spectrum abx -wbc remains 20 -s/p sacral decub debridement per Dr. Hernandes on 08/25/21 -monitor vanco levels. renal dose zosyn 4. anemia eval per medicine -Q if bleeding from sacral decub or GI -iv iron and CHELSEA -SPEP/ UPE neg -s/p prbc tx -hgb falling 5. DM control DM w/ stage 4 CKD 6. echo - EF 55-60% a fib- on metoprolol and HR controleed 7. uric acid -monitor 8. htn- BP deopped w/ fluid removal seen and examined w/ RN- telehealth visit time spent 30 min Status: Acute Plan see above Attestations Medical Necessity Statement*: hosea on ckd, a fib, persistent leukocytosis Time Spent in Patient Care: 16 - 35 minutes (>than 50% of time spent in counselling and/or direct pt care on unit) . Coding Level of Care Code Acute Child Welfare Consultant for [facility] Fwd Diagnoses Acute kidney injury superimposed on CKD N17.9; N18.9
[2021-09-05] MEDS: aspirin 81 mg EC Tablet PO (08:31)
[2021-09-05] MEDS: b-complex-vitamin c Tablet 1 EACH PO (08:31)
[2021-09-05] MEDS: carBAMazepine XR (12 HR) 200 mg Tablet PO (08:31)
[2021-09-05] MEDS: potassium chloride ER 20 mEq Tablet 40 MEQ PO (08:31)
[2021-09-05] MEDS: famotidine 20 mg Tablet PO (08:32)
[2021-09-05] MEDS: docusate sodium 100 mg Capsule PO (08:32)
[2021-09-05] MEDS: insulin lispro 100 unit/1 mL SUBCUT ×2 (08:32→13:32)
[2021-09-05] MEDS: metoprolol tartrate 50 mg Tablet PO (08:32)
[2021-09-05] MEDS: folic acid 1 mg Tablet PO (08:32)
[2021-09-05 12:00] VITALS: BP 129/69; PULSE 90; RESP 18; TEMP 36.4; O2SAT 99
--- NOTE | 2021-09-05 12:47 | P.DS_ITS ---
Discharge Providers Date of Admission: 08/21/21 05:00 Date of Discharge: September 05, 2021 Attending Provider at Admission: James Mackenzie MD Attending Provider at Discharge: James Mackenzie MD Primary Care Provider: HAYDER Silverio Diagnoses at Discharge Discharge Diagnosis (1) Acute kidney injury superimposed on CKD: Status: Acute Reason for Visit Reason for Visit: abd pain, constipation Hospital Course Hospital Course London Quach is a 71 year old male with a past medical history of multiple sclerosis, is bedbound, does ambulate with a wheelchair, but he tells me he does not ambulate a lot, history of recurrent UTIs, recent history of femur right fracture, history of hypertension, diastolic CHF with bilateral extreme edema, chronic kidney disease stage III, insulin-dependent type 2 diabetes mellitus, who presents to [facility] due to complaints of lower back pressure and pain with increased shortness of breath. Patient had a complicated hospital course, outlined as below: -Patient was admitted to [facility] for sacral decubitus ulcer stage II, with surrounding cellulitis, requiring debridement 08/25/2021, managed with wet-to-dry dressings, broad-spectrum antibiotic therapy. Will be discharged on broad-spectrum metabolic therapy, aggressive wound care, wet-to-dry dressing, frequent repositioning's. Follow-up with wound care as outpatient For his right lower extremity diabetic ulcer, status post debridement by Dr. Cazares, daily dressing changes with Hydrofera Blue offloading with foam heel boots, follow with Dr. Cazares as outpatient Patient developed YEYO on CKD during his hospitalization requiring temporary dialysis catheter then tunneled dialysis catheter. Will be discharged on dialysis Thursday. Patient developed sepsis secondary to UTI, cellulitis with acute encephalopathy, resolved at time of discharge Patient has chronic weakness, chronic bilateral extremity weakness secondary to MS, at baseline, discharged with physical therapy Patient continued to have persistent leukocytosis during this hospitalization, afebrile, neutrophilia, pro-Steven and CRP 116 mildly elevated, ESR mildly elevated, repeat CT scan abdomen and pelvis no acute findings, repeat blood cultures were negative, his Thrasher catheter was removed and cultures showed Serratia and E. coli. His temporary dialysis catheter was removed and culture showed staph epidermidis and staph hominis. He was managed with broad-spectrum antibiotic therapy throughout his hospitalization including vancomycin. Nonetheless his temporary dialysis catheter was removed. Blood cultures have been negative for 48 hours, new dialysis catheter has been placed. Although his blood cultures have been unremarkable, no growth so far. Given his is persistat neutrophilia and elevated white blood cell count, and evidence of catheter tip infection. I have discharged him on 6 weeks of IV vancomycin 750 mg IV Thursday, after dialysis starting starting on 09/02/2021 (day infected temporary dialysis catheter was removed) Recheck vancomycin trough on Thursday. Last vancomycin trough was 15.2. For his UTI, discharged on ciprofloxacin for 7 remaining days. For his physical deconditioning, from sacral decubitus ulcer, underlying MS, end-stage renal disease on dialysis, protein calorie malnutrition, discharged to long-term for half-way care Physical Exam Const: COMMON NORMALS: no acute distress and patient oriented x3 Resp: COMMON NORMALS: normal respiratory effort, No retractions, No use of accessory muscles and clear to auscultation bilaterally AUSCULTATION: clear to auscultation bilaterally Cardio: COMMON NORMALS: regular rate, regular rhythm, S1 normal heart sound present and S2 normal heart sound present RATE: regular rate RHYTHM: regular rhythm HEART SOUNDS: S1 normal heart sound present and S2 normal heart sound present GI: COMMON NORMALS: Normal to inspection, nondistended, normoactive bowel sounds present, Soft to palpation, non-tender and No hepatosplenomegaly present PALPATION: Yes Soft to palpation and Yes No hepatosplenomegaly present Extremity: COMMON NORMALS: no pedal edema Neuro: COMMON NORMALS: patient oriented x3 Psych: COMMON NORMALS: mental status grossly normal Urinary Catheter Management: Thrasher: Cath Placed During This Visit: yes Reason for Continuing Indwelling Catheter: Assist Healing of Perineal & Sacral Wounds- Incontinent Patients Urinary Catheter Date of Insertion: 08/21/21 Urinary Catheter Time of Insertion: 02:57 Discharge Data Studies Completed and Pending Completed Studies During Hospitalization Category Date Time Status CT abdomen pelvis wo con 24316 Stat Cat Scan 09/03/21 12:[address] abdomen pelvis wo con [id number] Urgent Cat Scan 08/21/21 02:[address] head wo con* 30205 Routine Cat Scan 08/29/21 12:[address] head wo con* [id number] Stat Cat Scan 08/24/21 09:01 Completed CXRP [XR chest 1V portable 83866] Routine Exams 08/27/21 11:30 Completed CXRP [XR chest 1V portable 77436] Stat Exams 09/04/21 17:01 Completed XR KUB portable [id number] NOW Exams 08/25/21 10:58 Completed XR chest 1V portable [id number] Routine Exams 08/26/21 10:06 Completed XR chest 1V portable 64001 Stat Exams 08/24/21 04:05 Completed XR chest 1V portable 31842 Urgent Exams 08/21/21 02:23 Completed XR foot RT min 3V* [id number] Routine Exams 08/30/21 20:28 [place] [address] Routine Ultrasound 08/30/21 20:29 [place] [id number] Urgent Ultrasound 08/21/21 05:43 Completed CV. echo complete* 25060 Routine Ultrasound 08/21/21 05:37 Completed US renal BI* 70039 Urgent Ultrasound 08/21/21 05:58 Completed Pending at discharge Category Date Time Status Blood Culture Stat Lab 09/02/21 12:15 Results Clostridioides Difficile PCR Routine Lab 09/02/21 14:05 Ordered Complete Blood Count w/Auto AM LABS Lab 09/06/21 04:00 Ordered Comprehensive Metabolic Panel AM LABS Lab 09/06/21 04:00 Ordered Enteric Bacterial Panel by PCR Routine Lab 09/02/21 14:05 Ordered Enteric Parasite Panel by PCR Routine Lab 09/02/21 14:05 Ordered Immunochemical Fecal OCB Routine Lab 09/02/21 14:05 Ordered Lactoferrin Routine Lab 09/02/21 14:05 Ordered Magnesium AM LABS Lab 09/06/21 04:00 Ordered Phosphorus AM LABS Lab 09/06/21 04:00 Ordered Sputum Culture and Gram Stain Stat Lab 09/02/21 08:51 Uncollected Urine Culture Stat Lab 09/02/21 11:37 Results Vancomycin Random AM LABS Lab 09/06/21 04:00 Ordered Radiology Impressions Renal Ultrasound 08/21/21 05:58 IMPRESSION: 1. Thrasher catheter. Bladder is decompressed. 2. No hydronephrosis in either kidney. 3. Partially visualized RIGHT pleural effusion. KUB X-Ray 08/25/21 10:58 IMPRESSION: Fmez-hn-cxrxchnx constipation without bowel dilation to indicate obstruction. Head CT 08/29/21 12:27 IMPRESSION: 1. No evidence of intracranial hemorrhage or mass effect. 2. Mild small vessel changes. Moderate parenchymal volume loss. 3. Low-attenuation change compatible with chronic ischemia in the RIGHT mejia radiata unchanged since August 24, 2021. This is also unchanged since . 4. No interval changes since August 24, 2021 Foot X-Ray 08/30/21 20:28 IMPRESSION: There are no acute osseous findings. Abdomen/Pelvis CT 09/03/21 12:54 IMPRESSION: 1. Possible sacral ulcer somewhat visualized without focal fluid collection or bony abnormality. 2. Coronary artery atherosclerotic calcifications. 3. Small pericardial effusion measuring up to 8 mm. 4. Moderate bilateral pleural effusions. 5. Bibasilar airspace infiltrates. 6. Cholelithiasis. 7. Gallbladder is somewhat prominent, ultrasound could further evaluate this. 8. Thrasher catheter in the urinary bladder. 9. Scattered prominent subcentimeter short axis mediastinal lymph nodes, nonspecific. C-Arm Fluoroscopy 09/04/21 08:05 IMPRESSION: Placement of dual-lumen dialysis catheter. Proper position. Chest X-Ray 09/04/21 17:01 IMPRESSION: 1. Pulmonary edema. 2. Large left and trace right pleural effusions Laboratory Results WBC 19.8 10^3/uL (4.0-10.0) H 09/05/21 04:24 Corrected WBC Cancelled 08/27/21 04:09 RBC 2.68 10^6/uL (4.1-5.3) L 09/05/21 04:24 Hgb 7.9 g/dL (11.7-16.6) L 09/05/21 04:24 Hct 26.2 % (42.0-52.0) L 09/05/21 04:24 MCV 97.8 fl (80-94) H 09/05/21 04:24 MCH 29.5 pg (28.0-34.0) 09/05/21 04:24 MCHC 30.2 g/dL (30.0-36.0) D 09/05/21 04:24 RDW 21.3 % (12.1-15.1) H 09/05/21 04:24 Plt Count 446 10^3/cmm (130-400) H 09/05/21 04:24 MPV 11.5 fL (7.4-10.4) H 09/05/21 04:24 Gran % Cancelled 08/27/21 04:09 Neut % (Auto) 72.6 % 09/05/21 04:24 Lymph % (Auto) 9.9 % 09/05/21 04:24 [place] % (Auto) 13.2 % 09/05/21 04:24 Eos % (Auto) 3.0 % 09/05/21 04:24 Baso % (Auto) 0.7 % 09/05/21 04:24 Neut # (Auto) 14.37 10^3/uL (1.8-7.7) H 09/05/21 04:24 Lymph # (Auto) 2.0 10^3/uL (0.8-4.8) 09/05/21 04:24 [place] # (Auto) 2.6 10^3/uL (0.2-0.9) H 09/05/21 04:24 Eos # (Auto) 0.6 10^3/uL (0.0-0.8) 09/05/21 04:24 Baso # (Auto) 0.1 10^3/uL (0.0-0.1) 09/05/21 04:24 Absolute Gran (auto) Cancelled 08/27/21 04:09 Nucleated RBC % (auto) 3.2 % 09/05/21 04:24 Nucleated RBCs # 0.6 /100WBC 09/05/21 04:24 ESR 18 mm/hr (0-10) H 09/02/21 02:24 Specimen Type Arterial 09/04/21 16:55 Sample Site Radial, left 09/04/21 16:55 ABG pH 7.54 (7.35-7.45) H 09/04/21 16:55 ABG pCO2 36.2 mmHg (35-45) 09/04/21 16:55 ABG pO2 80.4 mmHg (80.0-100.0) 09/04/21 16:55 ABG HCO3 30.8 mmol/L (22-26) H 09/04/21 16:55 ABG O2 Saturation 98.3 09/04/21 16:55 ABG Base Excess 7.7 mmol/L (-2.0-2.0) H 09/04/21 16:55 Demetrius Test Pos 09/04/21 16:55 A-a O2 Gradient 13.0 mmHg (5-10) H 09/04/21 16:55 Hematocrit 25.8 % (42-52) L 09/04/21 16:55 Hgb O2 Saturation 97.2 % (95-100) 09/04/21 16:55 Carboxyhemoglobin 1.0 %THgb (0.4-20.1) 09/04/21 16:55 Methemoglobin 0.1 % (0.4-1.5) L 09/04/21 16:55 Total Hemoglobin 8.4 g/dL (14-18) L 09/04/21 16:55 Sodium 138.0 mmol/L (131-143) 09/04/21 16:55 Potassium 2.9 mmol/L (3.5-5.0) L 09/04/21 16:55 Glucose 135.0 mg/dL (70-115) H 09/04/21 16:55 Ionized Calcium 1.1 mmol/L (1.1-1.4) 09/04/21 16:55 O2 Delivery Device Nc 09/04/21 16:55 O2 Liters/Min 3.0 % 09/04/21 16:55 FiO2 32.0 % 09/04/21 16:55 Collections Attorney ID Amh 09/04/21 16:55 Sodium 134 mmol/L (136-145) L 09/05/21 04:24 Potassium 3.2 mmol/L (3.5-5.1) L 09/05/21 04:24 Chloride 98 mmol/L (98-107) 09/05/21 04:24 Carbon Dioxide 24 mmol/L (22-29) 09/05/21 04:24 Anion Gap 15.2 (5-19) 09/05/21 04:24 BUN 17 mg/dL (8-23) 09/05/21 04:24 Creatinine 2.9 mg/dL (0.7-1.2) H 09/05/21 04:24 GFR Calculation Not Reportable 09/05/21 04:24 Glucose 247 mg/dL (65-115) H 09/05/21 04:24 POC Glucose 259 mg/dL (70-110) H 09/05/21 06:42 Estimat Average Glucose 151 08/21/21 14:22 Hemoglobin A1c 6.9 % (4.0-6.0) H 08/21/21 14:22 Calculated Osmolality 288 mOsm/kg (285-295) 09/05/21 04:24 Lactate 0.7 mmol/L (0.5-2.2) 08/28/21 05:36 Uric Acid 3.9 mg/dL (3.4-7.0) 09/03/21 04:11 Calcium 7.7 mg/dL (8.5-10.5) L 09/05/21 04:24 Phosphorus 2.7 mg/dL (2.5-4.5) 09/05/21 04:24 Magnesium 2.1 mg/dL (1.7-2.3) 09/05/21 04:24 Iron 12 ug/dL (59-158) L 08/22/21 02:48 TIBC 78 mcg/dl 08/22/21 02:48 % Saturation 15.3 % (20-50) L 08/22/21 02:48 Unsat Iron Binding 66 ug/dL (112-347) L 08/22/21 02:48 Ferritin 173 ng/mL (30-400) 08/22/21 02:48 Total Bilirubin 0.6 mg/dL (0.15-1.2) 09/05/21 04:24 AST 55 U/L (0-40) H 09/05/21 04:24 ALT 10 U/L (0-41) 09/05/21 04:24 Alkaline Phosphatase 181 IU/L (40-130) H 09/05/21 04:24 Ammonia 41 umol/L (16-60) 08/28/21 05:36 Creatine Kinase 58 U/L (39-308) 08/29/21 08:55 C-Reactive Protein 116.0 mg/L (0.0-4.9) H 09/02/21 10:30 NT-Pro-B Natriuret Pep 45831 pg/mL (0-125) H 08/29/21 11:55 Total Protein 5.1 g/dL (6.6-8.7) L 09/05/21 04:24 Albumin 2.2 g/dL (3.5-5.2) L 09/05/21 04:24 Globulin 2.9 g/dL (1.3-4.6) 09/05/21 04:24 Cqdzx-3-Cyulazazx 5 % 08/22/21 15:30 Lxcwh-8-Qsbtxjseh 11 % 08/22/21 15:30 Beta Globulins 11 % 08/22/21 15:30 Gamma Globulins 17 % 08/22/21 15:30 Triglycerides 110 mg/dL (0-150) 08/22/21 02:48 Cholesterol 92 mg/dL (0-200) 08/22/21 02:48 LDL Cholesterol, Calc 41 mg/dL (50-129) L 08/22/21 02:48 HDL Cholesterol 29 mg/dL (60-100) L 08/22/21 02:48 LDL/HDL Ratio 1.41 RATIO (0.00-3.22) 08/22/21 02:48 Cholesterol/HDL Ratio 3.17 mg/dL (1.0-5.00) 08/22/21 02:48 25-OH Vitamin D Total 10 ng/mL (30-100) L 08/22/21 02:48 1,25 Dihydroxy Vit D2 <8 pg/mL 08/21/21 14:22 1,25 Dihydroxy Vit D3 <8 pg/mL 08/21/21 14:22 Beta-Hydroxybutyrate 0.23 mmol/L 08/21/21 14:22 Procalcitonin 1.21 ng/mL (0-0.5) H 09/02/21 10:30 TSH 2.67 uIU/mL (0.27-4.20) 08/21/21 02:26 PTH Intact 209.4 pg/mL (15-65) H 08/22/21 02:48 Calcium (PTH Intact) 8.0 mg/dL (8.5-10.5) L 08/22/21 02:48 Urine Color Yellow (Yellow) 08/21/21 02:54 Urine Appearance Cloudy (CLEAR) 08/21/21 02:54 Urine pH 7 (5-7) 08/21/21 02:54 Ur Specific Elim 1.010 (1.005-1.030) 08/21/21 02:54 Urine Protein 3+ (Negative) H 08/21/21 02:54 Urine Glucose (UA) Norm (Normal) 08/21/21 02:54 Urine Ketones Negative (Negative) 08/21/21 02:54 Urine Blood 2+ (Negative) H 08/21/21 02:54 Urine Nitrate Negative (Negative) 08/21/21 02:54 Urine Bilirubin Neg (Negative) 08/21/21 02:54 Urine Urobilinogen Norm mg/dL (Negative) 08/21/21 02:54 Ur Leukocyte Esterase 2+ (Negative) H 08/21/21 02:54 Urine RBC 0-4 /hpf (0-2) H 08/21/21 02:54 Urine WBC >100 /hpf (0-5) H 08/21/21 02:54 Ur Squamous Epith Cells 0-4 /hpf (0-5) H 08/21/21 02:54 Amorphous Sediment Not Reportable 08/21/21 02:54 Urine Bacteria 4+ /hpf (NONE) H 08/21/21 02:54 Ur Random Creatinine 21 mg/dL (20-320) 08/21/21 11:25 Ur Random Albumin 55 % 08/21/21 11:25 U Random Total Protein 167 mg/dL 08/21/21 11:25 U Random Total Protein 202 mg/dL (5-25) H 08/21/21 11:25 Urine Creatinine 19 mg/dL (39-259) L 08/21/21 11:25 Ur Creatinine 24 Hour 0.48 g/24 h (0.50-2.15) L 08/22/21 15:30 Ur Total Protein 24 Hr 3988 mg/24 h (<150) H 08/22/21 15:30 Protein/Creatinin Ratio 8395 mg/g creat (< OR = 114) H 08/22/21 15:30 Protein/Creat Ratio 24h 8.395 (< OR = 0.114) H 08/22/21 15:30 Urine Albumin 58 % 08/22/21 15:30 U Random h-7-Akfeeiop % 8 % 08/21/21 11:25 U Random q-8-Rrxomppp % 9 % 08/21/21 11:25 U Random Beta Globulin 15 % 08/21/21 11:25 U Random Gamma Glob 13 % 08/21/21 11:25 U Free [place] Light Ch 114.78 mg/L (<=32.90) H 08/21/21 11:25 U Abnormal Prot Band 1 Not Reportable 08/22/21 15:30 U Abnormal Prot Band 2 Not Reportable 08/22/21 15:30 U Abnormal Prot Band 3 Not Reportable 08/22/21 15:30 Urine PEP Interpret See note 08/22/21 15:30 Vancomycin Trough 12.0 ug/mL (10-15) 08/26/21 10:28 Random Vancomycin 18.3 ug/mL (20.0-40.0) L 09/05/21 04:24 Carbamazepine 2.0 ug/mL (4.0-12.0) L 08/21/21 02:26 ALMITA Screen Positive (NEGATIVE) A 08/21/21 14:22 ALMITA Titer 1:80 titer H 08/21/21 14:22 ALMITA Pattern Nuclear, homogeneous A 08/21/21 14:22 ANCA Screen Negative (NEGATIVE) 08/21/21 14:22 ANCA Titer Not Reportable 08/21/21 14:22 Anti-ds DNA IgG Ab <1 IU/mL 08/21/21 14:22 Free [place] Light Chains 126.4 mg/L (3.3-19.4) H 08/21/21 14:22 Free [place] Light Chain 120.1 mg/L (5.7-26.3) H 08/21/21 14:22 Free [place]/Lambda Ratio 1.05 (0.26-1.65) 08/21/21 14:22 Coronavirus 229E (PCR) Not detected (NOT DETECT) 08/22/21 08:30 Hep Bs Antigen Non-reactive (Nonreactive) 08/21/21 14:22 Hep Bs Antibody 3.5 (11.5-1000) L 08/21/21 14:22 Hepatitis C Antibody Non-reactive (Nonreactive) 08/21/21 14:22 SARS-CoV-2 (PCR) Not detected (NOT DETECT) 08/22/21 08:30 SARS-CoV-2 Ag (Rapid) Negative (Negative) 09/05/21 05:35 Anti-Streptolysin O Ab <50 IU/mL (<200) 08/21/21 14:22 Blood Type O Positive 08/28/21 09:15 Rho(D) Type Positive 08/28/21 09:15 Antibody Screen Negative 08/28/21 09:15 Crossmatch See Detail 08/28/21 09:15 Vitals Last Vital Signs Temp 97.6 F 09/05/21 12:00 Pulse 90 09/05/21 12:00 Resp 18 09/05/21 12:00 BP 129/69 09/05/21 12:00 Pulse Ox 99 09/05/21 12:00 Discharge Plan Discharge Patient Disposition: Home Condition: Stable Prescriptions: New famotidine 20 mg Tablet 20 mg PO BID 30 Days Qty: 60 0RF buspirone 10 mg Tablet 15 mg PO Q8H 30 Days Qty: 135 0RF carbamazepine 200 mg Tablet Extended Release 12 Hr 200 mg PO BID@0900,2100 30 Days Qty: 60 0RF folic acid 1 mg Tablet 1 mg PO DAILY 30 Days Qty: 30 0RF baclofen 10 mg Tablet 5 mg PO Q12H PRN (Reason: spasm) 30 Days Qty: 60 0RF aspirin 81 mg Tablet,Delayed Release (Dr/Ec) 81 mg PO DAILY 30 Days Qty: 30 0RF atorvastatin 40 mg Tablet 20 mg PO BEDTIME 30 Days Qty: 30 0RF B-complex with vitamin C Tablet 1 ea PO DAILY 30 Days Qty: 30 0RF Lantus U-100 Insulin 100 unit/mL Solution 5 unit SUBCUT BEDTIME 30 Days Qty: 10 0RF docusate sodium 100 mg Capsule 100 mg PO BID 30 Days Qty: 60 0RF polyethylene glycol 3350 17 gram Powder In Packet 17 g PO DAILY PRN (Reason: constipation) 30 Days Qty: 30 0RF metoprolol tartrate 50 mg Tablet 50 mg PO BID@0900,2100 30 Days Qty: 60 0RF ciprofloxacin HCl [Cipro] 500 mg tablet 500 mg PO DAILY 7 Days Qty: 14 0RF vancomycin 750 mg recon soln 750 mg IV .mwf 42 Days Qty: 10 0RF Rx Instructions: MWF after dialysis Continued (DME) jen nashion See Rx Instructions .Route .MEDSUPPLY Qty: 1 0RF Rx Instructions: As directed for use in power mobility chair 99 months npi#[id number] (DME) pen needle, diabetic [BD Ultra-Fine Nadia Pen Needle] 32 gauge x 5/32 needle See Rx Instructions .ROUTE .MEDSUPPLY Qty: 200 5RF Rx Instructions: 4 times daily (DME) Wheelchair repair See Rx Instructions .Route .MEDSUPPLY Qty: 1 0RF Rx Instructions: Wheelchair evaluation and repair (DME) power mobility chair See Rx Instructions .Route .MEDSUPPLY Qty: 1 0RF Rx Instructions: As directed power mobility chair karon NPI#[id number] 99 months (DME) Coloplast Self cath 10 portuguese See Rx Instructions .Route .MEDSUPPLY Qty: 2 12RF Rx Instructions: As directed Changed Novolog Flexpen U-100 Insulin 100 unit/mL (3 mL) insulin pen See Rx Instructions .ROUTE .COMPLEX Qty: 0 0RF Rx Instructions: inject subcut, sliding scale tid, after meals, based on mild sliding scale Discontinued aspirin 81 mg tablet,delayed release (DR/EC) 81 mg PO DAILY@0900 Qty: 30 2RF buspirone 15 mg tablet 15 mg PO TID@,, Qty: 90 2RF Tegretol XR 200 mg tablet extended release 12 hr 200 mg PO BID@899,2099 Qty: 60 2RF famotidine 20 mg tablet 20 mg PO BID@899,2099 Qty: 60 2RF gabapentin 600 mg tablet 600 mg PO TID@,, Qty: 90 2RF hydralazine 25 mg tablet 25 mg PO TID Qty: 90 2RF Toprol XL 50 mg tablet extended release 24 hr 50 mg PO DAILY@0900 Qty: 30 2RF Effexor XR 75 mg capsule,extended release 24hr 225 mg PO DAILY@0900 Qty: 30 2RF Tresiba FlexTouch U-200 200 unit/mL (3 mL) insulin pen 76 unit SUBCUT DAILY 0RF ergocalciferol (vitamin D2) 1,250 mcg (50,000 unit) capsule 1,250 mcg PO Q7D 0RF Rx Instructions: on thu Discharge Orders: Discharge Order (Routine); Ordered 09/05/21 Ordered By: James Mackenzie Referrals: Reji Cazares DPM [Physician] - 1 week Isael Moreno, [employer] [facility] [Primary Care Provider] - Luis Anand MD [Physician] - 1 week ([facility]) [facility], [Staff Physician] - 1-3 days Discharge Diet: Cardiac Discharge Activity: Resume usual activity Patient Instructions: Opioid Safety Activity Restrictions/Additional Instructions: -Discharged on IV vancomycin Thursday, 750 mg, after dialysis last vancomycin trough 15.2, recheck vancomycin trough on Thursday -Then recheck vancomycin trough weekly neck starting on Thursday at dialysis -Continue vancomycin for a total of 6 weeks, will last day for vancomycin will be October 07 -Check weekly CBCs and CMP's -Lantus 5 units at bedtime -NovoLog sliding scale -Wound care, wet-to-dry dressing, aggressive wound dressing changes, repositioning -PT OT -Right lower extremity wound, continue daily dressing changes, with hydrovera blue, follow with Dr. Cazares as outpatient -Follow-up with primary care provider 1 week -Follow-up with Dr. Cazares as outpatient -Follow-up with wound care as outpatient -Follow-up with Dr. Anand as outpatient Discharge Attestations Time Spent in Discharge Care*: less than 30 min Quality Metrics Clinical Quality Measures [ No reported AMI, CVA or VTE this stay] Coding Level of Care Code Acute Chg FW DC note Exam Detailed Diagnoses Acute kidney injury superimposed on CKD N17.9; N18.9
[2021-09-05] MEDS: ciprofloxacin 500 mg Tablet PO (13:28)
--- NOTE | 2021-09-05 13:56 | PC.SOCIAL ---
IMM update IMM updated with patient and . Verbalized an understanding. Copy Pg 2 provided. Initialled, dated, timed, and placed in chart.
[2021-09-05 16:00] VITALS: BP 122/68; PULSE 88; RESP 18; TEMP 36.6; O2SAT 96
[2021-09-05 17:48] LABS: Glucose Point of Care 228 mg/dL (70-110)
--- NOTE | 2021-09-05 18:35 | PC.HD ---
Appx 30 minutes prior to tx end pt said he felt funny . He became somnolent and dusky, O2 sat 91%. Rapid Response called, treatment terminated, and NS 500ml given per Dr. Orourke's order. O2 sat remained 91% but responded well to bolus and termination of treatment. Pt at baseline mentation and health.
== END 2021-09-05 17:00 | disposition skilled nursing facility (03) | DRG 570 ==
LOC: ER 05:27 → MEDSURG 06:35 → ICU 08-25 10:01 → MEDSURG 08-27 17:41
PROVIDERS: Internal Medicine; Internal Medicine Nephrology; Student in an Organized Health Care Education/Training Program; Surgery; Admitting Provider Family Medicine; Emergency Provider Emergency Medicine; PCP Nurse Practitioner; Visit Provider Family Medicine
PROC: 0JB70ZZ Excision of Back Subcutaneous Tissue and Fascia, Open Approach (ICD-10-PCS; principal; 2021-08-25 10:55)
PROC: 0JB70ZZ Excision of Back Subcutaneous Tissue and Fascia, Open Approach (ICD-10-PCS; 2021-08-25 10:55)
PROC: 0JH63XZ Insertion of Tunneled Vascular Access Device into Chest Subcutaneous Tissue and Fascia, Percutaneous Approach (ICD-10-PCS; principal; 2021-09-04 08:30)
DX: L89.152 Pressure ulcer of sacral region, stage 2 (principal); A41.9 Sepsis, unspecified organism; I50.33 Acute on chronic diastolic (congestive) heart failure; L03.317 Cellulitis of buttock; I13.0 Hypertensive heart and chronic kidney disease with heart failure and stage 1 through stage 4 chronic kidney disease, or unspecified chronic kidney disease; N17.9 Acute kidney failure, unspecified; E46 Unspecified protein-calorie malnutrition; E87.2 Acidosis; N39.0 Urinary tract infection, site not specified; G35 Multiple sclerosis; Z74.01 Bed confinement status; Z87.891 Personal history of nicotine dependence; N18.30 Chronic kidney disease, stage 3 unspecified; E11.22 Type 2 diabetes mellitus with diabetic chronic kidney disease; E11.65 Type 2 diabetes mellitus with hyperglycemia; E11.42 Type 2 diabetes mellitus with diabetic polyneuropathy; E78.2 Mixed hyperlipidemia; F41.8 Other specified anxiety disorders; Z87.440 Personal history of urinary (tract) infections; B96.20 Unspecified Escherichia coli [E. coli] as the cause of diseases classified elsewhere; B95.8 Unspecified staphylococcus as the cause of diseases classified elsewhere; Z79.4 Long term (current) use of insulin; Z68.36 Body mass index [BMI] 36.0-36.9, adult; Z86.73 Personal history of transient ischemic attack (TIA), and cerebral infarction without residual deficits; I95.9 Hypotension, unspecified; D63.1 Anemia in chronic kidney disease; K59.01 Slow transit constipation; Z90.81 Acquired absence of spleen; D75.838 Other thrombocytosis; L89.629 Pressure ulcer of left heel, unspecified stage; L89.619 Pressure ulcer of right heel, unspecified stage
CPT/HCPCS: 36415; 36416; 36430; 36600; 51702; 70450; 71045; 73630; 74018; 74176; 76000; 76770; 77001; 80048; 80051; 80053; 80061; 80156; 80202; 81001; 82010; 82140; 82306; 82310; 82330; 82550; 82570; 82652; 82728; 82803; 82805; 82962; 83036; 83516; 83540; 83550; 83605; 83735; 83880; 83883; 83970; 84100; 84145; 84156; 84166; 84443; 84550; 85014; 85018; 85025; 85651; 86038; 86060; 86140; 86225; 86335; 86706; 86803; 86850; 86900; 86920; 87040; 87070; 87075; 87077; 87086; 87150; 87186; 87205; 87340; 87426; 87635; 92507; 92523; 92526; 92610; 93005; 93306; 93923; 93970; 94664; 96365; 96367; 96372; 96375; 97161; 97530; 99285; C1750; C1752; J0690; J1644; J1756; J1815 ×2; J1940; J2270; J2370; J2543; J2704; J3010; J3370; J3490; J7030; J7040; J7050; J7799; P9016; P9047; Q3014; Q4081